=== PATIENT | male | born 1940 | race Caucasian/White ===

== ENCOUNTER → 2017-02-28 | Outpatient (CLI) | payer MEDICARE, MEDICAID ==
[~2017-02-28] MED LIST: ASPIR 8181 MG PO; ATORVASTATIN CA40 MG PO; AUGMENTIN 875-1 EACH PO; CARVEDILOL 1212.5 MG PO; CARVEDILOL6.25 M1 PO; DICLOFENAC SODI75 M4 PO; DULOXETINE30 M1 PO; DULOXETINE60 MG PO; INSULIN SYRING1 EA28 MC; JANUVIA100 MG PO; LEVEMIR FLEX100 U/ML SC; LEVEMIR100 U/ML SC; METFORMIN500 MG PO; MUPIROCIN 2% O1 INC1 TP; NEURONTIN800 MG PO; PERCOCET 325 MG1 TA4 PO; PLAVIX 75MG TAB75 MG PO; ROBAXIN500 M1 PO; ROPINIROLE HYDRO1 MG PO; TRAMADOL 50MG T1 PAK PO; TRAMADOL50 M1 PO; XARELTO10 MG PO; XARELTO20 MG PO
--- NOTE | 2017-02-28 15:57 | RADIOLOGY REPORT PS360 ---
ANKLE-LT-3 VIEWS HISTORY: Follow-up fracture LEFT ANKLE FX ORDERING PHYSICIAN: JULIO RUBIO MD PATIENT AGE: 77 years COMPARISON: 02/19/2017 FINDINGS: EXAM is obtained through a cast. The oblique fracture of the distal fibula is once again noted in the oblique fracture of the base of the medial malleolus also with again noted. These fracture lines are somewhat less distinct and may be related to early healing. No significant callus formation. There does remain in good alignment. There is minimal distraction of the distal medial malleolus fracture fragment as before] minimal lateral displacement of the distal fibular fracture fragment as before. There may be a nondisplaced fracture of the posterior distal tibia as well. IMPRESSION: Healing fractures of the distal fibula and medial malleolus as described above
== END ==
LOC: RAD 15:25
DX: M25.572 Pain in left ankle and joints of left foot (principal)

== ENCOUNTER → 2017-03-07 | Outpatient (CLI) | payer MEDICARE, MEDICAID ==
--- NOTE | 2017-03-07 14:39 | RADIOLOGY REPORT PS360 ---
ANKLE-LT-3 VIEWS HISTORY: Follow-up left ankle fracture F/U FX LT ANKLE ORDERING PHYSICIAN: JULIO RUBIO MD PATIENT AGE: 77 years COMPARISON: None FINDINGS: Study is obtained through cast. There is an oblique fracture of the distal fibula. The fracture line is less distinct. There is minimal lateral displacement of the distal fracture fragment. Healing oblique fracture is present at the base of the medial malleolus with the fracture line somewhat less distinct. There remains good alignment of the fracture fragments. IMPRESSION: Healing distal fibular and medial malleolus fractures
== END ==
LOC: RAD 13:58
DX: S82.842A Displaced bimalleolar fracture of left lower leg, initial encounter for closed fracture (principal)

== ENCOUNTER 2017-04-02 12:29 | Emergency (ER) | payer MEDICARE, MEDICAID ==
[~2017-04-02] VITALS: Ht 188 cm; Wt 90.7 kg
--- NOTE | 2017-04-02 12:46 | Emergency Room Report ---
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 N Clinical Suspician of Infection? N Mental Status: 1 - Regular (Normal Baseline) Sepsis Risk:Low Sepsis Risk Have you (or family members/close friends) recently traveled outside the [place]? N If Yes, where/when: Have you had exposure to infectious disease within the past month? N TB? Other? Specify: Patient with hx DM, hx PVD, so cast removed by orthopedic surgeon due to some "rubbing" of the epidermis from the cast. He subsequently removed the boot, and reinjured his ankle six days ago. C/O localized pain and won't wear any splint whatsoever. Already on ABX. Baseline peripheral neuropathy. Baseline unable to move toes. ALLERGIES Coded Allergies: Iodinated Contrast Media - Oral and (Iodinated Contrast Media - IV Dye) (Mild, 11/03/16) hydrocodone (11/03/16) Home Medications Active Scripts OXYCODONE HCL/ACETAMINOPHEN (Percocet 7.5-325 MG Tablet) 1-2 TAB PO Q6HP PRN MODERATE TO SEVERE PAIN #40 TAB Prov: 02/21/17 Reported Medications Rivaroxaban (Xarelto) 20 MG PO DAILY Carvedilol (Carvedilol 12.5MG) 12.5 MG PO QHS #30 TAB Carvedilol 9.375 MG PO DAILY DULOXETINE HCL (Duloxetine) 60 MG PO BID Insulin Detemir (Levemir Flextouch) 40 UNITS SC QAM Insulin Detemir (Levemir Flextouch) 35 UNITS SC QPM Diclofenac Sodium (Diclofenac Sodium Dr) 75 MG PO BID Aspirin (Aspirin EC 81MG Tab) 81 MG PO DAILY Atorvastatin Calcium 40 MG PO #30 ROPINIROLE HCL (Ropinirole 1MG) 1 MG PO QHS History Medical History General CAD? Yes Angina: No IA: No Hypertension? No Hyperlipidemia? No CHF? No DVT? Yes PE? No COPD? Yes Asthma? No Anemia? No GERD? No Gastric ulcers? No GI Bleed? No Hernia? No Thyroid Problems? No Hypothyroidism? No CVA? No Seizures? No Diabetes? Yes Insulin Dependent: No Insulin Pump: No Home FSBS? Yes Renal Insuffiency? No End Stage Renal Disease? No UTI? No Stones? No GB Disease: No Nephritic Syndrome? No Asplenia? No Hepatitis? No Sickle Cell Disease? No Arthritis? Yes Migraines? No Cataracts? Yes Glaucoma? No MRSA? No HIV? No TB? No Anxiety? No Depression? No Cancer? No More? 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 Hx DT/Tetanus Unknown Flu Refused Pneumonia Refuses Surgical Hx Previous Surgery?Y BACK SURGERY ESOPHAGUS SURGERY R LEG Family History Family Hx Diabetes No CAD No Hypertension No Hyperlipidemia Yes Cancer No TB No Social History Smoking Hx Smoker: Current Every Day Smoker Tobacco: Yes Type Cigarettes Packs/day 1 1/2 - 2 Packs Alcohol Alcohol: Yes Review of Systems All Other Systems Reviewed and Negative Musculoskeletal see HPI Skin see HPI Physical Exam Vital Signs Vital Signs Date Time Temp Pulse Resp B/P Pulse O2 O2 Flow FiO2 Ox Delivery Rate 04/02 1329 98.5 64 16 154/74 98 04/02 1232 98.5 71 16 98 General Appearance normal appearance, WD/WN, no apparent distress Eye Exam - bilateral eye normal exam, bilateral eye PERRL Neck supple, full range of motion Respiratory Status Yes: trachea midline. No: respiratory distress. Cardiovascular normal peripheral pulses Extremities Epidermal breakdown, medial malleolus on left w/o drainage or streaks, with sterile dressing placed by RN; localized point tenderness medial malleolus with pain limiting ROM to ankle, baseline peripheral neuropathy, baseline unable to move toes. Toes warm and well perfused. Neurologic alert, normal exam (peripheral neuropathy) Skin intact (see above: no streaks) Medical Decision Making LABS/Meds/Orders Pt receiving controlled substance in ED? No Results/Orders Orders Procedure Date/time Status FOOT-LT-3 VIEWS 04/02 1238 Active ANKLE-LT-3 VIEWS 04/02 1238 Active XRAY/CT/US XRAY/CT/US XR interpretation by reviewed by me Xray Results tib/fib fx noted previously with distal avulsion of tibia noted to be more prominent. Progress ED Progress Notes Date 04/02/17 Time 1355 Comment Patient agreed to wear posterior splint. Posterior splint placed by MD with n/v intact s/p placement to L tib-fib. Departure Departure Time of Disposition 1355 Disposition DC Home or Self Care(routine) Clinical Impression Primary Impression: Tibia/fibula fracture Qualifiers: Encounter type: subsequent encounter Fracture type: closed Laterality: left Fracture healing: with delayed healing Qualified Code: S82.202G - Unspecified fracture of shaft of left tibia, subsequent encounter for closed fracture with delayed healing Condition STABLE Referrals Theodore Dowd MD Patient Instructions Shinbone Fracture Additional Instructions use walker so NO weight bearing; keep splint in place; continue antibiotics; change dressing daily and watch for infection; call Dr. Dowd's office for follow up appointment in 24 hours; recommend low dose Ibuprofen or Tylenol. Discharge Counseling Counseled pt/family regarding diagnosis, test results, medications/RX, home care, follow up needs ED Critical Care Critical Care No at 1354
--- OUTSIDE RECORDS SUMMARY | 2017-04-02 12:51 | External Medical Summary Rpt ---
Author Author , Organization [employer] Address Unknown Phone Unavailable Care Team Providers Care Imagery Analyst Name Role Phone [facility], Unavailable Unavailable [facility], Unavailable Unavailable [facility] Unavailable Unavailable [facility], [facility] GABRIEL, KEKE, GABRIEL, Unavailable Unavailable KEKE ARAIZA MD, PSC, Unavailable Unavailable HIMANSHU ARAIZA MD, PSC [facility], Unavailable Unavailable [facility] EVELYN NEGRETE, ZACARIAS Austin, Unavailable Unavailable ZACARIAS RIVAS MD, Unavailable Unavailable MPushpa.P.S.CRuth, TIM PAYTON M.D.P.S.CEZIO DONAHUE, Unavailable Unavailable EZIO D[facility]ONT [facility] Unavailable Unavailable [facility] CRYSTAL ROJAS Unavailable Unavailable DEVON JOSE ROBERTO, Unavailable Unavailable DEVON JOSE ROBERTO GUPTA, GUPTA Unavailable Unavailable GUPTA ALL, GUPTA ALL Unavailable Unavailable KVNG MENDES, Unavailable Unavailable KVNG MENDES BRADLEY Unavailable Unavailable MAXIM ALDANA BRANN, Unavailable Unavailable MAXIM BRIGGS CAR, BRIGGS Unavailable Unavailable CAR BUX ANJ, BUX ANJ Unavailable Unavailable [facility] Unavailable Unavailable RE[facility]ILITATION, [facility] Unavailable Unavailable SERVICES [facility] Unavailable Unavailable SERVICES [facility] ACEVES JOHN, Unavailable Unavailable ACEVES JOHN ACEVES JOHN, Unavailable Unavailable ACEVES JOHN [facility], Unavailable Unavailable [facility]-, Unavailable Unavailable [facility] Unavailable Unavailable SPECIALIST, [facility] DIRECTOR OF MEDICAL REVIEW [facility], Unavailable Unavailable [facility] CHESTNUT, CHESTNUT Unavailable Unavailable [facility] Unavailable Unavailable [facility] Unavailable Unavailable [facility] NEEMA, [facility] KEKE MOODY CLARK, Unavailable Unavailable KEKE Ko [facility], Unavailable Unavailable [facility] Unavailable Unavailable [facility] Unavailable Unavailable AND [facility], [facility] Unavailable Unavailable CLINIC, PLL, [facility] KRISTIAN II THO, KRISTIAN II Unavailable Unavailable THO DELOMAS MAR, DELOMAS Unavailable Unavailable MAR AVENDAÑO KAYLAH, AVENDAÑO KAYLAH Unavailable Unavailable DUFF MARIZA, DUFF MARIZA Unavailable Unavailable JIMENEZ, G T, JIMENEZ, G Unavailable Unavailable T ENDEAN, ENDEAN Unavailable Unavailable ENDEAN MIRIAN, ENDEAN Unavailable Unavailable MIRIAN ROSA FOSTER Unavailable Unavailable VALENTÍN MEJIA, ROBERTO GILBERT, Unavailable Unavailable CHAY Lloyd [facility], Unavailable Unavailable [facility] SUKI JR OMEGA, SUKI Unavailable Unavailable JR OMEGA JR TAVERAS FULLER, Unavailable Unavailable JR CONCEPCION JOHN, CONCEPCION Unavailable Unavailable JOHN [facility] Unavailable Unavailable [facility], [facility] Unavailable Unavailable [facility]ICAL, [facility] DAVID, DAVID Unavailable Unavailable DAVID RHO, DAVID Unavailable Unavailable RHO HENRY TAPIA, Unavailable Unavailable HENRY TAPIA HARPER Unavailable Unavailable GRAHAM STEVEN, Unavailable Unavailable GRAHAM STEVEN [facility] Unavailable Unavailable INC, [facility] EVANGELIST WARD, Unavailable Unavailable EVANGELIST WARD JR, HAROLD R, Unavailable Unavailable MARNIE ROCHA JR [facility], Unavailable Unavailable [facility] LIANG BISHOP, Unavailable Unavailable LIANG BISHOP OMEGA, DARLIN OMEGA Unavailable Unavailable [facility], Unavailable [facility]available [facility] JOSE II PENNY, JOSE Unavailable Unavailable II PENNY KEELY, HEAVENLY, KEELY, Unavailable Unavailable HEAVENLY ELIA TAU, ELIA Unavailable Unavailable TAU ELIA, TAUFIK, Unavailable Unavailable ELIA, TAUFIK [facility] Unavailable Unavailable PHARMACY, [facility] Unavailable Unavailable PHARMACY, [facility] Unavailable Unavailable IM[facility]ING [facility], [facility] KOSTELIC CESILIA, Unavailable Unavailable [facility] BARBARA [facility], [facility] Unavailable Unavailable BARBARA, C S, BARBARA, C S Unavailable [facility]available [facility] Un[facility] Unavailable Unavailable [facility] Unavailable Unavailable HOLDINGS, [facility], Unavailable Unavailable [facility] BAIRD JAZMINE, BAIRD JAZMINE Unavailable Unavailable [facility] Un[facility] Un[facility] Unavailable Unavailable LABORATORY, [facility] ANNE MARIE SOILA, ANNE MARIE Unavailable Unavailable SOILA TANNER ARAIZA MD, TANNER Unavailable Unavailable JOSE G SANDERSON MD Unavailable Unavailable [facility], MICHI SANDERSON MD [facility] Unavailable Unavailable SERVICES, [facility] Unavailable Unavailable AMBULANCE, [facility] MARYBETH, Unavailable Unavailable ÁLVAREZ MARYBETH [facility] Unavailable Unavailable [facility], [facility], Unavailable Unavailable LLC, [facility] KWASI HA, Unavailable Unavailable KWASI HA MILLER Unavailable Unavailable KYL [facility], Unavailable Unavailable [facility] Unavailable Unavailable AMBULANCE SERVICE, [facility] DENNY, BALDWIN Unavailable Unavailable CORNELIO EDW, CORNELIO Unavailable Unavailable [facility] Unavailable Unavailable [facility], [facility] Unavailable Unavailable AMBULANCE SE, [facility] Unavailable Unavailable AMBULANCE SE, [facility] RINALDI KAYKAY, RINALDI KAYKAY Unavailable Unavailable JOSE JOSE ROBERTO, JOSE JOSE ROBERTO Unavailable Unavailable [facility], Unavailable Unavailable PLL, [facility], [facility], Unavailable Unavailable [facility]available Unavailable [facility] PICKLESIMER JR, LEATHA Unavailable Unavailable L, PICKROWENAIMER JR, LEATHA L MURRAY, LIANG A, Unavailable Unavailable MURRAY, LIANG A BRANDY, JOSPEH F, Unavailable Unavailable BRANDY, JOSPEH F [facility] Unavailable Unavailable [facility] RUBIO, RUBIO Unavailable Unavailable REKHRAJ HALINA, REKHRAJ Unavailable Unavailable HALINA PARUL, JARED, PARUL, Unavailable Unavailable JARED CARRERA, Unavailable Unavailable ALLIE PIÑA C, WANG C Unavailable Unavailable Arnold PIÑA N, WANG C Unavailable Unavailable N SHAHIDA MARTINEZ Unavailable Unavailable ANT SHAHIDA, MARIANELA G, Unavailable Unavailable MARIANELA PINEDO [facility], [facility]S Unavailable Unavailable SURGICAL [facility], ROSS Unavailable Unavailable SURGICAL [facility] Unavailable Unavailable [facility], [facility] ELI MILLY, ELI Unavailable Unavailable MILLY SCALF GUTIERREZ, SCALF GUTIERREZ Unavailable Unavailable SCHLEENBAKAPIL RAN, Unavailable Unavailable SCHLEENBAGlenn BAKER, Unavailable Unavailable Glenn GARCIA [facility] Unavailable Unavailable [facility], [facility] Unavailable Unavailable EMERGENCY SERVI, [facility], [facility]available Unavailable [facility] Unavailable Unavailable RADIOLOG, [facility]OLOG [facility] Unavailable Unavailable [facility] SIXTO COUGHLIN, Unavailable Unavailable SIXTO COUGHLIN [facility] Unavailable Unavailable SOLUTIONS IN, [facility] STILES NAN, STILES Unavailable Unavailable NAN VILLARREAL ALICIA, VILLARREAL ALICIA Unavailable Unavailable [facility], Unavailable Unavailable WORAWUTE, SUPAONGPRAPA, WORAWUTE FREDO, FREDO Unavailable Unavailable FREDO JEANNIE, FREDO JEANNIE Unavailable Unavailable MALA RAY, MALA Unavailable Unavailable RAY GUADALUPE MOL, GUADALUPE MOL Unavailable Unavailable [facility] Unavailable Unavailable HOSPIT[facility], [facility], Unavailable Unavailable [facility] Unavailable Unavailable [employer] [employer] [facility] Unavailable Unavailable [facility] [facility] JACK DAWKINS, JACK Unavailable Unavailable JR MARIZA YOUNG, SHARAD, Unavailable Unavailable SHARAD YOUNG PHILLIP L, Unavailable Unavailable LILY SMART CHARLES IV ALL, Unavailable Unavailable CHARLES IV ALL ADRIAN GRE, ADRIAN Unavailable Unavailable GRE RODNEY GIN, RONDEY Unavailable Unavailable GIN BISHOP JAZMINE, Unavailable Unavailable BISHOP JAZMINE MARSHAL JOHN, MARSHAL Unavailable Unavailable JOHN JOSE MAT, JOSE MAT Unavailable Unavailable Purpose Continuity of Care Document - 10-17-2007 through 2016 Problems Code Diagnosis DOS Provider Status E1151 TYPE 2 DM 02-28-2017 [facility] W/DIAB PHYSICIANS PERIPH GROUP ANGIOPATHY W/O GANGRENE I739 PERIPHERAL 02-28-2017 [facility] VASCULAR PHYSICIANS DISEASE GROUP UNSPECIFIED M1991 PRIMARY 02-28-2017 [facility] OSTEOARTHRI SURGICAL TIS UNSPECIFIED SITE O31369 PAIN IN 02-28-2017 [facility] LEFT ANKLE [facility] [id number] DSPL OBL FX 02-28-2017 [facility] MEDICAL FIBULA IMAGING ASS SUBSQT CLOS FX RTN [id number] DSPL FX MED 02-28-2017 [facility] MALLEOLUS MEDICAL LT TIBIA IMAGING ASS SUBS CLOS FX RTN [id number] DISPL 02-28-2017 [facility] BIMALLEOLAR PHYSICIANS FX LT LOW GROUP LEG INIT CLOSED FX Z720 TOBACCO USE 02-28-2017 [facility] PHYSICIANS GROUP M7989 OTHER 02-19-2017 [facility] SPECIFIED MEDICAL SOFT TISSUE IMAGING ASS DISORDERS [id number] DISPL 02-19-2017 ANDI BIMALLEOL MEDICAL FX LT LOW IMAGING ASS LEG SUBS CLOS RTN HEAL M17823 ENCOUNTER 02-19-2017 [facility] FOR OTHER MEDICAL PREPROCEDUR IMAGING ASS AL EXAMINATION T80335 OTHER 02-19-2017 [place] SPECIFIED MEDICAL POSTPROCEDU IMAGING ASS RAL STATES X57109 UNS 02-09-2017 [facility] [place] RESERVATION ART HOSPITALS EXTREM UNS EXTREMITY I771 STRICTURE 02-09-2017 [facility] OF ARTERY SERV FOUNDATION K229 DISEASE OF 02-09-2017 [facility] UNSPECIFIED HOSPITALS R590 LOCALIZED 02-09-2017 [facility] LYMPH NODES HOSPITALS X16024P STENOSIS 02-09-2017 [facility] DEVC IMPL HOSPITALS & GRAFT INIT ENC E1165 TYPE 2 02-05-2017 [facility] VINAY MELLITUS HOLDINGS WITH HYPERGLYCEM IA E1140 TYPE 2 DM 01-29-2017 [facility] WITH SURGICAL DIABETIC NEUROPATHY UNSPECIFIED E782 MIXED 01-24-2017 [facility] HYPERLIPIDE HEALTH SHARON SOLUTIONS IN N35664 VARICOS VNS 01-24-2017 [facility] RT LW EXT HEALTH ULCER OTH SOLUTIONS PART LE & IN INFLAM B25864 VARICOS VNS 01-24-2017 [facility] LT LW EXT HEALTH ULCER OTH SOLUTIONS PART LE & IN INFLAM C96153 VARICOSE 12-20-2016 [facility] VEINS RT SERV LOWER FOUNDATION EXTREM W/ULCER UNS SITE I96 GANGRENE 12-20-2016 [facility] NOT SERV ELSEWHERE FOUNDATION CLASSIFIED S54851 TYPE 2 11-30-2016 [facility] DIABETES SERV MELLITUS FOUNDATION WITH FOOT ULCER J92107 NON-PRSS 11-30-2016 [facility] CHRN ULCR SERV OTH PART RT FOUNDATION FT W/UNS SEVERITY K5641 FECAL 11-11-2016 [facility] IMPACTION N EMERGENCY PHYS M549 DORSALGIA 11-11-2016 [facility] UNSPECIFIED COUNTY AMBULANCE SE R1084 GENERALIZED 11-11-2016 [facility] ABDOMINAL [facility] PAIN AMBULANCE SE R109 UNSPECIFIED 11-07-2016 [facility] PAIN E119 TYPE 2 11-03-2016 [facility] DIABETES [facility] MELLITUS INC WITHOUT COMPLICATIO NS J449 CHRONIC 11-03-2016 [facility] OBSTRUCTIVE [facility] PULMONARY INC DISEASE UNS C12311 PAIN IN 11-03-2016 [place] RIGHT HIP MEDICAL IMAGING ASS M545 LOW BACK 11-03-2016 [place] PAIN MEDICAL IMAGING ASS R8299 OTHER 11-03-2016 [facility] ABNORMAL [facility]OS[facility] FINDINGS IN INC URINE X630CSP SPRAIN 11-03-2016 [facility]IANS, LUMBAR PLLC SPINE INITIAL ENCOUNTER H9875UB CONTUSION 11-03-2016 [facility] OF RIGHT PHYSICIANS, HIP INITIAL PLLC ENCOUNTER Z794 EARLY CHILDHOOD EDUCATION COORDINATOR 11-03-2016 [facility] CURRENT USE MEM HOS[facility] OF INSULIN INC J63546 CELLULITIS 08-04-2016 [place] OF RIGHT MEDICAL LOWER LIMB IMAGING ASS C12708 CELLULITIS 08-04-2016 [place] OF LEFT MEDICAL LOWER LIMB IMAGING ASS U23705 PAIN IN 08-03-2016 [place] RIGHT LOWER MEDICAL LEG IMAGING ASS K32281 PAIN IN 08-03-2016 [place] LEFT LOWER MEDICAL LEG IMAGING ASS G629 POLYNEUROPA 08-02-2016 [facility] THY PHYSICIANS, UNSPECIFIED PLLC I2510 ASHD [place] RESERVATION 08-02-2016 [facility] 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 E785 HYPERLIPIDE 06-16-2016 [facility] UNSPECIFIED KAI I10 ESSENTIAL 06-16-2016 [facility] PRIMARY MOUNT HYPERTENSIO KAI N M542 CERVICALGIA 06-16-2016 [facility] R918 OTHER 06-16-2016 [facility] [place] NONSPECIFIC RADIOLOGY ABNORMAL FINDING OF LUNG FIELD L253FSL OTHER 06-16-2016 [facility] [place] SPECIFIED RADIOLOGY INJURIES HEAD INITIAL ENCOUNTER H59667Y CONTUSION 06-16-2016 [facility] LEFT FRONT MOUNT WALL THORAX KAI INITIAL ENC H306FYQ FALL SAME 06-16-2016 [facility] LEVL SLIP N EMERGENCY TRIP W/O SERVI SUB STRIK OBJ INIT Z880 ALLERGY 06-16-2016 [facility] STATUS TO MOUNT PENICILLIN KAI Z885 ALLERGY 06-16-2016 [facility] STATUS TO MOUNT NARCOTIC KAI AGENT STATUS E1121 TYPE 2 05-23-2016 [facility] DIABETES VINAY MELLITUS HOLDINGS W/DIABETIC NEPHROPATHY M5000 CERVICAL 04-28-2016 [facility] DISC D/O N EMERGENCY W/MYELOPATH PHYS Y UNS CERV REGION K003TTJ UNSPECIFIED 04-28-2016 [facility] INJURY OF RADIOLOGY NECK INITIAL ENCOUNTER M98QRXU UNSPECIFIED 04-28-2016 [place] [place] DISCOUNT INITIAL MEDICAL ENCOUNTER L089 LOCAL INF 02-24-2016 [facility] THE SKIN & SERV SUBCUTANEOU FOUNDATION S TISSUE UNS I998 OTHER 02-23-2016 [facility] CIRCULATORY SYSTEM K56654 PAIN IN 02-23-2016 [facility] RIGHT ANKLE [facility] Z7901 EARLY CHILDHOOD EDUCATION COORDINATOR 02-23-2016 [facility] CURRENT USE [facility] NTS Z7982 SKILLED NURSING 02-23-2016 [facility] K09733 PERSONAL 02-23-2016 [facility] E[facility] W57934 ATHEROSCL 02-07-2016 [facility] VEIN [facility] BP GRAFT RT LEG ULCER ANKLE I7789 OTHER 02-07-2016 [facility] DISORDERS ARTERIES & ARTERIOLES P57967 NON-PRESSUR 02-07-2016 [facility] ULCER RT ANK W/UNS SEVERITY E03137 OTH 01-13-2016 [facility] [place] RESERVATION ART SOLUTIONS EXTREM IN BILATERAL LEGS G3184 MILD 01-05-2016 [facility] COGNITIVE SERV IMPAIRMENT FOUNDATION SO STATED B11231 NON-PRSS 01-05-2016 PATIENT CHR ULCR AIDS INC OTH PART LT LW LEG UNS SEVERTY R2681 UNSTEADINES 01-05-2016 [facility] S ON FEET SERV FOUNDATION R5381 OTHER 01-05-2016 [facility] MALAISE SERV FOUNDATION D56956 ENCOUNTER 01-05-2016 PATIENT SURG AIDS INC AFTERCARE FOLLOW SURGERY CIRC SYS E109 TYPE 1 01-04-2016 [place] [facility] MELLITUS PHARMACY WITHOUT COMPLICATIO NS R2241 LOCALIZED 12-23-2015 [facility] [place] [facility]ING RADIOLOGY MASS & LUMP RIGHT LOWER LIMB Z0289 ENCOUNTER 12-23-2015 [facility] [place] FOR OTHER RADIOLOGY ADMINISTRAT KRISTIAN EXAMINATION S B965 PSEUDOMONAS 12-22-2015 [facility]AB[facility] CLASSIFIED ION ELSEWHERE I951 ORTHOSTATIC 12-22-2015 [facility] HYPOTENSION REHABILITAT ION I617NDV INFECTION 12-22-2015 [facility] PROCEDURE REHABILITAT INITIAL ION ENCOUNTER I743 EMBOLISM & 12-16-2015 [facility] THROMBOSIS SERV ART THE FOUNDATION LOWER EXTREMITIES I348 OTHER 12-15-2015 [facility] NONRHEUMATI SERV C MITRAL FOUNDATION VALVE DISORDERS R9431 ABNORMAL 12-15-2015 [facility] ELECTROCARD SERV IOGRAM FOUNDATION S33058 ACUTE 12-13-2015 [facility] EMBOLISM & SERV THROMBOSIS FOUNDATION LEFT POPLITEAL VEIN E1142 TYPE 2 12-08-2015 [facility] MELLITUS W/DIAB POLYNEUROPA THY Z14920 UNS 12-08-2015 [facility] [place] RESERVATION ART EXTREM BILATERAL LEGS I7092 CHRONIC 12-08-2015 [facility] OCCLUSION ARTERY THE EXTREMITIES U72790 PRIMARY 12-08-2015 [facility] OSTEOARTHRI SERV TIS RIGHT FOUNDATION ANKLE AND FOOT R600 LOCALIZED 12-08-2015 [facility] EDEMA SERV FOUNDATION M150 PRIMARY 10-22-2015 [facility] GENERALIZED HEALTH SOLUTIONS OSTEOARTHRI IN TIS M5116 INTERVERTEB 08-24-2015 JANETTE TORRES MD, PSC D/O W/RADICULOP ATHY LUMB RGN M961 POSTLAMINEC 08-24-2015 JEROME TORRES MD, PSC SYNDROME NEC M5417 RADICULOPAT 07-23-2015 [facility] HOSP LUMBOSACRAL INC REGION 6826 CELLULITIS 07-09-2015 [facility] AND ABSCESS HEALTH OF LEG SOLUTIONS EXCEPT FOOT IN 7231 CERVICALGIA 06-23-2015 [facility] HEALTH SOLUTIONS IN 7218 OTHER 06-18-2015 [facility] ALLIED MOUNT DISORDERS KAI OF SPINE 7220 DISPLCMT 06-18-2015 [facility] CERV MOUNT INTERVERT KAI DISC WITHOUT MYELOPATHY 04780 OTHER&UNSPE 06-18-2015 [facility] CIFIED DISC MOUNT DISORDER KAI CERVICAL REGION 82615 DIAB W/O 06-08-2015 [facility] COMP TYPE HEALTH II/UNS NOT SOLUTIONS STATED IN UNCNTRL 7295 PAIN IN 06-08-2015 KAI SOFT [place] [address] OTHER 06-04-2015 [facility] CHRONIC MOUNT PAIN KAI 74828 SPASM OF 06-04-2015 [facility] MUSCLE MOUNT KAI V145 PERSONAL 06-04-2015 [facility] HISTORY OF MOUNT ALLERGY TO KAI NARCOTIC AGENT V5869 LONG-TERM 06-04-2015 [facility] (CURRENT) MOUNT USE OF KAI OTHER MEDICATIONS 3688 OTHER 05-21-2015 [place] SPECIFIED MEDICAL VISUAL IMAGING ASS DISTURBANCE S 7804 DIZZINESS 05-21-2015 [place] AND MEDICAL GIDDINESS IMAGING ASS 26635 MEMORY LOSS 05-21-2015 [facility] 7812 ABNORMALITY 05-21-2015 [facility] OF [facility] INC 7840 HEADACHE 05-21-2015 [facility] [place] [facility] V7283 OTHER 05-21-2015 [facility] SPECIFIED MEM HOSP PRE-OPERATI INC VE EXAMINATION 2392 NEOPLASMS 04-26-2015 [facility] UNSPEC HEALTH NATURE BONE SOLUTIONS SOFT IN TISSUE&SKIN 20329 LOSS OF 04-26-2015 [place] [address] POSTLAMINEC 04-16-2015 TANNER CANO MD SYNDROME LUMBAR REGION 7244 THORACIC/NIVIA 04-16-2015 TANNER HENDRICKS MD NEURITIS/RA DICULITIS UNSPEC 5110 PLEURISY 03-15-2015 [facility] WITHOUT MOUNT MENTION KAI EFFUS/[place] [address] OTHER 03-15-2015 [facility] DISEASES OF MOUNT LUNG NOT KAI ELSEWHERE CLASSIFIED 5533 DIAPHRAGMAT 03-15-2015 JHONNY GARY W/O MOUNT MENTION KAI OBSTRUCTION /GANGREN 46283 DIVERTICULO 03-15-2015 [facility] SIS OF MOUNT COLON KAI 5920 CALCULUS OF 03-15-2015 [facility] KIDNEY MOUNT KAI 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[facility] 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 & OTH LUTS 2722 MIXED 03-11-2015 [facility] HYPERLIPIDE HEALTH SHARON SOLUTIONS IN 4011 ESSENTIAL 03-11-2015 [facility] HYPERTENSIO HEALTH N, BENIGN SOLUTIONS IN 496 CHRONIC 03-11-2015 K[facility] [place] [address] DIAB 02-26-2015 [facility] W/NEURO HEALTH MANIFESTS SOLUTIONS TYPE II/UNS IN NOT UNCNTRL 92035 GENERALIZED 02-26-2015 [place] [address] NOCTURIA 01-19-2015 [facility] PSC 84610 ELEVATED 01-19-2015 [facility] PSC ANTIGEN 22003 OTHER 01-14-2015 [facility] SPECIFIED [place]OUNT DISORDER OF KAI THE ESOPHAGUS 7856 ENLARGEMENT 01-14-2015 ST JHONNY OF LYMPH M[place] NODES KAI 99608 SHORTNESS 01-14-2015 [facility] [place] OF BREATH RADIOLOGY 9953 ALLERGY 01-14-2015 [facility] UNSPECIFIED N EMERGENCY NOT SERVI ELSEWHERE CLASSIFIED 08588 CHEST PAIN 01-06-2015 [facility] [place] UNSPECIFIED RADIOLOGY 9221 CONTUSION 01-06-2015 [facility] OF CHEST N EMERGENCY WALL PHYS E8888 OTHER FALL 01-06-2015 [facility] N EMERGENCY PHYS 2391 NEOPLASM 12-09-2014 [facility] RESPIRATORY SYSTEM 486 PNEUMONIA, 12-09-2014 [facility] PSC 25678 SLOWING OF 12-09-2014 [facility] STREAM [facility] PSC 7245 UNSPECIFIED 11-24-2014 [facility] BACKACHE [facility] KAI 6071 BALANOPOSTH 11-19-2014 NEW ITIS [facility] PSC 85914 INCOMPLETE 11-19-2014 NEW BLADDER [place] [facility] 66752 ABDOMINAL 11-19-2014 NEW PAIN, [facility] UNSPECIFIED [facility]INIC [facility] SITE V7644 SPECIAL 11-19-2014 [facility] SCRE[facility] MALIGNANT LABORATO NEOPLASM OF PROSTATE 00675 CONDUCTIVE 10-30-2014 [facility] HEARING HEALTH LOSS, [place] [address] OTHER 10-30-2014 [facility] [place] NONSPECIFIC RADIOLOGY ABNORMAL FINDING OF LUNG FIELD 3319 UNSPECIFIED 10-05-2014 [facility] CEREBRAL [facility] DEGENERATIO KAI N 68296 URGENCY OF 10-02-2014 [place] [address] DIAB W/O 04-28-2014 [facility] MENTION [facility] COMP TYPE KAI II/UNS TYPE UNCNTRL 61655 UNSPECIFIED 02-20-2014 [facility] ARTHROPATHY SERVICES SITE INC UNSPECIFIED 57246 PAIN IN 12-03-2013 [facility] [place] JOINT, RADIOLOGY ANKLE AND FOOT 78509 UNSPECIFIED 12-03-2013 [facility] SITE OF [facility] ANKLE KAI SPRAIN AND STRAIN [id number] OVEREXERTIO 12-03-2013 [facility] SUDDEN PHYS STRENUOUS MOVEMENT 80187 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 [facility] LUMBAR/LUMB KIN [facility] INTERVERTEB RAL DISC 3000 ANXIETY 10-10-2013 [facility] [place] JOHN 3384 CHRONIC 10-10-2013 [facility] JOHN SYNDROME 14400 EFFUSION OF 04-21-2013 [facility] LOWER [facility] JOINT KAI 56723 SYNOVIAL 04-21-2013 [facility] CYST OF [facility] POPLITEAL KAI SPACE 8441 SPRAIN AND 04-21-2013 [facility] [place] STRAIN OF RADIOLOGY MCL OF KNEE 8442 SPRAIN AND 04-21-2013 [facility] STRAIN OF [facility] CRUCIATE KAI LIGAMENT OF KNEE 5990 URINARY 04-15-2013 [facility] S[facility] NOT CENTE SPECIFIED 21987 PAIN IN 03-29-2013 [facility], EMERGENCY LOWER LEG SERVICES 60928 GENERALIZED 01-30-2013 [facility] OSTEOARTHRO REHA SIS UNSPECIFIED SITE 82968 PAIN IN 10-22-2012 [facility] [place]INT, RADIOLOGY SHOULDER REGION 28460 PAIN IN 10-22-2012 [facility] [place], RADIOLOGY UPPER ARM 5119 UNSPECIFIED 10-02-2012 [facility] PLEURAL RADIOLOGY EFFUSION 7242 LUMBAGO 07-26-2012 [facility] [place] RADIOLOGY 8472 LUMBAR 07-26-2012 [facility] SPRAIN AND N EMERGENCY STRAIN PHYS 9161 HIP THIGH 07-26-2012 [facility] LEG&ANK N EMERGENCY ABRASION/FR PHYS ICTION BURN INF 25751 CONTUSION 07-26-2012 [facility] [facility] 4540 VARICOSE 04-12-[address] [facility] VEINS OF LOWER EXTREMITIES WITH ULCER 6829 CELLULITIS 04-12-[address] [facility] AND ABSCESS OF UNSPECIFIED SITE 514 PULMONARY 02-05-2012 [facility]OLOG HYPOSTASIS 4439 UNSPECIFIED 01-24-[address] [facility] PERIPHERAL VASCULAR DISEASE 4019 UNSPECIFIED 01-22-2012 [facility] ESSENTIAL [facility] HYPERTENSIO KAI N 4280 CONGESTIVE 01-22-2012 [facility] HEART [facility] FAILURE KAI UNSPECIFIED V4582 POSTSURG 01-22-2012 [facility] PERCUT [facility] TRANSLUMINA KAI L COR ANGPLSTY STS 66506 UNSPECIFIED 11-29-2011 [facility] [place] [address] ULCER OF 11-29-2011 [facility] LOWER LIMB, DIRECTOR OF MEDICAL REVIEW UNSPECIFIED 21260 ATHEROSCLER 11-01-2011 [facility] [place] RESERVATION SURGICAL MANAGER BUSINESS SYSTEMS EXTREMITIES UNSPEC 7820 DISTURBANCE 11-01-2011 [facility] OF SKIN SURGICAL SENSATION SPECIALIST 3572 POLYNEUROPA 09-17-2011 [facility] DIABETES 04596 CORONARY 09-17-2011 [facility] [place] RESERVATION CORONARY ARTERY 6961 OTHER 09-17-2011 [facility] SIMILAR DISORDERS 7048 OTHER 09-17-2011 [facility] DISEASE OF HAIR&HAIR FOLLICLES 7213 LUMBOSACRAL 08-22-2011 [facility]IS [facility] WITHOUT MYELOPATHY 3558 UNSPECIFIED 06-27-2011 [facility] S OF LOWER LIMB 16100 RESTLESS 05-03-2011 TIM LEGS [facility], SYNDROME [facility] 7202 SACROILIITI 05-03-2011 TIM S NOT FITO, ELSEWHERE [facility] CLASSIFIED 7291 UNSPECIFIED 05-03-2011 TIM MYALGIA FITO, AND [facility] MYOSITIS 42575 OTHER 05-02-2011 [facility] SPECIFIED [facility] 7862 COUGH 02-06-2011 [facility] KAI 73389 COR 01-04-2011 [facility] ATHEROSLERO SURGICAL UNSPEC TYPE VESSEL [place] RESERVATION/DM T 25143 OSTEOARTHRO 01-04-2011 [facility] SIS UNSPEC MOUNT WHETHER KAI GEN/LOC LOWER LEG 55983 OTHER 01-04-2011 [facility] ENTHESOPATH [facility] Y OF [facility] KAI 05557 OTHER 01-04-2011 [facility] MALAISE AND SURGICAL FATIGUE 9597 INJURY 01-04-2011 [facility] [place] OTHER&UNSPE RADIOLOGY CIFIED KNEE LEG ANKLE&FOOT 7931 NONSPEC 12-06-2010 [facility] FIND RAD [facility] OT EXAM KAI BODY STRUCT LUNG FIELD V1269 PERSONAL 12-06-2010 [facility] HISTORY [facility] OTHER KAI DISEASES RESPIRATORY SYS 4293 CARDIOMEGAL 10-19-2010 [facility] KAI 4149 UNSPECIFIED 07-01-2010 [facility] CHRONIC [facility] ISCHEMIC CLINIC, [facility] HEART DISEASE V0481 NEED 07-01-2010 [facility] PROPHYLACTI FAMILY C CLINIC, [facility] VACCINATION &INOCULATIO N FLU 1122 CANDIDIASIS 04-07-2010 [facility] OF OTHER H UROLOGY UROGENITAL SITES 7887 URETHRAL 03-29-2010 [facility] DISCHARGE [facility] V5874 AFTERCARE 02-15-2010 [facility] FOLLOW RADIOLOGY SURGERY [place] 49074 NAUSEA 02-04-2010 [facility] ALONE [facility] 5180 PULMONARY 11-03-2009 [facility] [place] COLLAPSE RADIOLOGY 83249 DISPLCMT 10-26-2009 [facility] [place] LUMBAR RADIOLOGY INTERVERT DISC W/O MYELOPATHY 4010 ESSENTIAL 10-04-2009 [facility] HYPERTENSIO [employer] N, MALIGNANT 62882 SEPSIS 08-31-2009 [facility] 89585 INF&INFLAM 08-31-2009 [facility] DEVICE KAI [facility]PL[facility] 59669 TB LUNG 08-09-2009 [facility] W/CAVITATIO [facility] N EX [facility] 5109 EMPYEMA 08-09-2009 [facility] WITHOUT FITZPATRICK MENTION OF MDPSC FISTULA 58528 DYSPHAGIA 08-09-2009 [facility] ORAL PHASE [facility] HOSP 7948 NONSPECIFIC 08-09-2009 [facility] ABNORMAL FITZPATRICK RESULTS [facility] LIVR FUNCTION STUDY V1581 PERS HX 08-09-2009 [facility] NONCOMPLIAN FITZPATRICK CE W/MED TX MDPSC PRS HAZARDS HLTH 5306 DIVERTICULU 08-02-2009 [facility] M OF H ESOPHAGUS, GASTROENTER ACQUIRED OLOGY [facility] 30525 DYSPHAGIA 08-02-2009 [facility] UNSPECIFIED H GASTROENTER OLOGY [facility] 5121 IATROGENIC 07-28-2009 [facility] PNEUMOTHROA RADIOLOGY X ASSOC 5183 PULMONARY 07-28-2009 [facility] EOSINOPHILI RADIOLOGY A ASSOC 87884 DIARRHEA 07-28-2009 [facility] V5882 ENCOUNTER 07-28-2009 [facility] FITTING&ADJ RADIOLOGY ASSOC NON-VASCULA R CATHETER NEC 61890 ESOPHAGEAL 07-27-2009 [facility] REFLUX RADIOLOGY ASSOC V1003 PERSONAL 07-26-2009 [facility] HISTORY [facility] MALIGNANT HOSP NEOPLASM ESOPHAGUS V1201 PERSONAL 07-26-2009 [facility] HISTORY OF CONGREGATION TUBERCULOSI HOSP S 4578 OTHER 07-20-2009 [facility] CH[facility] V7284 UNSPECIFIED 07-20-[address] [facility] 4660 ACUTE 07-19-2009 [facility] 7905 OTHER 01-08-2008 [place] MEDICAL NONSPECIFIC SERV ABNORMAL FOUND[facility] SERUM ENZYME LEVELS 61665 WHEEZING 01-07-2008 [facility] AMBULANCE SERVICE 34570 OTHER CHEST 01-07-2008 [facility] AMBULANCE SERVICE 17802 NONSPECIFIC 12-25-2007 [place] [facility] ABNORMAL SERV ELECTROCARD FOUND[facility] IOGRAM 32998 HELICOBACTE 12-24-2007 [place] MEDICAL R PYLORI SERV INFECTION [facility] 2113 BENIGN 12-24-2007 [place] [facility] NEOPLASM OF SERV COLON [facility] 40886 GASTR ULCR 12-24-2007 [place] [facility] UNS SERV ACUT/CHRN [facility] W/O HEMOR PERF/OBST 41224 OTHER SPEC 12-24-2007 [place] [facility] GASTRITIS SERV WITHOUT FOUND[facility]IO MENTION HEMORRHAGE 5781 BLOOD IN 12-24-2007 [place] [facility] STOOL SERV [facility] 4928 OTHER 12-23-2007 [place] [facility] EMPHYSEMA SERV [facility] 5789 UNSPECIFIED 12-23-2007 [place] [facility] HEMORRHAGE SERV OF FOUNDATIO GASTROINTES TINAL TRACT 4139 OTHER AND 12-19-2007 [place] [facility] UNSPECIFIED SERV ANGINA FOUNDATIO PECTORIS 30250 OCCL&STENOS 12-19-2007 RADIOLOGY MX&BILAT PHYSICIANS PRECERBRL OF ART W/O [place] INFARCT PSC 18480 SPINAL 11-21-2007 [facility] UNSPEC [facility] THAN CERVICAL 74570 DIAB 10-17-2007 [facility]ALTH W/NEURO [facility] MANIFESTS [facility] TYPE I [facility]ARE[facility] [JUV] NOT UNCNTRL S82.293V OTH FRACTURE OF LEFT LOWER LEG, INIT FOR CLOS FX Allergies, Adverse Reactions, Alerts Clinical Alert Notifications Alert Diabetes: no eye exam in the last 365 days Diabetes: no influenza vaccine in the last 365 days Immunization Name Date Route CVX Reacti Commen Provid Is Given on t er Refuse d IIV3 ELIA No VACCIN 2009 TAU E SPLIT VIRUS 0.5 ML DOSAGE IM USE Procedures Procedure DOS Code Location Performer Comment STANDARD K0001 CHEN GOEL 7 SURGICAL SURGICAL R RADEX 00212 [place] ANKLE 7 MEDICAL COMPLETE IMAGING MINIMUM 3 ASS VIEWS RADEX 09418 [place] BEINEKE ANKLE 7 MEDICAL COMPLETE IMAGING MINIMUM 3 ASS VIEWS RADIOLOGI 04447 [place] C 7 MEDICAL EXAMINATI IMAGING ON CHEST ASS SINGLE VIEW FRONTAL LOCM Q9967 [facility] 300-399 7 HEALTHCAR HEALTHCAR MG/ML E E IODINE [facility] CONCENTRA TION PER ML CREATININ 47756 [place] E BLOOD 7 [facility]ALTH[facility] E E HOSPITALS HOSPITALS CTA ABDL 45044 [facility] AORTA&BI 7 HEALTHCAR HEALTHCAR ILIOFEM E E W/CONTRAS [facility] HOSPITALS T&POSTP FEDERALLY G0467 KAI KAI 7 FONU2 SOLUTIONS HEALTH IN IN CENTER VISIT ESTAB PT LIPID 44367 [facility] LAB BABAK PANEL 7 [facility] [facility] [employer] COMPREHEN 57613 [facility] LAB BABAK SIVE 7 [place] [facility] METABOLIC HOLDINGS HOLDINGS PANEL COLLECTIO 34503 LAB B[facility] LAB BABAK N VENOUS 7 [place] BLOOD HOLDINGS HOLDINGS VENIPUNCT URE FOR DIAB A5512 CHEN WEST MX 7 SURGICAL SURGICAL DNSITY INSRT DIR FORMD PRFAB EA DIAB ONLY A5500 CHEN SIDDIQUI FIT CSTM 7 SURGICAL SURGICAL PREP&SPL SHOE MX DNSITY INSRT STANDARD K0001 CHEN SÁNCHEZI 7 SURGICAL SURGICAL R COLLECTIO 35626 KAI FREDO N 7 HEALTH CAPILLARY SOLUTIONS BLOOD IN SPECIMEN FEDERALLY G0467 KAI KAI 7 HEALTH HEALTH QUALIFIED SOLUTIONS SOLUTIONS HEALTH IN IN CENTER VISIT ESTAB PT HEMOGLOBI 38312 KAI FREDO N 7 HEALTH GLYCOSYLA SOLUTIONS CISCO A1C IN STANDARD K0001 CHEN GOEL 7 SURGICAL SURGICAL R LANCETS A4259 ALL ALL PER BOX 7 [facility] COLOM[place]AN OF 100 MEDICAL MEDICAL BLD GLU A4253 ALL ALL TEST/REAG 7 [place] COLOM[place]AN T [facility] HOME BLD GLU MON-50 FEDERALLY G0467 KAI KAI 7 HEALTH HEALTH QUALIFIED SOLUTIONS SOLUTIONS HEALTH IN IN CENTER VISIT ESTAB PT STANDARD K0001 CHEN GOEL [address] [place] [address] [facility] [place] ABDOMEN & 7 RADIOLOGY PELVIS W/O CONTRAST MATERIAL GROUND A0425 GHASSAN FERRELL MILEAGE [address] [place] [address] PER AMBULANCE AMBULANCE STATUTE SE SE MILE AMB A0427 GHASSAN FERRELL SERVICE [address] [place] [address] ALS AMBULANCE AMBULANCE EMERGENCY [place] [address] [facility] [place] DAVID ABDOMEN & 7 RADIOLOGY PELVIS W/O CONTRAST MATERIAL COMPREHEN 34697 DUSTIN CHAN SIVE 7 [facility] METABOLIC INC INC PANEL COLLECTIO 29400 DUSTIN CHAN N VENOUS 7 [facility] BLOOD INC INC VENIPUNCT URE RADEX 56002 DUSTIN CHAN SPINE 7 [facility] LUMBOSACR INC INC AL MINIMUM 4 VIEWS RADEX HIP 92395 DUSTIN CHAN 7 [facility] UNILATERA INC INC L WITH PELVIS 2-3 VIEWS URNLS DIP 43864 DUSTIN CHAN 7 [facility] STICK/TAB INC INC LET REAGENT AUTO MICROSCOP Y CULTURE 57944 DUSTIN CHAN BACTERIAL 7 [facility] BLOOD INC INC AEROBIC W/ID ISOLATES BLOOD 19390 DUSTIN CHAN COUNT 7 [facility] COMPLETE INC INC AUTO&AUTO DIFRNTL WBC AMBULANCE A0429 [facility]ASS[facility] FERRELL SERVICE [address] [place] [address] BLS AMBULANCE AMBULANCE EMERGENCY SE SE TRANSPORT GROUND A0425 GHASSAN FERRELL MILEAGE [address] [place] [address] PER AMBULANCE AMBULANCE STATUTE SE SE MILE CULTURE 19289 DUSTIN CHAN BACTERIAL 7 [facility] INC INC QUANTTATI VE COLONY COUNT URINE STANDARD K0001 CHEN GOEL 7 SURGICAL SURGICAL R STANDARD K0001 CHEN GOEL 6 SURGICAL SURGICAL R LANCETS A4259 ALL ALL PER BOX 6 [facility] OF [facility] MEDICAL MEDICAL REPL CAROLEE A4235 ALL ALL LITHIUM 6 [place] MED [facility] MEDICAL MEDICAL ANNA BG MON OWN PT EA SPRING-PO A4258 ALL ALL WERED 6 [place] COLOM[place]AN DEVICE MEDICAL MEDICAL FOR LANCET EACH BLD GLU A4253 ALL ALL TEST/REAG 6 [facility] COLOMBIAN T [facility] MED[facility] MEDICAL HOME BLD GLU MON-50 NORMAL A4256 ALL ALL LOW AND 6 COLOM[facility]AN COLOMBIAN [facility] MEDICAL CALIBRATO R SOLUTION/ CHIPS STANDARD K0001 CHEN GOEL 6 SURGICAL SURGICAL R BONE 92225 [place] ALL &/JOINT 6 MEDICAL IMAGING IMAGING LIMITED ASS AREA RADIOLOGI 82056 [place] ALL C 6 MEDICAL EXAMINATI IMAGING ON TIBIA ASS & FIBULA 2 VIEWS STANDARD K0001 CHEN GOEL 6 SURGICAL SURGICAL R STANDARD K0001 CHEN GOEL [address] [place] [address] [facility] [place] CERVICAL 6 RADIOLOGY LD IV ALL SPINE W/O CONTRAST MATERIAL COMPREHEN 98053 [facility] SIVE 6 [facility] METABOLIC KAI KAI PANEL COLLECTIO 00084 [facility] N VENOUS 6 [facility] BLOOD KAI KAI VENIPUNCT URE CT THORAX 82975 [facility] [place] W/O 6 RADIOLOG[place] [address] [facility] MAGNESIUM 6 [place] KAI KAI PROTHROMB 66747 [facility] IN TIME 6 [facility] KAI KAI THROMBOPL 11830 [facility] ASTIN 6 [facility] TIME KAI KAI PARTIAL PLASMA/[place] [address] [facility] [place] SCALF GUTIERREZ HEAD/BRAI 6 RADIOLOGY N W/O CONTRAST MATERIAL DRUG TST G0477 [facility] PRESUMP;C 6 [facility] PBL BEING KAI KAI READ DC OPT OBV ONLY DRUG TEST G0480 [facility] DEFINITV [address] [facility] [address] ID KAI KAI METH P DAY 1-7 DRUG CL BLOOD 18659 [facility] COUNT 6 [place] COMPLETE KAI KAI AUTO&AUTO DIFRNTL WBC URNLS DIP 15322 [facility] 6 [facility] MOUNT STICK/TAB KAI KAI LET REAGENT AUTO MICROSCOP Y STANDARD K0001 CHEN GOEL 6 SURGICAL SURGICAL R LIPID 08359 LAB BABAK LAB BABAK PANEL 6 [facility] HEMOGLOBI 55488 LAB BABAK LAB BABAK N 6 [place] GLYCOSYLA HOLDINGS HOLDINGS CISCO A1C ALBUMIN 95301 LAB BABAK LAB BABAK URINE 6 [facility] [facility] MICROALBU HOLDINGS HOLDINGS MIN QUANTIATI VE COMPREHEN 08167 LAB BABAK LAB BABAK SIVE 6 [facility] [facility] [employer] [employer] HOLDINGS PANEL COLLECTIO 02251 LAB BABAK LAB BABAK N VENOUS 6 [place] BLOOD HOLDINGS HOLDINGS VENIPUNCT URE FOR DIAB A5512 CHEN WEST MX 6 SURGICAL SURGICAL DNSITY INSRT DIR FORMD PRFAB EA DIAB ONLY A5500 CHEN SIDDIQUI FIT CSTM 6 SURGICAL SURGICAL PREP&SPL SHOE MX DNSITY INSRT STANDARD K0001 CHEN SÁNCHEZI 6 SURGICAL SURGICAL R CERVICAL L0174 GOULDS GOULDS COLLAR 6 DISCOUNT DISCOUNT SEMI-RIGI MEDICAL [place]ICAL [place] [address] [facility] [place] DAV[place] CERVICAL 6 RADIOLOGY RHO SPINE W/O CONTRAST MATERIAL STANDARD K0001 CHEN GOEL 6 SURGICAL SURGICAL R LANCETS A4259 ALL ALL PER BOX 6 [place] OF 100 MEDICAL MEDICAL BLD GLU A4253 ALL ALL TEST/REAG 6 [place]OM[place] T [facility] MEDICAL HOME BLD GLU MON-50 NORMAL A4256 ALL ALL LOW AND 6 COLOM[facility]AN COLOMBIAN [facility] MEDICAL CALIBRATO R SOLUTION/ CHIPS STANDARD K0001 CHEN GOEL 6 [place] [address] [place] GUADALUPE MOL SURG 6 MEDICAL PATHOLOGY SERV FOUNDATIO GROSS&JOHN N ROSCOPIC EXAM AMPUTATIO 35130 [place] ENDEAN N TOE 6 MEDICAL MIRIAN INTERPHAL SERV ANGEAL [facility]AT[facility] G0463 [facility] 6 Y Y T CLIN [facility] H[facility]PITAL VISIT ASSESS & MGMT PT ECG 12687 JOHN DARLIN OMEGA ROUTINE 6 MEDICAL ECG SERV W/LEAST FOUNDATIO 12 LDS N I&R ONLY DUP-SCAN 90834 JOHN OSORIO LXTR 6 MEDICAL JOSE ROBERTO ART/ARTL SERV BPGS FOUNDATIO UNI/LMTD N STUDY NON-INVAS 27701 [facility] 6 Y Y PHYSIOLOG [facility] IC STD EXTREMITY ART 2 LEVEL NON-INVAS 77099 JOHN DEVON KRISTIAN 6 MEDICAL JOSE ROBERTO PHYSIOLOG SERV IC STUDY FOUNDATIO EXTREMITY N 3 LEVLS FEDERALLY G0467 KAI KAI 6 [employer] HEALTH [employer] SOLUTIONS HEALTH IN IN CENTER VISIT ESTAB PT WALKER E0143 PATIENT PATIENT FOLDING 6 AIDS INC AIDS INC WHEELED ADJUSTABL E/[facility] 82528 [place] ELI DISCHARGE 6 MEDICAL MILLY DAY SERV MANAGEMEN FOUNDATIO T > 30 N MIN SBSQ 65893 [facility] 6 MEDICAL MARYBETH CARE/DAY SERV 25 FOUNDATIO MINUTES N BLD GLU A4253 [place] TEST/REAG 6 CLINIC CLINIC T [facility] PHARMACY PHARMACY HOME BLD GLU MON-50 [facility] A4259 [facility] PER BOX 6 CLINIC CLINIC OF 100 PHARMACY PHARMACY SBSQ 23326 [place] [address] MEDICAL NAN CARE/DAY SERV 25 FOUNDATIO MINUTES N SBSQ 96062 [place] [address] MEDICAL KER RAN CARE/DAY SERV 25 FOUNDATIO MINUTES N SBSQ 96320 [place] [address] MEDICAL KER RAN CARE/DAY SERV 25 FOUNDATIO MINUTES N SBSQ 92817 [place] [address] MEDICAL NAN CARE/DAY SERV 25 FOUNDATIO MINUTES N SBSQ 70637 [place] [address] MEDICAL MILLY CARE/DAY SERV 25 FOUNDATIO MINUTES N SBSQ 95994 [place] [address] MEDICAL MILLY CARE/DAY SERV 25 FOUNDATIO MINUTES N SBSQ 26111 [place] [address] MEDICAL MILLY CARE/DAY SERV 25 FOUNDATIO MINUTES N SBSQ 49475 [place] [address] MEDICAL MILLY CARE/DAY SERV 25 FOUNDATIO MINUTES N SBSQ 71156 [place] [address] MEDICAL NAN CARE/DAY SERV 25 FOUNDATIO MINUTES N SBSQ 52371 [place] [address] MEDICAL NAN CARE/DAY SERV 25 FOUNDATIO MINUTES N SBSQ 45065 [place] [address] MEDICAL MILLY CARE/DAY SERV 25 FOUNDATIO MINUTES N SBSQ 07465 [place] [address] MEDICAL MILLY CARE/DAY SERV 25 FOUNDATIO MINUTES N RADIOLOGI 13054 [facility] [place] KOSTELIC C EXAM 6 RADIOLOGY CESILIA CHEST 2 VIEWS FRONTAL&L ATERAL RADIOLOGI 90609 [facility] [place] KOSTELIC C 6 RADIOLOGY CESILIA EXAMINATI ON TIBIA & FIBULA 2 VIEWS INITIAL 19167 [place] [address] MEDICAL MILLY CARE/DAY SERV 70 FOUNDATIO MINUTES N IN-SITU 84546 [place] ENDEAN FEM-ANT 6 MEDICAL MIRIAN TIBL PST SERV TIBL/PRON FOUNDATIO EAL ART N LANCETS A4259 ALL ALL PER BOX 6 [place] OF 100 MEDICAL MEDICAL BLD GLU A4253 ALL ALL TEST/REAG 6 [place] COLOM[place] T [facility] MEDICAL MEDICAL HOME BLD GLU MON-50 NORMAL A4256 ALL ALL LOW AND 6 COLOM[place]AN COLOMBIAN HIGH MEDICAL MEDICAL CALIBRATO [place] SOL[place] [address] [place] KELLEY SURG 6 MEDICAL DEANDRE PATHOLOGY SERV FOUNDATIO GROSS&JOHN N ROSCOPIC EXAM REPL CAROLEE A4233 ALL ALL ALKALINE 6 COLOM[place]AN COL[place]AN NOT J MEDICAL MEDICAL CELL ANNA BG MON OWND PT SPRING-PO A4258 ALL ALL WERED 6 [place] DEVICE MEDICAL MEDICAL FOR LANCET EACH BP RT FEM [id number] [facility] VEIN LOW 6 Y Y VEIN [facility] AUTO VENOUS TISSUE OPEN ECG 13645 [place] CHI ROUTINE 6 MEDICAL ECG SERV W/LEAST FOUNDATIO 12 LDS N I&R ONLY ECHO 81925 [facility] R-T 6 MEDICAL 2D SERV W/WOM-MOD FOUNDATIO E COMPL N SPEC&COLR D SBSQ 08457 [place] [address] MEDICAL MIRIAN CARE/DAY SERV 15 FOUNDATIO MINUTES N SBSQ 69032 [place] [address] MEDICAL BRU CARE/DAY SERV 25 FOUNDATIO MINUTES N SBSQ 80931 [place] [address] MEDICAL BRU CARE/DAY SERV 25 FOUNDATIO MINUTES N SBSQ 80617 [place] [address] MEDICAL MIRIAN CARE/DAY SERV 15 FOUNDATIO MINUTES N SBSQ 77065 [place] [address] MEDICAL BRU CARE/DAY SERV 25 FOUNDATIO MINUTES N SBSQ 18015 [place] [address] MEDICAL MIRIAN CARE/DAY SERV 15 FOUNDATIO MINUTES N SBSQ 60239 [facility] 6 MEDICAL CARE/DAY SERV 25 FOUNDATIO MINUTES N SBSQ 56609 [place] [address] MEDICAL CARE/DAY SERV 25 FOUNDATIO MINUTES N CTA ABDL 29116 [place] AORTA&BI 6 MEDICAL JOHN ILIOFEM SERV W/CONTRAS FOUNDATIO T&POSTP N SBSQ 56088 [facility] 6 MEDICAL CARE/DAY SERV 25 FOUNDATIO MINUTES N RADEX 20086 JOHN GARCIA JOSE ROBERTO FOOT 6 MEDICAL COMPLETE SERV MINIMUM 3 FOUNDATIO VIEWS N SBSQ 58138 [facility] 6 MEDICAL CARE/DAY SERV 25 FOUNDATIO MINUTES N LIPID 77968 LAB BABAK LAB BABAK PANEL 6 [facility] [facility] [employer] [facility] COMPLETE G0306 LAB BABAK LAB BABAK CBC 6 [place] VINAY AUTOMATED HOLDINGS HOLDINGS &AUTOMATE D WBC DIFF COUNT COMPREHEN 86074 LAB BABAK LAB BABAK SIVE 6 [place] METABOLIC HOLDINGS HOLDINGS PANEL COLLECTIO 75577 LAB BABAK LAB BABAK N VENOUS 6 [place] BLOOD HOLDINGS HOLDINGS VENIPUNCT URE ALBUMIN 26188 LAB BABAK LAB BABAK URINE 6 [facility]IN[place] VINAY MICROALBU HOLDINGS HOLDINGS MIN QUANTIATI VE FEDERALLY G0467 KAI KAI 6 HEALTH HEALTH QUALIFIED SOLUTIONS SOLUTIONS HEALTH IN IN CENTER VISIT ESTAB PT FEDERALLY G0467 KAI KAI 5 HEALTH HEALTH QUALIFIED SOLUTIONS SOLUTIONS HEALTH IN IN CENTER VISIT ESTAB PT FEDERALLY G0467 KAI KAI 5 HEALTH HEALTH QUALIFIED SOLUTIONS SOLUTIONS HEALTH IN IN CENTER VISIT ESTAB PT HEMOGLOBI 07172 KAI FREDO JEANNIE N 5 HEALTH GLYCOSYLA SOLUTIONS CISCO A1C IN COLLECTIO 79519 KAI FREDO JEANNIE N 5 HEALTH CAPILLARY SOLUTIONS BLOOD IN SPECIMEN FEDERALLY G0467 KAI KAI 5 HEALTH HEALTH QUALIFIED SOLUTIONS SOLUTIONS HEALTH IN IN CENTER VISIT ESTAB PT COLLECTIO 66080 [facility] N VENOUS 5 [facility] BLOOD KAI KAI VENIPUNCT URE COMPREHEN 22966 [facility] SIVE 5 [facility] METABOLIC KAI KAI PANEL LIPID 15243 [facility] PANEL 5 [facility] KAI KAI HEMOGLOBI 50000 [facility] N 5 [facility] GLYCOSYLA [place] [address] [facility] TRIIODOTH 5 [facility] YRONINE [place] [place] [address] [facility] THYROXINE 5 [facility] TOTAL KAI KAI ALBUMIN 55605 [facility] URINE 5 [facility] MICROALBU KAI KAI MIN QUANTIATI VE LANCETS A4259 ALL ALL PER BOX 5 COLOM[place]AN COLOM[place]AN OF 100 MEDICAL MEDICAL BLD GLU A4253 ALL ALL TEST/REAG 5 [place] COLOM[place] T [facility] HOME BLD GLU MON-50 FEDERALLY G0467 KAI KAI 5 HEALTH HEALTH QUALIFIED SOLUTIONS SOLUTIONS HEALTH IN IN CENTER VISIT ESTAB PT HOSPITAL G0463 [facility] 5 Y Y T [facility] VISIT ASSESS & MGMT PT DIAB ONLY A5500 CHEN CHEUNG CSTM 5 SURGICAL SURGICAL PREP&SPL SHOE MX DNSITY INSRT FOR DIAB A5512 CHEN WEST MX 5 SURGICAL SURGICAL DNSITY INSRT DIR FORMD PRFAB EA FEDERALLY G0467 KAI KAI 5 HEALTH HEALTH QUALIFIED SOLUTIONS SOLUTIONS HEALTH IN IN CENTER VISIT ESTAB PT FEDERALLY G0467 KAI KAI 5 HEALTH HEALTH QUALIFIED SOLUTIONS SOLUTIONS HEALTH IN IN CENTER VISIT ESTAB PT FEDERALLY G0467 KAI KAI 5 HEALTH HEALTH QUALIFIED SOLUTIONS SOLUTIONS HEALTH IN IN CENTER VISIT ESTAB PT INJECTION J1030 [facility]AN 5 [facility] METHYLPRE INC INC DNISOLONE ACETATE 40 MG FEDERALLY G0467 KAI AKI 5 HEALTH HEALTH QUALIFIED SOLUTIONS SOLUTIONS [facility] VISIT ESTAB PT FEDERALLY G0467 KAI KAI 5 HEALTH HEALTH QUALIFIED SOLUTIONS SOLUTIONS [facility] VISIT ESTAB PT FEDERALLY G0467 KAI KAI 5 HEALTH HEALTH QUALIFIED SOLUTIONS SOLUTIONS [facility] VISIT ESTAB PT MRI [address]678 [facility] [place] SPINAL 5 RADIOLOGY RHO CANAL CERVICAL W/O CONTRAST MATRL HEMOGLOBI 32629 KAI FREDO JEANNIE N 5 HEALTH GLYCOSYLA SOLUTIONS CISCO A1C IN FEDERALLY G0467 KAI KAI 5 HEALTH HEALTH QUALIFIED SOLUTIONS SOLUTIONS HEALTH IN IN CENTER VISIT ESTAB PT COLLECTIO 08470 KAI FREDO JEANNIE N 5 HEALTH CAPILLARY SOLUTIONS BLOOD IN SPECIMEN DUP-SCAN 32848 [facility] [place] XTR VEINS 5 RADIOLOGY LD IV ALL UNILATERA L/LIMITED STUDY THERAPEUT 21167 [facility] IC 5 [facility] PROPHYLAC KAI KAI TIC/DX INJECTION SUBQ/IM RADEX 74070 [facility] SPINE 5 [facility] CERVICAL KAI KAI 2 OR 3 VIEWS INJECTION J1885 [address] KETOROLAC KAI KAI TROMETHAM INE PER 15 MG RADEX 01807 [facility] [place] SPINE 5 RADIOLOGY LD IV ALL CERVICAL 4 OR 5 VIEWS RADEX 64155 DUSTIN CHAN ORBITS 5 [facility] COMPLETE INC INC MINIMUM 4 VIEWS MRI BRAIN 81563 [facility]AN BRAIN 5 [facility] STEM W/O INC INC CONTRAST MATERIAL FEDERALLY G0467 [place] [address] [facility] [place] [address] TANNER ARAIZA BUX ANJ DX/THER 5 MD SBST EPIDURAL/ SUBARACH LUMBAR/SA CRAL INJECTION J1040 [facility] CHAN 5 [facility] METHYLPRE INC INC DNISOLONE ACETATE 80 MG LOCM Q9966 DUSTIN CHAN 200-299 5 [facility] MG/ML INC INC IODINE CONCENTRA TION PER ML FEDERALLY G0467 [place] [address] [facility] [place] [place] [address] [facility] [place] MAT ABDOMEN & 5 RADIOLOGY PELVIS W/O CONTRAST MATERIAL COLLECTIO 25738 [facility] N VENOUS 5 [facility] BLOOD KAI KAI VENIPUNCT URE COMPREHEN 04041 [facility] SIVE 5 [facility] METABOLIC KAI KAI PANEL LIPID 79099 [facility] PANEL 5 [facility] KAI KAI HEMOGLOBI 11888 [facility] N 5 [facility] GLYCOSYLA KAI KAI CISCO A1C COLLECTIO 27700 [facility] VENOUS 5 CLINIC CLINIC [place]LOOD [place] [address] [facility] PROSTATE 5 CLINIC CLINIC SPECIFIC LABORATO LABORATO ANTIGEN TOTAL URNLS DIP 47229 [facility] [address] [place] STICK/TAB CLINIC LET RGNT PSC AUTO W/O MICROSCOP Y LOCM Q9967 [facility] [phone] 5 [place] MG/ML KAI KAI IODINE CONCENTRA TION PER ML CT THORAX 27437 [facility] 5 [place] W/CONTRAS KAI KAI T MATERIAL RADEX 41103 [facility] [place] RIBS UNI 5 RADIOLOGY CAR W/POSTERO ANT CH MINIMUM 3 VIEWS URNLS DIP 54698 [facility] [address] [place] STICK/TAB CLINIC LET [place] [address] [facility] PROSTATE 5 [place] SPECIFIC KAI KAI ANTIGEN TOTAL COLLECTIO 40480 [facility] N VENOUS [facility] [place] [address] [facility] [place] MAT ABDOMEN & 5 RADIOLOGY PELVIS W/O CONTRAST MATERIAL DALIA 00714 [facility] POST-VOID [address] [place] ING CLINIC RESIDUAL PSC URINE&/BL ADDER CAP PROSTATE G0103 [facility] CANCER 5 CLINIC CLINIC SCREENING LABORATO LABORATO ; PSA TEST COLLECTIO 21127 [facility] N VENOUS 5 CLINIC CLINIC BLOOD LABORATO LABORATO VENIPUNCT URE RADIOLOGI 59281 [facility] [place] [facility] C EXAM 5 RADIOLOGY CHEST 2 VIEWS FRONTAL&[place] [address] [facility] [place] [facility] [facility] HEAD/BRAI 4 RADIOLOGY N W/O & W/CONTRAS T MATERIAL CREATININ 77317 [facility] E BLOOD 4 [place]AI KAI COLLECTIO 36759 [facility] N VENOUS 4 [place] BLOOD KAI KAI VENIPUNCT URE LOCM Q9967 [facility] [phone] [place] MG/ML KAI KAI IODINE CONCENTRA TION PER ML HEMOGLOBI 88972 KAI FREDO JEANNIE N 4 HEALTH GLYCOSYLA SOLUTIONS CISCO A1C IN LIPID 55063 [facility] PANEL 4 [facility] KAI KAI HEMOGLOBI 29835 [facility] N 4 [facility] GLYCOSYLA KAI KAI CISCO A1C BLOOD 54180 [facility] COUNT 4 [facility] COMPLE[facility] KAI KAI AUTO&AUTO DIFRNTL WBC ALBUMIN 55213 [facility] URINE 4 [facility] MICROALBU KAI KAI MIN QUANTIATI VE COLLECTIO 45490 [facility] N VENOUS 4 [facility] BLOOD KAI KAI VENIPUNCT URE COMPREHEN 03618 [facility] SIVE 4 [facility] [place] [address] [facility] FREE 4 [facility] [place] [address] [facility] THYROID 4 [facility] STIMULATI KAI KAI NG HORMONE TSH TENS E0720 [facility] DEVICE 4 [facility] STIMULATI ON TENS E0720 CAREFREE CAREFREE DEVICE 4 [facility] SERVICES LOCALIZED INC INC STIMULATI ON RADEX 96629 [facility] [place] ANKLE 4 RADIOLOGY COMPLETE MINIMUM 3 VIEWS COLLECTIO 77607 [facility] HALE N VENOUS 4 [facility] BLOOD MEDICAL MEDICAL VENIPUNCT CENTE CENTE URE COMPREHEN 36413 [facility] HALE SIVE 4 [facility] METABOLIC MEDICAL [place] [address] GEOFF[facility]Y GEOFFREY FREE 4 [facility] THYROXINE [place] [address] [facility] HALE THYROID 4 [facility]IONAL STIMULATI MEDICAL MEDICAL NG CENTE CENTE HORMONE TSH LIPID 43769 GEOFFREY GEOFFREY PANEL 4 [facility] MEDICAL MEDICAL CENTE CENTE HEMOGLOBI 80687 GEOFFREY GEOFFREY N 4 REGIONAL [facility]IONAL GLYCOSYLA MEDICAL MEDICAL CISCO A1C CENTE CENTE BLOOD 71525 GEOFFREY GEOFFREY COUNT 4 REGIONAL REGIONAL COMPLETE MEDICAL MEDICAL AUTO&AUTO CENTE CENTE DIFRNTL WBC NORMAL A4256 ALL ALL LOW AND 3 [facility] CALIBRATO SUPPLIE SUPPLIE R SOLUTION/ CHIPS LANCETS A4259 ALL ALL PER BOX 3 COLOMBIAN COLOMBIAN OF 100 MEDICAL MEDICAL SUPPLIE SUPPLIE BLD GLU A4253 ALL ALL TEST/REAG 3 COLOMBIAN COLOMBIAN T STRIPS MEDICAL MEDICAL HOME BLD SUPPLIE SUPPLIE GLU MON-50 COLLECTIO 09211 GEOFFREY Pinedo VENOUS 3 REGIONAL REGIONAL BLOOD MEDICAL MEDICAL VENIPUNCT NEEMA BETHEA URE COMPREHEN 72775 GEOFFREY MARTIE 3 [facility]AL [facility]IONAL METABOLIC MEDICAL MEDICAL PANEL NEEMA BETHEA HEMOGLOBI 15742 GEOFFREY Pinedo 3 REGIONAL REGIONAL GLYCOSYLA MEDICAL MEDICAL CISCO A1[place] [address] [facility] JT LOWER 3 [facility] EXTREM KAI KAI W/O CONTRAST MATRL CULTURE 26720 GEOFFREY HALE BCT 3 REGIONAL REGIONAL ISOL&PRSM MEDICAL MEDICAL PTV ID NEEMA BETHEA ISOLATE EA URINE HOME E0607 US US BLOOD 3 [facility] GLUCOSE E SUPPLY E SUPPLY MONITOR LLC LLC LANCETS A4259 US US PER BOX 3 [facility]ALTHCAR HEALTHCAR OF 100 E SUPPLY E SUPPLY LLC LLC BLD GLU A4253 US US TEST/REAG 3 [facility]ALTH[facility] HEALTHCAR T STRIPS E SUPPLY E SUPPLY HOME BLD LLC LLC GLU MON-50 RADIOLOGI 78918 [facility] [place] SCALF GUTIERREZ C 3 RADIOLOGY EXAMINATI ON KNEE 3 VIEWS ALBUMIN 97681 [facility] URINE 3 [facility] MICROALBU KAI KAI MIN QUANTIATI VE LIPID 43807 [facility] PANEL 3 [facility] KAI KAI HEMOGLOBI 28108 [facility] N 3 [facility] GLYCOSYLA KAI KAI CISCO A1C BLOOD 47379 [facility] COUNT 3 [facility] COMPLETE KAI KAI AUTO&AUTO DIFRNTL WBC COLLECTIO 44366 [facility] N VENOUS 3 [facility] BLOOD KAI KAI VENIPUNCT URE COMPREHEN 09238 [facility] SIVE 3 [facility] METABOLIC KAI KAI PANEL CREATININ 20369 [facility] E OTHER 3 [facility] LABORATOR [place]OURCE [place], [place] [address] [facility] FREE 3 [facility] [address] [facility] THYROID 3 [facility] STIMULATI KAI KAI NG HORMONE TSH PROSTATE G0103 [facility] CANCER 3 [facility] SCREENING KAI KAI ; PSA TEST BLD GLU A4253 US US TEST/REAG 3 [facility]ALTH[facility] HEALTHCAR T STRIPS E SUPPLY E SUPPLY HOME BLD LLC LLC GLU MON-50 LANCETS A4259 US US PER BOX 3 [facility] HEALTHCAR OF 100 E SUPPLY E SUPPLY LLC LLC NORMAL A4256 US US LOW AND 3 [facility] HEALTHCAR HIGH E SUPPLY E SUPPLY CALIBRATO LLC LLC R SOLUTION/ CHIPS RADEX 28703 [facility] JOHN Barrett ELBOW 3 RADIOLOGY COMPLETE MINIMUM 3 VIEWS RADEX 43787 [facility] JOHN Barrett SHOULDER 3 RADIOLOGY COMPLETE MINIMUM 2 VIEWS RADIOLOGI 99009 GEOFFREY Barrett 2 REGIONAL REGIONAL EXAMINATI MEDICAL MEDICAL ON CHEST CENTE CENTE SINGLE VIEW FRONTAL NEEDHAM HEIGHTS- A4258 US US WERED 2 [facility]ALTH[facility] HEALTHCAR DEVICE E SUPPLY E SUPPLY FOR LLC LLC LANCET EACH REPL CAROLEE A4235 US US LITHIUM 2 [facility] HEALTHCAR MED NECES E SUPPLY E SUPPLY ANNA BG LLC LLC MON OWN PT EA NORMAL A4256 US US LOW AND 2 [facility] HEALTHCAR HIGH E SUPPLY E SUPPLY CALIBRATO LLC LLC R SOLUTION/ CHIPS LANCETS A4259 US US PER BOX 2 [facility]ALTH[facility] HEALTHCAR OF 100 E SUPPLY E SUPPLY LLC LLC BLD GLU A4253 US US TEST/REAG 2 [facility]ALTH[facility] HEALTHCAR T STRIPS E SUPPLY E SUPPLY HOME [facility]LD LLC LLC GLU MON-50 LIPID 09467 [facility] PANEL 2 [facility] KAI KAI HEMOGLOBI 09836 [facility] N 2 [facility] GLYCOSYLA KAI KAI CISCO A1C BLOOD 86083 [facility] COUNT 2 [place] COMPLETE KAI KAI AUTO&AUTO DIFRNTL WBC ALBUMIN 75128 [facility] URINE 2 [facility] MICROALBU KAI KAI MIN QUANTIATI VE RADIOLOGI 09181 [facility] [place] C 2 RADIOLOGY EXAMINATI ON KNEE 3 VIEWS COLLECTIO 77065 [facility] N VENOUS 2 [facility] BLOOD KAI KAI VENIPUNCT URE COMPREHEN 36162 [facility] SIVE 2 [facility] [place] [address] [facility] THYROID 2 [facility] STIMULATI KAI KAI NG HORMONE TSH RADEX 64053 [facility] [place] C SPINE 2 RADIOLOGY LUMBOSACR AL 2/3 VIEWS BLD GLU A4253 US US TEST/REAG 2 [facility] HEALTHCAR T STRIPS E SUPPLY E SUPPLY HOME [facility]LD LLC LLC GLU MON-50 LANCETS A4259 US US PER BOX 2 [facility] HEALTHCAR OF 100 E SUPPLY E SUPPLY LLC LLC NORMAL A4256 US US LOW AND 2 [facility] HEALTHCAR HIGH E SUPPLY E SUPPLY CALIBRATO LLC LLC R SOLUTION/ CHIPS NORMAL A4256 US US LOW AND 2 [facility] HEALTHCAR HIGH E SUPPLY E SUPPLY CALIBRATO LLC LLC R SOLUTION/ CHIPS LANCETS A4259 US US PER BOX 2 [facility] HEALTHCAR OF 100 E SUPPLY E SUPPLY LLC LLC BLD GLU A4253 US US TEST/REAG 2 HEALTHCAR HEALTHCAR T STRIPS E SUPPLY E SUPPLY HOME BLD LLC LLC GLU MON-50 SPRING-PO A4258 US US WERED 2 HEALTHCAR HEALTHCAR DEVICE E SUPPLY E SUPPLY FOR LLC LLC LANCET EACH REPL CAROLEE A4235 US US LITHIUM 2 HEALTHCAR HEALTHCAR MED NECES E SUPPLY E SUPPLY ANNA BG LLC LLC MON OWN PT EA LOCM Q9967 [facility] [phone] [facility] MG/ML KAI KAI IODINE CONCENTRA TION PER ML CT THORAX 60643 [facility] 2 [facility] W/CONTRAS KAI KAI T MATERIAL COLLECTIO 43484 [facility] N VENOUS [address] VENIPUNCT URE COMPREHEN 14593 [facility] SIVE [address] PANEL LIPID [address] [facility] PANEL [address] [place] [address] YANIRA N [address] CISCO A1C RADIOLOGI 185[address] YANIRA ALAS C EXAM 2 REGIONAL JAZMINE CHEST 2 RADIOLOG VIEWS FRONTAL&L ATERAL COLLECTIO 17329 ST JHONNY JOSE N VENOUS 2 [facility] BLOOD [place] KAI VENIPUNCT URE BASIC [address] [facility] METABOLIC 2 [facility] PANEL KAI KAI CALCIUM TOTAL MRI 43392 [facility] SPINAL 2 [facility] CANAL [facility] LUMBAR W/O CONTRAST MATERIAL BLD GLU A4253 US US TEST/REAG 2 [facility]ALTH[facility] HEALTHCAR T STRIPS E SUPPLY E SUPPLY [facility] LLC GLU MON-50 LANCETS A4259 US US PER BOX 2 [facility] HEALTHCAR OF 100 E SUPPLY E SUPPLY LLC LLC NORMAL A4256 US US LOW AND 2 [facility]ALTH[facility] HEALTHCAR HIGH E SUPPLY E SUPPLY CALIBRATO LLC LLC R SOLUTION/ CHIPS NON-INVAS [address] PHYSIOL CARDIOLOG IC STD Y CLINIC EXTREMITY ART 2 LEVEL NON-INVAS 38509 [facility] JHONNY KRISTIAN 2 [facility] PHYSIOLOG [facility] IC STUDY EXTREMITY 3 [place] [address] [facility] THYROID [address] NG HORMONE TSH LIPID [address] [facility] PANEL [address] [facility] N [address] CISCO A1C BLOOD [address] [facility] COUNT [address] AUTO&AUTO DIFRNTL WBC PROSTATE G[address] [facility] CANCER [address] ; PSA TEST COMPREHEN [address] [facility] [address] [facility] SIVE [address] PANEL [facility]IGHTS-PO A4258 US US WERED 1 [facility]ALTHCAR HEALTHCAR DEVICE E SUPPLY E SUPPLY FOR LLC LLC LANCET EACH BLD GLU A4253 US US TEST/REAG 1 HEALTHCAR HEALTHCAR T STRIPS E SUPPLY E SUPPLY HOME [facility] LLC LLC GLU MON-50 LANCETS A4259 US US PER BOX 1 [facility]ALTHCAR OF 100 E SUPPLY E SUPPLY LLC LLC NORMAL A4256 US US LOW AND 1 [facility]ALTH[facility] HEALTHCAR HIGH E SUPPLY E SUPPLY CALIBRATO LLC LLC R SOLUTION/ CHIPS PROTHROMB 55618 [facility] GLUC BLD 69302 [facility] GLUC MNTR 1 Y Y DEV H[facility]PITAL HOSPITAL CLEARED FDA SPEC HOME USE BLOOD 94148 [facility] COUNT [facility]TE [facility]PITAL HOSPITAL AUTOMATED COMPREHEN 03447 [facility] PANEL COLLECTIO 63511 [facility] N VENOUS 1 Y Y BLOOD [facility] VENIPUNCT URE LANCETS A4259 CAREFREE CAREFREE PER BOX 1 [facility] BLD GLU A4253 CAREFREE CAREFREE TEST/REAG 1 [facility] T [facility]IPS SERVICES SERVICES HOME BLD INC INC GLU MON-50 DESTRUCTI 44564 [facility] ON BENIGN 1 [facility], UP TO 14 PLL BLD GLU A4253 CAREFREE CAREFREE TEST/REAG 1 [facility] T [facility] SERVICES HOME BLD INC INC GLU MON-50 LANCETS A4259 CAREFREE CAREFREE PER BOX 1 [facility] BLD GLU A4253 ARRIVA ARRIVA TEST/REAG 1 MEDICAL MEDICAL T STRIPS HOME BLD GLU MON-50 LANCETS A4259 ARRIVA ARRIVA PER BOX 1 MEDICAL MEDICAL [facility] NORMAL A4256 ARRIVA ARRIVA LOW AND 1 MEDICAL MEDICAL HIGH CALIBRATO R SOLUTION/ CHIPS RADIOLOGI 93819 [facility] C EXAM 1 [facility] CHEST 2 KAI KAI VIEWS FRONTAL&L ATERAL BLD GLU A4253 CAREFREE CAREFREE TEST/REAG 1 [facility] T [facility] SERVICES HOME [facility]LD INC INC GLU MON-50 LANCETS A4259 CAREFREE CAREFREE PER BOX 1 [facility] WALKER E0143 ROSS ROSS FOLDING 1 SURGICAL SURGICAL WHEELED ADJUSTABL E/FIXED HEIGHT SEAT E0156 CHEN SIDDIQUI ATTACHMEN 1 SURGICAL SURGICAL T WALKER RADIOLOGI 26578 [facility] [place] DAVID C 1 RADIOLOGY RHO EXAMINATI ON KNEE 3 VIEWS GLUC BLD 68253 [facility] GLUC MNTR 1 [facility] DEV [facility], CLEARED PLL FDA SPEC HOME USE RADIOLOGI 24123 [facility] C EXAM 1 [place] CHEST 2 KAI KAI VIEWS FRONTAL&L ATERAL RADIOLOGI 16751 [facility] [place] DAV[place] C EXAM 1 RADIOLOGY RHO CHEST 2 VIEWS FRONTAL&L ATERAL BLD GLU A4253 ARRIVA ARRIVA TEST/REAG 0 MEDICAL MEDICAL T STRIPS HOME BLD GLU MON-50 LANCETS A4259 ARRIVA ARRIVA PER BOX 0 MEDICAL MEDICAL OF 100 NORMAL A4256 ARRIVA ARRIVA LOW AND 0 MEDICAL MEDICAL HIGH CALIBRATO R SOLUTION/ CHIPS [facility] A4258 ARRIVA ARRIVA WERED 0 MEDICAL BPM ANALYST FOR LANCET EACH REPL CAROLEE A4233 ARRIVA ARRIVA ALKALINE 0 MEDICAL MEDICAL NOT J CELL ANNA BG MON OWND PT IIV3 11670 [facility] VACCINE 0 [facility] SPLIT CLINIC[facility] VIRUS 0.5 PLL ML DOSAGE IM USE ADMINISTR G0008 [facility] ATION OF 0 [facility] INFLUENZA CLINIC, VIRUS PLL VACCINE RADIOLOGI 80924 [facility] [place] W[place] Barrett C EXAM 0 RADIOLOGY CHEST 2 VIEWS FRONTAL&L ATERAL BLD GLU A4253 ARRIVA ARRIVA TEST/REAG 0 MEDICAL MEDICAL T STRIPS HOME BLD GLU MON-50 LANCETS A4259 ARRIVA ARRIVA PER BOX 0 MEDICAL MEDICAL OF 100 NORMAL A4256 ARRIVA ARRIVA LOW AND 0 MEDICAL MEDICAL HIGH CALIBRATO R SOLUTION/ CHIPS PHRM Q0513 [place] DISPENSIN 0 N DRUG N DRUG G FEE INHALATIO N RX; PER 30 DAYS ALBUTEROL J7613 [place] INHAL 0 N DRUG N DRUG NON-CP PROD THRU DME U DOSE 1 MG URNLS DIP 02558 [facility], 0 FAMILY [facility] STICK/TAB CLINIC, LET RGNT PLLC NON-AUTO W/O MICRSCP IADNA 18640 [facility] [place] 0 [facility] GONORRHOE AE AMPLIFIED PROBE TQ IADNA 18518 [facility] CHLAMYDIA 0 [facility] TRACHOMAT IS AMPLIFIED PROBE TQ CUL BACT 83097 [facility] XCPT 0 [facility] URINE BLOOD/STO OL AEROBIC ISOL PHRM Q0513 [place] DISPENSIN 0 N DRUG- N DRUG- G FEE INHALATIO N RX; PER 30 DAYS ALBUTEROL J7613 [place] INHAL 0 N DRUG- N DRUG- NON-CP PROD THRU DME U DOSE 1 MG NEBULIZER E0570 [place] WITH 0 N DRUG N DRUG COMPRESSO R SMR PRIM 67504 [facility] SRC 0 CONGREGATION CONGREGATION GRAM/GIEM HOSP HOSP SA STAIN BCT FUNGI/GIBRAN L THORACENT 59903 [facility] BRANN, ESIS WITH 0 RADIOLOGY MAXIM ASSOC INSERTION TUBE WATER SEAL CULTURE 82468 [facility] BACTERIAL 0 CONGREGATION CONGREGATION ANY HOSP HOSP SOURCE ANAEROBIC ISO&ID CUL BACT 48468 [facility] XCPT 0 CONGREGATION CONGREGATION URINE HOSP HOSP BLOOD/STO OL AEROBIC ISOL BLOOD 13802 [facility] COUNT 0 CONGREGATION CONG[facility] [address] [facility] BRANN, GUIDANCE 0 RADIOLOGY MAXIM NEEDLE ASSOC PLACEMENT THORACENT 98071 [facility] ESIS 0 CONGREGATION CONGREGATION PUNCTURE HOSP HOSP PLEURAL CAVITY ASPIRATIO N RADIOLOGI 80906 [facility] BRANN, C 0 RADIOLOGY AMXIM EXAMINATI ASSOC ON CHEST SINGLE VIEW FRONTAL REPL CAROLEE A4233 [facility]RIV[facility] ARRIVA ALKALINE 0 MEDICAL MEDICAL NOT J CELL ANNA BG MON OWND PT NORMAL A4256 AR[facility]IVA ARRIVA LOW AND 0 MEDICAL MEDICAL HIGH CALIBRATO R SOLUTION/ CHIPS LANCETS A4259 ARRIVA ARRIVA PER BOX 0 MEDICAL MEDICAL OF 100 BLD GLU A4253 ARRIVA ARRIVA TEST/REAG 0 MEDICAL MEDICAL T STRIPS HOME BLD GLU MON-50 ALBUTEROL J7613 [facility] INHAL 0 N DRUG- N DRUG- NON-CP PROD THRU DME U DOSE 1 MG PHRM Q0513 [facility] DISPENSIN 0 N DRUG- N DRUG- G FEE INHALATIO N RX; PER 30 DAYS NEBULIZER E0570 [facility] WITH 0 N DRUG- N DRUG- COMPRESSO R RADIOLOGI 61991 [facility] C EXAM 0 [place] CHEST 2 KAI KAI VIEWS FRONTAL&L ATERAL COLLECTIO 49625 [facility] N VENOUS 0 [facility] BLOOD VENIPUNCT URE COMPREHEN 85576 [facility] SIVE 0 [facility] METABOLIC PANEL BLOOD 61705 [facility] COUNT 0 [facility] COMPLETE AUTO&AUTO DIFRNTL WBC LIPID 23807 [facility] PANEL 0 [facility] HEMOGLOBI 56857 [facility] N 0 [facility] GLYCOSYLA CISCO A1C TRANSFERA 21090 [facility] SE 0 AMERIC AMERIC ALANINE HOLDING HOLDING AMINO ALT SGPT COMPLETE G0306 [facility] CBC 0 AMERIC AMERIC AUTOMATED HOLDING HOLDING &AUTOMATE D WBC DIFF COUNT BASIC 92826 [facility] METABOLIC 0 AMERIC AMERIC PANEL HOLDING HOLDING CALCIUM TOTAL COLLECTIO 73070 [facility] N VENOUS 0 AMERIC AMERIC BLOOD [place] [address] [facility] GLUTAMYLT 0 AMERIC AMERIC RASE HOLDING HOLDING GAMMA TRANSFERA 53504 [facility] SE 0 AMERIC AMERIC ASPARTATE [place] [address] [facility] PHOSPHATA 0 AMERIC AMERIC SE HOLDING HOLDING ALKALINE THORACENT 61876 [facility] RICE, ESIS WITH 0 RADIOLOGY JARED [place] [address] [facility] GUIDANCE 0 CONGREGATION CONGREGATION NEEDLE HOSP HOSP PLACEMENT CULTURE 81046 [facility] BACTERIAL 0 CONGREGATION CONGREGATION ANY HOSP HOSP SOURCE ANAEROBIC ISO&ID CUL BACT 79674 [facility] XCPT 0 CONGREGATION CONGREGATION URINE HOSP HOSP BLOOD/STO OL AEROBIC ISOL THROMBOPL 58570 [facility] ASTIN 0 CONGREGATION CONGREGATION TIME HOSP HOSP PARTIAL PLASMA/WH OLE BLOOD BLOOD 51985 [facility] COUNT 0 CONGREGATION CONGREGATION PLATELET HOSP HOSP AUTOMATED SMR PRIM 98377 [facility] SRC 0 CONGREGATION CONGREGATION GRAM/GIEM HOSP HOSP SA STAIN BCT FUNGI/GIBRAN L THORACENT 45667 [facility] ESIS 0 CONGREGATION CONGREGATION PUNCTURE HOSP HOSP PLEURAL CAVITY ASPIRATIO N PROTHROMB 02280 [facility] IN TIME 0 CONGREGATION CONGREGATION HOSP HOSP CREATININ 39956 [facility] BLOOD 0 [facility] [place] [address] [facility] UREA 0 [facility] N[facility]OGEN [facility] COLLECTIO 14448 [facility] VENOUS 0 [facility]LOOD [facility] RADI[facility] 74310 [facility]AM 0 [facility] CHEST 2 [facility] ATERAL CT THORAX [address] W/CONTRAS [facility] MRI 74540 [facility] Arnold MILLAN SPINAL 0 RADIOLOGY N CANAL LUMBAR W/O CONTRAST MATERIAL COMPREHEN 15983 [facility] SIVE 9 [employer] [facility] METABOLIC PANEL LIPID 22509 [facility] PANEL 9 [facility] [employer] INC BLOOD 54254 [facility] COUNT 9 [employer] [facility] COMPLETE AUTO&AUTO DIFRNTL WBC PROSTATE G0103 [facility] CANCER 9 [facility] [employer] [facility] SCREENING ; PSA TEST HEMOGLOBI 67600 [facility] N 9 [facility] [employer] [facility] GLYCOSYLA CISCO A1C COLLECTIO 02888 [facility] N VENOUS 9 [facility] BLOOD VENIPUNCT URE CREATININ 79770 [facility] E OTHER 9 [place] [facility] SOURCE ALBUMIN 09803 [facility] URINE 9 [facility] MICROALBU MIN QUANTIATI VE RADIOLOGI 22617 [facility] EXAM 9 [facility] CHEST 2 [facility] ATERAL COMPREHEN 20123 [facility] SIVE 9 [facility] METABOLIC [facility] PANEL [facility] COLLECTIO 83472 [facility] N VENOUS 9 [facility] BLOOD [facility] VENIPUNCT [facility] RADIOLOGI 67470 [facility] EXAM 9 [facility] CHEST 2 [facility] ATERAL BLOOD 66653 [facility] COUNT 9 [facility] CONGREGATION COMPLETE HOSP HOSP AUTO&AUTO DIFRNTL WBC COLLECTIO 68939 [facility] N VENOUS 9 [facility] BLOOD HOSP HOSP VENIPUNCT URE COMPREHEN 77583 [facility] SIVE 9 [facility] PANEL COLLECTIO 37033 [facility] N VENOUS 9 [facility] BLOOD VENIPUNCT URE HEPATIC 78341 [facility] FUNCTION 9 [facility] INC PANEL SBSQ [address] CARE/DAY MDPSC 25 MINUTES HOSPITAL [address]309 CARDIOVAS PINEDO, DISCHARGE 9 ULAR & MARIANELA G DAY [facility] PSC T 30 MIN/< SBSQ [address] CARE/DAY MDPSC 35 MINUTES SBSQ [address] CARE/DAY MDPSC 25 MINUTES SBSQ [address] CARE/DAY MDPSC 25 MINUTES ESOPHAGOG 36726 MARIA ELENA NIEVES 9 [facility] LIANG ENOSCOPY GASTROENT TRANSORAL EROLOGY [facility] DIAGNOSTI C RADIOLOGI 70172 [facility] GARCIA, C EXAM 9 RADIOLOGY J S CHEST 2 ASSOC VIEWS FRONTAL&L ATERAL OTHER 4513 [facility]AL ENDOSCOPY 9 [facility] INTESTINE RADIOLOGI 61757 CENTRAL RICE, C EXAM 9 RADIOLOGY JARED CHEST 2 ASSOC VIEWS FRONTAL&L ATERAL RADIOLOGI 02413 [facility] RICE, C 9 RADIOLOGY JARED EXAMINATI ASSOC ON CHEST [place] FRONTAL RADIOLOGI 83383 CENTRAL MEJIA, C 9 RADIOLOGY CHAY Lloyd EXAMINATI ASSOC ON [place]ST [place] FRONTAL SBSQ [address] CARE/DAY MDPSC 25 MINUTES RADIOLOGI 32079 CENTRAL RICE, C 9 RADIOLOGY JARED EXAMINATI ASSOC ON CHEST [place] FRONTAL SBSQ [address] CARE/DAY MDPSC [address] THORAX [address] [facility], RADIOLOGY J S W/[place] [address] [facility], ABDOMEN 9 RADIOLOGY J S W/CONTRAS ASSOC T MATERIAL SBSQ [address] CARE/DAY MDPSC [address] PELVIS [address] [place] [address] RADIOLOGY J S W/CONTRAS ASSOC T MATERIAL SBSQ [address] CARE/DAY MDPSC 25 MINUTES CYTP 27025 [facility] SLCTV 9 MELVIN & ER JR, CELL CAIT Orta ENHANCEME NT INTERPJ XCPT C/V SWALLOWIN 10384 [place] Christiano MEJIA FUNCJ 9 RADIOLOGY CHAY Lloyd W/CINERAD ASSOC IOGRAPY/[place] [address] [facility] SURG 9 MELVIN & ER JR, PATHOLOGY CAIT Orta GROSS&JOHN ROSCOPIC EXAM INSERTION 3404 CENTRAL CENTRAL OF 9 CONGREGATION [facility]REG[facility] CATHETER FOR DRAINAGE RADIOLOGI 22090 CARDIOVAS PINEDO, EXAM 9 ULAR & MARIANELA G CHEST 2 THORACIC VIEWS ASSOC PSC FRONTAL&L ATERAL INITIAL 53364 [facility] 9 ULAR & MARIANELA G CARE/DAY THORACIC 70 ASSOC PSC MINUTES INITIAL 23988 MICHI HA, INPATIENT 9 AMARI Elizabeth CONSULT MDPSC NEW/ESTAB PT 110 MIN SPMTRY 46819 PULMONARY VILLARAN, W/VC 9 SHARAD EXPIRATOR ASSOCIATE Y CONSUELO S, INC W/WO MXML VOL VNTJ FLOW 00345 JOHN NAVA, CYTOMETRY 9 MEDICAL JOSPEH F INTERPJ SERV 9-15 FOUNDATIO MARKERS SMR PRIM 90094 [facility] SRC 9 [facility] GRAM/GIEM [facility] SA STAIN [facility] FUNGI/GIBRAN L CUL BACT 40191 [facility] BRIAN 9 [facility] AEROBIC [facility] ISOL XCPT [facility] BLOOD/STO OL LACTATE 01400 [facility] DEHYDROGE 9 [facility] NASE [facility] FLOW 34038 [facility] CY[facility]OMETRY 9 Y Y CELL [facility] SURF [place] TECH[place] 1[place] [address] [facility]UIDANCE 9 [facility] NEEDLE [facility] PLACEMENT [facility] IMG S&I [facility] THORACENT 23057 [facility] ESIS 9 [facility] PUNCTURE [facility] PLEURAL [facility] CAVITY [facility] ASPIRATIO N CYTP 63794 [facility] CONCENTRA 9 JHONNY JHONNY TION [facility] SME[facility] ATION CULTURE 60268 [facility] MYCOBACTE 9 [facility] RIAL [facility] DEFINITIV [facility] ISOL CULTURE 66742 [facility] FNGI 9 [facility] MOLD/YEAS [facility] T PRSMPTV [facility] OTH [facility] BLOOD CYTP 49282 [facility] SLCTV 9 CLINIC CLINIC CELL LABORATOR LABORATOR ENHANCEME Y Y NT INTERPJ XCPT C/V CELL 58066 [facility] COUNT 9 JHONNY BARRY MISC BODY [facility] FLUIDS [facility] W/DIFFERE [facility] NTIAL COUNT CUL BACT 20478 [facility] BRIAN 9 JHONNY BARRY ANAERC [facility] ISOL XCPT [facility] BLOOD/STO OL RADIOLOGI 62160 [facility] 9 JHONNY BARRY EXAMINATI [facility] ON CHEST [facility] VIEW FRONTAL SMR PRIM 40471 [place] SR[facility] WET 9 JHONNY BARRY [facility] NFCT AGT [facility] SMR PRIM 51188 [place] SRC 9 JHONNY BARRY FLUORESCE [facility] NT&/AFS [facility] BCT [facility] PARASIT PROTEIN 18508 [place] TOTAL 9 JHONNY BARRY XCPT [facility] REFRACTOM [facility] SRC FLOW 23597 [facility] CYTOMETRY 9 Y Y CELL [facility] SURF MARKER TECHL ONLY EA PROTHROMB 97717 [place] IN TIME 9 JHONNY BARRY [facility] THROMBOPL 43924 [place] ASTIN 9 JHONNY BARRY TIME [facility] PARTIAL [facility] PLASMA/[facility] OLE BLOOD COLLECTIO 65960 [place] N VENOUS 9 JHONNY BARRY BLOOD [facility] VENIPUNCT [facility] THORACENT 68021 SUPAONGPR ESIS 9 JHONNY - APA, PUNCTURE [facility] PLE[facility] [place] [facility] PULMONARY ASPIRATIO MEDICINE N CYTP 45339 [facility] CELL LABORATOR LABORATOR ENHANCEME Y Y NT INTERPJ XCPT C/V MYOCRD 97036 MOMO LEWIS STD 8 MEDICAL HEAVENLY WALL SERV MOTION FOUNDATIO QUAL/BRIAN STD INITIAL 68177 JOHN RIVAS MD, INPATIENT 8 MEDICAL ZACARIAS CONSULT SERV W NEW/ESTAB FOUNDATIO PT 110 MIN MYOCRD 24820 MOMO LEWIS STD 8 MEDICAL HEAVENLY EJEC FXJ SERV FOUNDATIO ECG 43535 Arnold MESSINA S ROUTINE 8 MEDICAL ECG SERV W/LEAST FOUNDATIO 12 LDS I&R ONLY MYOCRD 28257 [place] KEELY, PRFUJ IMG 8 MEDICAL HEAVENLY TOMOG SERV SPECT CERTIFIED LOW VISION THERAPIST FOUNDATIO STD GROUND A0425 [facility] MILEAGE 8 Y CO Y CO PER AMBULANCE AMBULANCE STATUTE SERVICE SERVICE MILE AMB A0427 [facility] SERVICE 8 Y CO Y CO ALS AMBULANCE AMBULANCE EMERGENCY SERVICE SERVICE TRANSPORT LEVEL 1 RADIOLOGI 54756 [place] CNTRL [place] C 8 RADIOLOGY RADIOLOGY EXAMINATI ON CHEST [place] FRONTAL ECG 08041 [place] Arnold JIMENEZ S ROUTINE 8 MEDICAL ECG SERV W/LEAST FOUNDATIO 12 LDS I&R ONLY BLOOD 19153 [facility] COUNT 8 [facility] COMPLETE [facility] AUTO&AUTO [facility] [place] [address] [facility] TROPONIN 8 [facility] QUANTITAT [facility] COMPREHEN 64869 [facility] SIVE 8 [facility] METABOLIC [facility] ECG 77623 [facility] ROUTINE 8 [facility] ECG [facility] W/LEAST [address] TRCG ONLY W/O I&R PROTHROMB 21825 [facility] IN TIME 8 [facility] [place] [address] [facility] LIPASE 8 [facility] RADIOLOGI 81367 [place] C 8 MEDICAL MEDICAL EXAMINATI SERV SERV ON CHEST FOUNDATIO FOUNDATIO SINGLE [place]IEW FRONTAL ECG 35945 [place] ROUTINE 8 MEDICAL MEDICAL ECG SERV SERV W/LEAST FOUNDATIO FOUNDATIO 12 LDS I&R ONLY COLSC FLX 49968 [place] 8 MEDICAL MEDICAL W/REMOVAL SERV SERV LESION FOUNDATIO FOUNDATIO BY HOT BX FORCEPS EGD 81849 [place] TRANSORAL 8 MEDICAL MEDICAL BIOPSY SERV SERV SINGLE/MU FOUNDATIO FOUNDATIO LTIPLE SPECIAL 17729 [place] STAIN 8 MEDICAL MEDICAL GROUP 1 SERV SERV MICROORGA FOUNDATIO FOUNDATIO NISMS I&R COLSC FLX 41319 [place] W/RMVL 8 MEDICAL MEDICAL OF TUMOR SERV SERV POLYP FOUNDATIO [place] [address] [place] SURG 8 MEDICAL MEDICAL PATHOLOGY SERV SERV FOUNDATIO FOUNDATIO GROSS&[place] [address] [place] ABDOMEN 8 MEDICAL MEDICAL W/CONTRAS SERV SERV T FOUNDATIO FOUNDATIO MATERIAL CT PELVIS 71961 [place] 8 MEDICAL MEDICAL W/CONTRAS SERV SERV T FOUNDATIO FOUNDATIO MATERIAL INITIAL 54566 [place] INPATIENT 8 MEDICAL MEDICAL CONSULT SERV SERV NEW/ESTAB FOUNDATIO FOUNDATIO PT 80 [place] [address] [facility] MEADOWVIE INFUSION 8 W W HYDRATION REGIONAL REGIONAL INITIAL MEDICAL MEDICAL 31 MIN-1 CENTER CENTER HR CRITICAL 72739 [facility] 8 EMERGENCY [place]HAM M ILL/INJUR SERVICES ED ASSOC PATIENT PSC INIT 30-74 MIN GROUND A0425 [facility] MILEAGE 8 CLARIBEL CO CLARIBEL CO PER STATUTE AMBULANCE AMBULANCE MILE ECG 67577 [place] ROUTINE 8 MEDICAL MEDICAL ECG SERV SERV W/LEAST FOUNDATIO FOUNDATIO 12 LDS I&R ONLY THROMBOPL 31911 [facility] MEADOW[facility]IE ASTIN 8 W W TIME REGIONAL REGIONAL PARTIAL MEDICAL MEDICAL PLASMA/WH CENTER CENTER OLE BLOOD BLOOD 29368 [facility] TYPING 8 W W SEROLOGIC REGIONAL REGIONAL RH (D) MEDICAL [facility]ICAL CENTER CENTER CT PELVIS 83846 [facility], W/O 8 EVANGELIST S CONTRAST RADIOLOGY MATERIAL ASSOCIATE S PSC AMB A0427 [facility] SERVICE 8 CLARIBEL CO CLARIBEL CO ALS EMERGENCY AMBULANCE AMBULANCE TRANSPORT LEVEL 1 BLOOD 25605 [facility] MEADOW[facility] COUNT 8 W W COMPLETE REGIONAL REGIONAL AUTO&AUTO MEDICAL MEDICAL DIFRNTL CENTER CENTER WBC INJECTION J2550 [facility] MEADOWVIE 8 W W PROMETHAZ REGIONAL REGIONAL INE HCL MEDICAL MEDICAL UP TO [address] [place] [address] [facility] MEADOW[facility] ABDOMEN 8 W W W/O REGIONAL REGIONAL CONTRAST MEDICAL MEDICAL MATERIAL CENTER CENTER BLOOD 12965 [facility] MEADOWVIE TYPING 8 W W SEROLOGIC [facility] CENTER ANTIBODY 40449 ME[facility]IE MEADOWVIE SCREEN 8 W W RBC [facility] [place] [address] [facility]OW[facility] AMYLASE 8 W W [facility] COMPREHEN 78815 [facility] MEADOWVIE SIVE 8 W W METABOLIC [facility] CENTER COLLECTIO 88573 MEAD[facility]IE MEADOWVIE N VENOUS 8 W W BLOOD [facility] URE ADOLPHUS CENTER 3D 07135 [facility], RENDERING 8 EVANGELIST S W/JENNIFER RADIOLOGY & POSTPROCE ASSOCIATE SS S PSC SUPERVISI ON PROTHROMB 84010 MEADOWFER MEAWVIE IN TIME 8 [place] [address] MEADOW[facility]IE MEADOW[facility] LIPASE [address] [facility] [address] [place] INTERNAL DISCHARGE 8 MEDICAL MEDICINE DAY SERV MANAGEMEN FOUNDATIO T 30 MIN/< ECHO 52926 JOHN HARVEY, TRANSTHOR 8 PRIYA DAVIES AC R-T 2D SERV W/WO FOUNDATIO M-MODE REC COMP DOP 87868 JOHN HARVEY ECHOCARD 8 PRIYA DAVIES COLOR SERV [place] [address] JOHN MENDES, MINERVA&/OR 8 PRIYA Barrett PRESS SERV C/CONSUELO FOUNDATIO RSRV DALIA 1ST VSL I SI&R 22469 JOHN MENDES, F/NJX PX 8 PRIYA Barrett DURING SERV C-CATHJ FOUNDATIO VENTR&/AT R ANGRPH L HRT 68912 JOHN MENDES CATHETERI 8 PRIYA Barrett ZATION SERV RETROGRAD FOUNDATIO E BRACHIAL PERQ I SI&R 20622 JOHN MENDES, F/NJX PX 8 PRIYA Barrett DURING SERV C-CATHJ FOUNDATIO PULM&/[place] [address] JOHN MENDES C-CATHJ 8 PRIYA Barrett F/SLCTV C SERV ANGRPH FOUNDATIO SBSQ 71387 [place] [facility] 8 MEDICAL MEDICINE CARE/DAY SERV 25 FOUNDATIO MINUTES DOPPLER 50991 [place] GABRIEL, ECHOCARD 8 MEDICAL KEKE PULSE SERV WAVE FOUNDATIO W/SPECTRA L DISPLAY INITIAL 74875 [place] INPATIENT 8 MEDICAL MEDICAL CONSULT SERV SERV NEW/ESTAB FOUNDATIO FOUNDATIO PT 110 MIN INJECTION 03897 [place] MENDES, CARDIAC 8 MEDICAL KVNG C CATHJ L SERV VENTR/L FOUNDATIO ATR ANGIOGRAP H DUPLEX 01792 RADIOLOGY RADIOLOGY SCAN 8 EXTRACRAN PHYSICIAN PHYSICIAN IAL ART S OF S OF COMPL BI [facility] STUDY PSC PSC RADIOLOGI 26442 [place] C 8 MEDICAL MEDICAL EXAMINATI SERV SERV ON CHEST FOUNDATIO FOUNDATIO SINGLE [place]IEW FRONTAL ECG 90105 [place] ROUTINE 8 MEDICAL MEDICAL ECG SERV SERV W/LEAST FOUNDATIO FOUNDATIO 12 LDS I&R ONLY URNLS DIP 84386 [facility], 8 POINT [facility] E STICK/TAB FAMILY LET RGNT CARE, AUTO W/O INC. MICROSCOP Y ALBUMIN 10974 [facility], URINE 8 POINT HENRY E MICROALBU FAMILY MIN CARE, QUANTIATI INC. VE COLLECTIO 89351 [facility], N VENOUS 8 POINT HENRY E BLOOD FAMILY VENIPUNCT CARE, URE INC. Encounters Encounter Start End Date Code Location Performer Type Date HOSPITAL [facility] - 7 7 [facility] OUTPATIEN INC T OFFICE 82374 [facility] RUBIO OUTPATIEN 7 7 PHYSICIAN T VISIT S GROUP 10 MINUTES HOSPITAL [facility] - 7 7 [facility] OUTPATIEN E T HOSPITALS OFFICE 11860 [facility] OUTPATIEN 7 7 HEALTH T VISIT SOLUTIONS 15 IN MINUTES OFFICE 49571 [facility] OUTPATIEN 7 7 HEALTH T VISIT SOLUTIONS 15 IN MINUTES OFFICE 46162 [place] ENDEAN OUTPATIEN 7 7 MEDICAL T VISIT SERV 25 FOUNDATIO MINUTES N OFFICE 63769 [facility] 7 7 HEALTH T VISIT SOLUTIONS 15 IN MINUTES EMERGENCY 56330 JOHN BALDWIN 7 7 MEDICAL DEPARTMEN SERV T VISIT FOUNDATIO MODERATE N SEVERITY EMERGENCY 33852 JOHN BALDWIN 7 7 MEDICAL DEPARTMEN SERV T VISIT FOUNDATIO LOW/MODER N SEVERITY EMERGENCY 76217 [facility] JONA VISIT EMERGENCY HIGH PHYS SEVERITY& THREAT FUNCJ EMERGENCY 02737 CAROL TAVERAS, 7 7 PHYSICIAN [facility] T VISIT HIGH/URGE NT SEVERITY EMERGENCY 28691 DUSTIN 7 7 MEM HOSP DEPARTMEN INC T VISIT LOW/MODER SEVERITY HOSPITAL DUSTIN - 7 7 [facility] - 6 6 [facility]IENT [facility] EMERGENCY 81953 CAROL JAVIER 6 6 [facility] T VISIT HIGH/URGE NT SEVERITY EMERGENCY 54463 [facility] [address] [facility] KAI T VISIT HIGH/URGE NT SEVERITY EMERGENCY 88140 [facility] 6 6 JONA Y TRA VISIT EMERGENCY HIGH SERVI SEVERITY& THREAT [facility] 6 [facility] K[facility] T EMERGENCY 10530 [facility] 6 6 JONA VALENTÍN DEPARTMEN EMERGENCY T VISIT PHYS HIGH/URGE NT SEVERITY [facility]OSP[facility] UN[facility] - 6 6 [facility] T OFF[facility] 39982 [facility] 6 6 HEALTH T VISIT SOLUTIONS 15 IN MINUTES HOSPITAL CARDINAL - 6 6 [facility] UNIVERSIT - 6 6 Y INPATIENT HOSPITAL OFFICE 58415 [facility] OUTPATIEN 6 6 HEALTH T VISIT SOLUTIONS 15 IN MINUTES OFFICE 97322 [facility] OUTPATIEN 5 5 HEALTH T VISIT SOLUTIONS 15 IN MINUTES OFFICE 20160 [facility] OUTPATIEN 5 5 HEALTH T VISIT SOLUTIONS 15 IN MINUTES OFFICE 54851 [facility] OUTPATIEN 5 5 HEALTH T VISIT SOLUTIONS [address] [facility] - 5 5 [facility] KAI T OFFICE 20906 [facility] OUTPATIEN 5 5 HEALTH T VISIT SOLUTIONS 15 IN MINUTES OFFICE 65182 HIMANSHU BEAN MARIZA OUTPATIEN 5 5 MD JOSE G, T VISIT PSC 10 MINUTES HOSPITAL UNIVERSIT - 5 5 Y OUTPATIEN HOSPITAL T OFFICE 25204 [place] ADRIAN OUTPATIEN 5 5 MEDICAL GRE T NEW 30 SERV MINUTES FOUNDATIO N OFFICE 43642 [facility] OUTPATIEN 5 5 HEALTH T VISIT SOLUTIONS 15 IN MINUTES OFFICE 36128 [facility] OUTPATIEN 5 5 HEALTH T VISIT SOLUTIONS 15 IN MINUTES OFFICE 21745 [facility] OUTPATIEN 5 5 HEALTH T VISIT SOLUTIONS 15 IN MINUTES HOSPITAL DUSTIN - 5 5 [facility] OUTPATIEN INC T OFFICE 61803 [facility] OUTPATIEN 5 5 HEALTH T VISIT SOLUTIONS 15 IN MINUTES OFFICE 35662 [facility] OUTPATIEN 5 5 HEALTH T VISIT SOLUTIONS 15 IN MINUTES OFFICE 55306 [facility] OUTPATIEN 5 5 HEALTH T VISIT SOLUTIONS [address] [facility] - 5 5 [facility] OUTPATI[facility] KAI T OFFICE 75577 [facility] OUTPATIEN 5 5 HEALTH T VISIT SOLUTIONS 25 IN MINUTES EMERGENCY 57864 [facility] 5 5 JONA DEPARTMEN EMERGENCY T VISIT SERVI HIGH/URGE NT SEVERITY [facility] - 5 5 [facility] OUTPATIEN KAI T EMERGENCY 68[address] [facility] 5 5 [facility] DEPARTMEN KAI T VISIT MODERATE SEVERITY HOSPITAL DUSTIN - 5 5 [facility] OUTPATIEN INC T OFFICE 35315 [facility] OUTPATIEN 5 5 HEALTH T VISIT SOLUTIONS 25 IN MINUTES HOSPITAL DUSTIN - 5 5 [facility] OUTPATIEN INC T OFFICE 10190 [facility] OUTPATIEN 5 5 HEALTH T VISIT SOLUTIONS [address] [facility] - 5 5 [facility] OUT[facility]AI T OFFICE 52754 [facility] OUTPATIEN 5 5 HEALTH T VISIT SOLUTIONS [address] [facility] - 5 5 [facility] OUTPATI[facility] KAI T OFFICE 81503 [facility] OUTPATIEN 5 5 HEALTH T VISIT SOLUTIONS 25 IN MINUTES OFFICE 03475 TANNER ARAIZA BUX ANJ OUTPATIEN 5 5 MD T NEW 30 MINUTES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
--- OUTSIDE RECORDS SUMMARY | 2017-04-02 12:51 | External Medical Summary Rpt ---
Author Author , Organization [employer] Address Unknown Phone Unavailable Care Team Providers Care Draw Tender Name Role Phone [facility], Unavailable Unavailable [facility], Unavailable Unavailable [facility] Unavailable Unavailable SUPPLIE, [facility] GABRIEL, KEKE, GABRIEL, Unavailable Unavailable KEKE ARAIZA MD, PSC, Unavailable Unavailable HIMANSHU ARAIZA MD, PSC [facility], Unavailable Unavailable [facility] EVELYN NEGRETE, ZACARIAS Austin, Unavailable Unavailable ZACARIAS RIVAS MD, Unavailable Unavailable MPushpa.P.S.CRuth, TIM PAYTON M.D.P.S.CEZIO DONAHUE, Unavailable Unavailable EZIO DUMONT [facility] Unavailable Unavailable [facility]YSTAL ROJAS Unavailable Unavailable DEVON JOSE ROBERTO, Unavailable Unavailable DEVON JOSE ROBERTO GUPTA, GUPTA Unavailable Unavailable GUPTA ALL, GUPTA ALL Unavailable Unavailable KVNG MENDES, Unavailable Unavailable KVNG MENDES BRADLEY Unavailable Unavailable MAXIM ALDANA BRANN, Unavailable Unavailable MAXIM BRIGGS CAR, BRIGGS Unavailable Unavailable CAR BUX ANJ, BUX ANJ Unavailable Unavailable [facility] Unavailable Unavailable REHABILITATION, [facility] Unavailable Unavailable SERVICES [facility] Unavailable Unavailable SERVICES [facility] ACEVES JOHN, Unavailable Unavailable ACEVES JOHN ACEVES JOHN, Unavailable Unavailable ACEVES JOHN [facility], Unavailable Unavailable [facility]-, Unavailable Unavailable [facility] Unavailable Unavailable SPECIALIST, [facility] MA[facility] [employer] [facility], Unavailable Unavailable [facility] CHESTNUT, CHESTNUT Unavailable Unavailable [facility] Unavailable Unavailable [facility] Unavailable Unavailable MEDICAL NEEMA, [facility] KEKE MOODY CLARK, Unavailable Unavailable KEKE Ko [facility], Unavailable Unavailable [facility], Unavailable Unavailable [facility] Unavailable Unavailable AND RE[facility], [facility] Unavailable Unavailable CLINIC, PLL, [facility] KRISTIAN II THO, KRISTIAN II [...] HAROLD R, Unavailable Unavailable MARNIE ROCHA JR [facility], Unavailable Unavailable [facility] LIANG BISHOP, Unavailable Unavailable LIANG BISHOP OMEGA, DARLIN OMEGA Unavailable Unavailable [facility], Unavailable [facility]available [facility] JOSE II PENNY, JOSE Unavailable Unavailable II PENNY KEELY, HEAVENLY, KEELY, Unavailable Unavailable HEAVENLY ELIA TAU, ELIA Unavailable Unavailable TAU ELIA, TAUFIK, Unavailable Unavailable ELIA, TAUFIK [facility] Unavailable Unavailable PHARMACY, [facility] Unavailable Unavailable PHARMACY, [facility] Unavailable Unavailable IMAGING [facility], [facility] KOSTELIC CESILIA, Unavailable Unavailable [...] HOLDINGS, [facility], Unavailable Unavailable [facility] BAIRD JAZMINE, BAIRD JAZMINE Unavailable Unavailable [facility] Unavailable [facility] Unavailable Un[facility] Unavailable Unavailable LABORATORY, [facility] ANNE MARIE SOILA, ANNE MARIE Unavailable Unavailable SOILA TANNER ARAIZA MD, TANNER Unavailable Unavailable JOSE G SANDERSON MD Unavailable Unavailable [facility], MICHI SANDERSON MD [facility] Unavailable Unavailable SERVICES, [facility] HYNDMAN [facility] [place] Unavailable Unavailable AMBULANCE, [facility] MARYBETH, Unavailable Unavailable ÁLVAREZ MARYBETH [facility] Unavailable Unavailable [place], [facility], Unavailable Unavailable LLC, [employer] KWASI HA, Unavailable Unavailable KWASI HA MILLER Unavailable Unavailable KYL [facility], Unavailable Unavailable [facility] Unavailable Unavailable AMBULANCE SERVICE, [facility] DENNY, BALDWIN Unavailable Unavailable CORNELIO EDW, CORNELIO Unavailable Unavailable EDW [facility] Unavailable Unavailable [facility], [facility] Unavailable Unavailable AMBULANCE SE, [facility] Unavailable Unavailable AMBULANCE SE, [facility] SE RINALDI KAYKAY, RINALDI KAYKAY Unavailable Unavailable JOSE JOSE ROBERTO, JOSE JOSE ROBERTO Unavailable Unavailable [facility], Unavailable Unavailable PLL, [facility], [facility], Unavailable Unavailable [facility], Unavailable Unavailable [facility] PICKLESIMER JR, LEATHA Unavailable Unavailable L, PICKROWENAIMER JR, LEATHA L MURRAY, LIANG A, Unavailable Unavailable MURRAY, LIANG A BRANDY, JOSPEH F, Unavailable Unavailable BRANDY, JOSPEH F [facility] Unavailable Unavailable [facility], [facility] RUBIO, RUBIO Unavailable Unavailable REKHRAJ HALINA, REKHRAJ Unavailable Unavailable HALINA PARUL, JARED, PARUL, Unavailable Unavailable JARED CARRERA, Unavailable Unavailable ALLIE PIÑA C, WANG C Unavailable Unavailable Arnold PIÑA N, WANG C Unavailable Unavailable N SHAHIDA MARTINEZ Unavailable Unavailable ANT SHAHIDA, MARIANELA G, Unavailable Unavailable MARIANELA PINEDO [facility], [facility]S Unavailable Unavailable SURGICAL [facility], ROSS Unavailable Unavailable SURGICAL [facility] Unavailable Unavailable [facility], [facility] ELI MILLY, ELI Unavailable Unavailable MILLY SCALF GUTIERREZ, SCALF GUTIERREZ Unavailable Unavailable SCHLEENBAKAPIL RAN, Unavailable Unavailable SCHLEENBAGlenn BAKER, Unavailable Unavailable Glenn GARCIA [facility] Unavailable Unavailable EMERGENCY PHYS, [facility] Unavailable Unavailable EMERGENCY SERVI, [facility], Unavailable Unavailable [facility] Unavailable Unavailable RADIOLOG, [facility] Unavailable Unavailable [facility] SIXTO COUGHLIN, Unavailable Unavailable SIXTO COUGHLIN [facility] Unavailable Unavailable SOLUTIONS IN, [facility] SOL[facility]IONS IN STILES NAN, STILES Unavailable Unavailable NAN VILLARREAL ALICIA, VILLARREAL ALICIA Unavailable Unavailable SUPAONGPRAPA, Unavailable Unavailable WORAWUTE, SUPAONGPRAPA, WORAWUTE FREDO, FREDO Unavailable Unavailable FREDO JEANNIE, FREDO JEANNIE Unavailable Unavailable MALA RAY, MALA Unavailable Unavailable RAY GUADALUPE MOL, GUADALUPE MOL Unavailable Unavailable [facility] Unavailable Unavailable HOSPITALS, [facility], Unavailable Unavailable [facility] Unavailable Unavailable Kad[facility], [facility] Unavailable Unavailable [facility] JACK DAWKINS, JACK Unavailable Unavailable JR MARIZA YOUNG, SHARAD, Unavailable Unavailable SHARAD YOUNG PHILLIP L, Unavailable Unavailable LILY SMART CHARLES IV ALL, Unavailable Unavailable CHARLES IV ALL ADRIAN GRE, ADRIAN Unavailable Unavailable GRE RODNEY GIN, RODNEY Unavailable Unavailable GIN BISHOP JAZMINE, Unavailable Unavailable BISHOP JAZMINE MARSHAL JOHN, MARSHAL Unavailable Unavailable JOHN JOSE MAT, JOSE MAT Unavailable Unavailable Purpose Continuity of Care Document - 10-17-2007 through 2016 Problems Code Diagnosis DOS Provider Status E1151 TYPE 2 DM 02-28-2017 [facility] W/DIAB PHYSICIANS PERIPH GROUP ANGIOPATHY W/O GANGRENE I739 PERIPHERAL 02-28-2017 [facility] VASCULAR PHYSICIANS DISEASE GROUP UNSPECIFIED M1991 PRIMARY 02-28-2017 [facility] OSTEOARTHRI SURGICAL TIS UNSPECIFIED SITE V30864 PAIN IN 02-28-2017 [facility] LEFT ANKLE [facility] [id number] DSPL OBL FX 02-28-2017 [facility] SHAFT [facility] MEDICAL FIBULA IMAGING ASS SUBSQT CLOS FX RTN [id number] DSPL FX MED 02-28-2017 [facility] MALLEOLUS MEDICAL LT TIBIA IMAGING ASS SUBS CLOS FX RTN [id number] DISPL 02-28-2017 [facility] BIMALLEOLAR PHYSICIANS FX LT LOW GROUP LEG INIT CLOSED FX Z720 TOBACCO USE 02-28-2017 [facility] PHYSICIANS GROUP M7989 OTHER 02-19-2017 [facility] SPECIFIED MEDICAL SOFT TISSUE IMAGING ASS DISORDERS [id number] DISPL 02-19-2017 [facility] BIMALLEOL MEDICAL FX LT LOW IMAGING ASS LEG SUBS CLOS RTN HEAL I00055 ENCOUNTER 02-19-2017 [facility] FOR OTHER MEDICAL PREPROCEDUR IMAGING ASS AL EXAMINATION L39771 OTHER 02-19-2017 [facility] SPECIFIED MEDICAL POSTPROCEDU IMAGING ASS RAL STATES R50129 UNS 02-09-2017 [facility] [place] [facility] EXTREM UNS EXTREMITY I771 STRICTURE 02-09-2017 [facility] OF ARTERY SERV FOUNDATION K229 DISEASE OF 02-09-2017 [facility] UNSPECIFIED HOSPITALS R590 LOCALIZED 02-09-2017 [facility] LYMPH NODES HOSPITALS U33014O STENOSIS 02-09-2017 [facility] DEVC IMPL HOSPITALS & GRAFT INIT ENC E1165 TYPE 2 02-05-2017 LAB [facility] DIABETES VINAY MELLITUS HOLDINGS WITH HYPERGLYCEM IA E1140 TYPE 2 DM 01-29-2017 [facility] WITH SURGICAL DIABETIC NEUROPATHY UNSPECIFIED E782 MIXED 01-24-2017 [facility] HYPERLIPIDE HEALTH [place] SOLUTIONS IN D24614 VARICOS VNS 01-24-2017 [facility] RT LW EXT HEALTH ULCER OTH SOLUTIONS PART LE & IN INFLAM P61972 VARICOS VNS 01-24-2017 [facility] LT LW EXT HEALTH ULCER OTH SOLUTIONS PART LE & IN INFLAM C23158 VARICOSE 12-20-2016 [facility] VEINS RT SERV LOWER FOUNDATION EXTREM W/ULCER UNS SITE I96 GANGRENE 12-20-2016 [facility] NOT SERV ELSEWHERE FOUNDATION CLASSIFIED P95926 TYPE 2 11-30-2016 [facility] DIABETES SERV MELLITUS FOUNDATION WITH FOOT ULCER E53694 NON-PRSS 11-30-2016 [facility] CHRN ULCR SERV OTH PART RT FOUNDATION FT W/UNS SEVERITY K5641 FECAL 11-11-2016 [facility] IMPACTION N EMERGENCY PHYS M549 DORSALGIA 11-11-2016 [facility] UNSPECIF[facility] AMBULANCE SE R1084 GENERALIZED 11-11-2016 [facility] ABDOMINAL [facility] PAIN AMBULANCE SE R109 UNSPECIFIED 11-07-2016 [facility] ABDOM[facility] RADIOLOGY PAIN E119 TYPE 2 11-03-2016 [facility] DIABETES MEM HOS[facility] MELLITUS INC WITHOUT COMPLICATIO NS J449 CHRONIC 11-03-2016 [facility] OBSTRUCTIVE [facility] HOSP PULMONARY INC DISEASE UNS T11161 PAIN IN 11-03-2016 [facility] RIGHT HIP MEDICAL IMAGING ASS M545 LOW BACK 11-03-2016 [facility] PAIN MEDICAL IMAGING ASS R8299 OTHER 11-03-2016 [facility] ABNORMAL MEM HOSP FINDINGS IN INC URINE X617XMX SPRAIN 11-03-2016 [facility] LIGAMENTS PHYSICIANS, LUMBAR PLLC SPINE INITIAL ENCOUNTER H2238FU CONTUSION 11-03-2016 [facility] OF RIGHT PHYSICIANS, HIP INITIAL PLLC ENCOUNTER Z794 PROGRAM REVIEW DIRECTOR 11-03-2016 [facility] CURRENT USE MEM HOSP OF INSULIN INC Z24623 CELLULITIS 08-04-2016 [facility] OF RIGHT MEDICAL LOWER LIMB IMAGING ASS M33363 CELLULITIS 08-04-2016 [facility] OF LEFT MEDICAL LOWER LIMB IMAGING ASS E08108 PAIN IN 08-03-2016 [facility] RIGHT LOWER MEDICAL LEG IMAGING ASS D24131 PAIN IN 08-03-2016 [facility] LEFT LOWER MEDICAL LEG IMAGING ASS G629 POLYNEUROPA 08-02-2016 [facility] THY PHYSICIANS, UNSPECIFIED PLLC 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 [facility] 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 E785 HYPERLIPIDE 06-16-2016 [facility] MOUNT UNSPECIFIED KAI I10 ESSENTIAL 06-16-2016 [facility] PRIMARY MOUNT HYPERTENSIO KAI N M542 CERVICALGIA 06-16-2016 [facility] R918 OTHER 06-16-2016 [facility] [place] NONSPECIFIC RADIOLOGY ABNORMAL FINDING OF LUNG FIELD Q715EMS OTHER 06-16-2016 [facility] [place] SPECIFIED RADIOLOGY INJURIES HEAD INITIAL ENCOUNTER L03798H CONTUSION 06-16-2016 [facility] LEFT FRONT MOUNT WALL THORAX KAI INITIAL ENC M253EQW FALL SAME 06-16-2016 [facility] LEVL SLIP N EMERGENCY TRIP W/O SERVI SUB STRIK OBJ INIT Z880 ALLERGY 06-16-2016 [facility] STATUS TO MOUNT PENICILLIN KAI Z885 ALLERGY 06-16-2016 [facility] STATUS TO MOUNT NARCOTIC KAI AGENT STATUS E1121 TYPE 2 05-23-2016 [facility] DIABETES VINAY MELLITUS HOLDINGS W/DIABETIC NEPHROPATHY M5000 CERVICAL 04-28-2016 [facility] DISC D/O N EMERGENCY W/MYELOPATH PHYS Y UNS CERV REGION D645XTR UNSPECIFIED 04-28-2016 [facility] INJURY OF RADIOLOGY NECK INITIAL ENCOUNTER O26OSJM UNSPECIFIED 04-28-2016 [facility] [place] DISCOUNT INITIAL MEDICAL ENCOUNTER L089 LOCAL INF 02-24-2016 [facility] THE SKIN & SERV SUBCUTANEOU FOUNDATION S TISSUE UNS I998 OTHER 02-23-2016 [facility] OF HOSPITAL CIRCULATORY SYSTEM W38589 PAIN IN 02-23-2016 [facility] RIGHT ANKLE [facility] Z7901 PROGRAM REVIEW DIRECTOR 02-23-2016 [facility] CURRENT [facility] N[facility] Z7982 HALF-WAY 02-23-2016 [facility] U54001 PERSONAL 02-23-2016 [facility] VENOUS THROMBOSIS& EMBOLISM E44802 ATHEROSCL 02-07-2016 [facility] BP GRAFT RT LEG ULCER ANKLE I7789 OTHER 02-07-2016 [facility] DISORDERS ARTERIES & ARTERIOLES A13393 NON-PRESSUR 02-07-2016 [facility] ULCER RT ANK W/UNS SEVERITY R71061 OTH 01-13-2016 [facility] [place] ART SOLUTIONS EXTREM IN BILATERAL LEGS G3184 MILD 01-05-2016 [facility] COGNITIVE SERV IMPAIRMENT FOUNDATION SO STATED I81292 NON-PRSS 01-05-2016 PATIENT CHR ULCR AIDS INC OTH PART LT LW LEG UNS SEVERTY R2681 UNSTEADINES 01-05-2016 [facility] S ON FEET SERV FOUNDATION R5381 OTHER 01-05-2016 [facility] MALAISE SERV FOUNDATION Y51210 ENCOUNTER 01-05-2016 PATIENT SURG AIDS INC AFTERCARE FOLLOW SURGERY CIRC SYS E109 TYPE 1 01-04-2016 [facility] ME[facility]ITUS PHARMACY WITHOUT COMPLICATIO NS R2241 LOCALIZED 12-23-2015 [facility] SWELLING RADIOLOGY MASS & LUMP RIGHT LOWER LIMB Z0289 ENCOUNTER 12-23-2015 [facility] [place] FOR OTHER RADIOLOGY ADMINISTRAT KRISTIAN EXAMINATION S B965 PSEUDOMONAS 12-22-2015 [facility] REHABIL[facility]AT CLASSIFIED ION ELSEWHERE I951 ORTHOSTATIC 12-22-2015 [facility] HYPOTENSION REHABILITAT ION T066VHO INFECTION 12-22-2015 [facility] FO[facility] PROCEDURE REHABILITAT INITIAL ION ENCOUNTER I743 EMBOLISM & 12-16-2015 [facility] THROMBOSIS SERV ART THE FOUNDATION LOWER EXTREMITIES I348 OTHER 12-15-2015 [facility] NONRHEUMATI SERV C MITRAL FOUNDATION VALVE DISORDERS R9431 ABNORMAL 12-15-2015 [facility] ELECTROCARD SERV IOGRAM FOUNDATION S08328 ACUTE 12-13-2015 [facility] EMBOLISM & SERV THROMBOSIS FOUNDATION LEFT POPLITEAL VEIN E1142 TYPE 2 12-08-2015 [facility] MELLITUS W/DIAB POLYNEUROPA THY V17710 UNS 12-08-2015 [facility] [place] ART EXTREM BILATERAL LEGS I7092 CHRONIC 12-08-2015 [facility] OCCLUSION ARTERY THE EXTREMITIES W35391 PRIMARY 12-08-2015 [facility] OSTEOARTHRI SERV TIS RIGHT FOUNDATION ANKLE AND FOOT R600 LOCALIZED 12-08-2015 [facility] EDEMA SERV FOUNDATION M150 PRIMARY 10-22-2015 [facility] GENERALIZED HEALTH SOLUTIONS OSTEOARTHRI IN TIS M5116 INTERVERTEB 08-24-2015 JANETTE TORRES MD, PSC D/O W/RADICULOP ATHY LUMB RGN M961 POSTLAMINEC 08-24-2015 JEROME TORRES MD, PSC SYNDROME NEC M5417 RADICULOPAT 07-23-2015 [facility] HOSP LUMBOSACRAL INC REGION 6826 CELLULITIS 07-09-2015 [facility] AND ABSCESS HEALTH OF LEG SOLUTIONS EXCEPT FOOT IN 7231 CERVICALGIA 06-23-2015 [facility] HEALTH SOLUTIONS IN 7218 OTHER 06-18-2015 [facility] ALLIED MOUNT DISORDERS KAI OF SPINE 7220 DISPLCMT 06-18-2015 [facility] CERV MOUNT INTERVERT KAI DISC WITHOUT MYELOPATHY 11094 OTHER&UNSPE 06-18-2015 [facility] CIFIED DISC MOUNT DISORDER KAI CERVICAL REGION 69413 DIAB W/O 06-08-2015 [facility] COMP TYPE HEALTH II/UNS NOT SOLUTIONS STATED IN UNCNTRL 7295 PAIN IN 06-08-2015 [facility] SOFT [place] [address] OTHER 06-04-2015 [facility] CHRONIC MOUNT PAIN KAI 16835 SPASM OF 06-04-2015 [facility] MUSCLE MOUNT KAI V145 PERSONAL 06-04-2015 [facility] HISTORY OF MOUNT ALLERGY TO KAI NARCOTIC AGENT V5869 LONG-TERM 06-04-2015 [facility] (CURRENT) MOUNT USE OF KAI OTHER MEDICATIONS 3688 OTHER 05-21-2015 [facility] SPECIFIED MEDICAL VISUAL IMAGING ASS DISTURBANCE S 7804 DIZZINESS 05-21-2015 [facility] AND MEDICAL GIDDINESS IMAGING ASS 12803 MEMORY LOSS 05-21-2015 [facility] 7812 ABNORMALITY 05-21-2015 [facility] OF GAIT [facility] INC 7840 HEADACHE 05-21-2015 [facility] V7283 OTHER 05-21-2015 [facility] SPECIFIED MEM HOSP PRE-OPERATI INC VE EXAMINATION 2392 NEOPLASMS 04-26-2015 [facility] UNSPEC HEALTH NATURE BONE SOLUTIONS SOFT IN TISSUE&SKIN 92273 LOSS OF 04-26-2015 [place] [address] POSTLAMINEC 04-16-2015 TANNER CANO MD SYNDROME LUMBAR REGION 7244 THORACIC/NIVIA 04-16-2015 TANNER HENDRICKS MD NEURITIS/RA DICULITIS UNSPEC 5110 PLEURISY 03-15-2015 [facility] WITHOUT MOUNT MENTION KAI EFFUS/[place] [address] OTHER 03-15-2015 [facility] DISEASES OF MOUNT LUNG NOT KAI ELSEWHERE CLASSIFIED 5533 DIAPHRAGMAT 03-15-2015 JHONNY GARY W/O MOUNT MENTION KAI OBSTRUCTION /GANGREN 88736 DIVERTICULO 03-15-2015 [facility] SIS OF MOUNT COLON KAI 5920 CALCULUS OF 03-15-2015 [facility] KIDNEY MOUNT KAI 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 [facility] 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 & OTH LUTS 2722 MIXED 03-11-2015 [facility] HYPERLIPIDE HEALTH SHARON SOLUTIONS IN 4011 ESSENTIAL 03-11-2015 [facility] HYPERTENSIO HEALTH N, BENIGN SOLUTIONS IN 496 CHRONIC 03-11-2015 [facility] [place] [address] DIAB 02-26-2015 [facility] W/NEURO HEALTH MANIFESTS SOLUTIONS TYPE II/UNS IN NOT UNCNTRL 68648 GENERALIZED 02-26-2015 [place] [address] NOCTURIA 01-19-2015 [facility]SC 85174 ELEVATED 01-19-2015 NEW PROSTATE [place] [facility] PSC ANTIGEN 08201 OTHER 01-14-2015 [facility] SPECIFIED MOUNT DISORDER OF KAI THE ESOPHAGUS 7856 ENLARGEMENT 01-14-2015 ST JHONNY OF LYMPH MOUNT NODES KAI 16347 SHORTNESS 01-14-2015 [facility] [place] OF BREATH RADIOLOGY 9953 ALLERGY 01-14-2015 [facility] UNSPECIFIED N EMERGENCY NOT SERVI ELSEWHERE CLASSIFIED 53191 CHEST PAIN 01-06-2015 [facility] [place] UNSPECIFIED RADIOLOGY 9221 CONTUSION 01-06-2015 [facility] OF CHEST N EMERGENCY WALL PHYS E8888 OTHER FALL 01-06-2015 [facility] N EMERGENCY PHYS 2391 NEOPLASM 12-09-2014 NEW UNSPECIFIED [facility] NATURE CLINIC PSC RESPIRATORY SYSTEM 486 PNEUMONIA, 12-09-2014 NEW ORGANISM [facility] UNSPECIFIED CLINIC PSC 97020 SLOWING OF 12-09-2014 NEW URINARY [facility] STREAM CLINIC PSC 7245 UNSPECIFIED 11-24-2014 [facility] BACKACHE [facility] KAI 6071 BALANOPOSTH 11-19-2014 NEW ITIS [place] [facility] PSC 84031 INCOMPLETE 11-19-2014 NEW BLADDER [place] [facility]TY[facility] 32934 ABDOMINAL 11-19-2014 [place] UNSPECIFIED CLINIC [facility] SITE V7644 SPECIAL 11-19-2014 [facility] SCREENING CLINIC MALIGNANT LABORATO NEOPLASM OF PROSTATE 19842 CONDUCTIVE 10-30-2014 [facility] HEARING HEALTH LOSS, [place] [address] OTHER 10-30-2014 [facility] [place] NONSPECIFIC RADIOLOGY ABNORMAL FINDING OF LUNG FIELD 3319 UNSPECIFIED 10-05-2014 [facility] CEREBRAL [facility] DEGENERATIO KAI N 86547 URGENCY OF 10-02-2014 [place] [address] DIAB W/O 04-28-2014 [facility] MENTION [facility] COMP TYPE KAI II/UNS TYPE UNCNTRL 11378 UNSPECIFIED 02-20-2014 [facility] SITE INC UNSPECIFIED 96543 PAIN IN 12-03-2013 [facility] [place] JOINT, RADIOLOGY ANKLE AND FOOT 87311 UNSPECIFIED 12-03-2013 [facility] SITE OF [facility] ANKLE KAI SPRAIN AND STRAIN E9270 OVEREXERTIO 12-03-2013 [facility] FROM N EMERGENCY SUDDEN PHYS STRENUOUS MOVEMENT 26198 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 INTERVERTEB RAL DISC 3000 ANXIETY 10-10-2013 [facility] STATES JOHN 3384 CHRONIC 10-10-2013 [facility] PAIN JOHN SYNDROME 78080 EFFUSION OF 04-21-2013 [facility] LOWER LEG [facility] JOINT KAI 76102 SYNOVIAL 04-21-2013 JHONNY CYST OF [facility] POPLITEAL KAI SPACE 8441 SPRAIN AND 04-21-2013 [facility] [place] STRAIN OF RADIOLOGY MCL OF KNEE 8442 SPRAIN AND 04-21-2013 JHONNY STRAIN OF [facility] CRUCIATE KAI LIGAMENT OF KNEE 5990 URINARY 04-15-2013 GEOFFREY TRACT REGIONAL INFECTION MEDICAL SITE NOT CENTE SPECIFIED 91670 PAIN IN 03-29-2013 [facility] JOINT, EMERGENCY LOWER LEG SERVICES 59794 GENERALIZED 01-30-2013 [facility] SLEEP AND OSTEOARTHRO REHA SIS UNSPECIFIED SITE 09448 PAIN IN 10-22-2012 [facility] [place] JOINT, RADIOLOGY SHOULDER REGION 05521 PAIN IN 10-22-2012 [facility] [place] JOINT, RADIOLOGY UPPER ARM 5119 UNSPECIFIED 10-02-2012 [facility] PLEURAL RADIOLOGY EFFUSION 7242 LUMBAGO 07-26-2012 [facility] [place] RADIOLOGY 8472 LUMBAR 07-26-2012 [facility] SPRAIN AND N EMERGENCY STRAIN PHYS 9161 HIP THIGH 07-26-2012 [facility] LEG&ANK N EMERGENCY ABRASION/FR PHYS ICTION BURN INF 05585 CONTUSION 07-26-2012 [facility] OF KNEE N EMERGENCY PHYS 4540 VARICOSE 04-12-2012 [facility] VEINS OF LOWER EXTREMITIES WITH ULCER 6829 CELLULITIS 04-12-2012 [facility] AND ABSCESS OF UNSPECIFIED SITE 514 PULMONARY 02-05-2012 [facility] RADIOLOG HYPOSTASIS 4439 UNSPECIFIED 01-24-2012 [facility] PERIPHERAL VASCULAR DISEASE 4019 UNSPECIFIED 01-22-2012 [facility] ESSENTIAL [facility] HYPERTENSIO KAI N 4280 CONGESTIVE 01-22-2012 [facility] HEART [facility] FAILURE KAI UNSPECIFIED V4582 POSTSURG 01-22-2012 [facility] PERCUT [facility] TRANSLUMINA KAI L [place] ANGPLSTY STS 22879 UNSPECIFIED 11-29-2011 [facility] [place] [address] ULCER OF 11-29-2011 [facility] [place], MANAGER BUSINESS OPERATIONS UNSPECIFIED 96760 ATHEROSCLER 11-01-2011 [facility] [place] [facility] DIRECTOR EXTREMITIES UNSPEC 7820 DISTURBANCE 11-01-2011 [facility] OF SKIN SURGICAL SENSATION SPECIALIST 3572 POLYNEUROPA 09-17-2011 [facility] DIABETES 40581 CORONARY 09-17-2011 [facility] [place] CORONARY ARTERY 6961 OTHER 09-17-2011 [facility] DISORDERS 7048 OTHER 09-17-2011 [facility] DISEASE OF HAIR&HAIR FOLLICLES 7213 LUMBOSACRAL 08-22-2011 [facility] SP[facility]YLOSIS [facility] WITHOUT MYELOPATHY 3558 UNSPECIFIED 06-27-2011 [facility] S OF LOWER LIMB 21509 RESTLESS 05-03-2011 [facility], SYNDROME [facility] 7202 SACROILIITI 05-03-2011 TIM S NOT FITO, ELSEWHERE [facility] CLASSIFIED 7291 UNSPECIFIED 05-03-2011 [facility] MYALGIA [facility], AND [facility] MYOSITIS 64092 OTHER 05-02-2011 [facility] SPECIFIED [facility] [place] [facility] 7862 COUGH 02-06-2011 [facility] KAI 15920 COR 01-04-2011 [facility] ATHEROSLERO SURGICAL UNSPEC TYPE VESSEL [place]/DM T 23968 OSTEOARTHRO 01-04-2011 [facility] SIS UNSPEC MOUNT WHETHER KAI GEN/LOC LOWER LEG 96567 OTHER 01-04-2011 [facility] ENTHESOPATH [facility] Y OF KNEE KAI 27884 OTHER 01-04-2011 [facility] MALAISE AND SURGICAL FATIGUE 9597 INJURY 01-04-2011 [facility] [place] OTHER&UNSPE RADIOLOGY CIFIED KNEE LEG ANKLE&FOOT 7931 NONSPEC 12-06-2010 [facility] FIND RAD [facility] OT EXAM KAI BODY STRUCT LUNG FIELD V1269 PERSONAL 12-06-2010 [facility] HISTORY [facility] OTHER KAI DISEASES RESPIRATORY SYS 4293 CARDIOMEGAL 10-19-2010 [facility] KAI 4149 UNSPECIFIED 07-01-2010 [facility] CHRONIC [facility], [facility] HEART DISEASE V0481 NEED 07-01-2010 [facility] PROPHYLACTI [facility]ILY C CLINIC, [facility] VACCINATION &INOCULATIO N FLU 1122 CANDIDIASIS 04-07-2010 [facility] OTHER H UROLOGY UROGENITAL SITES 7887 URETHRAL 03-29-2010 [facility] DISCHARGE [facility], [facility] V5874 AFTERCARE 02-15-2010 [facility]LLOW [facility] SURGERY ASSOC RESPIRATORY SYSTEM NEC 61070 NAUSEA 02-04-2010 [facility] ALONE [facility] 5180 PULMONARY 11-03-2009 [facility] [place] COLLAPSE RADIOLOGY 17422 DISPLCMT 10-26-2009 [facility] [place] LUMBAR RADIOLOGY INTERVERT DISC W/O MYELOPATHY 4010 ESSENTIAL 10-04-2009 [facility] [employer] N, MALIGNANT 62932 SEPSIS 08-31-2009 [facility] 03697 INF&INFLAM 08-31-2009 [facility] 18110 TB LUNG 08-09-2009 [facility] W/CAVITATIO [facility] N EX [facility] 5109 EMPYEMA 08-09-2009 [facility] WITHOUT FITZPATRICK MENTION OF [facility] FISTULA 68292 DYSPHAGIA 08-09-2009 [facility] ORAL PHASE [facility] 7948 NONSPECIFIC 08-09-2009 [facility] ABNORMAL FITZPATRICK RESULTS [facility] LIVR FUNCTION STUDY V1581 PERS HX 08-09-2009 [facility] NONCOMPLIAN FITZPATRICK CE W/MED TX [facility] PRS [facility] HL[facility] 5306 DIVERTICULU 08-02-2009 [facility] M OF H ESOPHAGUS, GASTROENTER ACQUIRED OLOGY [facility] 37240 DYSPHAGIA 08-02-2009 [facility] UNSPECIFIED H GASTROENTER OLOGY [facility] 5121 IATROGENIC 07-28-2009 [facility] PNEUMOTHROA RADIOLOGY X ASSOC 5183 PULMONARY 07-28-2009 [facility] EOSINOPHILI RADIOLOGY A ASSOC 34052 DIARRHEA 07-28-2009 [facility] V5882 ENCOUNTER 07-28-2009 [facility] FITTING&ADJ RADIOLOGY ASSOC NON-VASCULA R CATHETER NEC 35981 ESOPHAGEAL 07-27-2009 [facility] REFLUX RADIOLOG[facility] ASSOC V1003 PERSONAL 07-26-2009 [facility] HISTORY [facility] MALIGNANT H[facility] NEOPLASM ESOPHAGUS V1201 PERSONAL 07-26-2009 [facility] HISTORY OF [facility] TUBERCULOSI HOSP S 4578 OTHER 07-20-2009 [facility] CHANNEL[facility] V7284 UNSPECIFIED 07-20-2009 [facility] 4660 ACUTE 07-19-2009 [facility] 7905 OTHER 01-08-2008 [place] MEDICAL NONSPECIFIC SERV ABNORMAL FOUNDATIO SERUM ENZYME LEVELS 15287 WHEEZING 01-07-2008 [facility] AMBULANCE SERVICE 49149 OTHER CHEST 01-07-2008 [facility] AMBULANCE SERVICE 75092 NONSPECIFIC 12-25-2007 [place] [facility] ABNORMAL SERV ELECTROCARD FOUNDATIO IOGRAM 88174 HELICOBACTE 12-24-2007 [place] [facility]ICAL R PYLORI SERV INFECTION [facility]AT[facility] 2113 BENIGN 12-24-2007 [place] [facility] NEOPLASM OF SERV COLON [facility] 60993 GASTR ULCR 12-24-2007 [place] [facility] UNS SERV ACUT/CHRN FOUNDAT[facility] W/O HEMOR PERF/OBST 62769 OTHER SPEC 12-24-2007 [place] [facility] GASTRITIS SERV WITHOUT FOUNDATIO MENTION HEMORRHAGE 5781 BLOOD IN 12-24-2007 [place] [facility] STOOL SERV [facility] 4928 OTHER 12-23-2007 [place] [facility] EMPHYSEMA SERV [facility] 5789 UNSPECIFIED 12-23-2007 [place] [facility] HEMORRHAGE SERV OF FOUNDATIO GASTROINTES TINAL TRACT 4139 OTHER AND 12-19-2007 [place] [facility] UNSPECIFIED SERV ANGINA FOUNDATIO PECTORIS 37392 OCCL&STENOS 12-19-2007 RADIOLOGY MX&BILAT PHYSICIANS PRECERBRL OF ART W/O [place] INFARCT PSC 15251 SPINAL 11-21-2007 [facility] STENOSIS [facility] UNSPEC [facility] THAN CERVICAL 14183 DIAB 10-17-2007 [facility]ALTH W/NEURO [facility]ILY TYPE I CARE, INC[facility] [JUV] NOT UNCNTRL S82.343O OTH FRACTURE OF LEFT LOWER LEG, INIT [...] CHEN GOEL 7 SURGICAL SURGICAL R RADEX 57920 [place] GU[facility] ANKLE 7 MEDICAL COMPLETE IMAGING MINIMUM 3 ASS VIEWS RADEX 87569 [place] BEINEKE ANKLE 7 MEDICAL COMPLETE IMAGING MINIMUM 3 ASS VIEWS RADIOLOGI 01986 [place] [facility] C 7 MEDICAL EXAMINATI IMAGING ON CHEST ASS SINGLE VIEW FRONTAL LOCM Q9967 [facility] 300-399 7 HEALTHCAR HEALTHCAR MG/ML E E IODINE HOSPITALS HOSPITALS CONCENTRA TION PER ML CREATININ 41446 [facility] E BLOOD 7 HEALTHCAR HEALTHCAR E E HOSPITALS HOSPITALS CTA ABDL 85564 [facility] AORTA&BI 7 HEALTHCAR HEALTHCAR ILIOFEM E E W/CONTRAS [facility] T&POSTP FEDERALLY G0467 KAI KAI 7 Tripnary SOLUTIONS HEALTH IN IN CENTER VISIT ESTAB PT LIPID 17305 LAB [facility] LAB BABAK PANEL 7 [facility] [employer] COMPREHEN 25011 LAB B[facility] LAB BABAK SIVE 7 [facility] METABOLIC HOLD[employer] HOLDINGS PANEL COLLECTIO 46657 LAB B[facility] LAB BABAK N VENOUS 7 [facility] BLOOD HOLDINGS HOLDINGS VENIPUNCT URE FOR DIAB A5512 CHEN WEST MX 7 SURGICAL SURGICAL DNSITY INSRT DIR FORMD PRFAB EA DIAB ONLY A5500 CHEN SIDDIQUI FIT CSTM 7 SURGICAL SURGICAL PREP&SPL SHOE MX DNSITY INSRT STANDARD K0001 CHEN SÁNCHEZI 7 SURGICAL SURGICAL R COLLECTIO 98118 KAI FREDO N 7 HEALTH CAPILLARY SOLUTIONS BLOOD IN SPECIMEN FEDERALLY G0467 KAI KAI 7 HEALTH HEALTH QUALIFIED SOLUTIONS SOLUTIONS HEALTH IN IN CENTER VISIT ESTAB PT HEMOGLOBI 61383 KAI FREDO N 7 HEALTH GLYCOSYLA SOLUTIONS CISCO A1C IN STANDARD K0001 CHEN GOEL 7 SURGICAL SURGICAL R LANCETS A4259 ALL ALL PER BOX 7 NIUEAN NIUEAN OF 100 MEDICAL MEDICAL BLD GLU A4253 ALL ALL TEST/REAG 7 NIUEAN NIUEAN T STRIPS MEDICAL MEDICAL HOME BLD GLU MON-50 FEDERALLY G0467 KAI KAI 7 HEALTH HEALTH QUALIFIED SOLUTIONS SOLUTIONS HEALTH IN IN CENTER VISIT ESTAB PT STANDARD K0001 CHEN GOEL [address] [place] [address] [facility] [place] ABDOMEN & 7 RADIOLOGY PELVIS W/O CONTRAST MATERIAL GROUND A0425 [facility] FERRELL MILEAGE [address] [place] [address] PER AMBULANCE AMBULANCE STATUTE SE SE MILE AMB A0427 GHASSAN FERRELL SERVICE [address] [place] [address] ALS AMBULANCE AMBULANCE EMERGENCY [place] [address] [facility] [place] DAVID ABDOMEN & 7 RADIOLOGY PELVIS W/O CONTRAST MATERIAL COMPREHEN 10599 UDSTIN CHAN SIVE 7 [facility] METABOLIC INC INC PANEL COLLECTIO 64972 DUSTIN CHAN N VENOUS 7 [facility] BLOOD INC INC VENIPUNCT URE RADEX 27980 DUSTIN CHAN SPINE 7 MEM HOS[facility]OS[facility] LUMBOSACR INC INC AL MINIMUM 4 VIEWS RADEX HIP 22724 DUSTIN CHAN 7 [facility]OS[facility] UNILATERA INC INC L WITH PELVIS 2-3 VIEWS URNLS DIP 97443 DUSTIN CHAN 7 [facility] STICK/TAB INC INC LET REAGENT AUTO MICROSCOP Y CULTURE 07408 DUSTIN CHAN BACTERIAL 7 MEM HOS[facility]OS[facility] BLOOD INC INC AEROBIC W/ID ISOLATES BLOOD 74959 DUSTIN CHAN COUNT 7 MEM [facility]OS[facility] COMPLETE INC INC AUTO&AUTO DIFRNTL WBC AMBULANCE A0429 [facility]ASSAN FERRELL SERVICE [address] [place] [address] BLS AMBULANCE AMBULANCE EMERGENCY SE SE TRANSPORT GROUND A0425 GHASSAN FERRELL MILEAGE [address] [place] [address] PER AMBULANCE AMBULANCE STATUTE SE SE MILE CULTURE 26416 DUSTIN CHAN BACTERIAL 7 MEM HOS[facility] INC INC QUANTTATI VE COLONY COUNT URINE STANDARD K0001 CHEN GOEL 7 SURGICAL SURGICAL R STANDARD K0001 CHEN GOEL 6 SURGICAL SURGICAL R LANCETS A4259 ALL ALL PER BOX 6 NIUEAN NIUEAN OF [facility] MEDICAL MEDICAL REPL CAROLEE A4235 ALL ALL LITHIUM 6 NIUEAN NIUEAN MED [facility] MEDICAL MEDICAL ANNA BG MON OWN PT EA SPRING-PO A4258 ALL ALL WERED 6 NIUEAN NIUEAN DEVICE MEDICAL MEDICAL FOR LANCET EACH BLD GLU A4253 ALL ALL TEST/REAG 6 NIUEAN NIUEAN T STRIPS MEDICAL MEDICAL HOME BLD GLU MON-50 NORMAL A4256 ALL ALL LOW AND 6 NIUEAN NIUEAN [facility] MEDICAL CALIBRATO R SOLUTION/ CHIPS STANDARD K0001 CHEN GOEL 6 SURGICAL SURGICAL R BONE 06449 [place] [facility] ALL &/JOINT 6 MEDICAL IMAGING IMAGING LIMITED ASS AREA RADIOLOGI 62049 [place] GU[facility] ALL C 6 MEDICAL EXAMINATI IMAGING ON TIBIA ASS & FIBULA 2 VIEWS STANDARD K0001 CHEN GOEL 6 SURGICAL SURGICAL R STANDARD K0001 CHEN GOEL [address] [place] [address] [facility] [place] CERVICAL 6 RADIOLOGY LD IV ALL SPINE W/O CONTRAST MATERIAL COMPREHEN 48898 [facility] SIVE 6 [facility] METABOLIC KAI KAI PANEL COLLECTIO 37881 [facility] N VENOUS 6 [facility] BLOOD KAI KAI VENIPUNCT URE CT THORAX 56315 [facility] [place] W/O 6 RADIOLOG[place] [address] [facility] MAGNESIUM 6 [place] KAI KAI PROTHROMB 73710 [facility] IN TIME 6 [facility] KAI KAI THROMBOPL 23486 [facility] ASTIN 6 [facility] TIME KAI KAI PARTIAL PLASMA/[place] [address] [facility] [place] SCALF GUTIERREZ HEAD/BRAI 6 RADIOLOGY N W/O CONTRAST MATERIAL DRUG TST G0477 [facility] PRESUMP;C 6 [facility] PBL BEING KAI KAI READ DC OPT OBV ONLY DRUG TEST G0480 [facility] DEFINITV 6 [facility] DR ID KAI KAI METH P DAY 1-7 DRUG CL BLOOD 17292 [facility] COUNT 6 [place] COMPLETE KAI KAI AUTO&AUTO DIFRNTL WBC URNLS DIP 05115 [facility] 6 [facility] MOUNT STICK/TAB KAI KAI LET REAGENT AUTO MICROSCOP Y STANDARD K0001 CHEN GOEL 6 SURGICAL SURGICAL R LIPID 58139 LAB [facility] LAB BABAK PANEL 6 [facility] HEMOGLOBI 57854 LAB [facility] LAB BABAK N 6 [facility] GLYCOSYLA [facility] HOLDINGS CISCO A1C ALBUMIN 33887 LAB [facility] LAB BABAK URINE 6 [facility] MICROALBU HOLDINGS HOLDINGS MIN QUANTIATI VE COMPREHEN 57358 [facility] LAB BABAK SIVE 6 [facility] [employer] [facility] PANEL COLLECTIO 04854 LAB [facility]AB[facility] LAB BABAK N VENOUS 6 [...] [place] [address] [facility] [place] CERVICAL 6 RADIOLOGY RHO SPINE W/O CONTRAST MATERIAL STANDARD K0001 CHEN GOEL 6 SURGICAL SURGICAL R LANCETS A4259 ALL ALL PER BOX 6 NIUEAN NIUEAN OF 100 MEDICAL MEDICAL BLD GLU A4253 ALL ALL TEST/REAG 6 NIUEAN NIUEAN T STRIPS MEDICAL MEDICAL HOME BLD GLU MON-50 NORMAL A4256 ALL ALL LOW AND 6 NIUEAN NIUEAN [facility] MEDICAL CALIBRATO R SOLUTION/ CHIPS STANDARD K0001 CHEN GOEL 6 [place] [address] [place] GUADALUPE MOL SURG 6 MEDICAL PATHOLOGY SERV FOUNDATIO GROSS&JOHN N ROSCOPIC EXAM AMPUTATIO 85093 [place] ENDEAN N TOE 6 MEDICAL MIRIAN INTERPHAL SERV ANGEAL [facility] G0463 [facility] 6 Y Y T CLIN [facility] VISIT ASSESS & MGMT [place] ECG 41285 JOHN DARLIN OMEGA ROUTINE 6 MEDICAL ECG SERV W/LEAST FOUNDATIO 12 LDS N I&R ONLY DUP-SCAN 81104 JOHN OSORIO LXTR 6 MEDICAL JOSE ROBERTO ART/ARTL SERV BPGS FOUNDATIO UNI/LMTD N STUDY NON-INVAS 79689 [facility] 6 Y Y PHYSIOLOG [facility] IC STD EXTREMITY ART 2 LEVEL NON-INVAS 22736 JOHN DEVON KRISTIAN 6 MEDICAL JOSE ROBERTO PHYSIOLOG SERV IC STUDY FOUNDATIO EXTREMITY N 3 LEVLS FEDERALLY G0467 KAI KAI 6 [facility] SOLUTIONS HEALTH IN IN CENTER VISIT ESTAB PT WALKER E0143 PATIENT PATIENT FOLDING 6 AIDS INC AIDS INC WHEELED ADJUSTABL E[facility] 19014 [place] ELI DISCHARGE 6 MEDICAL MILLY DAY SERV MANAGEMEN FOUNDATIO T > 30 N MIN SBSQ 13643 [facility] 6 MEDICAL MARYBETH CARE/DAY SERV 25 FOUNDATIO MINUTES N BLD GLU A4253 [place] TEST/REAG 6 CLINIC CLINIC T [facility]IPS PHARMACY PHARMACY HOME BLD GLU MON-50 [facility] A4259 [facility] PER BOX 6 CLINIC CLINIC OF 100 PHARMACY PHARMACY SBSQ 63604 [place] [address] MEDICAL NAN CARE/DAY SERV 25 FOUNDATIO MINUTES N SBSQ [address]5731 [place] [address] MEDICAL KER RAN CARE/DAY SERV 25 FOUNDATIO MINUTES N SBSQ 71765 [place] [address] MEDICAL KER RAN CARE/DAY SERV 25 FOUNDATIO MINUTES N SBSQ 08709 [place] [address] MEDICAL NAN CARE/DAY SERV 25 FOUNDATIO MINUTES N SBSQ 45680 [place] [address] MEDICAL MILLY CARE/DAY SERV 25 FOUNDATIO MINUTES N SBSQ 47991 [place] [address] MEDICAL MILLY CARE/DAY SERV 25 FOUNDATIO MINUTES N SBSQ 57281 [place] [address] MEDICAL MILLY CARE/DAY SERV 25 FOUNDATIO MINUTES N SBSQ 26034 [place] [address] MEDICAL MILLY CARE/DAY SERV 25 FOUNDATIO MINUTES N SBSQ 98137 [place] [address] MEDICAL NAN CARE/DAY SERV 25 FOUNDATIO MINUTES N SBSQ 68658 [place] [address] MEDICAL NAN CARE/DAY SERV 25 FOUNDATIO MINUTES N SBSQ 40391 [place] [address] MEDICAL MILLY CARE/DAY SERV 25 FOUNDATIO MINUTES N SBSQ 97289 [place] [address] MEDICAL MILLY CARE/DAY SERV 25 FOUNDATIO MINUTES N RADIOLOGI 97407 [facility] KOSTELIC C EXAM 6 RADIOLOGY CESILIA CHEST 2 VIEWS FRONTAL&L ATERAL RADIOLOGI 38060 [facility] KOSTELIC C 6 RADIOLOGY CESILIA EXAMINATI ON TIBIA & FIBULA 2 VIEWS INITIAL 71099 [place] [address] MEDICAL MILLY CARE/DAY SERV 70 FOUNDATIO MINUTES N IN-SITU 87769 [place] ENDEAN FEM-ANT 6 MEDICAL MIRIAN TIBL PST SERV TIBL/PRON FOUNDATIO EAL ART N LANCETS A4259 ALL ALL PER BOX 6 NIUEAN NIUEAN OF 100 MEDICAL MEDICAL BLD GLU A4253 ALL ALL TEST/REAG 6 NIUEAN NIUEAN T STRIPS MEDICAL MEDICAL HOME BLD GLU MON-50 NORMAL A4256 ALL ALL LOW AND 6 NIUEAN NIUEAN HIGH MEDICAL MEDICAL CALIBRAT[place] [address] [place] KELLEY SURG 6 MEDICAL DEANDRE PATHOLOGY SERV FOUNDATIO GROSS&JOHN N ROSCOPIC EXAM REPL CAROLEE A4233 ALL ALL ALKALINE 6 NIUEAN NIUEAN NOT J MEDICAL MEDICAL CELL ANNA BG MON OWND PT SPRING-PO A4258 ALL ALL WERED 6 NIUEAN NIUEAN DEVICE MEDICAL MEDICAL FOR LANCET EACH BP RT FEM [id number] [facility] VEIN LOW 6 Y Y VEIN [facility] AUTO VENOUS TISSUE OPEN ECG 43567 LA BARBARA CHI ROUTINE 6 MEDICAL ECG SERV W/LEAST FOUNDATIO 12 LDS N I&R ONLY ECHO 91183 [facility] JAZMINE TTHRC R-T 6 MEDICAL 2D SERV W/WOM-MOD FOUNDATIO E COMPL N SPEC&COLR D SBSQ 86109 [place] [address] MEDICAL MIRIAN CARE/DAY SERV 15 FOUNDATIO MINUTES N SBSQ 49706 [place] [address] MEDICAL BRU CARE/DAY SERV 25 FOUNDATIO MINUTES N SBSQ 47979 [place] [address] MEDICAL BRU CARE/DAY SERV 25 FOUNDATIO MINUTES N SBSQ 48321 [place] [address] MEDICAL MIRIAN CARE/DAY SERV 15 FOUNDATIO MINUTES N SBSQ 44443 [place] [address] MEDICAL BRU CARE/DAY SERV 25 FOUNDATIO MINUTES N SBSQ 38074 [place] [address] MEDICAL MIRIAN CARE/DAY SERV 15 FOUNDATIO MINUTES N SBSQ 42444 [facility] 6 MEDICAL CARE/DAY SERV 25 FOUNDATIO MINUTES N SBSQ 08751 [place] [address] MEDICAL CARE/DAY SERV 25 FOUNDATIO MINUTES N CTA ABDL 87420 [facility] AORTA&BI 6 MEDICAL JOHN ILIOFEM SERV W/CONTRAS FOUNDATIO T&POSTP N SBSQ 72798 [facility] 6 MEDICAL CARE/DAY SERV 25 FOUNDATIO MINUTES N RADEX 13214 JOHN GARCIA JOSE ROBERTO FOOT 6 MEDICAL COMPLETE SERV MINIMUM 3 FOUNDATIO VIEWS N SBSQ 27742 [facility] 6 MEDICAL CARE/DAY SERV 25 FOUNDATIO MINUTES N LIPID 99774 LAB BABAK LAB BABAK PANEL 6 [facility] COMPLETE G0306 LAB [facility] LAB BABAK CBC 6 [facility] [facility] AUTOMATED HOLDINGS HOLDINGS &AUTOMATE D WBC DIFF COUNT COMPREHEN 57458 [facility] LAB BABAK SIVE 6 [facility] METABOLIC HOLDINGS HOLDINGS PANEL COLLECTIO 28621 [facility] LAB BABAK N VENOUS 6 [facility] [facility] BLOOD HOLDINGS HOLDINGS VENIPUNCT URE ALBUMIN 85275 LAB [facility] LAB BABAK URINE 6 VINAY [...] IN IN CENTER VISIT ESTAB PT HEMOGLOBI 96184 KAI FREDO JEANNIE N 5 HEALTH GLYCOSYLA SOLUTIONS CISCO A1C IN COLLECTIO 69018 KAI FREDO JEANNIE N 5 HEALTH CAPILLARY SOLUTIONS BLOOD IN SPECIMEN FEDERALLY G0467 KAI KAI 5 HEALTH HEALTH QUALIFIED SOLUTIONS SOLUTIONS HEALTH IN IN CENTER VISIT ESTAB PT COLLECTIO 00050 [facility] N VENOUS 5 [facility] BLOOD KAI KAI VENIPUNCT URE COMPREHEN 29135 [facility] SIVE 5 [facility] METABOLIC KAI KAI PANEL LIPID 30855 [facility] PANEL 5 [facility] KAI KAI HEMOGLOBI 77714 [facility] N 5 [facility] GLYCOSYLA K[place] [address] [facility] TRIIODOTH 5 [facility] YRONINE [place] [place] [address] [facility] THYROXINE 5 [facility] TOTAL KAI KAI ALBUMIN 74928 [facility] URINE 5 [facility] MICROALBU KAI KAI MIN QUANTIATI VE LANCETS A4259 ALL ALL PER BOX 5 NIUEAN NIUEAN OF 100 MEDICAL MEDICAL BLD GLU A4253 ALL ALL TEST/REAG 5 NIUEAN NIUEAN T STRIPS MEDICAL MEDICAL HOME BLD GLU MON-50 FEDERALLY G0467 KAI KAI 5 HEALTH HEALTH QUALIFIED SOLUTIONS SOLUTIONS HEALTH IN IN CENTER VISIT ESTAB PT HOSPITAL G0463 [facility] 5 Y Y T [facility] VISIT ASSESS & MGMT PT DIAB [...] DNISOLONE ACETATE 40 MG FEDERALLY G0467 KAI KAI 5 HEALTH HEALTH QUALIFIED SOLUTIONS SOLUTIONS HEALTH IN IN CENTER VISIT ESTAB PT FEDERALLY G0467 KAI KAI 5 HEALTH HEALTH QUALIFIED SOLUTIONS SOLUTIONS HEALTH IN IN CENTER VISIT ESTAB PT FEDERALLY G0467 KAI KAI 5 HEALTH HEALTH QUALIFIED SOLUTIONS SOLUTIONS HEALTH IN [place]ENTER [place] [address] [facility] [place] SPINAL 5 RADIOLOGY RHO CANAL CERVICAL W/O CONTRAST MATRL HEMOGLOBI 83480 KAI FREDO JEANNIE N 5 HEALTH GLYCOSYLA SOLUTIONS CISCO A1C IN FEDERALLY G0467 KAI KAI 5 HEALTH HEALTH QUALIFIED SOLUTIONS SOLUTIONS HEALTH IN IN CENTER VISIT ESTAB PT COLLECTIO 72915 KAI FREDO JEANNIE N 5 HEALTH CAPILLARY SOLUTIONS BLOOD IN SPECIMEN DUP-SCAN 20366 [facility] [place] XTR VEINS 5 RADIOLOGY LD IV ALL UNILATERA L/LIMITED STUDY THERAPEUT 64592 [facility] IC 5 [facility] PROPHYLAC KAI KAI TIC/DX INJECTION SUBQ/IM RADEX 02250 [facility] SPINE 5 [facility] CERVICAL KAI KAI 2 OR 3 VIEWS INJECTION J1885 [address] KETOROLAC KAI KAI TROMETHAM INE PER 15 MG RADEX 64008 [facility] [place] SPINE 5 RADIOLOGY LD IV ALL CERVICAL 4 OR 5 VIEWS RADEX 18087 DUSTIN CHAN ORBITS 5 [facility]OS[facility] COMPLETE INC INC MINIMUM 4 VIEWS MRI BRAIN 09229 DUSTIN CHAN BRAIN 5 [facility] STEM W/O INC INC CONTRAST MATERIAL FEDERALLY G0467 [place] [address] [facility] [place] [address] TANNER ARAIZA BUX ANJ DX/THER 5 MD SBST EPIDURAL/ SUBARACH LUMBAR/SA CRAL INJECTION J1040 DUSTIN CHAN 5 [facility] METHYLPRE INC INC DNISOLONE ACETATE 80 MG LOCM Q9966 DUSTIN CHAN 200-299 5 [facility] MG/ML INC INC IODINE CONCENTRA TION PER ML FEDERALLY G0467 [place] [address] [facility] [place] [address] [facility] [place] JOSE MAT ABDOMEN & 5 RADIOLOGY PELVIS W/O CONTRAST MATERIAL COLLECTIO 89271 [facility] N VENOUS 5 [facility] BLOOD KAI KAI VENIPUNCT URE COMPREHEN 90606 [facility] SIVE 5 [facility] METABOLIC KAI KAI PANEL LIPID 47801 [facility] PANEL 5 [facility] KAI KAI HEMOGLOBI 04036 [facility] N 5 [facility] GLYCOSYLA KAI KAI CISCO A1C COLLECTIO 74862 [facility] VENOUS 5 CLINIC CLINIC BLOOD [place]ORAT[place] [address] [facility] PROSTATE 5 CLINIC CLINIC SPECIFIC LABORATO LABORATO ANTIGEN TOTAL URNLS DIP 37649 [facility] 5 [place] STICK/TAB CLINIC LET RGNT PSC AUTO W/O MICROSCOP Y LOCM Q9967 [facility] 300-399 5 [place] MG/ML KAI KAI IODINE CONCENTRA TION PER ML CT THORAX 17816 [facility] 5 [place] W/CONTRAS KAI KAI T MATERIAL RADEX 20112 [facility] [place] RIBS UNI 5 RADIOLOGY CAR W/POSTERO ANT CH MINIMUM 3 VIEWS URNLS DIP 31574 [facility] 5 [place] STICK/TAB CLINIC LET [place] [address] [facility] PROSTATE 5 [place] SPECIFIC KAI KAI ANTIGEN TOTAL COLLECTIO 76555 [facility] N VENOUS 5 [place] [address] [facility] [place] JOSE MAT ABDOMEN & 5 RADIOLOGY PELVIS W/O CONTRAST MATERIAL DALIA 88861 [facility] POST-VOID 5 [place] ING CLINIC RESIDUAL PSC URINE&/BL ADDER CAP PROSTATE [id number] [facility] CANCER 5 CLINIC CLINIC SCREENING LABORATO LABORATO ; PSA TEST COLLECTIO 23881 [facility] N VENOUS 5 CLINIC CLINIC BLOOD LABORATO LABORATO VENIPUNCT URE RADIOLOGI 34618 [facility] [place] [facility] C EXAM 5 RADIOLOGY CHEST 2 VIEWS FRONTAL&[place] [address] [facility] [place] [facility] [facility] HEAD/BRAI 4 RADIOLOGY N W/O & W/CONTRAS T MATERIAL CREATININ 56871 [facility] E BLOOD 4 [place] KAI KAI COLLECTIO 56302 [facility] N VENOUS 4 [place] BLOOD KAI KAI VENIPUNCT URE LOCM Q9967 [facility] [phone] [place] MG/ML KAI KAI IODINE CONCENTRA TION PER ML HEMOGLOBI 16846 KAI FREDO JEANNIE N 4 HEALTH GLYCOSYLA SOLUTIONS CISCO A1C IN LIPID 42639 [facility] PANEL 4 [facility] KAI KAI HEMOGLOBI 30967 [facility] N 4 [facility] GLYCOSYLA KAI KAI CISCO A1C BLOOD 02949 [facility] COUNT 4 [facility] COMPLETE KAI KAI AUTO&AUTO DIFRNTL WBC ALBUMIN 37494 [facility] URINE 4 [facility] MICROALBU KAI KAI MIN QUANTIATI VE COLLECTIO 94734 [facility] N VENOUS 4 [facility] BLOOD KAI KAI VENIPUNCT URE COMPREHEN 32181 [facility] SIVE 4 [facility] [place] [address] [facility] FREE 4 [facility] [place] [address] [facility] THYROID 4 [facility] STIMULATI KAI KAI NG HORMONE TSH TENS E0720 [facility] CAREFREE DEVICE [address] [facility] STIMULATI ON TENS E0720 CAREFREE CAREFREE DEVICE 4 [facility] INC STIMULATI ON RADEX 03063 [facility] [place] C ANKLE 4 RADIOLOGY COMPLETE MINIMUM 3 VIEWS COLLECTIO 91680 [facility] N VENOUS 4 [facility] BLOOD MEDICAL MEDICAL VENIPUNCT CENTE CENTE URE COMPREHEN 62498 [facility] SIVE 4 [facility] METABOLIC MEDICAL [place] [address] [facility] GEOFFREY FREE 4 [facility] THYROXINE [place] [address] [facility] THYROID 4 [facility]AL [facility]AL STIMULATI MEDICAL MEDICAL NG [facility] HORMONE TSH LIPID 60056 [facility] GEOFFREY PANEL 4 [facility] CENTE CENTE HEMOGLOBI 46296 [facility] GEOFFREY N 4 REGIONAL REGIONAL GLYCOSYLA MEDICAL MEDICAL CISCO A1C CENTE CENTE BLOOD 20954 [facility] GEOFFREY COUNT 4 REGIONAL REGIONAL COMPLETE MEDICAL MEDICAL AUTO&AUTO [facility]ENTE CENTE DIFRNTL WBC NORMAL A4256 ALL ALL LOW AND 3 [facility] CALIBRATO SUPPLIE SUPPLIE R SOLUTION/ CHIPS LANCETS A4259 ALL ALL PER BOX 3 NIUEAN NIUEAN OF 100 MEDICAL MEDICAL SUPPLIE SUPPLIE BLD GLU A4253 ALL ALL TEST/REAG 3 NIUE[facility] NIUEAN T STRIPS MEDICAL MEDICAL HOME BLD SUPPLIE SUPPLIE GLU MON-50 COLLECTIO 29338 [facility]OFF[facility] Pinedo VENOUS 3 REGIONAL REGIONAL BLOOD MEDICAL MEDICAL VENIPUNCT NEEMA BETHEA URE COMPREHEN 03237 [facility] MARTIE 3 REGIONAL REGIONAL METABOLIC MEDICAL MEDICAL PANEL NEEMA BETHEA HEMOGLOBI 15487 GEOFFREY Pinedo 3 [facility]AL [facility]IONAL GLYCOSYLA MEDICAL MEDICAL CISCO A1C [place]EMA BETHE[place] MRI ANY [address] [facility] JT LOWER 3 [facility] EXTREM KAI KAI W/O CONTRAST MATRL CULTURE 25661 GEOFFREY HALE BCT 3 REGIONAL REGIONAL ISOL&PRSM [...] [employer] GLU MON-50 RADIOLOGI 21385 [facility] [place] SCALF GUTIERREZ C 3 RADIOLOGY EXAMINATI ON KNEE 3 VIEWS ALBUMIN 13883 [facility] URINE 3 [facility] MICROALBU KAI KAI MIN QUANTIATI VE LIPID 84088 [facility] PANEL 3 [facility] KAI KAI HEMOGLOBI 08097 [facility] N 3 [facility] GLYCOSYLA KAI KAI CISCO A1C BLOOD 00256 [facility] COUNT 3 [facility] COMPLETE KAI KAI AUTO&AUTO DIFRNTL WBC COLLECTIO 04477 [facility] N VENOUS 3 [facility] BLOOD KAI KAI VENIPUNCT URE COMPREHEN 68862 [facility] SIVE 3 [facility] METABOLIC KAI KAI PANEL CREATININ 68261 [facility] MEDICUS E OTHER 3 MOUNT LABORATOR [place], [place] [address] [facility] FREE 3 [facility] [address] [facility] THYROID 3 [facility] STIMULATI KAI KAI NG HORMONE TSH PROSTATE G0103 [facility] CANCER 3 [facility] SCREENING KAI KAI ; PSA TEST BLD [...] [employer] LLC R SOLUTION/ CHIPS RADEX 34887 [facility] JOHN Barrett ELBOW 3 RADIOLOGY COMPLETE MINIMUM 3 VIEWS RADEX 83329 [facility] JOHN Barrett SHOULDER 3 RADIOLOGY COMPLETE MINIMUM 2 VIEWS RADIOLOGI 10027 GEOFFREY Barrett 2 REGIONAL REGIONAL EXAMINATI MEDICAL MEDICAL ON CHEST CENTE CENTE SINGLE VIEW FRONTAL SMITHFIELD- A4258 US US WERED 2 HEALTHCAR HEALTHCAR [...] [employer] GLU MON-50 LIPID 25643 [facility] PANEL 2 [facility] KAI KAI HEMOGLOBI 74434 [facility] N 2 [facility] GLYCOSYLA KAI KAI CISCO A1C BLOOD 52012 [facility] COUNT 2 [facility] COMPLETE KAI KAI AUTO&AUTO DIFRNTL WBC ALBUMIN 12652 [facility] URINE 2 [facility] MICROALBU KAI KAI MIN QUANTIATI VE RADIOLOGI 43036 [facility] [place] WANG C C 2 RADIOLOGY EXAMINATI ON KNEE 3 VIEWS COLLECTIO 63979 [facility] N VENOUS 2 [facility] BLOOD KAI KAI VENIPUNCT URE COMPREHEN 45356 [facility] SIVE 2 [facility] [place] [address] [facility] THYROID 2 [facility] STIMULATI KAI KAI NG HORMONE TSH RADEX 58310 [facility] [place] WANG C SPINE 2 RADIOLOGY [...] LLC MON OWN PT EA LOCM Q9967 [facility] [phone] [facility] MG/ML KAI KAI IODINE CONCENTRA TION PER ML CT THORAX 14539 [facility] 2 [facility] W/CONTRAS KAI KAI T MATERIAL COLLECTIO 86194 [facility] N VENOUS [address] VENIPUNCT URE COMPREHEN 95284 [facility] SIVE [address] PANEL LIPID [address] [facility] ST YANIRA PANEL [address] YANIRA N [address] CISCO A1C RADIOLOGI [address]14 [address] YANIRA ALAS C EXAM 2 REGIONAL JAZMINE CHEST 2 RADIOLOG VIEWS FRONTAL&L ATERAL COLLECTIO 97025 ST JHONNY JOSE N VENOUS 2 [facility] BLOOD [place] KAI VENIPUNCT URE BASIC [address] [facility] [address] BARRY METABOLIC 2 [facility] PANEL KAI KAI CALCIUM TOTAL MRI 89948 [facility] SPINAL 2 [facility] CANAL [facility] LUMBAR W/O CONTRAST MATERIAL BLD GLU A4253 US US TEST/REAG 2 HEALTHCAR HEALTHCAR T STRIPS E SUPPLY E SUPPLY [employer] GLU MON-50 LANCETS A4259 US US PER BOX 2 HEALTHCAR HEALTHCAR OF 100 E SUPPLY E SUPPLY LLC LLC NORMAL A4256 US US LOW AND 2 HEALTHCAR HEALTHCAR HIGH E SUPPLY E SUPPLY [facility] LLC R SOLUTION/ CHIPS NON-INVAS [address] PHYSIOL CARDIOLOG IC STD Y CLINIC EXTREMITY ART 2 LEVEL NON-INVAS 85292 [facility] JHONNY KRISTIAN 2 [facility] PHYSIOLOG [facility] IC STUDY EXTREMITY 3 [place] [address] YANIR[facility] THYROID [address] NG HORMONE TSH LIPID [address] YANIRA PANEL [address] YANIRA N [address] CISCO A1C BLOOD [address] YANIR[facility] COUNT [address] AUTO&AUTO DIFRNTL WBC PROSTATE G0103 [facility] CANCER [address] ; PSA TEST COMPREHEN [address] YANIRA SIVE [address] PANEL SMITHFIELD-PO A4258 US US WERED 1 HEALTHCAR HEALTHCAR [...] [employer] R SOLUTION/ CHIPS PROTHROMB 34101 [facility] GLUC BLD 57570 [facility] Y [facility] DEV [facility] HOSPITAL CLEARED FDA SPEC HOME USE BLOOD 92959 [facility] COUNT 1 Y Y COMPLETE HOSPITAL HOSPITAL AUTOMATED COMPREHEN 81156 [facility] SIVE 1 [facility]IC [facility]PITAL HOSPITAL PANEL COLLECTIO 01855 [facility] N VENOUS 1 Y Y BLOOD [facility] VENIPUNCT URE LANCETS A4259 CAREFREE CAREFREE PER BOX 1 [facility] [employer] INC BLD GLU A4253 CAREFREE CAREFREE TEST/REAG 1 [facility]fe T [facility] [employer] INC GLU MON-50 DESTRUCTI 62858 [facility] ON BENIGN 1 FAMILY TAU LESIONS CLINIC, UP TO 14 PLL BLD GLU A4253 CAREFREE CAREFREE TEST/REAG 1 [employer] INC GLU MON-50 LANCETS A4259 CAREFREE CAREFREE PER BOX 1 [facility] [employer] BLD GLU A4253 ARRIVA ARRIVA TEST/REAG 1 MEDICAL MEDICAL T STRIPS HOME BLD GLU MON-50 LANCETS A4259 ARRIVA ARRIVA PER BOX 1 MEDICAL MEDICAL [facility] NORMAL A4256 ARRIVA ARRIVA LOW AND 1 MEDICAL MEDICAL HIGH CALIBRATO R SOLUTION/ CHIPS RADIOLOGI 24946 [facility] C EXAM 1 [facility] CHEST 2 KAI KAI VIEWS FRONTAL&L ATERAL BLD GLU A4253 CAREFREE CAREFREE TEST/REAG 1 Adlyfe [employer] INC GLU MON-50 LANCETS A4259 CAREFREE CAREFREE PER BOX 1 [facility] [employer] WALKER E0143 ROSS ROSS FOLDING 1 SURGICAL SURGICAL WHEELED ADJUSTABL E/FIXED HEIGHT SEAT E0156 CHEN SIDDIQUI ATTACHMEN 1 SURGICAL SURGICAL T WALKER RADIOLOGI 94315 [facility] [place] DAVID C 1 RADIOLOGY RHO EXAMINATI ON KNEE 3 VIEWS GLUC BLD 31222 [facility]TR 1 [facility] DEV CLIN[facility], CLEARED PLL FDA SPEC HOME USE RADIOLOGI 76115 [facility] C EXAM 1 [facility] CHEST 2 KAI KAI VIEWS FRONTAL&L ATERAL RADIOLOGI 36450 [facility] [place] DAVID C EXAM 1 RADIOLOGY RHO CHEST 2 VIEWS FRONTAL&L ATERAL BLD GLU A4253 ARRIVA ARRIVA TEST/REAG 0 MEDICAL MEDICAL T STRIPS HOME BLD GLU MON-50 LANCETS A4259 ARRIVA ARRIVA PER BOX 0 MEDICAL MEDICAL OF 100 NORMAL A4256 ARRIVA ARRIVA LOW AND 0 MEDICAL MEDICAL HIGH CALIBRATO R SOLUTION/ CHIPS [facility] A4258 ARRIVA ARRIVA WERED 0 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 CAROLEE A4233 ARRIVA ARRIVA ALKALINE 0 MEDICAL MEDICAL NOT J CELL ANNA BG MON OWND PT IIV3 27131 [facility] VACCINE 0 [facility] SPLIT CLINIC, VIRUS 0.5 PLL ML DOSAGE IM USE ADMINISTR G0008 [facility] ATION OF 0 [facility] INFLUENZA CLINIC, VIRUS PLL VACCINE RADIOLOGI 93469 [place] [place] WANG Barrett C EXAM 0 [...] DME U DOSE 1 MG URNLS DIP 73538 [facility] ELIA, 0 FAMILY TAUFIK STICK/TAB CLINIC, LET RGNT PLLC NON-AUTO W/O MICRSCP IADNA 65129 [facility] NEISSERIA 0 [facility] GONORRHOE AE AMPLIFIED PROBE TQ IADNA 79832 [facility] CHLAMYDIA 0 [facility] TRACHOMAT IS AMPLIFIED PROBE TQ CUL BACT 30457 [facility] XCPT 0 [facility] URINE BLOOD/STO OL AEROBIC ISOL PHRM Q0513 [facility] DISPENSIN 0 N DRUG- N DRUG- G FEE INHALATIO N RX; PER 30 DAYS ALBUTEROL J7613 [place] INHAL 0 N DRUG- N DRUG- NON-CP PROD THRU DME U DOSE 1 MG NEBULIZER E0570 [facility] [place] WITH 0 N DRUG N DRUG COMPRESSO R SMR PRIM 40319 [facility] SRC 0 [facility] PRES[facility] GRAM/GIEM HOSP HOSP SA STAIN BCT FUNGI/GIBRAN L THORACENT 89704 [facility] BRANN, ESIS WITH 0 RADIOLOGY MAXIM ASSOC INSERTION TUBE WATER SEAL CULTURE 53709 [facility] BACTERIAL 0 [facility] ANY HOSP HOSP SOURCE ANAEROBIC ISO&ID CUL BACT 76165 [facility] XCPT 0 [facility] PRES[facility] URINE HOSP HOSP BLOOD/STO OL AEROBIC ISOL BLOOD 22762 [facility] COUNT 0 [facility] [place] [address] [facility] BRANN, GUIDANCE 0 RADIOLOGY MAXIM NEEDLE ASSOC PLACEMENT THORACENT 26990 [facility] ESIS 0 [facility] PRES[facility] PUNCTURE HOSP HOSP PLEURAL CAVITY ASPIRATIO N RADIOLOGI 92979 [facility]AL BRANN, C 0 RADIOLOGY MAXIM EXAMINATI ASSOC ON CHEST SINGLE VIEW FRONTAL [...] N DRUG- N DRUG- COMPRESSO R RADIOLOGI 43005 [facility] C EXAM 0 [place] CHEST 2 KAI KAI VIEWS FRONTAL&L ATERAL COLLECTIO 84620 [facility] N VENOUS 0 [facility] BLOOD VENIPUNCT URE COMPREHEN 63297 [facility] SIVE 0 [facility] METABOLIC PANEL BLOOD 61676 [facility] COUNT 0 [facility] COMPLETE AUTO&AUTO DIFRNTL WBC LIPID 70321 [facility] PANEL 0 [facility] HEMOGLOBI 71940 [facility] N 0 [facility] GLYCOSYLA CISCO A1C TRANSFERA 06338 [facility] SE 0 AMERIC AMERIC ALANINE HOLDING HOLDING AMINO ALT SGPT COMPLETE G0306 [facility] CBC 0 AMERIC AMERIC AUTOMATED HOLDING HOLDING &AUTOMATE D WBC DIFF COUNT BASIC 38067 [facility] METABOLIC 0 AMERIC AMERIC PANEL HOLDING HOLDING CALCIUM TOTAL COLLECTIO 96904 [facility] N VENOUS 0 AMERIC AMERIC BLOOD [place] [address] [facility] B[facility] GLUTAMYLT 0 AMERIC AMERIC RASE HOLDING HOLDING GAMMA TRANSFERA 87643 [facility] SE 0 AMERIC AMERIC ASPARTATE [place] [address] [facility] PHOSPHATA 0 AMERIC AMERIC SE HOLDING HOLDING ALKALINE THORACENT 69767 [facility] RICE, ESIS WITH 0 RADIOLOGY JARED [place] [address] [facility] GUIDANCE 0 [facility]IAN PRES[facility] NEEDLE HOSP HOSP PLACEMENT CULTURE 20242 [facility]AL BACTERIAL 0 [facility]ETERIAN PRESYBETERIAN ANY HOSP HOSP SOURCE ANAEROBIC ISO&ID CUL BACT 40791 [facility] XCPT 0 PRESYBETERIAN PRESYBETERIAN URINE HOSP HOSP BLOOD/STO OL AEROBIC ISOL THROMBOPL 74531 [facility] ASTIN 0 [facility]ETERIAN PRESYBET[facility]IAN TIME HOSP HOSP PARTIAL PLASMA/WH OLE BLOOD BLOOD 10477 [facility] COUNT 0 [facility] PLATELET [facility]OSP HOSP AUTOMATED SMR PRIM 14144 [facility]AL SRC 0 PRESY[facility]ETERIAN PRESYBETERIAN GRAM/GIEM HOSP HOSP SA STAIN BCT FUNGI/IGBRAN L THORACENT 84850 [facility] ESIS 0 [facility] PRES[facility] PUNCTURE HOSP HOSP PLEURAL CAVITY ASPIRATIO N PROTHROMB 58082 CEN[facility]AL C[facility]TR[facility] IN TIME 0 [facility] PRESYBETERIAN HOSP HOSP CREATININ 96820 [facility] BLOOD [facility] [place] [address] [facility] UREA 0 [facility] NITROGEN [facility] COLLECT[facility] 89690 [facility] VENOUS 0 [facility] BLOOD [facility] RAD[facility] 89280 [facility]AM 0 [facility] CHEST [address] [facility] ATERAL CT THORAX [address] W/CONTRAS [facility] MRI 91568 CN[facility] Arnold MILLAN SPINAL 0 RADIOLOGY N CANAL LUMBAR W/O CONTRAST MATERIAL COMPREHEN 56555 [facility] SIVE 9 [employer] [facility] METABOLIC PANEL LIPID 75847 [facility] PANEL 9 [facility] [employer] INC BLOOD 16374 [facility] COUNT 9 [employer] [facility] COMPLETE AUTO&AUTO DIFRNTL WBC PROSTATE G0103 [facility] CANCER 9 [facility] [employer] [facility] SCREENING ; PSA TEST HEMOGLOBI 74775 [facility] N 9 [facility] [employer] [facility] GLYCOSYLA CISCO A1C COLLECTIO 77938 [facility] N VENOUS 9 [facility] BLOOD VENIPUNCT URE CREATININ 58696 [facility] E OTHER 9 [place] [facility] SOURCE ALBUMIN 07106 [facility] URINE 9 [facility] INC MICROALBU MIN QUANTIATI VE RADIOLOGI 29792 [facility] EXAM 9 [facility] CHEST [address] [facility] ATERAL COMPREHEN 52743 [facility] SIVE 9 [facility] METABOLIC [facility] PANEL [facility] COLLECTIO 76334 [facility] N VENOUS 9 [facility] BLOOD [facility] VENIPUNCT [facility] RADIOLOGI 16647 [facility] EXAM 9 [facility] CHEST [address] [facility] ATERAL BLOOD 40514 CEN[facility]AL CENTRAL COUNT 9 [facility] COM[facility]TE [facility]P HOSP AUTO&AUTO DIFRNTL WBC COLLECTIO 37472 [facility] N VENOUS 9 [facility] VENIPUNCT URE COMPREHEN 17186 [facility] SIVE 9 [facility] PANEL COLLECTIO 44349 [facility] N VENOUS 9 [facility] BLOOD VENIPUNCT URE HEPATIC 66030 [facility] FUNCTION 9 [facility] INC PANEL SBSQ [address] CARE/DAY MDPSC 25 MINUTES HOSPITAL 31722 CARDIOVAS PINEDO, DISCHARGE 9 ULAR & MARIANELA G DAY THORACIC MANAGEMEN ASSOC PSC T 30 MIN/< SBSQ [address] CARE/DAY MDPSC 35 MINUTES SBSQ [address] CARE/DAY MDPSC 25 MINUTES SBSQ [address] CARE/DAY MDPSC 25 MINUTES ESOPHAGOG 62836 MARIA ELENA NIEVES 9 [facility] LIANG ENOSCOPY GASTROENT TRANSORAL EROLOGY [facility] RADIOLOGI 57614 CENTRAL GARCIA, C EXAM 9 RADIOLOGY J S CHEST 2 ASSOC VIEWS FRONTAL&L ATERAL OTHER 4513 CENTRAL CENTRAL ENDOSCOPY 9 [facility] HOSP INTESTINE RADIOLOGI 62615 CENTRAL RICE, C EXAM 9 RADIOLOGY JARED CHEST 2 ASSOC VIEWS FRONTAL&L ATERAL RADIOLOGI 70054 [facility] RICE, C 9 RADIOLOGY JARED EXAMINATI ASSOC ON CHEST SINGLE VIEW FRONTAL RADIOLOGI 44841 CENTRAL MEJIA, C 9 RADIOLOGY CHAY Lloyd EXAMINATI ASSOC ON CHEST SINGLE VIEW FRONTAL SBSQ [address] CARE/DAY MDPSC 25 MINUTES RADIOLOGI 54362 [facility] RICE, C 9 RADIOLOGY JARED EXAMINATI ASSOC ON CHEST SINGLE VIEW FRONTAL SBSQ [address] CARE/DAY MDPSC [address] THORAX 84574 [facility], RADIOLOGY J S W/[place] [address] [facility], ABDOMEN 9 RADIOLOGY J S W/CONTRAS ASSOC T MATERIAL SBSQ [address] CARE/DAY MDPSC [address] PELVIS [address] [place] [address] RADIOLOGY J S W/CONTRAS ASSOC T MATERIAL SBSQ [address] CARE/DAY MDPSC 25 MINUTES CYTP 38181 CHIPPS PICKLESIM SLCTV 9 MELVIN & ER JR, CELL CAIT Orta ENHANCEME NT INTERPJ XCPT C/V SWALLOWIN 19477 [place] Christiano MEJIA FUNCJ 9 RADIOLOGY CHAY Lloyd W/CINERAD ASSOC IOGRAPY/[place] [address] CHIPPS PICKLESIM SURG 9 MELVIN & ER JR, PATHOLOGY CAIT Orta GROSS&JOHN ROSCOPIC EXAM INSERTION 3404 CENTRAL CENTRAL OF 9 [facility] HOSP AL CATHETER FOR DRAINAGE RADIOLOGI 85981 CARDIOVAS PINEDO, EXAM 9 ULAR & MARIANELA G CHEST 2 THORACIC VIEWS ASSOC PSC FRONTAL&L ATERAL INITIAL 56376 [facility] 9 ULAR & MARIANELA G CARE/DAY THORACIC 70 ASSOC PSC MINUTES INITIAL 50703 MICHI HA, INPATIENT 9 AMARI Elizabeth CONSULT MDPSC NEW/ESTAB PT 110 MIN SPMTRY 28036 PULMONARY VILLARAN, W/VC 9 SHARAD EXPIRATOR ASSOCIATE Y CONSUELO S, INC W/WO MXML VOL VNTJ FLOW 49909 JOHN NAVA, CYTOMETRY 9 MEDICAL JOSPEH F INTERPJ SERV 9-15 FOUNDATIO MARKERS SMR PRIM 42931 [facility] SRC 9 [facility] GRAM/GIEM [facility] SA STAIN [facility] FUNGI/GIBRAN L CUL BACT 98078 [facility] BRIAN 9 [facility] AEROBIC [facility] ISOL XCPT [facility] BLOOD/STO OL LACTATE 60909 [facility] DEHYDROGE 9 [facility] NASE LDH [facility] FLOW 15490 [facility] CYTOMETRY 9 Y Y CELL [facility] SURF MARKER TECH[place] ONLY 1[place] [address] [facility] GUIDANCE 9 [facility] NEEDLE [facility] PLACEMENT [facility] IMG S&I [facility] THORACENT 28143 [facility] ESIS 9 [facility] PUNCTURE [facility] PLEURAL [facility] CAVITY [facility] ASPIRATIO N CYTP 42381 [facility] CONCENTRA 9 HJONNY JHONNY TION [facility] SMEARS & [facility] ATION CULTURE 02134 [facility] MYCOBACTE 9 [facility] RIAL [facility] DEFINITIV [facility] ISOL CULTURE 42610 [facility] FNGI 9 [facility] MOLD/YEAS [facility] T PRSMPTV [facility] OTH [facility] BLOOD CYTP 46894 [facility] SLCTV 9 CLINIC CLINIC CELL LABORATOR LABORATOR ENHANCEME Y Y NT INTERPJ XCPT C/V CELL 67955 [facility] COUNT 9 JHONNY BARRY MISC BODY [facility] FLUIDS [facility] W/DIFFERE [facility] NTIAL COUNT CUL BACT 27615 [facility] BRIAN 9 JHONNY BARRY ANAERC [facility] ISOL XCPT [facility] BLOOD/STO OL RADIOLOGI 42428 [facility] C 9 JHONNY BARRY EXAMINATI [facility] ON CHEST [facility] VIEW FRONTAL SMR PRIM 27410 [facility] SRC WET 9 JHONNY BARRY [facility] NFCT AGT [facility] SMR PRIM 53541 [facility] SRC 9 JHONNY BARRY FLUORESCE [facility] NT&/AFS [facility] BCT [facility] PARASIT PROTEIN 74566 [facility] TOTAL 9 JHONNY BARRY XCPT [facility] REFRACTOM [facility] SRC FLOW 07241 [facility] CYTOMETRY 9 Y Y CELL [facility] SURF MARKER TECHL ONLY EA PROTHROMB 91953 [facility] IN TIME 9 JHONNY BARRY [facility] THROMBOPL 13614 [facility] ASTIN 9 JHONNY BARRY TIME [facility] PARTIAL [facility] PLASMA/GOOD [facility] OLE BLOOD COLLECTIO 51911 [place] N VENOUS 9 JHONNY BARRY BLOOD [facility] VENIPUNCT [facility] THORACENT 77253 SU[facility]ONGPR ESIS 9 JHONNY - APA, PUNCTURE [facility] PLEURAL [place] [facility] PULMONARY ASPIRATIO MEDICINE N CYTP 37370 [facility] CELL LABORATOR LABORATOR ENHANCEME Y Y NT INTERPJ XCPT C/V MYOCRD 68623 MOMO LEWIS STD 8 MEDICAL HEAVENLY WALL SERV MOTION FOUNDATIO QUAL/BRIAN STD INITIAL 14888 JOHN RIVAS MD, INPATIENT 8 MEDICAL ZACARIAS CONSULT SERV W NEW/ESTAB FOUNDATIO PT 110 MIN MYOCRD 03451 MOMO LEWIS STD 8 MEDICAL HEAVENLY EJEC FXJ SERV FOUNDATIO ECG 05781 Arnold MESSINA S ROUTINE 8 MEDICAL ECG SERV W/LEAST FOUNDATIO 12 LDS I&R ONLY MYOCRD 76989 [place] KEELY, PRFUJ IMG 8 MEDICAL HEAVENLY TOMOG SERV 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 FOUNDATIO STD GROUND A0425 [facility] MILEAGE 8 Y CO Y CO PER AMBULANCE AMBULANCE STATUTE SERVICE SERVICE MILE AMB A0427 [facility] SERVICE 8 Y CO Y CO ALS AMBULANCE AMBULANCE EMERGENCY SERVICE SERVICE TRANSPORT LEVEL 1 RADIOLOGI 46719 [facility] C 8 RADIOLOGY RADIOLOGY EXAMINATI ON CHEST [place] FRONTAL ECG 85828 [place] Arnold JIMENEZ S ROUTINE 8 MEDICAL ECG SERV W/LEAST FOUNDATIO 12 LDS I&R ONLY BLOOD 84603 [facility] COUNT 8 [facility] COMPLETE [facility] AUTO&AUTO [facility] [place] [address] [facility] TROPONIN 8 [facility] QUANTITAT [facility] COMPREHEN 48725 [facility] SIVE 8 [facility]AB[facility] ECG 82631 [facility] ROUTINE 8 [facility] ECG [facility] W/LEAST [address] TRCG ONLY W/O I&R PROTHROMB 40345 [facility] IN TIME 8 [facility] [place] [address] [facility] LIPASE 8 [facility] RADIOLOGI [address]245 [place] C 8 MEDICAL MEDICAL EXAMINATI SERV SERV ON CHEST FOUNDATIO FOUNDATIO [place] FRONTAL ECG [address]81 [place] ROUTINE 8 MEDICAL MEDICAL ECG SERV SERV W/LEAST FOUNDATIO FOUNDATIO 12 LDS I&R ONLY COLSC FLX 35964 [place] 8 MEDICAL MEDICAL W/REMOVAL SERV SERV LESION FOUNDATIO FOUNDATIO BY HOT BX FORCEPS EGD 13480 [place] TRANSORAL 8 MEDICAL MEDICAL BIOPSY SERV SERV SINGLE/MU FOUNDATIO FOUNDATIO LTIPLE SPECIAL 30580 [place] STAIN 8 MEDICAL MEDICAL GROUP 1 SERV SERV MICROORGA FOUNDATIO FOUNDATIO NISMS I&R COLSC FLX 52238 [place] W/RMVL 8 MEDICAL MEDICAL OF TUMOR SERV SERV POLYP FOUNDATIO [place] [address] [place] SURG 8 MEDICAL MEDICAL PATHOLOGY SERV SERV FOUNDATIO FOUNDATIO GROSS&[place] [address] [place] ABDOMEN 8 MEDICAL MEDICAL W/CONTRAS SERV SERV T FOUNDATIO FOUNDATIO MATERIAL CT PELVIS 51115 [place] 8 MEDICAL MEDICAL W/CONTRAS SERV SERV T FOUNDATIO FOUNDATIO MATERIAL INITIAL 96272 [place] INPATIENT 8 MEDICAL MEDICAL CONSULT SERV SERV NEW/ESTAB FOUNDATIO FOUNDATIO PT 80 [place] [address] MEADOW[facility]IE MEADOWVIE INFUSION 8 W W HYDRATION REGIONAL REGIONAL INITIAL MEDICAL MEDICAL 31 MIN-1 CENTER CENTER HR CRITICAL 57285 [facility] EMERGENCY [place] M ILL/INJUR SERVICES ED ASSOC PATIENT PSC INIT 30-74 MIN GROUND A0425 [facility] MILEAGE 8 [place] CO CLAR[place] CO PER STATUTE AMBULANCE AMBULANCE MILE ECG 49692 [place] ROUTINE 8 MEDICAL MEDICAL ECG SERV SERV W/LEAST FOUNDATIO FOUNDATIO 12 LDS I&R ONLY THROMBOPL 73080 MEADOWVIE MEADOWVIE ASTIN 8 W W TIME REGIONAL REGIONAL PARTIAL MEDICAL MEDICAL PLASMA/WH CENTER CENTER OLE BLOOD BLOOD 03556 MEADOWVIE MEADOWVIE TYPING 8 W W SEROLOGIC REGIONAL REGIONAL RH (D) [facility] CENTER CENTER CT PELVIS 23575 [facility], W/O 8 EVANGELIST S CONTRAST RADIOLOGY MATERIAL ASSOCIATE S PSC AMB [id number] [facility] SERVICE 8 CLARIBEL CO CLARIBEL CO ALS EMERGENCY AMBULANCE AMBULANCE TRANSPORT LEVEL 1 BLOOD 08654 MEADOWVIE MEADOWVIE COUNT 8 W W COMPLETE REGIONAL REGIONAL AUTO&AUTO MEDICAL MEDICAL DIFRNTL CENTER CENTER WBC INJECTION [id number] MEADOWVIE MEADOWVIE 8 W W PROMETHAZ REGIONAL REGIONAL INE HCL MEDICAL MEDICAL [place] [address] [place] [address] MEADOWVIE MEADOWVIE ABDOMEN 8 W W W/O REGIONAL REGIONAL CONTRAST MEDICAL MEDICAL MATERIAL CENTER CENTER BLOOD 42463 MEADOWVIE MEADOWVIE TYPING 8 W W SEROLOGIC [facility] CENTER ANTIBODY 53480 MEADOWVIE MEADOWVIE SCREEN 8 W W RBC [facility] SERUM [facility] [place] [address] MEADOWVIE MEADOWVIE AMYLASE 8 W W [facility] COMPREHEN 60246 MEADOWVIE MEADOWVIE SIVE 8 W W METABOLIC [facility] CENTER COLLECTIO 57865 MEADOWVIE MEADOWVIE N VENOUS 8 W W BLOOD [facility] [place] [facility] 3D 09563 [facility], RENDERING 8 EVANGELIST S W/JENNIFER RADIOLOGY & POSTPROCE ASSOCIATE SS S PSC SUPERVISI ON PROTHROMB 65748 MEADOWFER MEAWVIE IN TIME 8 W W [facility] [place] [address] MEADOWVIE MEADOWVIE LIPASE 8 W W [facility] [address] [place] INTERNAL DISCHARGE 8 MEDICAL MEDICINE DAY SERV MANAGEMEN FOUNDATIO T 30 MIN/< ECHO 00251 JOHN HARVEY, TRANSTHOR 8 PRIYA DAVIES AC R-T 2D SERV W/WO FOUNDATIO M-MODE REC COMP DOP 88178 JOHN HARVEY ECHOCARD 8 PRIYA DAVIES COLOR SERV [place] [address]331 JOHN MENDES, MINERVA&/OR 8 PRIYA Barrett PRESS SERV C/CONSUELO FOUNDATIO RSRV DALIA 1ST VSL I SI&R 26459 JOHN MENDES, F/NJX PX 8 PRIYA Barrett DURING SERV C-CATHJ FOUNDATIO VENTR&/AT R ANGRPH L HRT 16208 JOHN MENDES CATHETERI 8 PRIYA Barrett ZATION SERV RETROGRAD FOUNDATIO E BRACHIAL PERQ I SI&R 61821 JOHN MENDES, F/NJX PX 8 PRIYA Barrett DURING SERV C-CATHJ FOUNDATIO PULM&/[place] [address] JOHN MENDES C-CATHJ 8 PRIYA Barrett F/SLCTV C SERV ANGRPH FOUNDATIO SBSQ 66934 [place] [facility] 8 MEDICAL MEDICINE CARE/DAY SERV 25 FOUNDATIO MINUTES DOPPLER 50225 [place] GABRIEL, ECHOCARD 8 MEDICAL KEKE PULSE SERV WAVE FOUNDATIO W/SPECTRA L DISPLAY INITIAL 97529 [place] INPATIENT 8 MEDICAL MEDICAL CONSULT SERV SERV NEW/ESTAB FOUNDATIO FOUNDATIO PT 110 MIN INJECTION 53580 [place] MENDES, CARDIAC 8 MEDICAL KVNG C CATHJ L SERV VENTR/L FOUNDATIO ATR ANGIOGRAP H DUPLEX 63431 RADIOLOGY RADIOLOGY SCAN 8 EXTRACRAN PHYSICIAN PHYSICIAN IAL ART S OF S OF COMPL BI [facility] STUDY PSC PSC RADIOLOGI 84572 [place] C 8 MEDICAL MEDICAL EXAMINATI SERV SERV ON CHEST FOUNDATIO FOUNDATIO [place] FRONTAL ECG 01428 [place] ROUTINE 8 MEDICAL MEDICAL ECG SERV SERV W/LEAST FOUNDATIO FOUNDATIO 12 LDS I&R ONLY URNLS DIP 94118 [facility], 8 POINT [facility]ENRY E STICK/TAB FAMILY LET RGNT CARE, AUTO W/O INC. MICROSCOP Y ALBUMIN 11736 [facility], URINE 8 POINT HENRY E MICROALBU FAMILY MIN CARE, QUANTIATI INC. VE COLLECTIO 19767 [facility], N VENOUS 8 POINT HENRY E BLOOD FAMILY VENIPUNCT CARE, URE INC. Encounters Encounter Start End Date Code Location Performer Type Date HOSPITAL [facility] - 7 7 [facility] T OFFICE 17228 [facility] RUBIO OUTPATIEN 7 7 PHYSICIAN T VISIT S GROUP 10 MINUTES [facility]OSP[facility] - 7 7 [facility] OUTPATIEN E T HOSPITALS OFFICE 33832 [facility] OUTPATIEN 7 7 HEALTH T VISIT SOLUTIONS 15 IN MINUTES OFFICE 73666 [facility] OUTPATIEN 7 7 HEALTH T VISIT SOLUTIONS 15 IN MINUTES OFFICE 90971 [place] OUTPATIEN 7 7 MEDICAL T VISIT SERV 25 FOUNDATIO MINUTES N OFFICE 16645 [facility] 7 7 HEALTH T VISIT SOLUTIONS 15 IN MINUTES EMERGENCY 35909 JOHN BALDWIN 7 7 MEDICAL DEPARTMEN SERV T VISIT FOUNDATIO MODERATE N SEVERITY EMERGENCY 99956 JOHN BALDWIN 7 7 MEDICAL DEPARTMEN SERV T VISIT FOUNDATIO LOW/MODER N SEVERITY [facility]ERGENCY 47568 [facility] 7 JONA VISIT EMERGENCY HIGH PHYS SEVERITY& THREAT [facility] EMERGENCY 09354 CAROL TAVERAS, [address] [facility] T VISIT HIGH/URGE NT SEVERITY EMERGENCY 23681 [facility] 7 7 MEM [facility] DEPARTMEN INC T VISIT LOW/MODER SEVERITY [facility]OSP[facility] - 7 7 [facility] - 6 6 [facility] INPATIENT [facility] EMERGENCY 21821 CAROL JAVIER [address] [facility] T VISIT HIGH/URGE NT SEVERITY EMERGENCY 28641 [facility] 6 6 [facility] KAI T VISIT HIGH/URGE NT SEVERITY EMERGENCY 79316 [facility] JONA Y TRA VISIT EMERGENCY HIGH SERVI SEVERITY& THREAT [facility]PITAL [facility] - 6 6 [facility] KAI T EMERGENCY [address] [facility] 6 6 JONA VALENTÍN DEPARTMEN EMERGENCY T VISIT PHYS HIGH/URGE NT SEVERITY [facility] 6 [facility] - [facility] 63358 [facility] 6 6 HEALTH T VISIT SOLUTIONS 15 IN MINUTES HOSPITAL [facility] - 6 6 [place] [facility] UN[facility] - 6 6 Y INPATIENT HOSPITAL OFFICE 10005 [facility] OUTPATIEN 6 6 HEALTH T VISIT SOLUTIONS 15 IN MINUTES OFFICE 73025 [facility] OUTPATIEN 5 5 HEALTH T VISIT SOLUTIONS 15 IN MINUTES OFFICE 03813 [facility] OUTPATIEN 5 5 HEALTH T VISIT SOLUTIONS 15 IN MINUTES OFFICE 93936 [facility] OUTPATIEN 5 5 HEALTH T VISIT SOLUTIONS [address] [facility] - 5 5 [facility] KAI T OFFICE 19221 [facility] OUTPATIEN 5 5 HEALTH T VISIT SOLUTIONS 15 IN MINUTES OFFICE 63519 HIMANSHU BEAN MARIZA OUTPATIEN 5 5 MD JOSE G, T VISIT PSC 10 MINUTES HOSPITAL UNIVERSIT - 5 5 Y OUTPATIEN HOSPITAL T OFFICE 27027 [place] ADRIAN OUTPATIEN 5 5 MEDICAL GRE T NEW 30 SERV MINUTES FOUNDATIO N OFFICE 77834 [facility] OUTPATIEN 5 5 HEALTH T VISIT SOLUTIONS 15 IN MINUTES OFFICE 98704 [facility] OUTPATIEN 5 5 HEALTH T VISIT SOLUTIONS 15 IN MINUTES OFFICE 75080 [facility] OUTPATIEN 5 5 HEALTH T VISIT SOLUTIONS 15 IN MINUTES HOSPITAL D[facility] - 5 5 [facility] OUTPATIEN INC T OFFICE 73946 [facility] OUTPATIEN 5 5 HEALTH T VISIT SOLUTIONS 15 IN MINUTES OFFICE 52298 [facility] OUTPATIEN 5 5 HEALTH T VISIT SOLUTIONS 15 IN MINUTES OFFICE 80942 [facility] OUTPATIEN 5 5 HEALTH T VISIT SOLUTIONS [address] [facility] - 5 5 [place] OUTPATIEN KAI T OFFICE 28507 [facility] OUTPATIEN 5 5 HEALTH T VISIT SOLUTIONS 25 IN MINUTES EMERGENCY 57834 [facility] 5 5 JONA DEPARTMEN EMERGENCY T VISIT SERVI HIGH/URGE NT SEVERITY [facility] - 5 5 [facility] OUTPATIEN KAI T EMERGENCY [facility] [facility] 5 5 [facility] DEPARTMEN KAI T VISIT MODERATE SEVERITY [facility]OSPITAL [facility] - 5 5 [facility] OUTPATIEN INC T OFFICE 98101 [facility] OUTPATIEN 5 5 HEALTH T VISIT SOLUTIONS 25 IN MINUTES HOSPITAL [facility] - 5 5 [facility] OUTPATIEN INC T OFFICE 08078 [facility] OUTPATIEN 5 5 HEALTH T VISIT SOLUTIONS [address] [facility] - 5 5 [facility] OUTPATIEN KAI T OFFICE 70597 [facility] OUTPATIEN 5 5 HEALTH T VISIT SOLUTIONS [address] [facility] - 5 5 [facility] OUTPATIEN KAI T OFFICE 46110 [facility] OUTPATIEN 5 5 HEALTH T VISIT SOLUTIONS 25 IN MINUTES OFFICE 76295 TANNER ARAIZA BUX ANJ OUTPATIEN 5 5 MD T NEW 30 MINUTES OFFICE 15035 [place] [facility] OUTPATIEN 5 5 [place] [facility] [address] [facility] - 5 5 [facility] OUTPATIEN KAI T EMERGENCY 74465 [facility] SUKI JR 5 5 JONA OMEGA DEPARTMEN EMERGENCY T VISIT SERVI MODERATE SEVERITY EMERGENCY 20954 [facility] R[facility] 5 5 JONA GIN DEPARTMEN EMERGENCY T VISIT PHYS HIGH/URGE NT SEVERITY OFFICE 54366 [facility] OUTPATIEN 5 5 [place] [facility] [address] [facility] - 5 5 [place] OUTPATIEN KAI T OFFICE 96344 [facility] OUTPATIEN 5 5 [place] [facility] 25 PSC MINUTES OFFICE 08536 [facility] OUTPATIEN 5 5 HEALTH T VISIT SOLUTIONS [address] [facility] - 5 5 [place] OUTPATIEN KAI T OFFICE 29262 [facility] OUTPATIEN 5 5 [place] [facility] NEW 45 CLINIC MINUTES PSC OFFICE 04609 [facility] OUTPATIEN 5 5 HEALTH T VISIT SOLUTIONS [address] [facility] - 4 4 [place] OUTPATIEN KAI T OFFICE 01130 [facility] OUTPATIEN 4 4 HEALTH T VISIT SOLUTIONS 25 IN MINUTES OFFICE 18616 [facility] OUTPATIEN 4 4 HEALTH T NEW 20 SOLUTIONS MIN[address] IN [facility] - 4 4 [facility] KAI T [facility] - 4 4 [facility] KAI T EMERGENCY 33473 [facility] 4 4 [facility] T VISIT HIGH/URGE NT SEVERITY EMERGENCY 05517 [facility] 4 4 [facility] EMERGENCY T VISIT PHYS MODERATE SEVERITY [facility]OSPITAL [facility] YANG 4 4 [facility] OFFICE 92264 MICHI A DELOMAS OUTPATIEN 4 4 [place] MAR T NEW 30 [facility] MINUTES OFFICE 71216 ACEVES ACEVES OUTPATIEN 3 3 JOHN JOHN T VISIT 25 MINUTES OFFICE 06402 COMMONWEA JOSE II OUTPATIEN 3 3 [facility] SLEEP PENNY T VISIT AND REHA 15 MINUTES HOSPITAL [facility] - 3 3 [facility] 3 3 [facility] 3 3 [facility] MEDICAL [facility] EMERGENCY 08195 EDU KRISTIAN II 3 3 EMERGENCY O DEPARTPATIENT'S CHOICE [facility] T VISIT MODERATE SEVERITY [facility] - OTHER 3 3 [place] OFFICE 91121 RIKI GARCIA II OUTPATIEN 3 3 LTH SLEEP PENNY T VISIT AND REHA 15 MINUTES HOSPITAL GE[facility] - 2 2 REGIONAL OUTPATIEN MEDICAL T CENTE OFFICE 94757 RIKI GARCIA II OUTPATIEN 2 2 LT SLEEP PENNY T VISIT AND REHA 15 MINUTES HOSPITAL [facility] - OTHER 2 2 [place] EMERGENCY 95096 [facility]- 2 2 JONA CHWENK DEPARTMEN EMERGENCY REG T VISIT PHYS HIGH/URGE NT SEVERITY OFFICE 32409 EARNESTINELYRICMaikel GARCIA II OUTPATIEN 2 2 LTH SLEEP PENNY T VISIT AND REHA 15 MINUTES OFFICE 28888 COMMONOTILIA GARCIA II OUTPATIEN 2 2 LT SLEEP PENNY T NEW 30 AND REHA MINUTES OFFICE 48194 [facility] OUTPATIEN 2 2 [facility] T VISIT 15 MINUTES CLINIC[facility] [place] 2 2 [facility] EMERGENC[facility] 94865 [facility] 2 2 JONA EDW DEPARTMEN EMERGENCY T VISIT PHYS MODERATE SEVERITY CLINIC, [place] 2 2 [facility] OFFICE 26684 [facility] OUTPATIEN 2 2 [facility] T VISIT [address] [facility] - 2 2 [facility] OUTPATI KAI T OFFICE 97147 [facility] OUTPATIEN 2 2 COUNTY T VISIT [address] YANIRA - [address] T CLINIC, [place] 2 2 [facility] OFFICE 03984 [facility] OUTPATIEN 2 2 COUNTY T VISIT [address] [facility] - 2 2 [facility] 67433 [facility] 2 2 [facility] EMER[facility]ENC[facility] T VISIT SERVI MODERATE SEVERITY [facility] - 2 2 [facility] 46680 [facility] OUTPATIEN 2 2 COUNTY T VISIT 15 MINUTES CLINIC, [place] 2 2 [facility] [place] [facility] 2 2 [facility] OFFICE 36370 [facility] OUTPATIEN 2 2 COUNTY T VISIT 25 MINUTES OFFICE 62634 MINNIE SANTIAGO JR [facility] 2 2 SURGICAL MARIZA T VISIT SPECIALIS 15 T MINUTES HOSPITAL [facility] - [address] [facility] T OFFICE 92473 MINNIE SANTIAGO JR OUTPATIEN 2 2 SURGICAL MARIZA T NEW 45 SPECIALIS MINUTES T OFFICE 01661 [facility] OUTPATIEN 2 2 COUNTY T VISIT [address] [facility] - 2 2 MEDICAL OUTPATIEN [place] T [facility]PITAL [facility] 46686 UNIVERSIT [address] [facility] T VISIT MODERATE SEVERITY EMERGENCY 66295 JOHN AVENDAÑO [facility] 1 1 [facility] SERV T VISIT FOUNDATIO HIGH/URGE NT SEVERITY OFFICE 86051 TIM STUART OUTPATIEN 1 1 Sharmin PAYTON VISIT [facility] 15 . MINUTES OFFICE 33055 TIM STUART OUTPATIEN 1 1 Sharmin PAYTON VISIT [facility] 15 . MINUTES OFFICE 13655 TIM STUART OUTPATIEN 1 1 Sharmin PAYTON VISIT [facility] 15 . MINUTES OFFICE 36106 [facility] OUTPATIEN 1 1 FAMILY TAU T VISIT CLINIC, 15 PLL MINUTES [facility] [place] [address] 1 [facility] OUTPATI KAI T OFFICE 35241 [facility] OUTPATIEN 1 1 FAMILY TAU T VISIT CLINIC, 25 PLL MINUTES OFFICE 55707 TIM GEOFFREY COELLOU OUTPATIEN 1 1 Sharmin PAYTON VISIT M[facility]D.P.S.[facility] 15 . MINUTES [facility] [place] [address] 1 [facility] KAI T OFFICE 29423 [facility] ELIA OUTPATIEN 1 1 FAMILY TAU T VISIT CLINIC, 25 PLL MINUTES OFFICE 51626 CARDIOVAS PINEDO OUTPATIEN 1 1 ULAR & ANT T VISIT THORACIC 15 ASS MINUTES [facility] [place] [address] 1 [facility] [place] [address] 1 [facility] OFF[facility] 30546 TIM GEOFFREY SADE OUTPATIEN 0 0 Sharmin PAYTON VISIT M.D.P.S.C 15 . MINUTES OFFICE 27986 [facility] ELIA OUTPATIEN 0 0 FAMILY TAU T VISIT CLINIC, 25 PLL MINUTES OFFICE 32982 CARDIOVAS PINEDO OUTPATIEN 0 0 ULAR & ANT T VISIT THORACIC 15 ASS MINUTES [facility]OSP[facility] - 0 0 [facility] KAI T OFFICE 88327 DUMONTZINA STUART OUTPATIEN 0 0 Sharmin PAYTON VISIT M.D.P.S.C 15 . MINUTES OFFICE 14449 COMMONWEA HESCOCK OUTPATIEN 0 0 [facility] JR T 30 UROLOGY MARNIE R MINUTES OFFICE 22378 [facility] ELIA, OUTPATIEN 0 0 FAMILY TAUFIK T VISIT CLINIC, 15 PLLC MINUTES OFFICE 84585 [facility] ELIA, OUTPATIEN 0 0 FAMILY TAUFIK T VISIT CLINIC, 15 PLLC MINUTES OFFICE 28373 KANCHAN RIVAS 0 0 KEKE PAYTON VISIT M.D.P.S.C 15 . [facility] - 0 0 [facility] T OFFICE 45284 KANCHAN RIVAS 0 0 KEKE PAYTON VISIT [facility]C 15 . [facility] - 0 0 [facility] OFFICE 34757 [facility] ELIA, OUTPATIEN 0 0 FAMILY TAUFIK T VISIT CLINIC, 15 PLLC MINUTES OFFICE 63985 KANCHAN ROCHA 0 0 EZIO PAYTON VISIT M.D.P.S.C E 15 . MINUTES OFFICE 40875 [facility] ELIA, OUTPATIEN 0 0 FAMILY TAUFIK T VISIT CLINIC, 15 PLLC [facility] - 0 0 [facility] T OFFICE 37598 CARDIOVAS PINEDO, OUTPATIEN 0 0 WILLIAN Alvarado T VISIT THORACIC 15 ASSOC [facility] - 0 0 [facility] OFFICE 41212 KANCHAN RIVAS 0 0 KEKE PAYTON NEW 45 M.D[facility] - OTHER 0 0 [facility] [place] [address] 9 [facility] 9 9 [facility] [place] [address] 9 [facility] OFFICE 22397 MICHI MIEDLER, OUTPATIEN 9 9 AMARI Elizabeth T VISIT MDPND 25 MINUTES [facility]OS[facility] - 9 9 [facility] OFFICE 54009 MICHI GAO [facility] 9 9 AMARI TAVERA T VISIT MDPND A 25 MINUTES HOSPITAL [facility] - 9 9 [facility] INPATIENT [facility] UNIVERS - OTHER [address] [facility] 9 9 [facility] EMERGENCY 79664 ELBA SMART DEPT 9 9 JONA Orta VISIT EMERGENCY HIGH PHYS INC SEVERITY& THREAT [facility] OFFICE 63307 CARDIOVAS SHAHIDA, CONSULTAT 9 9 ULAR & MARIANELA Alvarado ION THORACIC NEW/ESTAB ASSOC PSC PATIENT 40 MIN OFFICE 97395 [facility] 9 9 [facility] Yur[facility] VISIT MTRuth MORRIS 15 [facility] PULMONARY MEDICINE EMERGENCY 13117 ELBA COUGHLIN DEPT 8 8 JONA Elizabeth VISIT EMERGENCY HIGH PHYS INC SEVERITY& THREAT [facility] [place] [address] 8 [facility] EMERGENCY 66833 [facility] 8 8 [facility] VISIT [facility] NT SEVERITY EMERGENCY 50018 CRISTIAN DEPT 8 8 W VISIT [facility] MEDICAL SEVERITY& CENTER THREAT [facility] CRISTIAN - 8 8 W [facility] OFFICE 21102 [facility] 8 8 POINT HENRY E T VISIT FAMILY 25 CARE, MINUTES INC. OFFICE 33897 [facility], OUTPATIEN 8 8 POINT HENRY E T VISIT FAMILY 25 CARE, MINUTES INC.
--- OUTSIDE RECORDS SUMMARY | 2017-04-02 13:02 | External Medical Summary Rpt ---
Author Author , Organization [employer] Address Unknown Phone Unavailable Care Team Providers Care Offset Press Operator Name Role Phone [facility], Unavailable Unavailable [facility], Unavailable Unavailable [facility] Unavailable Unavailable [facility], [facility] KEKE GABRIEL ANAYA, Unavailable Unavailable KEKE ARAIZA MD, PSC, Unavailable Unavailable HIMANSHU ARAIZA MD, PSC [facility], Unavailable Unavailable [facility] EVELYN NEGRETE, ZACARIAS Austin, Unavailable Unavailable ZACARIAS RIVAS MD, Unavailable Unavailable MNadiaP.S.CRuth, TIM PAYTON M.D.P.S.CEZIO DONAHUE, Unavailable Unavailable EZIO [facility] Unavailable Unavailable [facility] CRYSTAL ROJAS Unavailable Unavailable DEVON JOSE ROBERTO, Unavailable Unavailable DEVON JOSE ROBERTO GUPTA, GUPTA Unavailable Unavailable GUPTA ALL, GUPTA ALL Unavailable Unavailable KVNG MENDES, Unavailable Unavailable KVNG MENDES BRADLEY Unavailable Unavailable MAXIM ALDANA BRANN, Unavailable Unavailable MAXIM BRIGGS CAR, BRIGGS Unavailable Unavailable CAR BUX ANJ, BUX ANJ Unavailable Unavailable [facility] Unavailable Unavailable REHABILITATION, [facility]ILITATION [facility] Unavailable [facility]available SERVICES [facility] Unavailable Unavailable SERVICES [facility] ACEVES JOHN, Unavailable Unavailable ACEVES JOHN ACEVES JOHN, Unavailable Unavailable ACEVES JOHN [facility], Unavailable Unavailable [facility]-, Unavailable Unavailable [facility] Unavailable Unavailable SPECIALIST, [facility] MARINE CARGO INSPECTOR [facility], Unavailable Unavailable [facility] CHESTNUT, CHESTNUT Unavailable Unavailable [facility] Unavailable Unavailable [facility] Unavailable Unavailable [facility] KEKE MOODY CLARK, Unavailable Unavailable KEKE Ko [facility], Unavailable Unavailable [facility] Unavailable Unavailable AND REHA, [facility] AND REHA [facility] Unavailable Unavailable CLINIC, PLL, [facility] PALAK REMBERTO, Unavailable Unavailable [facility] REM[facility] KRISTIAN II THO, KRISTIAN II Unavailable Unavailable THO DELOMAS MAR, DELOMAS Unavailable Unavailable MAR AVENDAÑO KAYLAH, AVENDAÑO KAYLAH Unavailable Unavailable DUFF MARIZA, DUFF MARIZA Unavailable Unavailable JIMENEZ, G T, JIMENEZ, G Unavailable Unavailable T ENDEAN, ENDEAN Unavailable Unavailable ENDEAN MIRIAN, ENDEAN Unavailable Unavailable MIRIAN ROSA LAURA, ROSA Unavailable Unavailable VALENTÍN MEJIA, ROBERTO GILBERT, Unavailable [...] RHO HENRY TAPIA, Unavailable Unavailable HENRY TAPIA E MAINOR HAYWARD Unavailable Unavailable GRAHAM STEVEN, Unavailable Unavailable GRAHAM STEVEN [facility] Unavailable Unavailable INC, [facility] EVANGELIST WARD, Unavailable Unavailable EVANGELIST WARD JR, HAROLD R, Unavailable Unavailable MARNIE ROCHA JR [facility], Unavailable Unavailable [facility] LIANG BISHOP, Unavailable Unavailable LIANG BISHOPO, DARLIN OMEGA Unavailable Unavailable [facility], Unavailable [facility]available [facility] JOSE II PENNY, JOSE Unavailable Unavailable II PENNY KEELY, KEELY BURDICK, Unavailable Unavailable HEAVENLY ELIA TAU, ELIA Unavailable Unavailable TAU ELIA, TAUFIK, Unavailable Unavailable ELIA, TAUFIK BROOKS III ANUPAM, Unavailable Unavailable BROOKS III ANUPAM [facility] Unavailable Unavailable PHARMACY, [facility] Unavailable Unavailable PHARMACY, [facility] Unavailable Unavailable [facility] KOSTELIC CESILIA, Unavailable Unavailable KOSTELIC CESILIA BARBARA CHI, BARBARA [facility] Unavailable Unavailable BARBARA, C S, BARBARA, C S Unavailable Unavailable [facility] Unavailable [facility], [facility] Unavailable Unavailable HOLDING, [facility] Unavailable Unavailable [facility]INGS[facility] Unavailable Unavailable HOLDINGS, [facility], Unavailable Unavailable [facility] BAIRD JAZMINE, BAIRD JAZMINE Unavailable Unavailable [facility] Unavailable [facility] Un[facility] Unavailable Unavailable LABORATORY, [facility] ANNE MARIE SOILA, ANNE MARIE Unavailable Unavailable SOILA TANNER ARAIZA MD, TANNER Unavailable Unavailable JOSE G SANDERSON MD Unavailable Unavailable [facility], MICHI SANDERSON MD [facility] Unavailable Unavailable SERVICES, [facility] [employer] [facility] Unavailable Unavailable AMBULANCE, [facility] MARYBETH, Unavailable Unavailable ÁLVAREZ MARYBETH [facility] Unavailable Unavailable [facility], [facility], Unavailable Unavailable LLC, [facility] KWASI HA, Unavailable Unavailable KWASI HA, AKIN Unavailable Unavailable [facility], Unavailable Unavailable [facility] Unavailable Unavailable AMBULANCE SERVICE, [facility] BALDWIN, BALDWIN Unavailable Unavailable CORNELIO EDW, CORNELIO Unavailable Unavailable [facility] Unavailable Unavailable [facility], [facility] Unavailable Unavailable AMBULANCE SE, [facility] Unavailable Unavailable AMBULANCE SE, [facility] SE RINALDI KAYKAY, RINALDI KAYKAY Unavailable Unavailable JOSE JOSE ROBERTO, JOSE JOSE ROBERTO Unavailable Unavailable [facility], Unavailable Unavailable PLL, [facility], [facility], Unavailable Unavailable [facility], [facility]available Unavailable [facility] PICKLESIMER JR, LEATHA Unavailable Unavailable L, PICKROWENAIMER JR, LEATHA L MURRAY, LIANG A, Unavailable Unavailable MURRAY, LIANG A BRANDY, JOSPEH F, Unavailable Unavailable BRANDY, JOSPEH F [facility] Unavailable Unavailable OF [facility], [facility] RUBIO, RUBIO Unavailable Unavailable REKHRAJ HALINA, REKHRAJ Unavailable Unavailable HALINA PARUL, JARED, RICE, Unavailable Unavailable JARED CARRERA, Unavailable Unavailable ALLIE PIÑA C, WANG C Unavailable Unavailable WANG CHR, WANG CHR Unavailable Unavailable Arnold PIÑA, WANG, C Unavailable Unavailable N PINEDO ANT, PINEDO Unavailable Unavailable ANT SHAHIDA, MARIANELA G, Unavailable Unavailable MARIANELA PINEDO [facility], ROSS Unavailable Unavailable SURGICAL [facility], ROSS Unavailable Unavailable SURGICAL [facility] Unavailable Unavailable [facility], [facility] ELI MILLY, ELI Unavailable Unavailable MILLY SCALF GUTIERREZ, SCALF GUTIERREZ Unavailable Unavailable SCALAminah, EVANGELIST E, Unavailable Unavailable KAYE, EVANGELIST E AISHWARYA CLIFTON, Unavailable Unavailable MARTI TAFOYA, Unavailable Unavailable MARTI TORRES J S, Unavailable Unavailable Glenn GARCIA [facility] Unavailable Unavailable EMERGENCY PH[facility], [facility] Unavailable Unavailable EMERGENCY SERVI, [facility], Unavailable Unavailable [facility] Unavailable Unavailable RADIOLOG, [facility] Unavailable Unavailable [facility] SIXTO COUGHLIN, Unavailable Unavailable SIXTO COUGHLIN [facility] Unavailable Unavailable [facility]UTIONS [facility], [facility] STILES NAN, STILES Unavailable Unavailable NAN VILLARREAL ALICIA, VILLARREAL ALICIA Unavailable Unavailable HAUSER ELIANA, Unavailable Unavailable HAUSER ELIANA SUPAONGPRAPA, Unavailable Unavailable WORAWUTE, SUPAONGPRAPA, WORAWUTE FREDO, FREDO Unavailable Unavailable FREDO JEANNIE, FREDO JEANNIE Unavailable Unavailable MALA RAY, MALA Unavailable Unavailable RAY GUADALUPE MOL, GUADALUPE MOL Unavailable Unavailable HEALTHCARE Unavailable Unavailable HOSPITALS, [facility], Unavailable Unavailable [facility] SUPPLY Unavailable Unavailable [facility], [facility] HEALTHCARE SUPPLY [facility] SUPPLY Unavailable Unavailable [facility], HEALTHCARE SUPPLY [facility] JACK DAWKINS, JACK Unavailable Unavailable SHARAD EGAN, Unavailable Unavailable SHARAD YOUNG PHILLIP L, Unavailable Unavailable LILY SMART CHARLES IV ALL, Unavailable Unavailable CHARLES IV ALL ADRIAN GRE, ADRIAN Unavailable Unavailable GRE RODNEY GIN, RODNEY Unavailable Unavailable GIN BISHOP JAZMINE, Unavailable Unavailable BISHOP JAZMINE MARSHAL, MARSHAL Unavailable Unavailable MARSHAL JOHN, MARSHAL Unavailable Unavailable JOHN JOSE MAT, JOSE MAT Unavailable Unavailable SONG GARCIA, Unavailable Unavailable SONG GARCIA Purpose Continuity of Care Document - 10-17-2007 through 2016 Problems Code Diagnosis DOS Provider Status E1151 TYPE 2 DM 02-28-2017 [facility] W/DIAB PHYSICIANS PERIPH GROUP ANGIOPATHY W/O GANGRENE I739 PERIPHERAL 02-28-2017 [facility] VASCULAR PHYSICIANS DISEASE GROUP UNSPECIFIED M1991 PRIMARY 02-28-2017 [facility] OSTEOARTHRI SURGICAL TIS UNSPECIFIED SITE M23650 PAIN IN 02-28-[address] [facility] D60600G DSPL OBL FX 02-28-2017 [place] SHAFT LT MEDICAL FIBULA IMAGING ASS SUBSQT CLOS FX RTN M5902QW DSPL FX MED 02-28-2017 [place] MALLEOLUS MEDICAL LT TIBIA IMAGING ASS SUBS CLOS FX RTN [id number] DISPL 02-28-2017 [facility] BIMALLEOLAR PHYSICIANS FX LT LOW GROUP LEG INIT CLOSED FX Z720 TOBACCO USE 02-28-2017 [facility] PHYSICIANS GROUP M7989 OTHER 02-19-2017 [place] SPECIFIED MEDICAL SOFT TISSUE IMAGING ASS DISORDERS [id number] DISPL 02-19-2017 [place] BIMALLEOL MEDICAL FX LT LOW IMAGING ASS LEG SUBS CLOS RTN HEAL R49286 ENCOUNTER 02-19-2017 [place] FOR OTHER MEDICAL PREPROCEDUR IMAGING ASS AL EXAMINATION O05678 OTHER 02-19-2017 [place] SPECIFIED MEDICAL POSTPROCEDU IMAGING ASS RAL STATES B23134 UNS 02-09-2017 [facility]ARE [place] ART HOSPITALS EXTREM UNS EXTREMITY I771 STRICTURE 02-09-2017 [facility] OF ARTERY SERV [facility] K229 DISEASE OF 02-09-2017 [facility] UNSPECIFIED HOSPITALS R590 LOCALIZED 02-09-2017 [facility] HE[facility]CARE LYMPH NODES HOSPITALS Z86114S STENOSIS 02-09-2017 [facility] DEVC IMPL HOSPITALS & GRAFT INIT ENC E1165 TYPE 2 02-05-2017 [facility] V[facility]AY MELLITUS HOLDINGS WITH HYPERGLYCEM IA E1140 TYPE 2 DM 01-29-2017 [facility] WITH SURGICAL DIABETIC NEUROPATHY UNSPECIFIED E782 MIXED 01-24-2017 [facility] HYPERLIPIDE HEALTH SHARON SOLUTIONS IN C14779 VARICOS VNS 01-24-2017 [facility] RT LW EXT HEALTH ULCER OTH SOLUTIONS PART LE & IN INFLAM Y83159 VARICOS VNS 01-24-2017 [facility] LT LW EXT HEALTH ULCER OTH SOLUTIONS PART LE & IN INFLAM F04875 VARICOSE 12-20-2016 [facility] VEINS RT SERV LOWER FOUNDATION EXTREM W/ULCER UNS SITE I96 GANGRENE 12-20-2016 [facility] NOT SERV ELSEWHERE FOUNDATION CLASSIFIED J40144 TYPE 2 11-30-2016 [facility] DIABETES SERV MELLITUS FOUNDATION WITH FOOT ULCER M24441 NON-PRSS 11-30-2016 [facility] CHRN ULCR SERV OTH PART RT FOUNDATION FT W/UNS SEVERITY K5641 FECAL 11-11-2016 [facility] IMPACTION N EMERGENCY PHYS M549 DORSALGIA 11-11-2016 [facility] UNSPECIFIED COUNTY AMBULANCE SE R1084 GENERALIZED 11-11-2016 [facility] ABDOMINAL [facility] PAIN AMBULANCE SE R109 UNSPECIFIED 11-07-2016 [facility] [place] ABDOM[facility] RADIOLOGY PAIN E119 TYPE 2 11-03-2016 [facility] DIABETES [facility] MELLITUS INC WITHOUT COMPLICATIO NS J449 CHRONIC 11-03-2016 [facility] OBSTRUCTIVE [facility] PULMONARY INC DISEASE UNS K30641 PAIN IN 11-03-2016 [place] RIGHT HIP MEDICAL IMAGING ASS M545 LOW BACK 11-03-2016 [place] PAIN MEDICAL IMAGING ASS R8299 OTHER 11-03-2016 [facility] ABNORMAL [facility] FINDINGS IN INC URINE B850SGJ SPRAIN 11-03-2016 [facility]AM[facility]YSICIANS, LUMBAR PLLC SPINE INITIAL ENCOUNTER [id number] CONTUSION 11-03-2016 [facility] OF RIGHT PHYSICIANS, HIP INITIAL PLLC ENCOUNTER 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 [facility] 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 USE MEM HOS[facility] OF INSULIN INC L68322 CELLULITIS 08-04-2016 [place] OF RIGHT MEDICAL LOWER LIMB IMAGING ASS E60456 CELLULITIS 08-04-2016 [place] OF LEFT MEDICAL LOWER LIMB IMAGING ASS V94028 PAIN IN 08-03-2016 [place] RIGHT LOWER MEDICAL LEG IMAGING ASS I76478 PAIN IN 08-03-2016 [place] LEFT LOWER MEDICAL LEG IMAGING ASS G629 POLYNEUROPA 08-02-2016 [facility] THY PHYSICIANS, UNSPECIFIED PLLC 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 [facility] 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 E785 HYPERLIPIDE 06-16-2016 [facility] MOUNT UNSPECIFIED KAI I10 ESSENTIAL 06-16-2016 [facility] PRIMARY [facility] HYPERTENSIO KAI N M542 CERVICALGIA 06-16-2016 [facility] R918 OTHER 06-16-2016 [facility] [place] NONSPECIFIC RADIOLOGY ABNORMAL FINDING OF LUNG FIELD V262HVM OTHER 06-16-2016 [facility] [place] SPECIFIED RADIOLOGY INJURIES HEAD INITIAL ENCOUNTER F37529U CONTUSION 06-16-2016 [facility] LEFT FRONT MOUNT WALL THORAX KAI INITIAL ENC H230PZG FALL SAME 06-16-2016 [facility] LEVL SLIP N EMERGENCY TRIP W/O SERVI SUB STRIK OBJ INIT Z880 ALLERGY 06-16-2016 [facility] STATUS TO MOUNT PENICILLIN KAI Z885 ALLERGY 06-16-2016 [facility] STATUS TO MOUNT NARCOTIC KAI AGENT STATUS E1121 TYPE 2 05-23-2016 [facility] DIABETES VINAY MELLITUS HOLDINGS W/DIABETIC NEPHROPATHY M5000 CERVICAL 04-28-2016 [facility] DISC D/O N EMERGENCY W/MYELOPATH PHYS Y UNS CERV REGION C307DWV UNSPECIFIED 04-28-2016 [facility] [place] INJURY OF RADIOLOGY NECK INITIAL ENCOUNTER N58FMRY UNSPECIFIED 04-28-2016 [place] [place] DISCOUNT INITIAL MEDICAL ENCOUNTER L089 LOCAL INF 02-24-2016 [facility] THE SKIN & SERV SUBCUTANEOU FOUNDATION S TISSUE UNS I998 OTHER 02-23-2016 [facility] CIRCUL[facility] SYSTEM N81644 PAIN IN 02-23-2016 [facility] Z7901 NURSING HOME 02-23-2016 [facility] Z7982 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 VEIN [facility]OS[facility] BP GRAFT RT LEG ULCER ANKLE I7789 OTHER 02-07-2016 [facility]OSPITAL DISORDERS ARTERIES & ARTERIOLES U33641 NON-PRESSUR 02-07-2016 [facility] ULCER RT ANK W/UNS SEVERITY Q09410 OTH 01-13-2016 [facility] [place] ART SOLUTIONS EXTREM IN BILATERAL LEGS G3184 MILD 01-05-2016 [facility] COGNITIVE SERV IMPAIRMENT FOUNDATION SO STATED P91568 NON-PRSS 01-05-2016 PATIENT CHR ULCR AIDS INC OTH PART LT LW LEG UNS SEVERTY R2681 UNSTEADINES 01-05-2016 [place] [facility] S ON FEET SERV FOUNDATION R5381 OTHER 01-05-2016 [facility] MALAISE SERV FOUNDATION Z32911 ENCOUNTER 01-05-2016 PATIENT SURG AIDS INC AFTERCARE FOLLOW SURGERY CIRC SYS E109 TYPE 1 01-04-2016 [place] DIABETES [facility] MELLITUS PHARMACY WITHOUT COMPLICATIO NS R2241 LOCALIZED 12-23-2015 [facility] [place] SWELLING RADIOLOGY MASS & LUMP RIGHT LOWER LIMB Z0289 ENCOUNTER 12-23-2015 [facility] [place] FOR OTHER RADIOLOGY ADMINISTRAT KRISTIAN EXAMINATION S B965 PSEUDOMONAS 12-22-2015 [facility]AB[facility] CLASSIFIED ION ELSEWHERE I951 ORTHOSTATIC 12-22-2015 [facility] HYPOTENSION REHABILITAT ION P841FII INFECTION 12-22-2015 [facility] PROCEDURE REHABILITAT INITIAL ION ENCOUNTER I743 EMBOLISM & 12-16-2015 [facility] THROMBOSIS SERV ART THE FOUNDATION LOWER EXTREMITIES I348 OTHER 12-15-2015 [facility] NONRHEUMATI SERV C MITRAL FOUNDATION VALVE DISORDERS R9431 ABNORMAL 12-15-2015 [facility] ELECTROCARD SERV IOGRAM FOUNDATION D96833 ACUTE 12-13-2015 [facility] EMBOLISM & SERV THROMBOSIS FOUNDATION LEFT POPLITEAL VEIN E1142 TYPE 2 12-08-2015 [facility] MELL[facility]US W/DIAB POLYNEUROPA THY S74175 UNS 12-08-2015 [facility] [place] ART EXTREM BILATERAL LEGS I7092 CHRONIC 12-08-2015 [facility] OCCLUSION ARTERY THE EXTREMITIES T86529 PRIMARY 12-08-2015 [facility] OSTEOARTHRI SERV TIS RIGHT FOUNDATION ANKLE AND FOOT R600 LOCALIZED 12-08-2015 [facility] EDEMA SERV FOUNDATION M150 PRIMARY 10-22-2015 [facility] GENERALIZED HEALTH SOLUTIONS OSTEOARTHRI IN TIS M5116 INTERVERTEB 08-24-2015 JANETTE TORRES MD, PSC D/O W/RADICULOP ATHY LUMB RGN M961 POSTLAMINEC 08-24-2015 JEROME TORRES MD, PSC SYNDROME NEC M5417 RADICULOPAT 07-23-2015 [facility] LUMBOSACRAL INC REGION 6826 CELLULITIS 07-09-2015 [facility] AND ABSCESS HEALTH OF LEG SOLUTIONS EXCEPT FOOT IN 7231 CERVICALGIA 06-23-2015 [facility] HEALTH SOLUTIONS IN 7218 OTHER 06-18-2015 [facility] ALLIED MOUNT DISORDERS KAI OF SPINE 7220 DISPLCMT 06-18-2015 [facility] CERV [facility] INTERVERT KAI DISC WITHOUT MYELOPATHY 58879 OTHER&UNSPE 06-18-2015 [facility] CIFIED DISC MOUNT DISORDER KAI CERVICAL REGION 26936 DIAB W/O 06-08-2015 [facility] COMP TYPE HEALTH II/UNS NOT SOLUTIONS STATED IN UNCNTRL 7295 PAIN IN 06-08-2015 [facility] SOFT [place] [address] OTHER 06-04-2015 [facility] CHRONIC [place]OUNT PAIN KAI 37815 SPASM OF 06-04-2015 [facility] MUSCLE MOUNT KAI V145 PERSONAL 06-04-2015 [facility] HISTORY OF MOUNT ALLERGY TO KAI NARCOTIC AGENT V5869 LONG-TERM 06-04-2015 [facility] (CURRENT) [facility] USE OF KAI OTHER MEDICATIONS 3688 OTHER 05-21-2015 [place] SPECIFIED MEDICAL VISUAL IMAGING ASS DISTURBANCE S 7804 DIZZINESS 05-21-2015 [place] AND MEDICAL GIDDINESS IMAGING ASS 19377 MEMORY LOSS 05-21-2015 [place] [facility] 7812 ABNORMALITY 05-21-2015 [facility] OF [facility] INC 7840 HEADACHE 05-21-2015 [place] [facility] ASS V7283 OTHER 05-21-2015 [facility] SPECIFIED MEM HOS[facility] PRE-OPERATI INC VE EXAMINATION 2392 NEOPLASMS 04-26-2015 [facility] UNSPEC HEALTH NATURE BONE SOLUTIONS SOFT IN TISSUE&SKIN 15338 LOSS OF 04-26-2015 [place] [address] POSTLAMINEC 04-16-2015 TANNER CANO MD SYNDROME LUMBAR REGION 7244 THORACIC/NIVIA 04-16-2015 TANNER HENDRICKS MD NEURITIS/RA DICULITIS UNSPEC 5110 PLEURISY 03-15-2015 [facility] WITHOUT MOUNT MENTION KAI EFFUS/[place] [address] OTHER 03-15-2015 [facility] DISEASES OF [facility] LUNG NOT KAI ELSEWHERE CLASSIFIED 5533 DIAPHRAGMAT 03-15-2015 [facility] GARY W/O MOUNT MENTION KAI OBSTRUCTION /GANGREN 10889 DIVERTICULO 03-15-2015 [facility] SIS OF [facility] COLON KAI 5920 CALCULUS OF 03-15-2015 [facility] KIDNEY MOUNT KAI 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[facility] PROSTATE [facility] W/O UR OBST KAI & OTH LUTS 2722 MIXED 03-11-2015 [facility] HYPERLIPIDE HEALTH SHARON SOLUTIONS IN 4011 ESSENTIAL 03-11-2015 [facility] HYPERTENSIO HEALTH N, BENIGN SOLUTIONS IN 496 CHRONIC 03-11-2015 [facility] [place] [address] DIAB 02-26-2015 [facility] W/NEURO HEALTH MANIFESTS SOLUTIONS TYPE II/UNS IN NOT UNCNTRL 26152 GENERALIZED 02-26-2015 [place] [address] NOCTURIA 01-19-2015 [facility] PSC 34141 ELEVATED 01-19-2015 [facility] PSC ANTIGEN 83204 OTHER 01-14-2015 [facility] SPECIFIED [place] DISORDER OF KAI THE ESOPHAGUS 7856 ENLARGEMENT 01-14-2015 [facility] OF LYMPH MOUNT NODES KAI 21498 SHORTNESS 01-14-2015 [facility] [place] OF BREATH RADIOLOGY 9953 ALLERGY 01-14-2015 [facility] UNSPECIFIED N EMERGENCY NOT SERVI ELSEWHERE CLASSIFIED 44783 CHEST PAIN 01-06-2015 [facility] [place] UNSPECIFIED RADIOLOGY 9221 CONTUSION 01-06-2015 [facility] OF CHEST N EMERGENCY WALL PHYS E8888 OTHER FALL 01-06-2015 [facility] N EMERGENCY PHYS 2391 NEOPLASM 12-09-2014 NEW UNSPECIFIED [place] [facility] RESPIRATORY SYSTEM 486 PNEUMONIA, 12-09-2014 NEW ORGANISM [place] UNSPECIFIED CLINIC [facility] 14936 SLOWING OF 12-09-2014 [facility] 7245 UNSPECIFIED 11-24-2014 [facility] BACKACHE [facility] KAI 6071 BALANOPOSTH 11-19-2014 NEW ITIS [place] [facility] PSC 24195 INCOMPLETE 11-19-2014 NEW BLADDER [place] EMPTYING CLINIC [facility] 75715 ABDOMINAL 11-19-2014 NEW PAIN, [place] UNSPECIFIED CLINIC [facility] SITE V7644 SPECIAL 11-19-2014 [place] S[facility]ENING [facility] NEOPLASM OF PROSTATE 61749 CONDUCTIVE 10-30-2014 [facility] HEARING HEALTH LOSS, [place] [address] OTHER 10-30-2014 [facility] [place] NONSPECIFIC RADIOLOGY ABNORMAL FINDING OF LUNG FIELD 3319 UNSPECIFIED 10-05-2014 [facility] CEREBRAL [facility] DEGENERATIO KAI N 96747 URGENCY OF 10-02-2014 [place] [address] DIAB W/O 04-28-2014 [facility] MENTION [facility] COMP TYPE KAI II/UNS TYPE UNCNTRL 15821 UNSPECIFIED 02-20-2014 [facility] ARTHROPATHY SERVICES SITE INC UNSPECIFIED 05395 PAIN IN 12-03-2013 [facility] [place] JOINT, RADIOLOGY ANKLE AND FOOT 14953 UNSPECIFIED 12-03-2013 [facility] SITE OF [facility] ANKLE KAI SPRAIN AND STRAIN E9270 OVEREXERTIO 12-03-2013 [facility] N FROM N EMERGENCY SUDDEN PHYS STRENUOUS MOVEMENT 63955 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 MICHI Ko LUMBAR/LUMB KIN NEGRETE OSACRAL [facility] INTERVERTEB RAL DISC 3000 ANXIETY 10-10-2013 [facility] STATES JOHN 3384 CHRONIC 10-10-2013 [facility] PAIN JOHN SYNDROME 02498 EFFUSION OF 04-21-2013 [facility] LOWER LEG [facility] JOINT KAI 27376 SYNOVIAL 04-21-2013 [facility] CYST OF [facility] POPLITEAL KAI SPACE 8441 SPRAIN AND 04-21-2013 [facility] [place] STRAIN OF RADIOLOGY MCL OF KNEE 8442 SPRAIN AND 04-21-2013 [facility] STRAIN OF [facility] CRUCIATE KAI LIGAMENT OF KNEE 5990 URINARY 04-15-2013 [facility]ICAL SITE NOT CENTE SPECIFIED 66528 PAIN IN 03-29-2013 [facility] JOINT, EMERGENCY LOWER LEG SERVICES 87253 GENERALIZED 01-30-2013 [facility] SLEEP AND OSTEOARTHRO REHA SIS UNSPECIFIED SITE 90596 PAIN IN 10-22-2012 [facility] [place], RADIOLOGY SHOULDER REGION 16524 PAIN IN 10-22-2012 [facility] [place], RADIOLOGY UPPER ARM 5119 UNSPECIFIED 10-02-2012 [facility] [place] PLEURAL RADIOLOGY EFFUSION 7242 LUMBAGO 07-26-2012 [facility] [place] [facility] 8472 LUMBAR 07-26-2012 [facility] SPRAIN AND N EMERGENCY STRAIN PHYS 9161 HIP THIGH 07-26-2012 [facility] LEG&ANK N EMERGENCY ABRASION/FR PHYS ICTION BURN INF 90691 CONTUSION 07-26-2012 [facility] OF KNEE N EMERGENCY PHYS 4540 VARICOSE 04-12-2012 [facility] VEINS OF LOWER EXTREMITIES WITH ULCER 6829 CELLULITIS 04-12-2012 [facility] AND ABSCESS OF UNSPECIFIED SITE 514 PULMONARY 02-05-2012 [facility] CONGESTION REGIONAL AND RADIOLOG HYPOSTASIS 4439 UNSPECIFIED 01-24-2012 [facility] PERIPHERAL VASCULAR DISEASE 4019 UNSPECIFIED 01-22-2012 [facility] ESSENTIAL [facility] HYPERTENSIO KAI N 4280 CONGESTIVE 01-22-2012 [facility] HEART [facility] FAILURE KAI UNSPECIFIED V4582 POSTSURG 01-22-2012 [facility] PERCUT [facility] TRANSLUMINA KAI L COR ANGPLSTY STS 48291 UNSPECIFIED 11-29-2011 [place] [place] [address] ULCER OF 11-29-2011 [place] LOWER LIMB, MARINE CARGO INSPECTOR UNSPECIFIED 54259 ATHEROSCLER 11-01-2011 [facility] [place] SURGICAL KEEPER HELPER EXTREMITIES UNSPEC 7820 DISTURBANCE 11-01-2011 [facility] OF SKIN SURGICAL SENSATION SPECIALIST 3572 POLYNEUROPA 09-17-2011 [facility] DIABETES 77620 CORONARY 09-17-2011 [facility] OSIS [place] CORONARY ARTERY 6961 OTHER 09-17-2011 [facility] AND SIMILAR DISORDERS 7048 OTHER 09-17-2011 [facility] DISEASE OF HAIR&HAIR FOLLICLES 7213 LUMBOSACRAL 08-22-2011 [facility]OSIS [facility] WITHOUT MYELOPATHY 3558 UNSPECIFIED 06-27-2011 [facility] MONONEURITI [facility] S OF LOWER LIMB 05725 RESTLESS 05-03-2011 TIM LEGS FITO, SYNDROME [facility] 7202 SACROILIITI 05-03-2011 TIM Abdul NOT FITO, ELSEWHERE [facility] CLASSIFIED 7291 UNSPECIFIED 05-03-2011 TIM MYALGIA FITO AND [facility] MYOSITIS 93518 OTHER 05-02-2011 [facility] SPECIFIED [facility], [facility] 7862 COUGH 02-06-2011 [facility] KAI 94992 COR 01-04-2011 [facility] ATHEROSLERO SURGICAL UNSPEC TYPE VESSEL SEMINOLE/DM T 46102 OSTEOARTHRO 01-04-2011 [facility] SIS UNSPEC MOUNT WHETHER KAI GEN/LOC LOWER LEG 00809 OTHER 01-04-2011 [facility] ENTHESOPATH [facility] Y OF KNEE KAI 74334 OTHER 01-04-2011 [facility] MALAISE AND SURGICAL FATIGUE 9597 INJURY 01-04-2011 [facility] [place] OTHER&UNSPE RADIOLOGY CIFIED KNEE LEG ANKLE&FOOT 7931 NONSPEC 12-06-2010 [facility] FIND RAD [facility] OT EXAM KAI BODY STRUCT LUNG FIELD V1269 PERSONAL 12-06-2010 [facility] HISTORY MOUNT OTHER KAI DISEASES RESPIRATORY SYS 4293 CARDIOMEGAL 10-19-2010 [facility] KAI 4149 UNSPECIFIED 07-01-2010 [facility] CHRONIC [facility] ISCHEMIC [facility], [facility] HEART DISEASE V0481 NEED 07-01-2010 [facility] PROPHYLACTI [facility]ILY C CLINIC, [facility] VACCINATION &INOCULATIO N FLU 1122 CANDIDIASIS 04-07-2010 [facility] OF OTHER H UROLOGY UROGENITAL SITES 7887 URETHRAL 03-29-2010 [facility] DISCHARGE [facility] V5874 AFTERCARE 02-15-2010 [facility] FOLLOW RADIOLOGY SURGERY ASSOC RESPIRATORY SYSTEM NEC 33021 NAUSEA 02-04-2010 [facility] ALONE [facility] 5180 PULMONARY 11-03-2009 [facility] [place] COLLAPSE RADIOLOGY 80643 DISPLCMT 10-26-2009 [facility] [place] LUMBAR RADIOLOGY INTERVERT DISC W/O MYELOPATHY 4010 ESSENTIAL 10-04-2009 [facility] [place] [facility] N, MALIGNANT 43929 SEPSIS 08-31-2009 [facility] 15110 INF&INFLAM 08-31-2009 [facility] 37888 TB LUNG 08-09-2009 [facility] W/CAVITATIO [facility]IST N EX [facility] 5109 EMPYEMA 08-09-2009 [facility] WITHOUT FITZPATRICK MENTION OF MDPSC FISTULA 26110 DYSPHAGIA 08-09-2009 [facility] ORAL PHASE [facility] 7948 NONSPECIFIC 08-09-2009 [facility] ABNORMAL FITZPATRICK RESULTS [facility] LIVR FUNCTION STUDY V1581 PERS HX 08-09-2009 [facility] NONCOMPLIAN FITZPATRICK CE W/MED TX [facility] PRS HAZARDS HLTH 5306 DIVERTICULU 08-02-2009 [facility] M OF H ESOPHAGUS, GASTROENTER ACQUIRED OLOGY PLLC 16811 DYSPHAGIA 08-02-2009 [facility] UNSPECIFIED H GASTROENTER OLOGY PLLC 5121 IATROGENIC 07-28-2009 [facility] PNEUMOTHROA RADIOLOGY X ASSOC 5183 PULMONARY 07-28-2009 [facility] EOSINOPHILI RADIOLOGY A ASSOC 94109 DIARRHEA 07-28-2009 [facility] V5882 ENCOUNTER 07-28-2009 [facility] FITTING&ADJ RADIOLOGY ASSOC NON-VASCULA R CATHETER NEC 99123 ESOPHAGEAL 07-27-2009 [facility] REFLUX RADIOLOGY ASSOC V1003 PERSONAL 07-26-2009 [facility] HISTORY [facility]IST MALIGNANT HOSP NEOPLASM ESOPHAGUS V1201 PERSONAL 07-26-2009 [facility] HISTORY OF SABIANIST TUBERCULOSI HOSP S 4578 OTHER 07-20-2009 [facility] NONINFECTIO [facility] CHANNELS V7284 UNSPECIFIED 07-20-2009 [facility]ATI [facility] 4660 ACUTE 07-19-2009 [facility] 7905 OTHER 01-08-2008 [place] [facility] NONSPECIFIC SERV ABNORMAL FOUNDATIO SERUM ENZYME LEVELS 11837 WHEEZING 01-07-2008 [facility] AMBULANCE SERVICE 24763 OTHER CHEST 01-07-2008 [facility] AMBULANCE SERVICE 97517 NONSPECIFIC 12-25-2007 [place] [facility] ABNORMAL SERV ELECTROCARD FOUNDATIO IOGRAM 33922 HELICOBACTE 12-24-2007 [place] [facility]ICAL R PYLORI SERV INFECTION FOUNDATIO 2113 BENIGN 12-24-2007 [place] [facility] NEOPLASM OF SERV COLON FOUNDAT[facility] 98351 GASTR ULCR 12-24-2007 [place] [facility] UNS SERV ACUT/CHRN FOUNDATIO W/O HEMOR PERF/OBST 17016 OTHER SPEC 12-24-2007 [place] [facility] GASTRITIS SERV WITHOUT FOUNDATIO MENTION HEMORRHAGE 5781 BLOOD IN 12-24-2007 [place] [facility] STOOL SERV [facility] 4928 OTHER 12-23-2007 [place] [facility] EMPHYSEMA SERV F[facility] 5789 UNSPECIFIED 12-23-2007 [place] [facility] HEMORRHAGE SERV OF FOUNDATIO GASTROINTES TINAL TRACT 4139 OTHER AND 12-19-2007 [place] [facility] UNSPECIFIED SERV ANGINA FOUNDATIO PECTORIS 65472 OCCL&STENOS 12-19-2007 RADIOLOGY MX&BILAT PHYSICIANS PRECERBRL OF ART W/O [place] INFARCT PSC 11409 SPINAL 11-21-2007 [facility] UNSPEC [facility] THAN CERVICAL 66954 DIAB 10-17-2007 [facility]ALTH W/NEURO [facility]INT MANIFESTS [facility] TYPE I CARE, INC[facility] [JUV] NOT UNCN[facility]L Immunization Name Date Route CVX Reacti Commen Provid Is Given on t er Refuse d IIV3 ELIA No VACCIN 2009 TAU E SPLIT VIRUS 0.5 ML DOSAGE IM USE Procedures Procedure DOS Code Location Performer Comment STANDARD K0001 CHEN SIDDIQUI MANASA 7 SURGICAL SURGICAL R RADEX 80011 [place] GUPT[place] ANKLE 7 MEDICAL COMPLETE IMAGING MINIMUM 3 ASS VIEWS RADEX 07175 [place] ENRIQUEINEKE ANKLE 7 MEDICAL COMPLETE IMAGING MINIMUM 3 ASS VIEWS RADIOLOGI 49698 [place] GUPT[place] C 7 MEDICAL EXAMINATI IMAGING ON CHEST ASS SINGLE VIEW FRONTAL CREATININ 45416 [place] [facility] E BLOOD 7 [facility] E E [facility]ALS HOSPITALS CTA ABDL 50518 [place] MARSHAL AORTA&BI 7 MEDICAL ILIOFEM SERV W/CONTRAS FOUNDATIO T&POSTP N LOCM Q9967 [facility] [phone] [facility]ALTH[facility] MG/ML E E IODINE [facility] H[facility]PITALS CONCENTRA TION PER ML FEDERALLY G0467 KAI KAI 7 ABT Molecular Imaging HEALTH IN IN CENTER VISIT ESTAB PT LIPID 90604 LAB [facility] LAB BABAK PANEL 7 [facility] COMPREHEN 45466 LAB [facility] LAB BABAK SIVE 7 [facility] [facility] METABOLIC [facility] HOLDINGS PANEL COLLECTIO 71562 LAB BABAK LAB BABAK N VENOUS 7 [facility] BLOOD HOLDINGS HOLDINGS VENIPUNCT URE DIAB ONLY A5500 CHEN CHEUNG CSTM 7 SURGICAL SURGICAL PREP&SPL SHOE MX DNSITY INSRT FOR DIAB A5512 CHEN WEST MX 7 SURGICAL SURGICAL DNSITY INSRT DIR FORMD PRFAB EA STANDARD K0001 CHEN GOEL 7 SURGICAL SURGICAL R COLLECTIO 83122 KAI FREDO N 7 HEALTH CAPILLARY SOLUTIONS BLOOD IN SPECIMEN FEDERALLY G0467 KAI KAI 7 HEALTH HEALTH QUALIFIED SOLUTIONS SOLUTIONS HEALTH IN IN CENTER VISIT ESTAB PT HEMOGLOBI 67539 KAI FREDO N 7 HEALTH GLYCOSYLA SOLUTIONS CISCO A1C IN STANDARD K0001 CHEN GOEL 7 SURGICAL SURGICAL R LANCETS A4259 ALL ALL PER BOX 7 [facility] OF 100 MEDICAL MEDICAL BLD GLU A4253 ALL ALL TEST/REAG 7 [facility]ISH T STRIPS MEDICAL MEDICAL HOME BLD GLU MON-50 FEDERALLY G0467 KAI KAI 7 HEALTH HEALTH QUALIFIED SOLUTIONS SOLUTIONS HEALTH IN IN CENTER VISIT ESTAB PT STANDARD K0001 CHEN GOEL 7 SURGICAL SURGICAL R AMB A0427 [facility] SERVICE [address] [place] [address] ALS AMBULANCE AMBULANCE [place]ENC[place] [address] [facility] [place] ABDOMEN & 7 RADIOLOGY PELVIS W/O CONTRAST MATERIAL GROUND A0425 [facility]ASSAN [address]AN [address] PER [place] [address] [facility] [place] DAV[place] ABDOMEN & 7 RADIOLOGY PELVIS W/O CONTRAST MATERIAL CULTURE 28635 DUSTIN CHAN BACTERIAL 7 [facility] INC INC QUANTTATI VE COLONY COUNT URINE COMPREHEN 49475 DUSTIN CHAN SIVE 7 [facility] METABOLIC INC INC PANEL COLLECTIO 45466 DUSTIN CHAN N VENOUS 7 [facility] BLOOD INC INC VENIPUNCT URE RADEX 12993 DUSTIN CHAN SPINE 7 [facility]OS[facility] LUMBOSACR INC INC AL MINIMUM 4 VIEWS RADEX HIP 88452 DUSTIN CHAN 7 [facility] UNILATERA INC INC L WITH PELVIS 2-3 VIEWS URNLS DIP 80230 DUSTIN CHAN 7 [facility] STICK/TAB INC INC LET REAGENT AUTO MICROSCOP Y CULTURE 87376 DUSTIN CHAN BACTERIAL 7 [facility] BLOOD INC INC AEROBIC W/ID ISOLATES BLOOD 75010 DUSTIN CHAN COUNT 7 [facility] COMPLETE INC INC AUTO&AUTO DIFRNTL WBC AMBULANCE A0429 [facility] FERRELL SERVICE 7 [facility] BLS AMBULANCE AMBULANCE EMERGENCY SE SE TRANSPORT GROUND A0425 [facility] FERRELL MILEAGE [address] [place] [address] PER AMBULANCE AMBULANCE STATUTE SE SE MILE STANDARD K0001 CHEN GOEL 7 SURGICAL SURGICAL R STANDARD K0001 CHEN GOEL 6 SURGICAL SURGICAL R NORMAL A4256 ALL ALL LOW AND 6 [facility]ISH [facility] MEDICAL CALIBRATO R SOLUTION/ CHIPS REPL CAROLEE A4235 ALL ALL LITHIUM 6 [facility] MED [facility] MEDICAL MEDICAL ANNA BG MON OWN PT EA SPRING-PO A4258 ALL ALL WERED 6 [facility] DEVICE [facility] FOR LANCET EACH LANCETS A4259 ALL ALL PER BOX [address] [facility] MEDICAL MEDICAL BLD GLU A4253 ALL ALL TEST/REAG 6 [facility]ISH BRITISH T STRIPS MEDICAL MEDICAL HOME BLD GLU MON-50 STANDARD K0001 CHEN GOEL 6 SURGICAL SURGICAL R BONE 81447 [place] GUPT[place] ALL &/JOINT 6 MEDICAL IMAGING IMAGING LIMITED ASS AREA RADIOLOGI 36984 [place] GUPT[place] ALL C 6 MEDICAL EXAMINATI IMAGING ON TIBIA ASS & FIBULA 2 VIEWS STANDARD K0001 CHEN GOEL 6 SURGICAL SURGICAL R STANDARD K0001 CHEN GOEL 6 SURGICAL SURGICAL R DRUG TST G0477 [facility] PRESUMP;C 6 [facility] PBL BEING KAI QUINN READ DC OPT OBV ONLY DRUG TEST G0480 [facility] DEFINITV [address] [facility] [address] HENNA KAI KAI METH P DAY 1-7 [place] [address] [facility] MAGNESIUM 6 [facility] KAI KAI PROTHROMB 99971 [facility] IN TIME 6 [facility] KAI KAI THROMBOPL 13225 [facility] ASTIN 6 [facility] TIME KAI KAI PARTIAL PLASMA/[place] [address] [facility] [place] SCALF GUTIERREZ HEAD/BRAI 6 RADIOLOGY N W/O CONTRAST MATERIAL BLOOD 84910 [facility] COUNT 6 [facility] COMPLETE KAI KAI AUTO&AUTO DIFRNTL WBC URNLS DIP [address] STICK/TAB KAI KAI LET REAGENT AUTO MICROSCOP Y CT THORAX 32251 [facility] [place] WESTERFIE W/O 6 RADIOLOGY LD IV ALL CONTRAST MATERIAL COLLECTIO 62786 [facility] N VENOUS 6 [facility] BLOOD KAI KAI VENIPUNCT URE COMPREHEN 44524 [facility] SIVE 6 [facility] [place] [address] [facility] [place] CERVICAL 6 RADIOLOGY LD IV ALL SPINE W/O CONTRAST MATERIAL STANDARD K0001 CHEN SIDDIQUI FABYSHALA 6 SURGICAL SURGICAL R COMPREHEN 20437 LAB BABAK LAB BABAK SIVE 6 [facility] METABOLIC HOLDINGS HOLDINGS PANEL COLLECTIO 28092 LAB BABAK LAB BABAK N VENOUS 6 [facility] BLOOD [facility]INGS HOLDINGS VENIPUNCT URE ALBUMIN 52764 LAB [facility]AK LAB BABAK URINE 6 [facility] [facility] MICROALBU HOLDINGS HOLDINGS MIN QUANTIATI VE LIPID 96125 LAB [facility]AK LAB BABAK PANEL 6 [facility] HEMOGLOBI 90759 LAB BABAK LAB BABAK N 6 [place] GLYCOSYLA HOLDINGS HOLDINGS CISCO A1C FOR DIAB A5512 CHEN WEST MX 6 SURGICAL SURGICAL DNSITY INSRT DIR FORMD PRFAB EA DIAB ONLY A5500 CHEN CHEUNG CSTM 6 SURGICAL SURGICAL PREP&SPL SHOE MX DNSITY INSRT STANDARD K0001 CHEN GOEL [address] [place] [address] [facility] [place] DAVID CERVICAL 6 RADIOLOGY RHO SPINE W/O CONTRAST MATERIAL CERVICAL L0174 GOULDS GOULDS COLLAR 6 DISCOUNT DISCOUNT SEMI-RIGI MEDICAL MEDICAL D FOAM THOR EXT PREFAB STANDARD K0001 CHEN GOEL 6 SURGICAL SURGICAL R LANCETS A4259 ALL ALL PER BOX 6 [facility] OF 100 MEDICAL MEDICAL BLD GLU A4253 ALL ALL TEST/REAG 6 [facility] T STRIPS MEDICAL MEDICAL HOME BLD GLU MON-50 NORMAL A4256 ALL ALL LOW AND 6 [facility] HIGH MEDICAL MEDICAL CALIBRATO R SOLUTION/ CHIPS STANDARD K0001 CHEN GOEL 6 SURGICAL SURGICAL R AMPUTATIO 89083 [place] ENDEAN N TOE 6 MEDICAL MIRIAN INTERPHAL SERV [place] [address] [place] GUADALUPE MOL SURG 6 MEDICAL PATHOLOGY SERV FOUNDATIO GROSS&JOHN N ROSCOPIC EXAM ECG 27506 JOHN DARLIN OMEGA ROUTINE 6 MEDICAL ECG SERV W/LEAST FOUNDATIO 12 LDS N I&R ONLY HOSPITAL G0463 [facility] 6 Y Y T [facility] HOSPITAL VISIT ASSESS & MGMT PT NON-INVAS 93279 JOHN GONGLLA KRISTIAN 6 MEDICAL JOSE ROBERTO PHYSIOLOG SERV IC STUDY FOUNDATIO EXTREMITY N 3 LEVLS DUP-SCAN 97898 JOHN GONGLLA LXTR 6 MEDICAL JOSE ROBERTO ART/ARTL SERV BPGS FOUNDATIO UNI/LMTD N STUDY NON-INVAS 74957 [facility] 6 Y Y [facility] IC STD EXTREMITY ART 2 LEVEL FEDERALLY G0467 KAI KAI 6 Clikthrough SOLUTIONS HEALTH IN IN CENTER VISIT ESTAB PT HOSPITAL 99137 [place] ELI DISCHARGE 6 MEDICAL MILLY DAY SERV MANAGEMEN FOUNDATIO T > 30 N MIN WALKER E0143 PATIENT PATIENT FOLDING 6 AIDS INC AIDS INC WHEELED ADJUSTABL E/FIXED HEIGHT SBSQ 89479 [facility] 6 MEDICAL MARYBETH CARE/DAY SERV 25 FOUNDATIO MINUTES N BLD GLU A4253 [facility] TEST/REAG 6 CLINIC CLINIC T STRIPS PHARMACY PHARMACY HOME BLD GLU MON-50 LANCETS A4259 [facility] PER BOX 6 CLINIC CLINIC OF 100 PHARMACY PHARMACY SBSQ 43712 [place] [address] MEDICAL NAN CARE/DAY SERV 25 FOUNDATIO MINUTES N SBSQ 87538 [place] [address] MEDICAL KER RAN CARE/DAY SERV 25 FOUNDATIO MINUTES N SBSQ 29944 [place] [address] MEDICAL KER RAN CARE/DAY SERV 25 FOUNDATIO MINUTES N SBSQ 64470 [place] [address] MEDICAL NAN CARE/DAY SERV 25 FOUNDATIO MINUTES N SBSQ 19535 [place] [address] MEDICAL MILLY CARE/DAY SERV 25 FOUNDATIO MINUTES N SBSQ 68733 [place] [address] MEDICAL MILLY CARE/DAY SERV 25 FOUNDATIO MINUTES N SBSQ 55498 [place] [address] MEDICAL MILLY CARE/DAY SERV 25 FOUNDATIO MINUTES N SBSQ 87439 [place] [address] MEDICAL MILLY CARE/DAY SERV 25 FOUNDATIO MINUTES N SBSQ 27057 [place] [address] MEDICAL NAN CARE/DAY SERV 25 FOUNDATIO MINUTES N SBSQ 10409 [place] [address] MEDICAL NAN CARE/DAY SERV 25 FOUNDATIO MINUTES N SBSQ 30008 [place] [address] MEDICAL MILLY CARE/DAY SERV 25 FOUNDATIO MINUTES N SBSQ 29480 [place] [address] MEDICAL MILLY CARE/DAY SERV 25 FOUNDATIO MINUTES N RADIOLOGI 49837 [facility] KOSTELIC C EXAM 6 RADIOLOGY CESILIA CHEST 2 VIEWS FRONTAL&L ATERAL RADIOLOGI 48816 [facility] KOSTELIC C 6 RADIOLOGY CESILIA EXAMINATI ON TIBIA & FIBULA 2 VIEWS INITIAL [address]409 [place] [address] MEDICAL MILLY CARE/DAY SERV 70 FOUNDATIO MINUTES N BP RT FEM [id number] [facility] VEIN LOW 6 Y Y [facility] AUTO VENOUS TISSUE OPEN IN-SITU 24201 [facility] FEM-ANT 6 MEDICAL MIRIAN TIBL PST SERV TIBL/PRON FOUNDATIO EAL ART N REPL CAROLEE A4233 ALL ALL ALKALINE 6 [facility] NOT J MEDICAL MEDICAL [place] [address] [place] KELLEY SURG 6 MEDICAL DEANDRE PATHOLOGY SERV FOUNDATIO GROSS&JOHN N ROSCOPIC EXAM LANCETS A4259 ALL ALL PER BOX 6 [facility]ISH OF 100 MEDICAL MEDICAL BLD GLU A4253 ALL ALL TEST/REAG 6 [facility]ISH BRITISH T STRIPS MEDICAL MEDICAL HOME BLD GLU MON-50 NORMAL A4256 ALL ALL LOW AND 6 [facility] HIGH MEDICAL MEDICAL CALIBRATO R SOLUTION/ CHIPS SPRING-PO A4258 ALL ALL WERED 6 [facility] DEVICE MEDICAL MEDICAL FOR LANCET EACH ECHO 42780 [place] BAIRD JAZMINE TTHRC R-T 6 MEDICAL 2D SERV W/WOM-MOD FOUNDATIO E COMPL N SPEC&COLR D ECG 87777 NM BARBARA CHI ROUTINE 6 MEDICAL ECG SERV W/LEAST FOUNDATIO 12 LDS N I&R ONLY SBSQ 64051 [place] [address] MEDICAL BRU CARE/DAY SERV 25 FOUNDATIO MINUTES N SBSQ 53338 [place] [address] MEDICAL MIRIAN CARE/DAY SERV 15 FOUNDATIO MINUTES N SBSQ 44220 [place] [address] MEDICAL MIRIAN CARE/DAY SERV 15 FOUNDATIO MINUTES N SBSQ 22733 [place] [address] MEDICAL BRU CARE/DAY SERV 25 FOUNDATIO MINUTES N SBSQ 95464 [place] [address] MEDICAL BRU CARE/DAY SERV 25 FOUNDATIO MINUTES N SBSQ 80706 [place] [address] MEDICAL MIRIAN CARE/DAY SERV 15 FOUNDATIO MINUTES N SBSQ 22863 [place] [address] MEDICAL BRU CARE/DAY SERV 25 FOUNDATIO MINUTES N SBSQ 71507 [place] [address] MEDICAL BRU CARE/DAY SERV 25 FOUNDATIO MINUTES N SBSQ 96633 [facility] 6 MEDICAL BRU CARE/DAY SERV 25 FOUNDATIO MINUTES N CTA ABDL 67722 JOHN GAUTAMMARSHAL AORTA&BI 6 MEDICAL JOHN ILIOFEM SERV W/CONTRAS FOUNDATIO T&POSTP N SBSQ 38473 [facility] 6 MEDICAL CARE/DAY SERV 25 FOUNDATIO MINUTES N RADEX 85889 JOHN JSOE JOSE ROBERTO FOOT 6 MEDICAL COMPLETE SERV MINIMUM 3 FOUNDATIO VIEWS N COMPLETE G0306 LAB BABAK LAB BABAK CBC 6 [facility] AUTOMATED HOLDINGS HOLDINGS &AUTOMATE D WBC DIFF COUNT COMPREHEN 59373 LAB BABAK LAB BABAK SIVE 6 [facility] [facility] METABOLIC [facility] HOLDINGS PANEL COLLECTIO 85557 LAB BABAK LAB BABAK N VENOUS 6 [facility] [facility] BLOOD HOLDINGS HOLDINGS VENIPUNCT URE ALBUMIN 14732 LAB BABAK LAB BABAK URINE 6 [facility] [facility] MICROALBU HOLDINGS HOLDINGS MIN QUANTIATI VE LIPID 44929 LAB BABAK LAB BABAK PANEL 6 [facility] HOLDINGS FEDERALLY G0467 KAI KAI 6 HEALTH HEALTH QUALIFIED SOLUTIONS SOLUTIONS HEALTH IN IN CENTER VISIT ESTAB PT FEDERALLY G0467 KAI KAI 5 HEALTH HEALTH QUALIFIED SOLUTIONS SOLUTIONS HEALTH IN IN CENTER VISIT ESTAB PT FEDERALLY G0467 KAI KAI 5 HEALTH HEALTH QUALIFIED SOLUTIONS SOLUTIONS HEALTH IN IN CENTER VISIT ESTAB PT HEMOGLOBI 39271 KAI FREDO JEANNIE N 5 HEALTH GLYCOSYLA SOLUTIONS CISCO A1C IN FEDERALLY G0467 KAI KAI 5 HEALTH HEALTH QUALIFIED SOLUTIONS SOLUTIONS HEALTH IN IN CENTER VISIT ESTAB PT COLLECTIO 68377 KAI FREDO JEANNIE N 5 HEALTH CAPILLARY SOLUTIONS BLOOD IN SPECIMEN COLLECTIO 35610 [facility] N VENOUS 5 [place] BLOOD KAI KAI VENIPUNCT URE COMPREHEN 67090 [facility] SIVE 5 [place] [address] [facility] THYROXINE 5 [place] TOTAL KAI KAI ALBUMIN 64476 [facility] URINE 5 [facility] MICROALBU KAI KAI MIN QUANTIATI VE LIPID 53361 [facility] PANEL 5 [place] KAI KAI HEMOGLOBI 79018 [facility] N 5 [facility] GLYCOSYLA [place] [address] [facility] TRIIODOTH 5 [facility] YRONINE KAI KAI T3 FREE LANCETS A4259 ALL ALL PER BOX 5 [facility] OF 100 MEDICAL MEDICAL BLD GLU A4253 ALL ALL TEST/REAG 5 [facility]ISH BRITISH T STRIPS MEDICAL MEDICAL HOME BLD GLU MON-50 FEDERALLY G0467 KAI KAI 5 HEALTH HEALTH QUALIFIED SOLUTIONS SOLUTIONS HEALTH IN IN CENTER VISIT ESTAB PT HOSPITAL G0463 [facility] 5 Y Y T [facility] HOSPITAL VISIT ASSESS & MGMT PT DIAB ONLY A5500 CHEN SIDDIQUI FIT CSTM 5 SURGICAL SURGICAL PREP&SPL SHOE MX [...] [place] [address] [facility] [place] [facility] SPINAL 5 RADIOLOGY RHO CANAL CERVICAL W/O CONTRAST MATRL FEDERALLY G0467 KAI KAI 5 HEALTH HEALTH QUALIFIED SOLUTIONS SOLUTIONS HEALTH IN IN CENTER VISIT ESTAB PT HEMOGLOBI 66843 KAI FREDO JEANNIE N 5 HEALTH GLYCOSYLA SOLUTIONS CISCO A1C IN DUP-SCAN 62250 [facility] [place] XTR VEINS 5 RADIOLOGY LD IV ALL UNILATERA L/LIMITED STUDY COLLECTIO 64191 KAI FREDO JEANNIE N 5 HEALTH CAPILLARY SOLUTIONS BLOOD IN SPECIMEN THERAPEUT 29838 [facility] IC 5 [facility] PROPHYLAC KAI KAI TIC/DX INJECTION SUBQ/IM RADEX 34825 [facility] SPINE 5 [place] CERVICAL KAI KAI 2 OR 3 VIEWS INJECTION J1885 [facility] 5 [facility] KETOROLAC KAI KAI TROMETHAM INE PER 15 MG RADEX 05353 [facility] [place] SPINE 5 RADIOLOGY LD IV ALL CERVICAL 4 OR 5 VIEWS MRI BRAIN 69327 [place] PAL[place] BRAIN 5 MEDICAL REMBERTO STEM W/O IMAGING CONTRAST ASS MATERIAL RADEX 60246 DUSTIN CHAN ORBITS 5 [facility] COMPLETE INC INC MINIMUM 4 VIEWS FEDERALLY G0467 KAI KAI 5 [facility] [employer] SOLUTIONS HEALTH IN [place] [address] TANNER LEEX BUX ANJ DX/THER 5 SBST EPIDURAL/ SUBARACH LUMBAR/SA CRAL INJECTION J1040 DUSTIN CHAN 5 [facility] METHYLPRE INC INC DNISOLONE ACETATE 80 MG LOCM Q9966 DUSTIN CHAN 200-299 5 [facility] MG/ML INC INC IODINE CONCENTRA TION PER ML FEDERALLY G0467 KAI KAI [address] [place] [address] [employer] SOLUTIONS [place] [address] [facility] [place] JOSE MAT ABDOMEN & 5 RADIOLOGY PELVIS W/O CONTRAST MATERIAL LIPID 70763 [facility] PANEL 5 [facility] KAI KAI HEMOGLOBI 99406 [facility] N 5 [facility] GLYCOSYLA [facility]AI KAI CISCO A1C COLLECTIO 49258 [facility] N VENOUS 5 [facility] BLOOD KAI KAI VENIPUNCT URE COMPREHEN 62336 [facility] SIVE 5 [facility] METABOLIC KAI KAI PANEL COLLECTIO 47850 [facility] N VENOUS 5 [facility]IN[facility] BLOOD LABORATO LABORATO VENIPUNCT URE URNLS DIP 41612 [facility] [address] STICK/TAB CLINIC LET RGNT PSC AUTO W/[place] [address] [facility] PROSTATE 5 [facility]INIC CLINIC SPECIFIC LABORATO LABORATO ANTIGEN TOTAL CT THORAX 06205 [facility] [place] CHR 5 RADIOLOGY W/CONTRAS T MATERIAL LOCM Q9967 [facility] [phone] [place] MG/ML KAI KAI IODINE CONCENTRA TION PER ML RADEX 70559 [facility] [place] BRIGGS RIBS UNI 5 RADIOLOGY CAR W/POSTERO ANT CH MINIMUM 3 VIEWS URNLS DIP 17308 [facility] [address] [place] STICK/TAB CLINIC LET [place] [address] [facility] PROSTATE 5 [place] SPECIFIC KAI KAI ANTIGEN TOTAL COLLECTIO 29025 [facility] N VENOUS 5 [place] [address] [facility] [place] ABDOMEN & 5 RADIOLOGY PELVIS W/O CONTRAST MATERIAL DALIA 97375 [facility] POST-VOID [address] [place] ING CLINIC RESIDUAL PSC URINE&/BL ADDER CAP COLLECTIO 03497 [facility] N VENOUS 5 [facility]IN[facility] BLOOD LABORATO LABORATO VENIPUNCT URE PROSTATE [id number] [facility] CANCER 5 CLIN[facility] SCREENING LABORATO LABORATO ; PSA TEST RADIOLOGI 41065 [facility] [place] [facility] C EXAM 5 RADIOLOGY CHEST 2 VIEWS FRONTAL&[place] [address] [facility] [place] [facility] MAT HEAD/BRAI 4 RADIOLOGY N W/O & W/CONTRAS T MATERIAL COLLECTIO 37883 [facility] N VENOUS 4 [place] BLOOD KAI KAI VENIPUNCT URE LOCM Q9967 [facility] [phone] [place] MG/ML KAI KAI IODINE CONCENTRA TION PER ML CREATININ 18784 [facility] E BLOOD 4 [place] KAI KAI HEMOGLOBI 97808 KAI FREDO JEANNIE N 4 [facility]ALTH [facility] SOLUTIONS CISCO A1C IN LIPID 23870 [facility] PANEL 4 [facility] KAI KAI HEMOGLOBI 84938 [facility] N 4 [facility] GLYCOSYLA KAI KAI CISCO A1C BLOOD 17586 [facility] COUNT 4 [facility] COMPLETE KAI KAI AUTO&AUTO DIFRNTL WBC COLLECTIO 11731 [facility] N VENOUS 4 [facility] BLOOD KAI KAI VENIPUNCT URE COMPREHEN 12681 [facility] SIVE 4 [facility] [place] [address] [facility] FREE 4 [facility] THYROXINE KAI KAI ALBUMIN 49859 [facility] URINE 4 [facility] MICROALBU [place] [address] [facility] THYROID 4 [facility] STIMULATI KAI KAI NG HORMONE TSH TENS E0720 [facility] DEVICE 4 [facility] LOCALIZED INC INC STIMULATI ON TENS E0720 [facility] DEVICE 4 [facility] LOCALIZED INC INC STIMULATI ON RADEX 04587 [facility] [place] ANKLE 4 RADIOLOGY COMPLETE MINIMUM 3 VIEWS COLLECTIO 98565 [facility] N VENOUS 4 [facility] MEDICAL VENIPUNCT CENTE CENTE URE COMPREHEN 22094 [facility] H[facility] SIVE 4 [facility] [facility] [place] [address] GEOFFREY GEOFFREY FREE 4 [facility]AL [facility]AL THYROX[place] [address] GEOFFREY HALE THYROID 4 REGIONAL REGIONAL STIMULATI MEDICAL MEDICAL NG CENTE CENTE HORMONE TSH LIPID 28116 GEOFFREY GEOFFREY PANEL 4 REGIONAL REGIONAL MEDICAL MEDICAL CENTE CENTE HEMOGLOBI 84087 GEOFFREY HALE N 4 REGIONAL REGIONAL GLYCOSYLA MEDICAL MEDICAL CISCO A1C CENTE CENTE BLOOD 78249 GEOFFREY GEOFFREY COUNT 4 REGIONAL REGIONAL COMPLETE MEDICAL MEDICAL AUTO&AUTO CENTE CENTE DIFRNTL WBC NORMAL A4256 ALL ALL LOW AND 3 BRITISH BRITISH HIGH MEDICAL MEDICAL CALIBRATO SUPPLIE SUPPLIE R SOLUTION/ CHIPS LANCETS A4259 ALL ALL PER BOX 3 BRITISH BRITISH OF 100 MEDICAL MEDICAL SUPPLIE SUPPLIE BLD GLU A4253 ALL ALL TEST/REAG 3 BRITISH BRITISH T STRIPS MEDICAL MEDICAL HOME BLD SUPPLIE SUPPLIE GLU MON-50 HEMOGLOBI 28530 GEOFFREY Pinedo 3 REGIONAL REGIONAL GLYCOSYLA MEDICAL MEDICAL CISCO A1C CENTDanielle CENTDanielle COLLECTIO 07472 GEOFFREY HALE N VENOUS 3 REGIONAL REGIONAL BLOOD MEDICAL MEDICAL VENIPUNCT NEEMA BETHEA URE COMPREHEN 90839 GEOFFREY HALE SIVE 3 REGIONAL REGIONAL METABOLIC MEDICAL MEDICAL PAN[place] [address] [facility] JOHN HAUSER JT LOWER 3 RADIOLOGY [place] EXTREM W/O CONTRAST MATRL CULTURE 84595 GEOFFREY HALE BCT 3 REGIONAL REGIONAL ISOL&PRSM [...] [employer] LLC GLU MON-50 RADIOLOGI 55687 [facility] [place] SCALF GUTIERREZ C 3 RADIOLOGY EXAMINATI ON KNEE 3 VIEWS PROSTATE G0103 [facility] CANCER 3 [facility] SCREENING KAI KAI ; PSA TEST LIPID 98742 [facility] PANEL 3 [place] KAI KAI HEMOGLOBI 51368 [facility] N 3 [place] GLYCOSYLA KAI KAI CISCO A1C BLOOD 97264 [facility] COUNT 3 [place] COMPLETE KAI KAI AUTO&AUTO DIFRNTL WBC ALBUMIN 95327 [facility] URINE 3 [facility] MICROALBU KAI KAI MIN QUANTIATI VE COLLECTIO 23130 [facility] N VENOUS 3 [place] BLOOD KAI KAI VENIPUNCT URE COMPREHEN 09744 [facility] SIVE 3 [place] METABOLIC KAI KAI PANEL CREATININ 27771 [facility] MEDICUS E OTHER 3 [facility] LABORATOR [place] [place] [address] [facility] FREE 3 [facility] [address] [facility] THYROID 3 [facility] STIMULATI KAI KAI NG HORMONE TSH BLD GLU A4253 US US TEST/REAG 3 [facility]ALTH[facility] HEALTHCAR T STRIPS E SUPPLY E SUPPLY [employer] LLC GLU MON-50 LANCETS A4259 US US PER BOX 3 [facility]ALTH[facility] HEALTHCAR OF 100 E SUPPLY E SUPPLY LLC LLC NORMAL A4256 US US LOW AND 3 [facility]ALTH[facility] HEALTHCAR HIGH E SUPPLY E SUPPLY CALIBRATO LLC LLC R SOLUTION/ CHIPS RADEX 02855 [facility] JOHN PIÑA C SHOULDER 3 RADIOLOGY COMPLETE MINIMUM 2 VIEWS RADEX 39352 [facility] JOHN PIÑA C ELBOW 3 RADIOLOGY COMPLETE MINIMUM 3 VIEWS RADIOLOGI 62227 [facility] [place] BROOKS C 2 RADIOLOGY III ANUPAM EXAMINATI ON CHEST SINGLE VIEW FRONTAL [place]- A4258 US US WERED 2 HEALTHCAR HEALTHCAR [...] [employer] GLU MON-50 LIPID 71076 [facility] PANEL 2 [facility] KAI KAI HEMOGLOBI 51123 [facility] N 2 [facility] GLYCOSYLA KAI KAI CISCO A1C BLOOD 41360 [facility] COUNT 2 [facility] COMPLETE KAI KAI AUTO&AUTO DIFRNTL WBC ALBUMIN 09405 [facility] URINE 2 [facility] MICROALBU [place] [address] [facility] THYROID 2 [facility] STIMULATI KAI KAI NG HORMONE TSH RADEX 06081 CN[facility] JOHN Barrett SPINE 2 RADIOLOGY LUMBOSACR AL 2/3 VIEWS COLLECTIO 93700 [facility] N VENOUS 2 [facility] BLOOD KAI KAI VENIPUNCT URE COMPREHEN 49928 [facility] SIVE 2 [facility] METABOLIC KAI KAI PANEL RADIOLOGI 40446 [facility] JOHN Barrett C 2 RADIOLOGY EXAMINATI ON KNEE 3 VIEWS BLD GLU A4253 US US TEST/REAG [...] LLC MON OWN PT EA LOCM Q9967 [facility] [phone] [facility] MG/ML KAI KAI IODINE CONCENTRA TION PER ML CT THORAX 83168 [facility] JOHN DAVID 2 RADIOLOGY RHO W/CONTRAS T MATERIAL COLLECTIO 80911 [facility] N VENOUS [address] VENIPUNCT URE COMPREHEN 93111 [facility] SIVE [address] PANEL LIPID [address] Y[facility]IR[facility] PANEL [address]EM[address]GLO[address] YANIR[facility] N [address] CISCO A1C RADIOLOGI [facility]09 ST YANIRA BISHOP C EXAM 2 REGIONAL JAZMINE CHEST 2 RADIOLOG VIEWS FRONTAL&L ATERAL COLLECTIO [address] [facility] N VENOUS 2 [facility] BLOOD [facility] VENIPUNCT URE BASIC 30714 [facility] METABOLIC 2 [facility] PANEL [facility] CALCIUM TOTAL MRI 98404 [facility] [place] WANG C SPINAL 2 RADIOLOGY CANAL LUMBAR W/O CONTRAST MATERIAL BLD GLU A4253 US US TEST/REAG 2 HEALTHCAR HEALTHCAR T STRIPS E SUPPLY E SUPPLY [employer] LLC GLU MON-50 LANCETS A4259 US US PER BOX 2 [facility]ALTHCAR HEALTHCAR OF 100 E SUPPLY E SUPPLY LLC LLC NORMAL A4256 US US LOW AND 2 HEALTHCAR HEALTHCAR HIGH E SUPPLY E SUPPLY CALIBRATO LLC LLC R SOLUTION/ CHIPS NON-INVAS [address] PHYSIOL CARDIOLOG IC STD Y CLINIC EXTREMITY ART 2 LEVEL NON-INVAS 10012 [facility] KRISTIAN 2 [facility] STUDY EXTREMITY [address] YANIR[facility] CANCER [address] ; PSA TEST LIPID [address] YANIRA PANEL [address]EM[address]O[address] YANIRA N [address] CISCO A1C BLOOD [address] YANIRA COUNT [address] AUTO&AUTO DIFRNTL WBC COMPREHEN [address] YANIRA SIVE [address] [place] [address] Y[facility]IR[facility] THYROID [address] NG HORMONE TSH SPRING- A4258 US US WERED 1 HEALTHCAR HEALTHCAR DEVICE E SUPPLY E SUPPLY FOR LLC LLC LANCET EACH NORMAL A4256 US US LOW AND 1 HEALTHCAR HEALTHCAR HIGH E SUPPLY E SUPPLY CALIBRATO LLC LLC R SOLUTION/ CHIPS LANCETS A4259 US US PER BOX 1 [facility] HEALTHCAR OF 100 E SUPPLY E SUPPLY LLC LLC BLD GLU A4253 US US TEST/REAG 1 [facility]ALTHCAR HEALTHCAR T STRIPS E SUPPLY E SUPPLY [facility] [employer] LLC GLU MON-50 COLLECTIO 60195 [facility] N VENOUS 1 Y Y BLOOD [facility] VENIPUNCT URE COMPREHEN 93670 [facility] SIVE 1 Y Y METABOLIC [facility] PANEL PROTHROMB 06357 [facility] IN TIME 1 Y Y HOSPITAL HOSPITAL BLOOD 86459 [facility] COUNT 1 Y Y COMPLETE [facility] AUTOMATED GLUC BLD 34237 [facility] GLUC MNTR 1 Y Y DEV [facility] CLEARED FDA SPEC HOME USE BLD GLU A4253 CAREFREE CAREFREE TEST/REAG 1 [employer] SERVICES HOME [employer]LD INC INC GLU LANCETS A4259 CAREFREE CAREFREE PER BOX 1 [employer] INC DESTRUCTI 40144 [facility]ITY [place] ON BENIGN 1 FAMILY TAU LESIONS CLINIC, UP TO 14 PLL LANCETS A4259 CAREFREE CAREFREE PER BOX 1 [employer] INC BLD GLU A4253 CAREFREE CAREFREE TEST/REAG 1 [employer] SERVICES HOME [employer]LD [employer] INC GLU MON-50 NORMAL A4256 ARRIVA ARRIVA LOW AND 1 MEDICAL MEDICAL HIGH CALIBRATO R SOLUTION/ CHIPS LANCETS A4259 ARRIVA ARRIVA PER BOX 1 MEDICAL MEDICAL OF 100 BLD GLU A4253 ARRIVA ARRIVA TEST/REAG 1 MEDICAL MEDICAL T STRIPS HOME BLD GLU SUN-50 RADIOLOGI 33711 [facility] [place] DAVID C EXAM 1 RADIOLOGY RHO CHEST 2 VIEWS FRONTAL&L ATERAL LANCETS A4259 CAREFREE CAREFREE PER BOX 1 [employer] INC BLD GLU A4253 CAREFREE CAREFREE TEST/REAG 1 [employer] INC GLU WALKER E0143 CHEN SIDDIQUI FOLDING 1 SURGICAL SURGICAL WHEELED ADJUSTABL E/FIXED HEIGHT SEAT E0156 CHEN SIDDIQUI ATTACHMEN 1 SURGICAL SURGICAL T WALKER RADIOLOGI 16505 [facility] C 1 [place] EXAMINATI KAI KAI ON KNEE 3 VIEWS GLUC BLD 42992 [facility] GLUC MNTR 1 [facility] DEV CLINIC, CLEARED PLL FDA SPEC HOME USE RADIOLOGI 03243 [facility] [place] DAVID C EXAM 1 RADIOLOGY RHO CHEST 2 VIEWS FRONTAL&L ATERAL RADIOLOGI 22817 [facility] C EXAM 1 [place] CHEST 2 KAI KAI VIEWS FRONTAL&L ATERAL NORMAL A4256 ARRIVA ARRIVA LOW AND 0 MEDICAL MEDICAL HIGH CALIBRATO R SOLUTION/ CHIPS LANCETS A4259 ARRIVA ARRIVA PER BOX 0 MEDICAL MEDICAL OF 100 BLD GLU A4253 ARRIVA ARRIVA TEST/REAG 0 MEDICAL MEDICAL T STRIPS HOME BLD GLU [facility] A4258 ARRIVA ARRIVA WERED 0 MEDICAL ORDER SELECTOR FOR LANCET EACH REPL CAROLEE A4233 ARRIVA ARRIVA ALKALINE 0 MEDICAL MEDICAL NOT J CELL ANNA BG MON OWND PT ADMINISTR G0008 [facility] ATION OF 0 [facility] INFLUENZA CLINIC, VIRUS PLL VACCINE IIV3 61291 [facility] VACCINE 0 [facility] SPLIT CLINIC, VIRUS 0.5 PLL ML DOSAGE IM USE RADIOLOGI 79823 [facility] [place] WANG C C EXAM 0 RADIOLOGY CHEST 2 VIEWS FRONTAL&L ATERAL NORMAL A4256 ARRIVA ARRIVA LOW AND 0 MEDICAL MEDICAL HIGH CALIBRATO R SOLUTION/ CHIPS LANCETS A4259 ARRIVA ARRIVA PER BOX 0 MEDICAL MEDICAL OF 100 BLD GLU A4253 ARRIVA ARRIVA TEST/REAG 0 MEDICAL MEDICAL T STRIPS HOME BLD GLU 50 PHRM Q0513 [place] DISPENSIN 0 N DRUG N DRUG G FEE INHALATIO N RX; PER 30 DAYS ALBUTEROL J7613 [place] INHAL 0 N DRUG N DRUG NON-CP PROD THRU DME U DOSE 1 MG IADNA 59663 [facility] CHLAMYDIA 0 [facility] INC TRACHOMAT IS AMPLIFIED PROBE TQ CUL BACT 20957 [facility] XCPT 0 [facility] URINE BLOOD/STO OL AEROBIC ISOL IADNA 84150 [facility] NEISSERIA 0 [facility] GONORRHOE AE AMPLIFIED PROBE TQ URNLS DIP 17219 COMMUNITY [place], 0 FAMILY [place] STICK/TAB CLINIC, LET RGNT PLLC NON-AUTO W/O MICRSCP ALBUTEROL J7613 [place] INHAL 0 N DRUG- N DRUG- NON-CP PROD THRU DME U DOSE 1 MG PHRM Q0513 [place] DISPENSIN 0 N DRUG- N DRUG- G FEE INHALATIO N RX; PER 30 DAYS NEBULIZER E0570 [place] WITH 0 N DRUG N DRUG COMPRESSO R THORACENT 78865 [facility] ESIS 0 [facility]P PLEURAL CAVITY ASPIRATIO N SMR PRIM 74306 [facility] SRC 0 [facility] GRAM/GIEM HOSP HOSP SA STAIN BCT FUNGI/GIBRAN L BLOOD 78575 [facility] COUNT 0 [facility] PL[facility]LET [facility] HOSP AUTOMATED CUL BACT 03958 [facility] XCPT 0 [facility] URINE HOSP HOSP BLOOD/STO OL AEROBIC ISOL CULTURE 20117 [facility] BACTERIAL 0 [facility] ANY [facility]OSP HOSP SOURCE ANAEROBIC ISO&ID RADIOLOGI 18635 [facility] C 0 [facility] EXAMINATI HOSP [place] [address] [facility] GUIDANCE 0 [facility] NEEDLE [facility] HOSP PLACEMENT THORACENT 90558 [facility] BRANN, ESIS WITH 0 RADIOLOGY MAXIM ASSOC INSERTION TUBE WATER SEAL REPL CAROLEE A4233 ARRIVA ARRIVA ALKALINE 0 MEDICAL MEDICAL NOT J CELL ANNA BG MON OWND PT LANCETS A4259 ARRIVA ARRIVA PER BOX 0 MEDICAL MEDICAL OF 100 BLD GLU A4253 ARRIVA ARRIVA TEST/REAG 0 MEDICAL MEDICAL T STRIPS HOME BLD GLU MON-50 NORMAL A4256 ARRIVA ARRIVA LOW AND 0 MEDICAL MEDICAL HIGH CALIBRATO R SOLUTION/ CHIPS PHRM Q0513 [facility] DISPENSIN 0 N DRUG- N DRUG- G FEE INHALATIO N RX; PER 30 DAYS NEBULIZER E0570 [facility] WITH 0 N DRUG- N DRUG- COMPRESSO R ALBUTEROL J7613 [facility] INHAL 0 N DRUG- N DRUG- NON-CP PROD THRU DME U DOSE 1 MG RADIOLOGI 95218 [facility] Arnold ESCALANTE EXAM 0 RADIOLOGY SONG Cruz CHEST 2 VIEWS FRONTAL&L ATERAL HEMOGLOBI 47573 [facility] N 0 [facility] GLYCOSYLA CISCO A1C LIPID 26724 [facility] PANEL 0 [facility] BLOOD 57347 [facility] COUNT 0 [facility] COMPLETE AUTO&AUTO DIFRNTL WBC COMPREHEN 02844 [facility] SIVE 0 [facility] METABOLIC PANEL COLLECTIO 23638 [facility] N VENOUS 0 [facility] BLOOD VENIPUNCT URE COMPLETE G0306 [facility] CBC 0 AMERIC AMERIC AUTOMATED HOLDING HOLDING &AUTOMATE D WBC DIFF COUNT TRANSFERA 42099 [facility] SE 0 AMERIC AMERIC ASPARTATE [place] [address] [facility] B[facility] GLUTAMYLT 0 AMERIC AMERIC RASE HOLDING HOLDING GAMMA COLLECTIO 17439 [facility] N VENOUS 0 AMERIC AMERIC BLOOD HOLDING HOLDING VENIPUNCT URE TRANSFERA 05019 [facility] SE 0 AMERIC AMERIC ALANINE HOLDING HOLDING AMINO ALT SGPT BASIC 63669 [facility] METABOLIC 0 AMERIC AMERIC PANEL [place] [address] [facility] PHOSPHATA 0 AMERIC AMERIC SE HOLDING HOLDING ALKALINE PROTHROMB 68604 C[facility] IN TIME 0 [facility] HOSP HOSP THORACENT 03769 CEN[facility] ESIS 0 [facility] PUNCTURE HOSP HOSP PLEURAL CAVITY ASPIRATIO N SMR PRIM 31035 [facility] SRC 0 SABIANIST SABIANIST GRAM/GIEM HOSP HOSP SA STAIN BCT FUNGI/[place] [address] [facility] RICE, GUIDANCE 0 [facility]LE ASSOC PLACEMENT THORACENT 33338 [facility] RICE, ESIS WITH 0 JD [facility] ASSOC INSERTION TUBE WATER SEAL BLOOD 56640 [facility] COUNT 0 [facility] PL[facility] HOSP AUTOMATED THROMBOPL 22240 [facility] ASTIN 0 [facility] TIME [facility]OSP HOSP PARTIAL PLASMA/WH OLE BLOOD CUL BACT 04849 [facility] XCPT 0 [facility] URINE HOSP HOSP BLOOD/STO OL AEROBIC ISOL CULTURE 60660 [facility] BACTERIAL 0 [facility] ANY HOSP HOSP SOURCE ANAEROBIC ISO&ID CT THORAX 92845 [facility] Christiano CARTER 0 RADIOLOGY T W/CONTRAS T MATERIAL COLLECTIO 27108 [facility] N VENOUS 0 [facility] BLOOD [facility] VENIPBAYNE J[place] [address] [facility] UREA 0 [facility] NITROGEN [facility] RADIOLOGI 36038 CNTR[facility] Christiano CARTER EXAM 0 RADIOLOGY T CHEST 2 VIEWS FRONTAL&L ATERAL CREATININ 00376 [facility] E BLOOD 0 [facility] MRI 94224 CN[facility] Arnold MILLAN SPINAL 0 RADIOLOGY N CANAL LUMBAR W/O CONTRAST MATERIAL LIPID 59549 [facility] PANEL 9 [employer] ALBUMIN 35823 [facility] URINE 9 [employer] MICROALBU MIN QUANTIATI VE HEMOGLOBI 80817 [facility] N 9 [employer] GLYCOSYLA CISCO A1C PROSTATE G0103 [facility] CANCER 9 [employer] SCREENING ; PSA TEST BLOOD 90948 [facility] COUNT 9 [facility] INC COMPLETE AUTO&AUTO DIFRNTL WBC CREATININ 18231 [facility] E OTHER 9 [facility] INC SOURCE COLLECTIO 25364 [facility] N VENOUS 9 [facility] BLOOD VENIPUNCT URE COMPREHEN 78652 [facility] SIVE 9 [facility] METABOLIC PANEL RADIOLOGI 35035 [facility] C EXAM 9 [facility] CHEST 2 [facility] FRONT[facility]&L [facility] ATERAL COLLECTIO 79890 [facility] N VENOUS 9 [facility] BLOOD [facility] VENIPUNCT [facility]OSP[facility] COMPREHEN 16878 [facility] SIVE 9 [facility] METABOLIC [facility] PANEL [facility] RADIOLOGI 20516 [facility] [place] SCALF, C EXAM 9 RADIOLOGY EVANGELIST E CHEST 2 VIEWS FRONTAL&L ATERAL COMPREHEN 82798 [facility] SIVE 9 [facility] METABOLIC HOSP HOSP PANEL COLLECTIO 85780 [facility] N VENOUS 9 [facility] BLOOD HOSP HOSP VENIPUNCT URE BLOOD 44846 [facility] COUNT 9 [facility] COMPLETE HOSP HOSP AUTO&AUTO DIFRNTL WBC HEPATIC 81821 [facility] FUNCTION 9 [facility] INC PANEL COLLECTIO 28105 [facility] N VENOUS 9 [facility] BLOOD VENIPUNCT URE SBSQ [address] CARE/DAY MDPSC 25 MINUTES HOSPITAL [address] CARDIOVAS PINEDO, DISCHARGE 9 MARIA R & MARIANELA Alvarado DAY THORACIC MANAGEMEN ASSOC PSC T 30 MIN/< SBSQ [address] CARE/DAY MDPSC 35 MINUTES SBSQ [address] CARE/DAY MDPSC 25 MINUTES SBSQ [address] CARE/DAY MDPSC 25 MINUTES RADIOLOGI 64822 C[facility]AL GARCIA, C EXAM 9 RADIOLOGY J S CHEST 2 ASSOC VIEWS FRONTAL&L ATERAL ESOPHAGOG 16010 TANYA NIEVESAnthony 9 [facility] ENOSCOPY GASTROENT TRANSORAL EROLOGY PLL DIAGNOSTI C OTHER 4513 [facility] ENDOSCOPY 9 [facility] HOSP INTESTINE RADIOLOGI 06913 [facility] PARUL, C EXAM 9 RADIOLOGY JARED CHEST 2 ASSOC VIEWS FRONTAL&L ATERAL RADIOLOGI 29205 [facility], C 9 RADIOLOGY JARED EXAMINATI ASSOC ON CHEST [place]ING[place] FRONTAL RADIOLOGI 58227 [facility] MEJIA, 9 RADIOLOGY CHAY Lloyd EXAMINATI ASSOC ON CHEST [place]ING[place] FRONTAL SBSQ [address] CARE/DAY MDPSC 25 MINUTES SBSQ 48117 [facility] 9 [facility] CARE/DAY MDPSC 25 MINUTES RADIOLOGI 49464 [facility] 9 RADIOLOGY JARED EXAMINATI ASSOC ON CHEST [place]ING[place]IEW FRONTAL SBSQ 00883 [facility] 9 [facility] CARE/DAY MDPSC [address] PELVIS [address] [facility], RADIOLOGY J S W/CONTRAS ASSOC T MATERIAL CT THORAX 89842 [place] [address] RADIOLOGY J S W/[place] [address] [facility], ABDOMEN 9 RADIOLOGY J S W/CONTRAS ASSOC T MATERIAL SBSQ 44398 CARDIOVAS [facility] 9 MARIA R & MARIANELA G CARE/DAY THORACIC 25 ASSOC PSC MINUTES SWALLOWIN 20908 [facility] [place] MEJIA, G FUNCJ 9 RADIOLOGY CHAY R W/CINERAD ASSOC IOGRAPY/V IDRADIOG CYTP 55136 [facility] PICKLES[facility] SLCTV 9 MELVIN & MAGNO WILDER, CELL CAIT Orta ENHANCEME NT INTERP[place] XCP[place] C/[place] [address] [facility]PS PICKLESIM SURG 9 MELVIN & MAGNO WILDER, PATHOLOGY CAIT Orta GROSS&JOHN ROSCOPIC EXAM INSERTION 3404 [facility] CENTRAL OF 9 [facility]IST SAB[facility]IST INTERCOST HOSP HOSP AL CATHETER FOR DRAINAGE RADIOLOGI 28689 [facility] MEJIA, C EXAM 9 RADIOLOGY CHAY R CHEST 2 ASSOC VIEWS FRONTAL&L ATERAL INITIAL 37919 MICHI HA, INPATIENT 9 AMARI Elizabeth CONSULT MDPSC NEW/ESTAB PT 110 MIN INITIAL 79740 [facility] 9 ULAR & TOPEKA G CARE/DAY THORACIC 70 ASSOC PSC MINUTES SPMTRY 09976 PULMONARY VILLARAN, W/VC 9 SHARAD EXPIRATOR ASSOCIATE Y CONSUELO S, INC W/WO MXML VOL VNTJ CULTURE 60791 [facility] FN 9 [facility] MOLD/YEAS [facility] T PRSMPTV [facility] BLOOD CULTURE 78583 [facility] MYCOBACTE 9 JHONNY JHONNY RIAL [facility] DEFINITIV [facility] E ID [facility] ISOL CYTP 57302 [facility] CONCENTRA 9 MILLINOCKET HJONNY TION [facility] SMEARS & [facility] INTERPRET [facility] ATION THORACENT 78303 [facility] ESIS 9 [facility] PUNCTURE [facility] PLEURAL [facility] [place] [address] [facility] GUIDANCE 9 JHONNY JHONNY NEEDLE [facility] PLACEMENT [facility] S&I [facility] HOSPITAL FLOW 32227 JOHN NAVA, CYTOMETRY 9 MEDICAL JOSPEH F INTERPJ SERV 9-15 FOUNDATIO MARKERS CUL BACT 03843 [facility] BRIAN 9 JHONNY JHONNY ANAERC [facility] ISOL XCPT [facility] BLOOD/STO OL CELL 10674 [facility] COUNT 9 [facility] MISC BODY [facility] FLUIDS [facility] W/[facility] NTIAL COUNT FLOW 66236 [facility] UNIVERS CYTOMETRY 9 Y CELL [facility] SURF MARKER TECHL ONLY EA PROTEIN 71578 [facility] TOTAL 9 JHONNY BARRY XCPT [facility] REFRACTOM [facility] SR[facility] SMR PRIM 69468 [facility] SRC 9 JHONNY BARRY FLUORESCE [facility] NT&/AFS [facility] PARASIT SMR PRIM 63478 [facility] WET 9 JHONNY BARRY [facility] NFCT AGT [facility] RADIOLOGI 55604 [facility] C 9 J[place]NY BARR[place] EXAMINATI [facility] ON [facility] VIEW FRONTAL FLOW [address] [facility] CYTOMETRY 9 Y Y CELL [facility] SURF MARKER TECHL ONLY 1ST LACTATE 79049 [facility] DEHYDROGE 9 J[place] NASE [facility] CUL BACT 81641 [facility] BRIAN 9 J[place]NY B[place] AEROBIC [facility] ISOL XCPT [facility] BLOOD/STO OL SMR PRIM 04861 [facility] [place] SRC 9 JHONNY BARRY GRAM/GIEM [facility] SA STAIN [facility] FUNGI/GIBRAN L CYTP 24067 [facility] SLCTV 9 [facility]INIC CLINIC CELL LABORATOR LABORATOR ENHANCEME Y Y NT INTERPJ XCPT C/V THROMBOPL 75337 [facility] ASTIN 9 JHONNY BARRY TIME [facility] PARTIAL [facility] PLASMA/[facility] OLE BLOOD COLLECTIO 58835 [facility] N VENOUS 9 JHONNY BRARY BLOOD [facility] VENIPUNCT [facility] PROTHROMB 60872 [facility] IN TIME 9 [facility] CYTP 46613 [facility] SLCTV 9 CLINIC CLINIC CELL LABORATOR LABORATOR ENHANCEME Y Y NT INTERPJ XCPT C/V THORACENT 64258 SUPAONGPR ESIS 9 JHONNY - APA, PUNCTURE [place] PLEURAL [facility] PULMONARY ASPIRATIO MEDICINE N MYOCRD 74831 MOMO LEWIS STD 8 MEDICAL HEAVENLY WALL SERV MOTION [facility] QUAL/BRIAN STD INITIAL 95614 JOHN RIVAS MD, INPATIENT 8 MEDICAL ZACARIAS CONSULT SERV W NEW/ESTAB FOUNDATIO PT 110 MIN MYOCRD 80478 MOMO LEWIS STD 8 MEDICAL HEAVENLY EJEC FXJ SERV FOUNDATIO ECG 62194 Arnold MESSINA S ROUTINE 8 MEDICAL ECG SERV W/LEAST FOUNDATIO 12 LDS I&R ONLY MYOCRD 45397 [place] KEELY, PRFUJ IMG 8 MEDICAL HEAVENLY TOMOG SERV SPECT MANAGER TRADING [facility]OUNDATIO STD RADIOLOGI 45255 [place] Arnold TORRES 8 MEDICAL MARTI S EXAMINATI SERV ON CHEST FOUNDATIO [place] FRONTAL COMPREHEN 39910 [facility] SIVE 8 [place] METABOLIC [facility] PANEL [facility] [address] [facility] TROPONIN 8 J[place]NY B[place] QUANTITAT [facility] GROUND A0425 [facility] MILEAGE 8 [place] PER AMBULANCE AMBULANCE STATUTE SERVICE SERVICE MILE AMB A0427 [facility] SERVICE 8 [place] ALS AMBULANCE AMBULANCE EMERGENCY SERVICE SERVICE TRANSPORT LEVEL 1 [place] [address] [facility] LIPASE 8 [facility] PROTHROMB 20914 [facility] [place] IN TIME 8 [facility] ECG 08150 [facility] ROUTINE 8 [facility] ECG [facility] W/LEAST [address] TRCG ONLY W/O I&R BLOOD 12086 [facility] COUNT 8 [facility] COMPLETE [facility] AUTO&AUTO [facility] WBC ECG 40984 [place], ROUTINE 8 JONA SIXTO J ECG EMERGENCY W/LEAST PHYS INC 12 [facility] I&R ONLY RADIOLOGI [address]23 [place] C 8 MEDICAL MEDICAL EXAMINATI SERV SERV ON CHEST FOUNDATIO FOUNDATIO [place] FR[place] ECG [address]19 [place] ROUTINE 8 MEDICAL MEDICAL ECG SERV SERV W/LEAST FOUNDATIO FOUNDATIO 12 [facility] I&R ONLY COLSC FLX 77145 [place] 8 MEDICAL MEDICAL W/REMOVAL SERV SERV LESION FOUNDATIO FOUNDATIO BY HOT BX FORCEPS EGD 67752 [place] TRANSORAL 8 MEDICAL MEDICAL BIOPSY SERV SERV SINGLE/MU FOUNDATIO FOUNDATIO LTIPLE COLSC FLX 02010 [place] W/RMVL 8 MEDICAL MEDICAL OF TUMOR SERV SERV POLYP FOUNDATIO [place] [address] [place] SURG 8 MEDICAL MEDICAL PATHOLOGY SERV SERV FOUNDATIO FOUNDATIO GROSS&JOHN ROSCOPIC EXAM SPECIAL 31237 [place] STAIN 8 [facility]ICAL MEDICAL GROUP 1 SERV SERV MICROORGA FOUNDATIO FOUNDATIO NISMS I&R INITIAL 58430 [place] INPATIENT 8 MEDICAL MEDICAL CONSULT SERV SERV NEW/ESTAB FOUNDATIO [place]OUNDAT[place] [address] [place] [address] [place] ABDOMEN 8 MEDICAL MEDICAL W/CONTRAS SERV SERV T FOUNDATIO FOUNDATIO MATERIAL [place] PELVIS [address] [place] 8 MEDICAL MEDICAL W/CONTRAS SERV SERV T [place] [address] [facility], ABDOMEN 8 EVANGELIST S W/O RADIOLOGY [place]AST [place] [address] MEADOWVIE MEADOWVIE LIPASE 8 W W [facility] CENTER CRITICAL 89057 KAUR DURÁN 8 EMERGENCY GRAHAM M ILL/INJUR SERVICES ED ASSOC PATIENT PSC INIT 30-74 MIN ECG 04880 [place] ROUTINE 8 MEDICAL MEDICAL ECG SERV SERV W/LEAST FOUNDATIO FOUNDATIO 12 LDS I&R ONLY GROUND [id number] [facility] MILEAGE 8 CLARIBEL CO CLAIRBEL CO PER STATUTE AMBULANCE AMBULANCE MILE BLOOD 96174 MEADOWVIE MEADOWVIE COUNT 8 W W COMPLETE [facility] AUTO&AUTO MEDICAL [place]ICAL [place] [address] MEADOW[place]IE MEADOWVIE INFUSION 8 W W HYDRATION [facility] INITIAL MEDICAL MEDICAL 31 MIN-1 CENTER CENTER HR COLLECTIO 17076 MEADOW[facility]IE MEADOWVIE N VENOUS 8 W W BLOOD [facility] VENIPUNCT MEDICAL MEDICAL URE CENTER CENTER COMPREHEN 93761 MEADOWVIE MEADOWVIE SIVE 8 W W METABOLIC [facility] [place] [address] MEAD[place] MEADOWVIE AMYLASE 8 W W [facility] CENTER ANTIBODY 79821 MEADOWVIE MEADOWVIE SCREEN 8 W W RBC EACH [facility] SERUM MEDICAL MEDICAL TECHNIQUE CENTER CENTER BLOOD 43375 MEADOW[facility]IE MEADOWVIE TYPING 8 W W SEROLOGIC [facility] MEDICAL [facility] CENTER CENTER INJECTION J2550 MEADOWVIE MEADOWVIE 8 W W PROMETHAZ [facility] INE HCL MEDICAL MEDICAL UP TO 50 CENTER CENTER MG AMB A0427 [facility] SERVICE 8 CLARIBEL CO CL[facility] CO ALS EMERGENCY AMBULANCE AMBULANCE TRANSPORT LEVEL 1 BLOOD 45385 MEADOWVIE MEADOWVIE TYPING 8 W W SEROLOGIC [facility] RH (D) MEDICAL MEDICAL CENTER CENTER THROMBOPL 92909 MEADOW[facility]IE MEADOWVIE ASTIN 8 W W TIME [facility] PARTIAL MEDICAL MEDICAL PLASMA/WH CENTER CENTER OLE BLOOD CT PELVIS 52511 MEADOWVIE MEADOWVIE W/O 8 W W CONTRAST [facility] CENTER PROTHROMB 61868 MEADOW[facility]IE MEADOWVIE IN TIME 8 W W [facility] CENTER 3D 99167 MEADOWVIE MEADOWVIE RENDERING 8 W W W/INTERP [facility] MEDICAL POSTPROCE CENTER CENTER SS [facility] [address] [place] INTERNAL DISCHARGE 8 MEDICAL MEDICINE DAY SERV MANAGEMEN FOUNDATIO T 30 MIN/< ECHO 22673 [place] HARVEY, TRANSTHOR 8 MEDICAL KEKE AC R-T 2D SERV W/WO FOUNDATIO M-MODE REC COMP DOP 99741 JOHN GABRIEL, ECHOCARD 8 MEDICAL KEKE COLOR SERV FLOW FOUNDATIO VELOCITY MAPPING INJECTION 76197 [place] VAUGHN, CARDIAC 8 MEDICAL KVNG Barrett CATHJ L SERV VENTR/L FOUNDATIO ATR ANGIOGRAP H INITIAL 01497 [place] INPATIENT 8 MEDICAL MEDICAL CONSULT SERV SERV NEW/ESTAB FOUNDATIO FOUNDATIO PT 110 MIN L HRT 52744 JOHN MENDES CATHETERI 8 PRIYA Barrett ZATION SERV RETROGRAD FOUNDATIO E BRACHIAL PERQ I SI&R 53616 [place] VAUGH[place] F/NJX PX 8 PRIYA Barrett DURING SERV C-CATHJ FOUNDATIO PULM&/[place] [address] [place]AUGH[place] C-CATHGlenn 8 PRIYA Barrett F/SLCTV C SERV ANGRPH FOUNDATIO DOPPLER 56801 JOHN GABRIEL, ECHOCARD 8 MEDICAL KEKE PULSE SERV WAVE FOUNDATIO W/SPECTRA L DISPLAY SBSQ 97254 [facility] 8 MEDICAL MEDICINE CARE/DAY SERV 25 FOUNDATIO MINUTES DUPLEX 43079 RADIOLOGY RADIOLOGY SCAN 8 EXTRACRAN PHYSICIAN PHYSICIAN CELSA العراقي S OF S OF COMPL BI [facility] STUDY PSC PSC I SI&R 08594 JOHN VAUGHN, F/NJX PX 8 MEDICAL KVNG Barrett DURING SERV C-CATHJ FOUNDATIO VENTR&/[place] DOP 63331 JOHN VAUGHN, MINERVA&/OR 8 MEDICAL KVNG Barrett PRESS SERV C/CONSUELO FOUNDATIO RSRV DALIA 1ST VSL RADIOLOGI 32409 [place] C 8 MEDICAL MEDICAL EXAMINATI SERV SERV ON CHEST FOUNDATIO FOUNDATIO [place] FRONTAL ECG 71118 [place] ROUTINE 8 MEDICAL MEDICAL ECG SERV SERV W/LEAST FOUNDATIO FOUNDATIO 12 LDS I&R ONLY URNLS DIP 00820 [facility], 8 POINT HENRY E STICK/TAB FAMILY LET RGNT CARE, AUTO W/O INC. MICROSCOP Y COLLECTIO 40373 [facility], N VENOUS 8 POINT HENRY E BLOOD FAMILY VENIPUNCT CARE, URE INC. ALBUMIN 54748 [facility], URINE 8 POINT HENRY E MICROALBU FAMILY MIN CARE, QUANTIATI INC. VE Encounters Encounter Start End Date Code Location Performer Type Date HOSPITAL [facility] - 7 7 [facility] OUTPATIEN INC T OFFICE 58193 [facility] RUBIO OUTPATIEN 7 7 PHYSICIAN T VISIT S GROUP 10 MINUTES HOSPITAL [facility] - 7 7 [facility] OUTPATIEN E T HOSPITALS OFFICE 05349 [facility] OUTPATIEN 7 7 HEALTH T VISIT SOLUTIONS 15 IN MINUTES OFFICE 41980 [facility] OUTPATIEN 7 7 HEALTH T VISIT SOLUTIONS 15 IN MINUTES OFFICE 92813 [place] EN[place] OUTPATIEN 7 7 MEDICAL T VISIT SERV 25 FOUNDATIO MINUTES N OFFICE 28808 KAI [facility] 7 7 HEALTH T VISIT SOLUTIONS 15 IN MINUTES EMERGENCY 83939 JOHN BALDWIN 7 7 MEDICAL DEPARTMEN SERV T VISIT FOUNDATIO MODERATE N SEVERITY EMERGENCY 28571 JOHN BALDWIN 7 7 MEDICAL DEPARTMEN SERV T VISIT FOUNDATIO LOW/MODER N SEVERITY EMERGENCY 68236 [facility] 7 7 JONA VISIT EMERGENCY HIGH PHYS SEVERITY& THREAT FUN [facility] D[facility] - 7 7 [facility] OUTPATIEN INC T EMERGENCY 67509 [facility] 7 7 MEM [facility] DEPARTMEN INC T VISIT LOW/MODER SEVERITY EMERGENCY 30203 CAROL TAVERAS 7 7 PHYSICIAN [facility] T VISIT HIGH/URGE NT SEVERITY [facility]OSPITAL [place] - 6 6 [facility] INPATIENT INC EMERGENCY 26262 CAROL JAVIER [address] [facility] T VISIT HIGH/URGE NT SEVERITY HOSPITAL [facility] - 6 6 [facility] KAI T EMERGENCY 48500 [facility] 6 6 JONA Y TRA VISIT EMERGENCY HIGH SERVI SEVERITY& THREAT FUNCJ EMERGENCY 26168 [facility] 6 6 [facility] KAI T VISIT HIGH/URGE NT SEVERITY EMERGENCY 59004 [facility] 6 6 JONA VALENTÍN DEPARTMEN EMERGENCY T VISIT PHYS HIGH/URGE NT SEVERITY HOSPITAL UN[facility] - 6 6 Y [facility] HOSPITAL UNIVERSIT - 6 6 [facility] T OFFICE 58365 [facility] 6 6 HEALTH T VISIT SOLUTIONS 15 IN MINUTES [facility]OSP[facility] - 6 6 [place] [facility] UNIVERSIT - 6 6 Y INPATIENT HOSPITAL OFFICE 09075 [facility] OUTPATIEN 6 6 HEALTH T VISIT SOLUTIONS 15 IN MINUTES OFFICE 45672 [facility] OUTPATIEN 5 5 HEALTH T VISIT SOLUTIONS 15 IN MINUTES OFFICE 47263 [facility] OUTPATIEN 5 5 HEALTH T VISIT SOLUTIONS 15 IN MINUTES OFFICE 67308 [facility] OUTPATIEN 5 5 HEALTH T VISIT SOLUTIONS [address] [facility] - 5 5 [facility] OUT[facility] KAI T OFFICE 07798 [facility] OUTPATIEN 5 5 HEALTH T VISIT SOLUTIONS 15 IN MINUTES OFFICE 92735 HIMANSHU BEAN MARIZA OUTPATIEN 5 5 MD JOSE G, T VISIT PSC 10 MINUTES OFFICE 62276 [place] ADRIAN OUTPATIEN 5 5 MEDICAL GRE T NEW 30 SERV MINUTES [facility] UNIVERSIT - 5 5 Y OUTPATIEN HOSPITAL T OFFICE 99468 K[facility] OUTPATIEN 5 5 HEALTH T VISIT SOLUTIONS 15 IN MINUTES OFFICE 69561 [facility] OUTPATIEN 5 5 HEALTH T VISIT SOLUTIONS 15 IN MINUTES OFFICE 86508 [facility] OUTPATIEN 5 5 HEALTH T VISIT SOLUTIONS 15 IN MINUTES HOSPITAL [facility] - 5 5 [facility] OUTPATIEN INC T OFFICE 57103 [facility] OUTPATIEN 5 5 HEALTH T VISIT SOLUTIONS 15 IN MINUTES OFFICE 97014 AKI OUTPATIEN 5 5 HEALTH T VISIT SOLUTIONS 15 IN MINUTES OFFICE 29449 [facility] OUTPATIEN 5 5 HEALTH T VISIT SOLUTIONS [address] [facility] - 5 5 [facility] OUTPATIEN KAI T OFFICE 58966 [facility]AI OUTPATIEN 5 5 HEALTH T VISIT SOLUTIONS 25 IN MINUTES EMERGENCY 68060 [facility] 5 5 JONA DEPARTMEN EMERGENCY T VISIT SERVI HIGH/URGE NT SEVERITY [facility] - 5 5 [facility] OUTPATIEN KAI T EMERGENCY [facility]17 [facility] 5 5 [facility] DEPARTMEN KAI T VISIT MODERATE SEVERITY [facility]OSP[facility] - 5 5 [facility] OUTPATIEN INC T OFFICE 07377 KAI OUTPATIEN 5 5 HEALTH T VISIT SOLUTIONS 25 IN MINUTES HOSPITAL [facility] - 5 5 [facility] OUTPATIEN INC T OFFICE 46545 KAI OUTPATIEN 5 5 HEALTH T VISIT SOLUTIONS [address] [facility] - 5 5 [facility] OUTPATIEN KAI T OFFICE 33081 KAI OUTPATIEN 5 5 HEALTH T VISIT SOLUTIONS [address] [facility] - 5 5 [facility] OUTPATIEN AKI T OFFICE 60958 KAI OUTPATIEN 5 5 HEALTH T VISIT SOLUTIONS 25 IN MINUTES OFFICE 97486 TANNER ARAIZA BUX ANJ OUTPATIEN 5 5 MD T NEW 30 MINUTES OFFICE 51017 [facility] OUTPATIEN 5 5 [place] [facility] 10 PSC MINUTES EMERGENCY 18196 [facility] SUKI JR 5 5 JONA OMEGA DEPARTMEN EMERGENCY T VISIT SERVI MODERATE SEVERITY [facility] - 5 5 [facility] OUTPATIEN KAI T EMERGENCY 47869 [facility] RODNEY 5 5 JONA GIN DEPARTMEN EMERGENCY T VISIT PHYS HIGH/URGE NT SEVERITY OFFICE 27027 [facility] OUTPATIEN 5 5 [place] [facility] [address] [facility] - 5 5 [facility] OUTPATIEN KAI T OFFICE 97855 [facility]A OUTPATIEN 5 5 [place] [facility] 25 PSC MINUTES OFFICE 05157 KAI OUTPATIEN 5 5 HEALTH T VISIT SOLUTIONS [address] [facility] - 5 5 [facility] OUTPATIEN KAI T OFFICE 57505 NEW MALA OUTPATIEN 5 5 [place] [facility] NEW 45 CLINIC MINUTES PSC OFFICE 48572 KAI OUTPATIEN 5 5 HEALTH T VISIT SOLUTIONS [address] [facility] - 4 4 [place] OUTPATIEN KAI T OFFICE 45790 KAI OUTPATIEN 4 4 HEALTH T VISIT SOLUTIONS 25 IN MINUTES OFFICE 07181 KAI OUTPATIEN 4 4 HEALTH T NEW 20 SOLUTIONS MINUTES IN HOSPITAL [facility] - 4 4 [facility] OUTPATIEN KAI T EMERGENCY 91594 [facility] 4 4 JONA [facility]YL [facility] EMERGENCY T VISIT PHYS MODERATE SEVERITY HOSPITAL [facility] - 4 4 [facility] OUTPATIEN KAI T EMERGENCY 45989 [facility] 4 [facility] HIGH/URGE NT SEVERITY [facility] - CELIA 4 4 [facility] OFFICE 33480 MICHI A DELOMAS OUTPATIEN 4 4 DELOMAS MAR T KIN 30 [facility] MINUTES OFFICE 88256 ACEVES ACEVES OUTPATIEN 3 3 JOHN JOHN T VISIT 25 MINUTES OFFICE 55116 [facility] JOSE II OUTPATIEN 3 3 [facility] T VISIT AND REHA 15 MINUTES HOSPITAL [facility] - 3 3 [facility] OUTPATI MEDICAL T [facility] - 3 3 [facility] OUTPATIEN KAI T HOSPITAL [facility] - OTHER 3 [facility] 82229 EDU KRISTIAN II 3 3 EMERGENCY O DEPARTMEN SERVICES T VISIT MODERATE SEVERITY HOSPITAL [facility] - OTHER 3 3 [facility] OFFICE 07705 COMMONLYRICA JOSE II OUTPATIEN 3 3 LT SLEEP PENNY T VISIT AND REHA 15 MINUTES HOSPITAL [facility] - 2 2 REGIONAL OUTPATIEN MEDICAL T [facility] OFFICE 61598 [facility] JOSE II OUTPATIEN 2 2 LT SLEEP PENNY T VISIT AND REHA 15 MINUTES EMERGENCY 37041 [facility] 2 2 JONA CHWENK DEPARTMEN EMERGENCY REG T VISIT PHYS HIGH/URGE NT SEVERITY HOSPITAL [facility] - OTHER 2 2 [facility] OFFICE 64331 COMMONLYRICA JOSE II OUTPATIEN 2 2 LT SLEEP PENNY T VISIT AND REHA 15 MINUTES OFFICE 89529 [facility] JOSE II OUTPATIEN 2 2 LT SLEEP PENNY T NEW 30 AND REHA MINUTES OFFICE 54713 [facility] OUTPATIEN 2 2 [facility] T VISIT 15 MINUTES CLIN[facility] [place] 2 2 [facility] EMERGENCY 16879 [facility] 2 2 JONA EDW DEPARTMEN EMERGENCY T VISIT PHYS MODERATE SEVERITY OFFICE 06399 [facility] OUTPATIEN 2 2 COUNTY T VISIT 15 MINUTES CLINIC[facility] [place] 2 2 [facility] - 2 2 [facility] - [address] T OFFICE 77509 [facility] OUTPATIEN 2 2 COUNTY T VISIT 25 MINUTES CLINIC[facility] [place] 2 2 [facility] OFFICE 48316 [facility] OUTPATIEN 2 2 COUNTY T VISIT 15 MINUTES EMERGENCY 47269 [facility] 2 2 JONA [facility] EMERGENCY T VISIT SERVI MODERATE SEVERITY HOSPITAL [facility] - 2 2 [facility] - 2 2 [facility] [place] 2 2 [facility] HEALTH OFFICE 53026 [facility] OUTPATIEN 2 2 COUNTY T VISIT 15 MINUTES OFFICE 62302 [facility] OUTPATIEN 2 2 COUNTY T VISIT 25 MINUTES CLINIC[facility] [place] 2 2 [facility] HEALTH OFFICE 36512 CAVE FAISAL JACK WILDER OUTPATIEN 2 2 SURGICAL MARIZA T VISIT SPECIALIS 15 T MINUTES HOSPITAL [facility] - 2 2 [facility] OFFICE 54112 MINNIE MALONE JACK OUTPATIEN 2 2 SURGICAL MARIZA T NEW 45 SPECIALIS MINUTES T OFFICE 57213 [facility] OUTPATIEN 2 2 COUNTY T VISIT 25 MINUTES [facility]OSP[facility] - [address] T EMERGENCY 07444 JOHN AVENDAÑO [facility] 1 1 [facility] T VISIT FOUNDATIO HIGH/URGE NT SEVERITY EMERGENCY 64472 UNIVERSIT 1 1 Y [facility] T VISIT MODERATE SEVERITY [facility] 1 1 [facility] OFF[facility] 35348 TIM HEMPHILL 1 1 Sharmin PAYTON VISIT [facility] 15 . MINUTES OFFICE 97462 TIM GONZALEZPATICHLOÉ 1 1 Sharmin PAYTON VISIT [facility] 15 . MINUTES OFFICE 85033 TIM GONZALEZPATICHLOÉ 1 1 Sharmin PAYTON VISIT [facility] 15 . MINUTES OFFICE 18056 [facility] OUTPATIEN 1 1 FAMILY TAU T VISIT CLINIC, 15 PLL MINUTES OFFICE 59223 [facility] OUTPATIEN 1 1 FAMILY TAU T VISIT CLINIC, 25 PLL MINUTES [facility] [place] [address] 1 [facility] OFFICE 83769 TIM STUART OUTPATIEN 1 1 Sharmin PAYTON VISIT [facility] 15 . MINUTES [facility] [place] [address] 1 [facility] OFFICE 50048 [facility] ELIA OUTPATIEN 1 1 FAMILY TAU T VISIT CLINIC, 25 PLL MINUTES OFFICE 76263 CARDIOVAS PINEDO OUTPATIEN 1 1 ULAR & ANT T VISIT THORACIC 15 ASS MINUTES [facility] [place] [address] 1 [facility] [place] [address] 1 [facility] OFFICE 82492 TIM STUART OUTPATIEN 0 0 Sharmin PAYTON VISIT Xenia.D.P.S.C 15 . MINUTES OFFICE 92027 [facility] ELIA OUTPATIEN 0 0 FAMILY TAU T VISIT CLINIC, 25 PLL MINUTES OFFICE 36054 CARDIOVAS PINEDO OUTPATIEN 0 0 ULAR & ANT T VISIT THORACIC 15 ASS MINUTES HOSPITAL [facility] - 0 0 [facility] 47617 TIM STUART OUTPATIEN 0 0 Sharmin PAYTON VISIT M.D.P.[facility].C 15 . MINUTES OFFICE 55228 [facility] HESCOCK OUTPATIEN 0 0 [facility] T 30 UROLOGY MARNIE R MINUTES OFFICE 87421 [facility], OUTPATIEN 0 0 FAMILY T[place]FIK T VISIT CLINIC, 15 PLLC MINUTES OFFICE 12712 [facility], OUTPATIEN 0 0 FAMILY [place]FI[place] T VISIT CLINIC, 15 PLLC MINUTES OFFICE 10782 CARDIOVAS PINEDO, OUTPATIEN 0 0 ULAR & MARIANELA G T VISIT THORACIC 15 ASSOC [facility] MINUTES [facility]OSP[facility] - 0 0 [facility] OUTPATIEN HOSP T OFFICE 22431 CARDIOVAS PINEDO, OUTPATIEN 0 0 ULAR & MARIANELA G T VISIT THORACIC 15 ASSOC [facility] HOSPITAL [facility] - 0 0 [facility] T OFFICE 92704 [facility] ELIA, OUTPATIEN 0 0 FAMILY TAUFIK T VISIT CLINIC, 15 PLLC MINUTES OFFICE 90241 TIM DUMONT OUTPATIEN 0 0 EZIO PAYTON VISIT M.D.P.S.C E 15 . MINUTES OFFICE 20144 [facility], OUTPATIEN 0 0 FAMILY TAUFIK T VISIT CLINIC, 15 PLLC MINUTES [facility]OSP[facility] - 0 0 [facility] OUTPATIEN HOSP T OFFICE 68192 CARDIOVAS PINEDO, OUTPATIEN 0 0 ULAR & MARIANELA G T VISIT THORACIC 15 ASSOC [facility] [address] [facility] OFFICE 95880 TIM HALE OUTPATIEN 0 0 KEKE PAYTON M.D.P.S.C MINUTES . [facility] OTHER 0 0 [facility] [place] [address] 9 [facility] [place] 9 9 [facility] [place] [address] [facility] OFFICE 55083 MICHI [facility]AV[facility], [facility] 9 AMARI Elizabeth T VISIT [facility] 25 MINUTES [facility] - 9 9 [facility] T OFF[facility] 24935 MICHI GAO [facility] 9 9 AMARI TAVERA T VISIT [facility] A 25 MINUTES [facility] 9 9 [facility] OTHER 9 9 [facility] 9 9 [place] EMERGENCY 72232 ELBA SMART DEPT 9 9 JONA Orta VISIT EMERGENCY HIGH PHYS INC SEVERITY& THREAT [facility] OFFICE 48028 CARDIOVAS SHAHIDA, CONSULTAT 9 9 ULAR & MARIANELA Alvarado ION THORACIC NEW/ESTAB ASSOC PSC PATIENT 40 MIN OFFICE 63299 [facility] DE[facility] 9 9 JHONNY Yuridia [facility] VISIT MTRuth MORRIS 15 [facility] PULMON[facility] MED[facility] EMERGENCY 88191 ELBA COUGHLIN DEPT 8 8 JONA Elizabeth VISIT EMERGENCY HIGH PHYS INC SEVERITY& THREAT [facility] [address] [facility] EMERGENCY 50421 [facility] 8 8 [facility] VISIT [facility] NT SEVERITY EMERGENCY 87628 CRISTIAN DEPT 8 8 W VISIT [facility] MEDICAL SEVERITY& CENTER THREAT [facility] CRISTIAN - 8 8 W [facility] OFFICE 70651 [facility], [facility] 8 8 [place] E T VISIT FAMILY 25 CARE, MINUTES INC. OFFICE 11525 [facility], OUTPATIEN 8 8 POINT HENRY E T VISIT FAMILY 25 CARE, MINUTES INC.
--- OUTSIDE RECORDS SUMMARY | 2017-04-02 13:02 | External Medical Summary Rpt ---
Author Author , Organization [employer] Address Unknown Phone Unavailable Care Team Providers Care Voucher Clerk Name Role Phone [facility], Unavailable Unavailable [facility], Unavailable Unavailable [facility] Unavailable Unavailable [facility], [facility] KEKE GABRIEL ANAYA, Unavailable Unavailable KEKE ARAIZA MD, PSC, Unavailable Unavailable HIMANSHU ARAIZA MD, PSC [facility], Unavailable Unavailable [facility] EVELYN NEGRETE, ZACARIAS Austin, Unavailable Unavailable ZACARIAS RIVAS MD, Unavailable Unavailable MNadiaP.S.CRuth, TIM PAYTON M.D.P.S.CEZIO DONAHUE, Unavailable Unavailable EZIO [facility] Unavailable Unavailable [facility] CRYSTAL ROJAS Unavailable Unavailable DEVON JOSE ROBERTO, Unavailable Unavailable DEVON JOSE ROBERTO GUPTA, GUPTA Unavailable Unavailable GUPTA ALL, GUPTA ALL Unavailable Unavailable KVNG MENDES, Unavailable Unavailable KVNG MENDES BRADLEY Unavailable Unavailable MAXIM ALDANA BRANN, Unavailable Unavailable MAXIM BRIGGS CAR, BRIGGS Unavailable Unavailable CAR BUX ANJ, BUX ANJ Unavailable Unavailable [facility] Unavailable Unavailable REHABILITATION, [facility] Unavailable Unavailable SERVICES [facility] Unavailable Unavailable SERVICES [facility] ACEVES JOHN, Unavailable Unavailable ACEVES JOHN ACEVES JOHN, Unavailable Unavailable ACEVES JOHN [facility], Unavailable Unavailable [facility]-, Unavailable Unavailable [facility] Unavailable Unavailable SPECIALIST, [facility], Unavailable Unavailable [facility] CHESTNUT, CHESTNUT Unavailable Unavailable [facility] Unavailable [facility]available [facility] Unavailable Unavailable [facility] KEKE MOODY CLARK, Unavailable Unavailable KEKE Ko [facility], [facility]available Unavailable [facility] Unavailable Unavailable AND REHA, [facility] Unavailable Unavailable CLINIC, PLL, [facility] PALAK REMBERTO, Unavailable Unavailable [facility] REMB[facility] KRISTIAN II THO, KRISTIAN II Unavailable Unavailable THO DELOMAS MAR, DELOMAS Unavailable Unavailable MAR AVENDAÑO KAYLAH, AVENDAÑO KAYLAH Unavailable Unavailable DUFF MARIZA, DUFF MARIZA Unavailable Unavailable JIMENEZ, G T, JIMENEZ, G Unavailable Unavailable T ENDEAN, ENDEAN Unavailable Unavailable ENDEAN MIRIAN, ENDEAN Unavailable Unavailable MIRIAN ROSA LAURA, ROSA Unavailable Unavailable VALNETÍN MEJIA, ROBERTO GILBERT, Unavailable Unavailable CHAY Lloyd [facility], Unavailable Unavailable [facility] SUKI JR OMEGA, SUKI Unavailable Unavailable JR OMEGA JR TAVERAS FULLER, Unavailable Unavailable JR CONCEPCION JOHN, CONCPECION Unavailable Unavailable JOHN GOULDS DISCOUNT Unavailable Unavailable [...] HAROLD R, Unavailable Unavailable MARNIE ROCHA JR [facility], Unavailable Unavailable [facility] LIANG BISHOP, Unavailable Unavailable LIANG BISHOPO, DARLIN OMEGA Unavailable Unavailable [facility], Unavailable [facility]available [facility] JOSE II PENNY, JOSE Unavailable Unavailable II PENNY KEELY, KEELY BURDICK, Unavailable Unavailable HEAVENLY ELIA TAU, ELIA Unavailable Unavailable TAU ELIA, TAUFIK, Unavailable Unavailable ELIA, TAUFIK BROOKS III ANUPAM, Unavailable Unavailable BROOKS III ANUPAM [facility] Unavailable Unavailable PHARMACY, [facility] Unavailable Unavailable PHARMACY, [facility] Unavailable Unavailable IMAGING ASS, [facility] KOSTELIC CESILIA, Unavailable Unavailable KOSTELIC [...] HOLDINGS, [facility], Unavailable Unavailable [facility] BAIRD JAZMINE, BAIRD JAZMINE Unavailable Unavailable [facility] Unavailable Unavailable [facility], [facility] Unavailable Unavailable [facility], [facility] Unavailable Unavailable LABORATORY, [facility] ANNE MARIE SOILA, ANNE MARIE Unavailable Unavailable SOILA TANNER ARAIZA MD, TANNER Unavailable Unavailable JOSE G SANDERSON MD Unavailable Unavailable [facility], MICHI SANDERSON MD [facility] Unavailable Unavailable SERVICES, [facility] [employer] [address] Unavailable Unavailable AMBULANCE, [facility] MARYBETH, Unavailable Unavailable ÁLVAREZ MARYBETH [facility] Unavailable Unavailable [facility], [facility], Unavailable Unavailable LLC, [facility] KWASI HA, Unavailable Unavailable KWASI HA, AKIN Unavailable Unavailable KYL [facility], Unavailable Unavailable [facility] Unavailable Unavailable AMBULANCE SERVICE, [facility] BALDWIN, BALDWIN Unavailable Unavailable CORNELIO EDW, CORNELIO Unavailable Unavailable EDW [facility] Unavailable Unavailable [facility], [facility] Unavailable Unavailable AMBULANCE SE, [facility] AM[facility] SE [facility] Unavailable Unavailable AMBULANCE SE, [facility] SE RINALDI KAYKAY, RINALDI KAYKAY Unavailable Unavailable JOSE JOSE ROBERTO, JOSE JOSE ROBERTO Unavailable Unavailable [facility], Unavailable Unavailable PLL, [facility], [facility], Unavailable Unavailable [facility], Unavailable Unavailable [facility] PICKLESIMER JR, LEATHA Unavailable Unavailable L, PICKROWENAIMER JR, LEATHA L MURRAY, LIANG A, Unavailable Unavailable MURRAY, LIANG A BRANDY, JOSPEH F, Unavailable Unavailable BRANDY, JOSPEH F [facility] Unavailable Unavailable OF [facility], [facility] RUBIO, RUBIO Unavailable Unavailable REKHRAJ HALINA, REKHRAJ [...] SURGICAL [facility], ROSS Unavailable Unavailable SURGICAL [facility] Unavailable Unavailable [facility], [facility] ELI MILLY, ELI Unavailable Unavailable MILLY SCALF GUTIERREZ, SCALF GUTIERREZ Unavailable Unavailable SCALAminah, EVANGELIST E, Unavailable Unavailable KAYE, EVANGELIST E AISHWARYA CLIFTON, Unavailable Unavailable MARTI TAFOYA, Unavailable Unavailable MARTI TORRES J S, Unavailable Unavailable Glenn GARCIA [facility] Unavailable Unavailable EMERGENCY PHYS, [facility] Unavailable Unavailable EMERGENCY SERVI, [facility], [facility]available Unavailable [facility] Unavailable Unavailable RADIOLOG, [facility] RADIOLOG [facility] Unavailable Unavailable [facility] SIXTO COUGHLIN, Unavailable Unavailable SIXTO COUGHLIN [facility] Unavailable Unavailable SOLUTIONS IN, [facility] SOLUTIONS IN STILES NAN, STILES Unavailable Unavailable NAN VILLARREAL ALICIA, VILLARREAL ALICIA Unavailable Unavailable HAUSER ELIANA, Unavailable Unavailable HAUSER ELIANA SUPAONGPRAPA, Unavailable Unavailable WORAWUTE, SUPAONGPRAPA, WORAWUTE FREDO, FREDO Unavailable Unavailable FREDO JEANNIE, FREDO JEANNIE Unavailable Unavailable MALA RAY, MALA Unavailable Unavailable RAY GUADALUPE MOL, GUADALUPE MOL Unavailable Unavailable HEALTHCARE Unavailable Unavailable HOSPITALS, [facility], Unavailable Unavailable [facility] SU[facility]PLY Unavailable Unavailable [facility] SUPPL[facility] SUPPLY Unavailable [facility]available [facility], HEALTHCARE SUPPLY [facility] JACK DAWKINS, JACK Unavailable Unavailable SHARAD EGAN, [...] Provider Status E1151 TYPE 2 DM 02-28-2017 [facility] W/DIAB PHYSICIANS PERIPH GROUP ANGIOPATHY W/O GANGRENE I739 PERIPHERAL 02-28-2017 [facility] VASCULAR PHYSICIANS DISEASE GROUP UNSPECIFIED M1991 PRIMARY 02-28-2017 [facility] OSTEOARTHRI SURGICAL TIS UNSPECIFIED SITE U40326 PAIN IN 02-28-2017 [facility] LEFT ANKLE [facility] [id number] DSPL OBL FX 02-28-2017 [facility] SHAFT LT MEDICAL FIBULA IMAGING ASS SUBSQT CLOS FX RTN [id number] DSPL FX MED 02-28-2017 [facility] MALLEOLUS MEDICAL LT TIBIA IMAGING ASS SUBS CLOS FX RTN [id number] DISPL 02-28-2017 [facility] BIMALLEOLAR PHYSICIANS FX LT LOW GROUP LEG INIT CLOSED FX Z720 TOBACCO USE 02-28-2017 [facility] PHYSICIANS GROUP M7989 OTHER 02-19-2017 [facility] SPECIFIED MEDICAL SOFT TISSUE IMAGING ASS DISORDERS [id number] DISPL 02-19-2017 [facility] BIMALLEOL MEDICAL FX LT LOW IMAGING ASS LEG SUBS CLOS RTN HEAL E98699 ENCOUNTER 02-19-2017 [facility] FOR OTHER MEDICAL PREPROCEDUR IMAGING ASS AL EXAMINATION Y97111 OTHER 02-19-2017 [facility] SPECIFIED MEDICAL POSTPROCEDU IMAGING ASS RAL STATES D31753 UNS 02-09-2017 [facility] MU[place] ART HOSPITALS EXTREM UNS EXTREMITY I771 STRICTURE 02-09-2017 [facility]ICAL OF ARTERY SERV [facility] K229 DISEASE OF 02-09-2017 [facility] UNSPECIFIED HOSPITALS R590 LOCALIZED 02-09-2017 [facility] HEALTHCARE LYMPH NODES HOSPITALS L29715S STENOSIS 02-09-2017 [facility] DEVC IMPL HOSPITALS & GRAFT INIT ENC E1165 TYPE 2 02-05-2017 LAB [facility] DIABETES VINAY MELLITUS HOLDINGS WITH HYPERGLYCEM IA E1140 TYPE 2 DM 01-29-2017 [facility] WITH SURGICAL DIABETIC NEUROPATHY UNSPECIFIED E782 MIXED 01-24-2017 [facility] HYPERLIPIDE HEALTH SHARON SOLUTIONS IN E47265 VARICOS VNS 01-24-2017 [facility] RT LW EXT HEALTH ULCER OTH SOLUTIONS PART LE & IN INFLAM J04410 VARICOS VNS 01-24-2017 [facility] LT LW EXT HEALTH ULCER OTH SOLUTIONS PART LE & IN INFLAM O04048 VARICOSE 12-20-2016 [facility] VEINS RT SERV LOWER FOUNDATION EXTREM W/ULCER UNS SITE I96 GANGRENE 12-20-2016 [facility] NOT SERV ELSEWHERE FOUNDATION CLASSIFIED [id number] TYPE 2 11-30-2016 [facility] DIABETES SERV MELLITUS FOUNDATION WITH FOOT ULCER W13965 NON-PRSS 11-30-2016 [facility] CHRN ULCR SERV OTH PART RT FOUNDATION FT W/UNS SEVERITY K5641 FECAL 11-11-2016 [facility] IMPACTION N EMERGENCY PHYS M549 DORSALGIA 11-11-2016 [facility] UNSPECIFIED [facility] AMBULANCE SE R1084 GENERALIZED 11-11-2016 [facility] ABDOMINAL [facility] PAIN AMBULANCE SE R109 UNSPECIFIED 11-07-2016 [facility] [place] ABDOMINAL RADIOLOGY PAIN E119 TYPE 2 11-03-2016 [facility] DIABETES [facility] MELLITUS INC WITHOUT COMPLICATIO NS J449 CHRONIC 11-03-2016 [facility] OBSTRUCTIVE [facility] PULMONARY INC DISEASE UNS G33528 PAIN IN 11-03-2016 [facility] RIGHT HIP MEDICAL IMAGING ASS M545 LOW BACK 11-03-2016 [facility] PAIN MEDICAL IMAGING ASS R8299 OTHER 11-03-2016 [facility] ABNORMAL [facility]OS[facility] FINDINGS IN INC URINE X085COT SPRAIN 11-03-2016 [facility]IGAMENTS [facility]IANS, LUMBAR PLLC SPINE INITIAL ENCOUNTER U6819AU CONTUSION 11-03-2016 [facility] OF RIGHT PHYSICIANS, HIP INITIAL PLLC ENCOUNTER Z794 SOIL SURVEYOR 11-03-2016 [facility] CURRENT USE MEM HOS[facility] OF INSULIN INC Y61099 CELLULITIS 08-04-2016 [facility] OF RIGHT MEDICAL LOWER LIMB IMAGING ASS U93841 CELLULITIS 08-04-2016 [facility] OF LEFT MEDICAL LOWER LIMB IMAGING ASS G22343 PAIN IN 08-03-2016 [facility] RIGHT LOWER MEDICAL LEG IMAGING ASS A41353 PAIN IN 08-03-2016 [facility] LEFT LOWER MEDICAL LEG IMAGING ASS G629 POLYNEUROPA 08-02-2016 [facility] THY PHYSICIANS, UNSPECIFIED PLLC I2510 ASHD MUCKLESHOOT 08-02-2016 [facility] 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 E785 HYPERLIPIDE 06-16-2016 [facility] MOUNT UNSPECIFIED KAI I10 ESSENTIAL 06-16-2016 [facility] PRIMARY [facility] HYPERTENSIO KAI N M542 CERVICALGIA 06-16-2016 [facility] R918 OTHER 06-16-2016 [facility] NONSPECIFIC RADIOLOGY ABNORMAL FINDING OF LUNG FIELD G354DBV OTHER 06-16-2016 [facility] [place] SPECIFIED RADIOLOGY INJURIES HEAD INITIAL ENCOUNTER Z54529S CONTUSION 06-16-2016 [facility] LEFT FRONT MOUNT WALL THORAX KAI INITIAL ENC W022YGI FALL SAME 06-16-2016 [facility] LEVL SLIP N EMERGENCY TRIP W/O SERVI SUB STRIK OBJ INIT Z880 ALLERGY 06-16-2016 [facility] STATUS TO MOUNT PENICILLIN KAI Z885 ALLERGY 06-16-2016 [facility] STATUS TO MOUNT NARCOTIC KAI AGENT STATUS E1121 TYPE 2 05-23-2016 [facility] DIABETES VINAY MELLITUS HOLDINGS W/DIABETIC NEPHROPATHY M5000 CERVICAL 04-28-2016 [facility] DISC D/O N EMERGENCY W/MYELOPATH PHYS Y UNS CERV REGION V817GDY UNSPECIFIED 04-28-2016 [facility] [place] INJURY OF RADIOLOGY NECK INITIAL ENCOUNTER A72XONC UNSPECIFIED 04-28-2016 [facility] DISCOUNT INITIAL MEDICAL ENCOUNTER L089 LOCAL INF 02-24-2016 [facility] THE SKIN & SERV SUBCUTANEOU FOUNDATION S TISSUE UNS I998 OTHER 02-23-2016 [facility] CIRCULATORY SYSTEM F98952 PAIN IN 02-23-2016 [facility] Z7901 SNF 02-23-2016 [facility] CURRENT [facility] Z7982 SOIL SURVEYOR 02-23-2016 [facility] A59782 PERSONAL 02-23-2016 [facility] VENOUS THROMBOSIS& EMBOLISM P22669 ATHEROSCL 02-07-2016 [facility] BP GRAFT RT LEG ULCER ANKLE I7789 OTHER 02-07-2016 [facility] DISORDERS ARTERIES & ARTERIOLES H48241 NON-PRESSUR 02-07-2016 [facility] CHRONIC [facility]OS[facility] ULCER RT ANK W/UNS SEVERITY X33414 OTH 01-13-2016 [facility] MU[place] ART SOLUTIONS EXTREM IN BILATERAL LEGS G3184 MILD 01-05-2016 [facility] COGNITIVE SERV IMPAIRMENT FOUNDATION SO STATED S32847 NON-PRSS 01-05-2016 PATIENT CHR ULCR AIDS INC OTH PART LT LW LEG UNS SEVERTY R2681 UNSTEADINES 01-05-2016 [place] [facility] S ON FEET SERV FOUNDATION R5381 OTHER 01-05-2016 [facility] MALAISE SERV FOUNDATION T95915 ENCOUNTER 01-05-2016 PATIENT SURG AIDS INC AFTERCARE FOLLOW SURGERY CIRC SYS E109 TYPE 1 01-04-2016 [facility] DIABETES CLINIC MELLITUS PHARMACY WITHOUT COMPLICATIO NS R2241 LOCALIZED 12-23-2015 [facility] SWELLING RADIOLOGY MASS & LUMP RIGHT LOWER LIMB Z0289 ENCOUNTER 12-23-2015 [facility] [place] FOR OTHER RADIOLOGY ADMINISTRAT KRISTIAN EXAMINATION S B965 PSEUDOMONAS 12-22-2015 [facility] CLASSIFIED ION ELSEWHERE I951 ORTHOSTATIC 12-22-2015 [facility] HYPOTENSION REHABILITAT ION C196XNG INFECTION 12-22-2015 [facility] PROCEDURE REHABILITAT INITIAL ION ENCOUNTER I743 EMBOLISM & 12-16-2015 [facility] THROMBOSIS SERV ART THE FOUNDATION LOWER EXTREMITIES I348 OTHER 12-15-2015 [facility] NONRHEUMATI SERV C MITRAL FOUNDATION VALVE DISORDERS R9431 ABNORMAL 12-15-2015 [facility] ELECTROCARD SERV IOGRAM FOUNDATION G41563 ACUTE 12-13-2015 [facility] EMBOLISM & SERV THROMBOSIS FOUNDATION LEFT POPLITEAL VEIN E1142 TYPE 2 12-08-2015 [facility] MELL[facility]US W/DIAB POLYNEUROPA THY I14332 UNS 12-08-2015 [facility] MUCKLESHOOT ART EXTREM BILATERAL LEGS I7092 CHRONIC 12-08-2015 [facility] OCCLUSION ARTERY THE EXTREMITIES I20160 PRIMARY 12-08-2015 [facility] OSTEOARTHRI SERV TIS RIGHT FOUNDATION ANKLE AND FOOT R600 LOCALIZED 12-08-2015 [facility] EDEMA SERV FOUNDATION M150 PRIMARY 10-22-2015 [facility] GENERALIZED HEALTH SOLUTIONS OSTEOARTHRI IN TIS M5116 INTERVERTEB 08-24-2015 JANETTE TORRES MD, PSC D/O W/RADICULOP ATHY LUMB RGN M961 POSTLAMINEC 08-24-2015 JEROME TORRES MD, PSC SYNDROME NEC M5417 RADICULOPAT 07-23-2015 [facility] MEM HOSP LUMBOSACRAL INC REGION 6826 CELLULITIS 07-09-2015 [facility] AND ABSCESS HEALTH OF LEG SOLUTIONS EXCEPT FOOT IN 7231 CERVICALGIA 06-23-2015 [facility] HEALTH SOLUTIONS IN 7218 OTHER 06-18-2015 [facility] ALLIED MOUNT DISORDERS KAI OF SPINE 7220 DISPLCMT 06-18-2015 [facility] CERV [facility] INTERVERT KAI DISC WITHOUT MYELOPATHY 76271 OTHER&UNSPE 06-18-2015 [facility] CIFIED DISC MOUNT DISORDER KAI CERVICAL REGION 34294 DIAB W/O 06-08-2015 [facility] COMP TYPE HEALTH II/UNS NOT SOLUTIONS STATED IN UNCNTRL 7295 PAIN IN 06-08-2015 [facility] SOFT [place] [address] OTHER 06-04-2015 [facility] CHRONIC MOUNT PAIN KAI 70442 SPASM OF 06-04-2015 [facility] MUSCLE MOUNT KAI V145 PERSONAL 06-04-2015 [facility] HISTORY OF MOUNT ALLERGY TO KAI NARCOTIC AGENT V5869 LONG-TERM 06-04-2015 [facility] (CURRENT) [facility] USE OF KAI OTHER MEDICATIONS 3688 OTHER 05-21-2015 [facility] SPECIFIED MEDICAL VISUAL IMAGING ASS DISTURBANCE S 7804 DIZZINESS 05-21-2015 [facility] AND MEDICAL GIDDINESS IMAGING ASS 49204 MEMORY LOSS 05-21-2015 [facility] 7812 ABNORMALITY 05-21-2015 [facility] OF GAIT [facility] INC 7840 HEADACHE 05-21-2015 [facility] V7283 OTHER 05-21-2015 [facility] SPECIFIED MEM HOS[facility] PRE-OPERATI INC VE EXAMINATION 2392 NEOPLASMS 04-26-2015 [facility] UNSPEC HEALTH NATURE BONE SOLUTIONS SOFT IN TISSUE&SKIN 14249 LOSS OF 04-26-2015 [place] [address] POSTLAMINEC 04-16-2015 TANNER CANO MD SYNDROME LUMBAR REGION 7244 THORACIC/NIVIA 04-16-2015 TANNER HENDRICKS MD NEURITIS/RA DICULITIS UNSPEC 5110 PLEURISY 03-15-2015 [facility] WITHOUT MOUNT MENTION KAI EFFUS/[place] [address] OTHER 03-15-2015 [facility] DISEASES OF [facility] LUNG NOT KAI ELSEWHERE CLASSIFIED 5533 DIAPHRAGMAT 03-15-2015 [facility] GARY W/O MOUNT MENTION KAI OBSTRUCTION /GANGREN 41880 DIVERTICULO 03-15-2015 [facility] SIS OF [facility] COLON KAI 5920 CALCULUS OF 03-15-2015 [facility] KIDNEY MOUNT KAI 72787 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 [facility] PROSTATE [facility] W/O UR OBST KAI & OTH LUTS 2722 MIXED 03-11-2015 [facility] HYPERLIPIDE HEALTH SHARON SOLUTIONS IN 4011 ESSENTIAL 03-11-2015 [facility] HYPERTENSIO HEALTH N, BENIGN SOLUTIONS IN 496 CHRONIC 03-11-2015 [facility] [place] [address] DIAB 02-26-2015 [facility] W/NEURO HEALTH MANIFESTS SOLUTIONS TYPE II/UNS IN NOT UNCNTRL 68222 GENERALIZED 02-26-2015 [place] [address] NOCTURIA 01-19-2015 [facility] PSC 47095 ELEVATED 01-19-2015 [facility] PSC ANTIGEN 25157 OTHER 01-14-2015 [facility] SPECIFIED MOUNT DISORDER OF KAI THE ESOPHAGUS 7856 ENLARGEMENT 01-14-2015 [facility] OF LYMPH MOUNT NODES KAI 73085 SHORTNESS 01-14-2015 [facility] [place] OF BREATH RADIOLOGY 9953 ALLERGY 01-14-2015 [facility] UNSPECIFIED N EMERGENCY NOT SERVI ELSEWHERE CLASSIFIED 35939 CHEST PAIN 01-06-2015 [facility] [place] UNSPECIFIED RADIOLOGY 9221 CONTUSION 01-06-2015 [facility] OF CHEST N EMERGENCY WALL PHYS E8888 OTHER FALL 01-06-2015 [facility] N EMERGENCY PHYS 2391 NEOPLASM 12-09-2014 NEW UNSPECIFIED [place] [facility] RESPIRATORY SYSTEM 486 PNEUMONIA, 12-09-2014 NEW ORGANISM [place] UNSPECIFIED CLINIC [facility] 85124 SLOWING OF 12-09-2014 [facility] 7245 UNSPECIFIED 11-24-2014 [facility] BACKACHE [facility] KAI 6071 BALANOPOSTH 11-19-2014 NEW ITIS [place] [facility] PSC 28488 INCOMPLETE 11-19-2014 NEW BLADDER [place] EMPTYING CLINIC [facility] 69722 ABDOMINAL 11-19-2014 NEW PAIN, [place] UNSPECIFIED CLINIC [facility] SITE V7644 SPECIAL 11-19-2014 [place] SCREENING [facility]IN[facility] NEOPLASM OF PROSTATE 28706 CONDUCTIVE 10-30-2014 [facility] HEARING HEALTH LOSS, [place] [address] OTHER 10-30-2014 [facility] [place] NONSPECIFIC RADIOLOGY ABNORMAL FINDING OF LUNG FIELD 3319 UNSPECIFIED 10-05-2014 [facility] CEREBRAL [facility] DEGENERATIO KAI N 59446 URGENCY OF 10-02-2014 [place] [address] DIAB W/O 04-28-2014 [facility] MENTION [facility] COMP TYPE KAI II/UNS TYPE UNCNTRL 53503 UNSPECIFIED 02-20-2014 [facility] ARTHROPATHY SERVICES SITE INC UNSPECIFIED 03955 PAIN IN 12-03-2013 [facility] [place] JOINT, RADIOLOGY ANKLE AND FOOT 64720 UNSPECIFIED 12-03-2013 [facility] SITE OF [facility] ANKLE KAI SPRAIN AND STRAIN E9270 OVEREXERTIO 12-03-2013 [facility] N FROM N EMERGENCY SUDDEN PHYS STRENUOUS MOVEMENT 77315 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 MICHI Ko LUMBAR/LUMB KIN NEGRETE OSACRAL [facility] INTERVERTEB RAL DISC 3000 ANXIETY 10-10-2013 [facility] STATES JOHN 3384 CHRONIC 10-10-2013 [facility] PAIN JOHN SYNDROME 84929 EFFUSION OF 04-21-2013 [facility] LOWER LEG [facility] JOINT KAI 40906 SYNOVIAL 04-21-2013 [facility] CYST OF [facility] POPLITEAL KAI SPACE 8441 SPRAIN AND 04-21-2013 [facility] [place] STRAIN OF RADIOLOGY MCL OF KNEE 8442 SPRAIN AND 04-21-2013 [facility] STRAIN OF [facility] CRUCIATE KAI LIGAMENT OF KNEE 5990 URINARY 04-15-2013 [facility]IONAL INFECTION MEDICAL SITE NOT CENTE SPECIFIED 28826 PAIN IN 03-29-2013 [facility] JOINT, EMERGENCY LOWER LEG SERVICES 70571 GENERALIZED 01-30-2013 [facility] SLEEP AND OSTEOARTHRO REHA SIS UNSPECIFIED SITE 78898 PAIN IN 10-22-2012 [facility] [place] JOINT, RADIOLOGY SHOULDER REGION 49575 PAIN IN 10-22-2012 [facility] [place] JO[place], RADIOLOGY UPPER ARM 5119 UNSPECIFIED 10-02-2012 [facility] [place] PLEURAL RADIOLOGY EFFUSION 7242 LUMBAGO 07-26-2012 [facility] [place] [facility] 8472 LUMBAR 07-26-2012 [facility] SPRAIN AND N EMERGENCY STRAIN PHYS 9161 HIP THIGH 07-26-2012 [facility] LEG&ANK N EMERGENCY ABRASION/FR PHYS ICTION BURN INF 78994 CONTUSION 07-26-2012 [facility] [place] N EMERGENCY PHYS 4540 VARICOSE 04-12-2012 [facility] VEINS OF LOWER EXTREMITIES WITH ULCER 6829 CELLULITIS 04-12-2012 [facility] AND ABSCESS OF UNSPECIFIED SITE 514 PULMONARY 02-05-2012 [facility] HYPOSTASIS 4439 UNSPECIFIED 01-24-2012 [facility] PERIPHERAL VASCULAR DISEASE 4019 UNSPECIFIED 01-22-2012 [facility] HYPERTENSIO KAI N 4280 CONGESTIVE 01-22-2012 [facility] FAILURE KAI UNSPECIFIED V4582 POSTSURG 01-22-2012 [facility] TRANSLUMINA KAI L COR ANGPLSTY STS 51031 UNSPECIFIED 11-29-2011 [place] [place] [address] ULCER OF 11-29-2011 [facility] LOWER LIMB, PRECISION HONER UNSPECIFIED 72498 ATHEROSCLER 11-01-2011 [facility] [place] SURGICAL LEAF SORTER EXTREMITIES UNSPEC 7820 DISTURBANCE 11-01-2011 [facility] OF SKIN SURGICAL SENSATION SPECIALIST 3572 POLYNEUROPA 09-17-2011 [facility] DIABETES 87680 CORONARY 09-17-2011 [facility] [place] CORONARY ARTERY 6961 OTHER 09-17-2011 [facility] DIS[facility] 7048 OTHER 09-17-2011 [facility] DISEASE OF HAIR&HAIR FOLLICLES 7213 LUMBOSACRAL 08-22-2011 [facility] WITHOUT MYELOPATHY 3558 UNSPECIFIED 06-27-2011 [facility] MONONEURITI [facility] S OF LOWER LIMB 48411 RESTLESS 05-03-2011 [facility], SYNDROME [facility] 7202 SACROILIITI 05-03-2011 [facility] Abdul NOT FITO, ELSEWHERE [facility] CLASSIFIED 7291 UNSPECIFIED 05-03-2011 [facility] MYALGIA [facility] AND [facility] MYOSITIS 95298 OTHER 05-02-2011 [facility] SPECIFIED [facility] 7862 COUGH 02-06-2011 [facility] KAI 59561 COR 01-04-2011 [facility] ATHEROSLERO SURGICAL UNSPEC TYPE VESSEL MUCKLESHOOT/DM T 43430 OSTEOARTHRO 01-04-2011 [facility] SIS UNSPEC MOUNT WHETHER KAI GEN/LOC LOWER LEG 92540 OTHER 01-04-2011 [facility] ENTHESOPATH [facility] Y OF KNEE KAI 84067 OTHER 01-04-2011 [facility] MALAISE AND SURGICAL FATIGUE 9597 INJURY 01-04-2011 [facility] [place] OTHER&UNSPE RADIOLOGY CIFIED KNEE LEG ANKLE&FOOT 7931 NONSPEC 12-06-2010 [facility] FIND RAD [facility] OT EXAM KAI BODY STRUCT LUNG FIELD V1269 PERSONAL 12-06-2010 [facility] HISTORY MOUNT OTHER KAI DISEASES RESPIRATORY SYS 4293 CARDIOMEGAL 10-19-2010 [facility] KAI 4149 UNSPECIFIED 07-01-2010 [facility] CHRONIC [facility] ISCHEMIC CLINIC, [facility] HEART DISEASE V0481 NEED 07-01-2010 [facility] PROPHYLACTI [facility]ILY C [facility]INIC, [facility] VACCINATION &INOCULATIO N FLU 1122 CANDIDIASIS 04-07-2010 [facility] OF OTHER H UROLOGY UROGENITAL SITES 7887 URETHRAL 03-29-2010 [facility]GE [facility] V5874 AFTERCARE 02-15-2010 [facility] FOLLOW RADIOLOGY SURGERY ASSOC RESPIRATORY SYSTEM NEC 89304 NAUSEA 02-04-2010 [facility] ALONE [facility], [facility] 5180 PULMONARY 11-03-2009 [facility] [place] COLLAPSE RADIOLOGY 22740 DISPLCMT 10-26-2009 [facility] [place] LUMBAR RADIOLOGY INTERVERT DISC W/O MYELOPATHY 4010 ESSENTIAL 10-04-2009 [facility]EN[facility] [place] [facility] N, MALIGNANT 25025 SEPSIS 08-31-2009 [facility] 37703 INF&INFLAM 08-31-2009 [facility]PL[facility] 56061 TB LUNG 08-09-2009 [facility] W[facility]IO [facility] 5109 EMPYEMA 08-09-2009 [facility] WITHOUT FITZPATRICK MENTION OF [facility] FISTULA 14545 DYSPHAGIA 08-09-2009 [facility] ORAL PHASE [facility] 7948 NONSPECIFIC 08-09-2009 [facility] ABNORMAL FITZPATRICK RESULTS [facility] LIVR FUNCTION STUDY V1581 PERS HX 08-09-2009 [facility] NONCOMPLIAN FITZPATRICK CE W/MED TX [facility] PRS [facility] 5306 DIVERTICULU 08-02-2009 [facility] M OF H ESOPHAGUS, GASTROENTER ACQUIRED OLOGY PLLC 18515 DYSPHAGIA 08-02-2009 [facility] UNSPECIFIED H GASTROENTER OLOGY PLLC 5121 IATROGENIC 07-28-2009 [facility] PNEUMOTHROA RADIOLOGY X ASSOC 5183 PULMONARY 07-28-2009 [facility] EOSINOPHILI RADIOLOGY A ASSOC 38269 DIARRHEA 07-28-2009 [facility] V5882 ENCOUNTER 07-28-2009 [facility] FITTING&ADJ RADIOLOGY ASSOC NON-VASCULA R CATHETER NEC 97029 ESOPHAGEAL 07-27-2009 [facility] REFLUX RADIOLOGY ASSOC V1003 PERSONAL 07-26-2009 [facility]ORY [facility] NEOPLASM ESOPHAGUS V1201 PERSONAL 07-26-2009 [facility] H[facility]ORY OF [facility] 4578 OTHER 07-20-2009 [facility] NONINFECTIO [facility] CHANNELS V7284 UNSPECIFIED 07-20-2009 [facility]ATI [facility] 4660 ACUTE 07-19-2009 [facility] 7905 OTHER 01-08-2008 [place] MEDICAL NONSPECIFIC SERV ABNORMAL FOUNDATIO SERUM ENZYME LEVELS 76220 WHEEZING 01-07-2008 [facility] AMBULANCE SERVICE 20741 OTHER CHEST 01-07-2008 [facility] AMBULANCE SERVICE 89537 NONSPECIFIC 12-25-2007 [place] [facility] ABNORMAL SERV ELECTROCARD FOUNDATIO IOGRAM 43001 HELICOBACTE 12-24-2007 [place] [facility]ICAL R PYLORI SERV INFECTION FOUNDATIO 2113 BENIGN 12-24-2007 [place] [facility] NEOPLASM OF SERV COLON FOUNDATIO 69644 GASTR ULCR 12-24-2007 [place] [facility] UNS SERV ACUT/CHRN FOUNDATIO W/O HEMOR PERF/OBST 26561 OTHER SPEC 12-24-2007 [place] [facility] GASTRITIS SERV WITHOUT FOUNDATIO MENTION HEMORRHAGE 5781 BLOOD IN 12-24-2007 [place] [facility] STOOL SERV [facility] 4928 OTHER 12-23-2007 [place] [facility] EMPHYSEMA SERV FOUNDATIO 5789 UNSPECIFIED 12-23-2007 [place] [facility] HEMORRHAGE SERV OF FOUNDATIO GASTROINTES TINAL TRACT 4139 OTHER AND 12-19-2007 [place] [facility] UNSPECIFIED SERV ANGINA FOUNDATIO PECTORIS 73959 OCCL&STENOS 12-19-2007 RAD[facility] MX&BILAT PHYSICIANS PRECERBRL OF ART W/O [place] INFARCT PSC 81467 SPINAL 11-21-2007 [facility] UNSPEC [facility] OT CARE, INC. THAN CERVICAL 81807 DIAB 10-17-2007 [facility]ALTH W/NEURO POINT MANIFESTS [facility] TYPE I CARE, INC. [JUV] NOT UNCN[facility]L Immunization Name Date Route CVX Reacti Commen Provid Is Given on t er Refuse d IIV3 ELIA No VACCIN 2009 TAU E SPLIT VIRUS 0.5 ML DOSAGE IM USE Procedures Procedure DOS Code Location Performer Comment STANDARD K0001 CHEN SIDDIQUI MANASA 7 SURGICAL SURGICAL R RADEX 57256 [place] GUPTA ANKLE 7 MEDICAL COMPLETE IMAGING MINIMUM 3 ASS VIEWS RADEX 08588 [place] ENRIQUEINEKE ANKLE 7 MEDICAL COMPLETE IMAGING MINIMUM 3 ASS VIEWS RADIOLOGI 94788 [place] GUPT[place] C 7 MEDICAL EXAMINATI IMAGING ON CHEST ASS SINGLE VIEW FRONTAL CREATININ 88234 [place] E BLOOD 7 [facility]ALTH[facility] E E [facility]ALS HOSPITALS CTA ABDL 90685 [place] MARSHAL AORTA&BI 7 MEDICAL ILIOFEM SERV W/CONTRAS FOUNDATIO T&POSTP N LOCM Q9967 [facility] 300-399 7 HEALTHCAR HEALTHCAR MG/ML E E IODINE HOSPITALS HOSPITALS CONCENTRA TION PER ML FEDERALLY G0467 KAI KAI 7 [facility] [employer] HE[facility] IN IN CENTER VISIT ESTAB PT LIPID 16851 LAB BABAK LAB BABAK PANEL 7 [facility] [employer] COMPREHEN 09105 LAB BABAK LAB BAABK SIVE 7 [facility] METABOLIC [facility] HOLDINGS PANEL COLLECTIO 95607 LAB BABAK LAB BABAK N VENOUS 7 [facility] BLOOD HOLDINGS HOLDINGS VENIPUNCT URE DIAB ONLY A5500 CHEN CHEUNG CSTM 7 SURGICAL SURGICAL PREP&SPL SHOE MX DNSITY INSRT FOR DIAB A5512 CHEN WEST MX 7 SURGICAL SURGICAL DNSITY INSRT DIR FORMD PRFAB EA STANDARD K0001 CHNE GOEL 7 SURGICAL SURGICAL R COLLECTIO 40654 KAI FREDO N 7 HEALTH CAPILLARY SOLUTIONS BLOOD IN SPECIMEN FEDERALLY G0467 KAI KAI 7 HEALTH HEALTH QUALIFIED SOLUTIONS SOLUTIONS HEALTH IN IN CENTER VISIT ESTAB PT HEMOGLOBI 33940 KAI FREDO N 7 HEALTH GLYCOSYLA SOLUTIONS CISCO A1C IN STANDARD K0001 CHEN GOEL 7 SURGICAL SURGICAL R LANCETS A4259 ALL ALL PER BOX 7 KYRGYZ KYRGYZ OF 100 MEDICAL MEDICAL BLD GLU A4253 ALL ALL TEST/REAG 7 KYRGYZ KYRGYZ T [facility] HOME BLD GLU MON-50 FEDERALLY G0467 KAI KAI 7 HEALTH HEALTH QUALIFIED SOLUTIONS SOLUTIONS HEALTH IN IN CENTER VISIT ESTAB PT STANDARD K0001 CHEN GOEL 7 SURGICAL SURGICAL R AMB A0427 [facility] SERVICE [address] [place] [address] ALS AMBULANCE AMBULANCE EMERGENCY [place] [address] [facility] [place] ABDOMEN & 7 RADIOLOGY PELVIS W/O CONTRAST MATERIAL GROUND A0425 GHASSAN [address]AN [address] PER [place] [address] [facility] [place] DAVID ABDOMEN & 7 RADIOLOGY PELVIS W/O CONTRAST MATERIAL CULTURE 99339 DUSTIN CHAN BACTERIAL 7 [facility] INC INC QUANTTATI VE COLONY COUNT URINE COMPREHEN 31263 DUSTIN CHAN SIVE 7 [facility] METABOLIC INC INC PANEL COLLECTIO 70666 DUSTIN CHAN N VENOUS 7 [facility] BLOOD INC INC VENIPUNCT URE RADEX 84897 DUSTIN CHAN SPINE 7 [facility] HOS[facility]OS[facility] LUMBOSACR INC INC AL MINIMUM 4 VIEWS RADEX HIP 17656 DUSTIN CHAN 7 [facility]OS[facility] UNILATERA INC INC L WITH PELVIS 2-3 VIEWS URNLS DIP 03667 DUSTIN CHAN 7 [facility] STICK/TAB INC INC LET REAGENT AUTO MICROSCOP Y CULTURE 40735 DUSTIN CHAN BACTERIAL 7 [facility]OS[facility] BLOOD INC INC AEROBIC W/ID ISOLATES BLOOD 12166 DUSTIN CHAN COUNT 7 [facility] COMPLETE INC INC AUTO&AUTO DIFRNTL WBC AMBULANCE A0429 [facility] FERRELL SERVICE 7 [facility] BLS AMBULANCE AMBULANCE EMERGENCY SE SE TRANSPORT GROUND A0425 GH[facility] FERRELL MILEAGE [address] [place] [address] PER AMBULANCE AMBULANCE STATUTE SE SE MILE STANDARD K0001 CHEN GOEL 7 SURGICAL SURGICAL R STANDARD K0001 CHEN GOEL 6 SURGICAL SURGICAL R NORMAL A4256 ALL ALL LOW AND 6 KYRGYZ KYRGYZ [facility] MEDICAL CALIBRATO R SOLUTION/ CHIPS REPL CAROLEE A4235 ALL ALL LITHIUM 6 KYRGYZ KYRGYZ MED [facility] MEDICAL MEDICAL ANNA BG MON OWN PT EA SPRING-PO A4258 ALL ALL WERED 6 KYRGYZ KYRGYZ DEVICE [facility] LANCETS A4259 ALL ALL PER BOX 6 KYRGYZ KYRGYZ [facility] MEDICAL MEDICAL BLD GLU A4253 ALL ALL TEST/REAG 6 KYRGYZ KYRGYZ T [facility] HOME BLD GLU MON-50 STANDARD K0001 CHEN GOEL 6 SURGICAL SURGICAL R BONE 24667 [place] [facility] ALL &/JOINT 6 MEDICAL IMAGING IMAGING LIMITED ASS AREA RADIOLOGI 61209 [place] GU[place] ALL C 6 MEDICAL EXAMINATI IMAGING ON TIBIA ASS & FIBULA 2 VIEWS STANDARD K0001 CHEN GOEL 6 SURGICAL SURGICAL R STANDARD K0001 CHEN GOEL 6 SURGICAL SURGICAL R DRUG TST G0477 [facility] PRESUMP;C 6 [facility] PBL BEING KAI QUINN READ DC OPT OBV ONLY DRUG TEST G0480 [facility] DEFINITV [address] [facility] [address] HENNA KAI KAI METH P DAY 1-[place] [address] [facility] MAGNESIUM 6 [facility] KAI KAI PROTHROMB 66750 [facility] IN TIME 6 [facility] KAI KAI THROMBOPL 16650 [facility] ASTIN 6 [facility] TIME KAI KIA PARTIAL PLASMA/[place] [address] [facility] [place] SCALF GUTIERREZ HEAD/BRAI 6 RADIOLOGY N W/O CONTRAST MATERIAL BLOOD 60055 [facility] COUNT 6 [facility] COMPLETE KAI KAI AUTO&AUTO DIFRNTL WBC URNLS DIP [address] STICK/TAB KAI KAI LET REAGENT AUTO MICROSCOP Y CT THORAX 06818 [facility] [place] WESTERFIE W/O 6 RADIOLOGY LD IV ALL CONTRAST MATERIAL COLLECTIO 24303 [facility] N VENOUS 6 [facility] BLOOD KAI KAI VENIPUNCT URE COMPREHEN 52969 [facility] SIVE 6 [facility] [place] [address] [facility] [place] CERVICAL 6 RADIOLOGY LD IV ALL SPINE W/O CONTRAST MATERIAL STANDARD K0001 CHEN SIDDIQUI FABYSHALA 6 SURGICAL SURGICAL R COMPREHEN 49982 LAB BABAK LAB BABAK SIVE 6 [facility] METABOLIC HOLDINGS HOLDINGS PANEL COLLECTIO 23606 LAB BABAK LAB BABAK N VENOUS 6 [facility] BLOOD [facility] HOLDINGS VENIPUNCT URE ALBUMIN 84581 LAB BABAK LAB BABAK URINE 6 [facility] MICROALBU [facility] HOLDINGS MIN QUANTIATI VE LIPID 71932 LAB BABAK LAB BABAK PANEL 6 [facility] [employer] [facility] HEMOGLOBI 60942 LAB BABAK LAB BABAK N 6 [facility] GLYCOSYLA [facility]INGS HOLDINGS CISCO A1C FOR DIAB A5512 CHEN WEST MX 6 SURGICAL SURGICAL DNSITY INSRT DIR FORMD PRFAB EA DIAB ONLY A5500 CHEN CHEUNG CSTM 6 SURGICAL SURGICAL PREP&SPL SHOE MX DNSITY INSRT STANDARD K0001 CHEN GOEL [address] [place] [address] [facility] [place] DAVID CERVICAL 6 RADIOLOGY RHO SPINE W/O CONTRAST MATERIAL CERVICAL L0174 G[facility] GOUL[facility] COLLAR 6 DISCOUNT DISCOUNT SEMI-RIGI MEDICAL MEDICAL D FOAM THOR EXT PREFAB STANDARD K0001 CHEN GOEL 6 SURGICAL SURGICAL R LANCETS A4259 ALL ALL PER BOX 6 KYRGYZ KYRGYZ OF 100 MEDICAL MEDICAL BLD GLU A4253 ALL ALL TEST/REAG 6 KYRGYZ KYRGYZ [facility] BLD GLU MON-50 NORMAL A4256 ALL ALL LOW AND 6 KYRGYZ KYRGYZ HIGH MEDICAL MEDICAL CALIBRATO R SOLUTION/ CHIPS STANDARD K0001 CHEN GOEL 6 SURGICAL SURGICAL R AMPUTATIO 71157 [place] ENDEAN N TOE 6 MEDICAL MIRIAN INTERPHAL SERV [place] [address] [place] GUADALUPE MOL SURG 6 MEDICAL PATHOLOGY SERV FOUNDATIO GROSS&JOHN N ROSCOPIC EXAM ECG 91576 JOHN DARLIN OMEGA ROUTINE 6 MEDICAL ECG SERV W/LEAST FOUNDATIO 12 LDS N I&R ONLY HOSPITAL G0463 [facility] [place] 6 Y Y T [facility] VISIT ASSESS & MGMT PT NON-INVAS 04386 JOHN GONGLLA KRISTIAN 6 MEDICAL JOSE ROBERTO PHYSIOLOG SERV IC STUDY FOUNDATIO EXTREMITY N 3 LEVLS DUP-SCAN 20660 JOHN GNOGLLA LXTR 6 MEDICAL JOSE ROBERTO ART/ARTL SERV BPGS FOUNDATIO UNI/LMTD N STUDY NON-INVAS 72304 [facility] STD EXTREMITY ART 2 LEVEL FEDERALLY G0467 KAI KAI 6 [facility] [employer] [facility] SOLUTIONS HEALTH IN IN CENTER VISIT ESTAB PT HOSPITAL [address] [place] ELI DISCHARGE 6 MEDICAL MILLY DAY SERV MANAGEMEN FOUNDATIO T > 30 N MIN WALKER E0143 PATIENT PATIENT FOLDING 6 AIDS INC AIDS INC WHEELED ADJUSTABL E/FIXED HEIGHT SBSQ 52454 [facility] 6 MEDICAL MARYBETH CARE/DAY SERV 25 FOUNDATIO MINUTES N BLD GLU A4253 [facility] TEST/REAG 6 CLINIC CLINIC T [facility] PHARMACY PHARMACY HOME BLD GLU MON-50 LANCETS A4259 [facility] PER BOX 6 CLINIC CLINIC OF 100 PHARMACY PHARMACY SBSQ 68732 [place] [address] MEDICAL NAN CARE/DAY SERV 25 FOUNDATIO MINUTES N SBSQ 69879 [place] [address] MEDICAL KER RAN CARE/DAY SERV 25 FOUNDATIO MINUTES N SBSQ 83644 [place] [address] MEDICAL KER RAN CARE/DAY SERV 25 FOUNDATIO MINUTES N SBSQ 28773 [place] [address] MEDICAL NAN CARE/DAY SERV 25 FOUNDATIO MINUTES N SBSQ 56943 [place] [address] MEDICAL MILLY CARE/DAY SERV 25 FOUNDATIO MINUTES N SBSQ 92938 [place] [address] MEDICAL MILLY CARE/DAY SERV 25 FOUNDATIO MINUTES N SBSQ 29654 [place] [address] MEDICAL MILLY CARE/DAY SERV 25 FOUNDATIO MINUTES N SBSQ 07517 [place] [address] MEDICAL MILLY CARE/DAY SERV 25 FOUNDATIO MINUTES N SBSQ 45134 [place] [address] MEDICAL NAN CARE/DAY SERV 25 FOUNDATIO MINUTES N SBSQ 44716 [place] [address] MEDICAL NAN CARE/DAY SERV 25 FOUNDATIO MINUTES N SBSQ 04921 [place] [address] MEDICAL MILLY CARE/DAY SERV 25 FOUNDATIO MINUTES N SBSQ 82205 [place] [address] MEDICAL MILLY CARE/DAY SERV 25 FOUNDATIO MINUTES N RADIOLOGI 92184 [facility] KOSTELIC C EXAM 6 RADIOLOGY CESILIA CHEST 2 VIEWS FRONTAL&L ATERAL RADIOLOGI 64577 [facility] KOSTELIC C 6 RADIOLOGY CESILIA EXAMINATI ON TIBIA & FIBULA 2 VIEWS INITIAL [address] [place] [address] MEDICAL MILLY CARE/DAY SERV 70 FOUNDATIO MINUTES N BP RT FEM [id number] UNIVERSIT UNIVERSIT VEIN LOW 6 Y Y [facility]IN [facility] AUTO VENOUS TISSUE OPEN IN-SITU 07374 [facility] FEM-ANT 6 MEDICAL MIRIAN TIBL PST SERV TIBL/PRON FOUNDATIO EAL ART N REPL CAROLEE A4233 ALL ALL ALKALINE 6 KYRGYZ KYRGYZ NOT J MEDICAL MEDICAL [place] [address] [place] KELLEY SURG 6 MEDICAL DEANDRE PATHOLOGY SERV FOUNDATIO GROSS&JOHN N ROSCOPIC EXAM LANCETS A4259 ALL ALL PER BOX 6 KYRGYZ KYRGYZ OF 100 MEDICAL MEDICAL BLD GLU A4253 ALL ALL TEST/REAG 6 KYRGYZ KYRGYZ T [facility] MEDICAL MEDICAL HOME BLD GLU MON-50 NORMAL A4256 ALL ALL LOW AND 6 KYRGYZ KYRGYZ HIGH MEDICAL MEDICAL CALIBRATO R SOLUTION/ CHIPS SPRING-PO A4258 ALL ALL WERED 6 KYRGYZ KYRGYZ DEVICE MEDICAL MEDICAL FOR LANCET EACH ECHO 04041 [place] BAIRD JAZMINE TTHRC R-T 6 MEDICAL 2D SERV W/WOM-MOD FOUNDATIO E COMPL N SPEC&COLR D ECG 08692 MA BARBARA CHI ROUTINE 6 MEDICAL ECG SERV W/LEAST FOUNDATIO 12 LDS N I&R ONLY SBSQ 50238 [place] [address] MEDICAL BRU CARE/DAY SERV 25 FOUNDATIO MINUTES N SBSQ 51690 [place] [address] MEDICAL MIRIAN CARE/DAY SERV 15 FOUNDATIO MINUTES N SBSQ 97480 [place] [address] MEDICAL MIRIAN CARE/DAY SERV 15 FOUNDATIO MINUTES N SBSQ 92083 [place] [address] MEDICAL BRU CARE/DAY SERV 25 FOUNDATIO MINUTES N SBSQ 37979 [place] [address] MEDICAL BRU CARE/DAY SERV 25 FOUNDATIO MINUTES N SBSQ 35312 [place] [address] MEDICAL MIRIAN CARE/DAY SERV 15 FOUNDATIO MINUTES N SBSQ 10806 [place] [address] MEDICAL BRU CARE/DAY SERV 25 FOUNDATIO MINUTES N SBSQ 24036 [place] [address] MEDICAL BRU CARE/DAY SERV 25 FOUNDATIO MINUTES N SBSQ 30087 [facility] 6 MEDICAL BRU CARE/DAY SERV 25 FOUNDATIO MINUTES N CTA ABDL 01742 JOHN GAUTAMMARSHAL AORTA&BI 6 MEDICAL JOHN ILIOFEM SERV W/CONTRAS FOUNDATIO T&POSTP N SBSQ 82258 [facility] 6 MEDICAL CARE/DAY SERV 25 FOUNDATIO MINUTES N RADEX 07599 [facility] JOSE JOSE ROBERTO FOOT 6 MEDICAL COMPLETE SERV MINIMUM 3 FOUNDATIO VIEWS N COMPLETE G0306 LAB BABAK LAB BABAK CBC 6 [facility] [employer] [facility] HOLDINGS &AUTOMATE D WBC DIFF COUNT COMPREHEN 60195 LAB BABAK LAB BABAK SIVE 6 [facility] METABOLIC [facility]INGS HOLDINGS PANEL COLLECTIO 47284 LAB BABAK LAB BABAK N VENOUS 6 [facility] BLOOD [facility]INGS HOLDINGS VENIPUNCT URE ALBUMIN 30446 LAB BABAK LAB BBAAK URINE 6 [facility] MICROALBU HOLDINGS HOLDINGS MIN QUANTIATI VE LIPID 19789 LAB BABAK LAB BABAK PANEL 6 [facility] HOLDINGS FEDERALLY G0467 KAI KAI 6 HEALTH HEALTH QUALIFIED SOLUTIONS SOLUTIONS HEALTH IN IN CENTER VISIT ESTAB PT FEDERALLY G0467 KAI KAI 5 HEALTH HEALTH QUALIFIED SOLUTIONS SOLUTIONS HEALTH IN IN CENTER VISIT ESTAB PT FEDERALLY G0467 KAI KAI 5 HEALTH HEALTH QUALIFIED SOLUTIONS SOLUTIONS HEALTH IN IN CENTER VISIT ESTAB PT HEMOGLOBI 25995 KAI FREDO JEANNIE N 5 HEALTH GLYCOSYLA SOLUTIONS CISCO A1C IN FEDERALLY G0467 KAI KAI 5 HEALTH HEALTH QUALIFIED SOLUTIONS SOLUTIONS HEALTH IN IN CENTER VISIT ESTAB PT COLLECTIO 59558 KAI FREDO JEANNIE N 5 HEALTH CAPILLARY SOLUTIONS BLOOD IN SPECIMEN COLLECTIO 11660 [facility] N VENOUS 5 [place] BLOOD KAI KAI VENIPUNCT URE COMPREHEN 85830 [facility] SIVE 5 [place] [address] [facility] THYROXINE 5 [place] TOTAL KAI KAI ALBUMIN 29636 [facility] URINE 5 [facility] MICROALBU KAI KAI MIN QUANTIATI VE LIPID 08630 [facility] PANEL 5 [place] KAI KAI HEMOGLOBI 48393 [facility] N 5 [facility] GLYCOSYLA [place] [address] [facility] TRIIODOTH 5 [facility] YRONINE KAI KAI T3 FREE LANCETS A4259 ALL ALL PER BOX 5 KYRGYZ KYRGYZ OF 100 MEDICAL MEDICAL BLD GLU A4253 ALL ALL TEST/REAG 5 KYRGYZ KYRGYZ T [facility] HOME BLD GLU MON-50 FEDERALLY G0467 KAI KAI 5 HEALTH HEALTH QUALIFIED SOLUTIONS SOLUTIONS HEALTH IN IN CENTER VISIT ESTAB PT HOSPITAL G0463 [facility] 5 Y Y T [facility] VISIT ASSESS & MGMT PT DIAB [...] IN IN CENTER VISIT ESTAB PT MRI 10155 [facility] [place] DAV[place] SPINAL 5 RADIOLOGY RHO CANAL CERVICAL W/O CONTRAST MATRL FEDERALLY G0467 KAI KAI 5 HEALTH HEALTH QUALIFIED SOLUTIONS SOLUTIONS HEALTH IN IN CENTER VISIT ESTAB PT HEMOGLOBI 34362 KAI FREDO JEANNIE N 5 HEALTH GLYCOSYLA SOLUTIONS CISCO A1C IN DUP-SCAN 83273 [facility] [place] XTR VEINS 5 RADIOLOGY LD IV ALL UNILATERA L/LIMITED STUDY COLLECTIO 70860 KAI FREDO JEANNIE N 5 HEALTH CAPILLARY SOLUTIONS BLOOD IN SPECIMEN THERAPEUT 17317 [facility] IC 5 [facility] PROPHYLAC KAI KAI TIC/DX INJECTION SUBQ/IM RADEX 56941 [facility] SPINE 5 [place] CERVICAL KAI KAI 2 OR 3 VIEWS INJECTION J1885 [facility] 5 [facility] KETOROLAC KAI KAI TROMETHAM INE PER 15 MG RADEX 72117 [facility] [place] SPINE 5 RADIOLOGY LD IV ALL CERVICAL 4 OR 5 VIEWS MRI BRAIN 51336 [place] PAL[place] BRAIN 5 MEDICAL REMBERTO STEM W/O IMAGING CONTRAST ASS MATERIAL RADEX 46640 DUSTIN CHAN ORBITS 5 [facility] COMPLETE INC INC MINIMUM 4 VIEWS FEDERALLY G[address] KAI KAI [address] [facility] [employer] SOLUTIONS [place] [address] TANNER LEEX BUX ANJ DX/THER 5 SBST EPIDURAL/ SUBARACH LUMBAR/SA CRAL INJECTION J1040 DUSTIN CHAN 5 [facility] METHYLPRE INC INC DNISOLONE ACETATE 80 MG LOCM Q9966 DUSTIN CHAN 200-299 5 [facility] MG/ML INC INC IODINE CONCENTRA TION PER ML FEDERALLY G0467 KAI KAI [address] [place] [address] [employer] SOL[facility] [place] [address] [facility] [place] JOSE MAT ABDOMEN & 5 RADIOLOGY PELVIS W/O CONTRAST MATERIAL LIPID 17378 [facility] PANEL 5 [facility] KAI KAI HEMOGLOBI 64494 [facility] N 5 [facility] GLYCOSYLA KAI KAI CISCO A1C COLLECTIO 21706 [facility] N VENOUS 5 [facility] BLOOD KAI KAI VENIPUNCT URE COMPREHEN 11023 [facility] SIVE 5 [facility] METABOLIC KAI KAI PANEL COLLECTIO 91370 [facility] N VENOUS 5 CLINIC CLINIC BLOOD LABORATO LABORATO VENIPUNCT URE URNLS DIP 83916 [facility] [address] [place] STICK/TAB CLINIC LET RGNT PSC AUTO W/[place] [address] [facility] PROSTATE 5 CLINIC CLINIC SPECIFIC LABORATO LABORATO ANTIGEN TOTAL CT THORAX 10430 [facility] [place] WANG CHR 5 RADIOLOGY W/CONTRAS T MATERIAL LOCM Q9967 [facility] 300-399 5 [place] MG/ML KAI KAI IODINE CONCENTRA TION PER ML RADEX 91370 [facility] [place] BRIGGS RIBS UNI 5 RADIOLOGY CAR W/POSTERO ANT CH MINIMUM 3 VIEWS URNLS DIP 41743 [facility] [address] [place] STICK/TAB CLINIC LET P[place] [address] [facility] PROSTATE 5 [place] SPECIFIC KAI KAI ANTIGEN TOTAL COLLECTIO 54958 [facility] N VENOUS 5 [place] [address] [facility] [place] [facility] ABDOMEN & 5 RADIOLOGY PELVIS W/O CONTRAST MATERIAL DALIA 86549 [facility] POST-VOID 5 [place] ING CLINIC RESIDUAL PSC URINE&/BL ADDER CAP COLLECTIO 72067 [facility] N VENOUS 5 CLINIC CLINIC BLOOD LABORATO LABORATO VENIPUNCT URE PROSTATE [id number] [facility] CANCER 5 CLINIC CLINIC SCREENING LABORATO LABORATO ; PSA TEST RADIOLOGI 20017 [facility] [place] [facility] C EXAM 5 RADIOLOGY CHEST 2 VIEWS FRONTAL&[place] [address] [facility] [place] [facility] HEAD/BRAI 4 RADIOLOGY N W/O & W/CONTRAS T MATERIAL COLLECTIO 99795 [facility] N VENOUS 4 [place] BLOOD KAI KAI VENIPUNCT URE LOCM Q9967 [facility] [phone] [place] MG/ML KAI KAI IODINE CONCENTRA TION PER ML CREATININ 17298 [facility] E BLOOD 4 [place] KAI KAI HEMOGLOBI 87286 KAI FREDO JEANNIE N 4 HEALTH GLYCOSYLA SOLUTIONS CISCO A1C IN LIPID 59377 [facility] PANEL 4 [facility] KAI KAI HEMOGLOBI 92685 [facility] N 4 [facility] GLYCOSYLA KAI KAI CISCO A1C BLOOD 30078 [facility] COUNT 4 [facility] COMPLETE KAI KAI AUTO&AUTO DIFRNTL WBC COLLECTIO 34580 [facility] N VENOUS 4 [facility] BLOOD KAI KAI VENIPUNCT URE COMPREHEN 74712 [facility] SIVE 4 [facility] [place] [address] [facility] FREE 4 [facility] THYROXINE KAI KAI ALBUMIN 32501 [facility] URINE 4 [facility] MICROALBU [place] [address] [facility] THYROID 4 [facility] STIMULATI KAI KAI NG HORMONE TSH TENS E0720 [facility] DEVICE 4 [facility] INC STIMULATI ON TENS E0720 [facility] CAREFREE DEVICE 4 [facility] STIMULATI ON RADEX 58348 [facility] [place] ANKLE 4 RADIOLOGY COMPLETE MINIMUM 3 VIEWS COLLECTIO 54640 [facility] HALE N VENOUS 4 [facility] BLOOD MEDICAL MEDICAL VENIPUNCT CENTE CENTE URE COMPREHEN 83703 [facility]OFF[facility] HALE SIVE 4 [facility] METABOLIC MEDICAL [place] [address] GEOFFREY GEOFFREY FREE 4 [facility] THYROXINE [place] [address] [facility] HALE THYROID 4 [facility]AL [facility] STIMULATI MEDICAL MEDICAL NG CENTE CENT[facility] HORMONE TSH LIPID 05470 GEOFFREY GEOFFREY PANEL 4 [facility] MEDICAL CENTE CENTE HEMOGLOBI 82860 GEOFFREY HALE N 4 REGIONAL REGIONAL GLYCOSYLA MEDICAL MEDICAL CISCO A1C CENTE CENTE BLOOD 33998 GEOFFREY GEOFFREY COUNT 4 REGIONAL REGIONAL COMPLETE MEDICAL MEDICAL AUTO&AUTO CENTE CENTE DIFRNTL WBC NORMAL A4256 ALL ALL LOW AND 3 KYRGYZ KYRGYZ HIGH MEDICAL MEDICAL CALIBRATO SUPPLIE SUPPLIE R SOLUTION/ CHIPS LANCETS A4259 ALL ALL PER BOX 3 KYRGYZ KYRGYZ OF 100 MEDICAL MEDICAL SUPPLIE SUPPLIE BLD GLU A4253 ALL ALL TEST/REAG 3 KYRGYZ KYRGYZ T STRIPS [facility] HOME BLD SUPPLIE SUPPLIE GLU MON-50 HEMOGLOBI 31528 GEOFFREY Pinedo 3 REGIONAL REGIONAL GLYCOSYLA MEDICAL MEDICAL CISCO A1C CENTDanielle CENTDanielle COLLECTIO 97148 GEOFFREY HALE N VENOUS 3 REGIONAL REGIONAL BLOOD MEDICAL MEDICAL VENIPUNCT NEEMA BETHEA URE COMPREHEN 66547 GEOFFREY HALE SIVE 3 REGIONAL REGIONAL METABOLIC MEDICAL MEDICAL PAN[place] [address] [facility] HAUSER JT LOWER 3 RADIOLOGY [place] EXTREM W/O CONTRAST MATRL CULTURE 79024 GEOFFREY HALE BCT 3 REGIONAL REGIONAL ISOL&PRSM [...] [employer] GLU MON-50 RADIOLOGI 82558 [facility] [place] SCALF GUTIERREZ C 3 RADIOLOGY EXAMINATI ON KNEE 3 VIEWS PROSTATE G0103 [facility] CANCER 3 [facility] SCREENING KAI KAI ; PSA TEST LIPID 92333 [facility] PANEL 3 [place] KAI KAI HEMOGLOBI 85665 [facility] N 3 [place] GLYCOSYLA KAI KAI CISCO A1C BLOOD 30068 [facility] COUNT 3 [place] COMPLETE KAI KAI AUTO&AUTO DIFRNTL WBC ALBUMIN 51470 [facility] URINE 3 [facility] MICROALBU KAI KAI MIN QUANTIATI VE COLLECTIO 34235 [facility] N VENOUS 3 [place] BLOOD KAI KAI VENIPUNCT URE COMPREHEN 94004 [facility] SIVE 3 [place] METABOLIC KAI KAI PANEL CREATININ 49144 [facility] OTHER 3 [facility] LABORATOR [place], [place] [address] [facility] FREE 3 [facility] [place] [address] [facility] THYROID 3 [facility] STIMULATI KAI KAI NG HORMONE TSH [...] [employer] [facility] R SOLUTION/ CHIPS RADEX 55654 [facility] JOHN PIÑA C SHOULDER 3 RADIOLOGY COMPLETE MINIMUM 2 VIEWS RADEX 70170 [facility] JOHN PIÑA C ELBOW 3 RADIOLOGY COMPLETE MINIMUM 3 VIEWS RADIOLOGI 37475 [facility] [place] BROOKS C 2 RADIOLOGY III ANUPAM EXAMINATI ON CHEST SINGLE VIEW FRONTAL [place]- A4258 US US WERED 2 HEALTHCAR HEALTHCAR [...] [employer] [facility] GLU MON-50 LIPID 21134 [facility] PANEL 2 [facility] KAI KAI HEMOGLOBI 94264 [facility] N 2 [facility] GLYCOSYLA KAI KAI CISCO A1C BLOOD 82447 [facility] COUNT 2 [facility] COMPLETE KAI KAI AUTO&AUTO DIFRNTL WBC ALBUMIN 85500 [facility] URINE 2 [facility] MICROALBU [place] [address] [facility] THYROID 2 [facility] STIMULATI KAI KAI NG HORMONE TSH RADEX 08024 [facility] JOHN Barrett SPINE 2 RADIOLOGY LUMBOSACR AL 2/3 VIEWS COLLECTIO 18786 [facility] N VENOUS 2 [facility] BLOOD KAI KAI VENIPUNCT URE COMPREHEN 82945 [facility] SIVE 2 [facility] METABOLIC KAI KAI PANEL RADIOLOGI 72978 [facility] JOHN Barrett C 2 RADIOLOGY EXAMINATI [...] LLC MON OWN PT EA LOCM Q9967 [facility] [phone] [facility] MG/ML KAI KAI IODINE CONCENTRA TION PER ML CT THORAX 52534 [facility] JOHN DAVID 2 RADIOLOGY RHO W/CONTRAS T MATERIAL COLLECTIO 04171 [facility] N VENOUS [address] VENIPUNCT URE COMPREHEN 17776 [facility] SIVE [address] PANEL LIPID [address] Y[facility]IR[facility] PANEL [address]EM[address]GLO[address] YANIR[facility] N [address] CISCO A1C RADIOLOGI [facility] ST YANIRA BISHOP C EXAM 2 REGIONAL JAZMINE CHEST 2 RADIOLOG VIEWS FRONTAL&L ATERAL COLLECTIO [address] [facility] [address] [facility] N VENOUS 2 [facility] BLOOD [facility] VENIPUNCT URE BASIC 59825 [facility] METABOLIC 2 [facility] PANEL [facility] CALCIUM TOTAL MRI 28566 [facility] [place] WANG C SPINAL 2 RADIOLOGY [...] [employer] [facility] R SOLUTION/ CHIPS NON-INVAS [address] PHYSIOL CARDIOLOG IC STD Y CLINIC EXTREMITY ART 2 LEVEL NON-INVAS 79848 [facility] KRISTIAN 2 [facility] IC STUDY EXTREMITY [address] Y[facility]IR[facility] CANCER [address] ; PSA TEST LIPID [address] [facility] PANEL [address]EMOGLOBI [address] YANIRA N [address] CISCO A1C BLOOD [address] Y[facility]IR[facility] COUNT [address] AUTO&AUTO DIFRNTL WBC COMPREHEN [address] YANIRA SIVE [address] [place] [address] Y[facility]IR[facility] THYROID 2 MEDICAL [...] [facility] [facility] GLU MON-50 COLLECTIO 39534 [facility] VENOUS 1 Y Y BLOOD [facility] VENIPUNCT URE COMPREHEN 15017 [facility] SIVE 1 Y Y METABOLIC [facility] PANEL PROTHROMB 52006 [facility] IN TIME 1 Y Y HOSPITAL HOSPITAL BLOOD 19064 [facility] COUNT 1 Y Y COMPLETE [facility] AUTOMATED GLUC BLD 54268 [facility] GLUC MNTR 1 Y Y DEV [facility] CLEARED FDA SPEC HOME USE BLD GLU A4253 CAREFREE CAREFREE TEST/REAG 1 [employer] [facility] GLU LANCETS A4259 [facility]AREFREE CAREFREE PER BOX 1 [employer] INC DESTRUCTI 37240 [facility] ON BENIGN 1 FAMILY TAU LESIONS CLINIC, UP TO 14 PLL LANCETS A4259 CAREFREE CAREFREE PER BOX 1 [employer] INC BLD GLU A4253 CAREFREE CAREFREE TEST/REAG 1 [employer] [facility] [employer] [facility] GLU MON-50 NORMAL A4256 ARRIVA ARRIVA LOW AND 1 MEDICAL MEDICAL HIGH CALIBRATO R SOLUTION/ CHIPS LANCETS A4259 ARRIVA ARRIVA PER BOX 1 MEDICAL MEDICAL OF 100 BLD GLU A4253 ARRIVA ARRIVA TEST/REAG 1 MEDICAL MEDICAL T STRIPS HOME BLD GLU SUN-50 RADIOLOGI 77375 [facility] [place] DAVID C EXAM 1 RADIOLOGY RHO CHEST 2 VIEWS FRONTAL&L ATERAL LANCETS A4259 [employer] PER BOX 1 [employer] INC BLD GLU A4253 CAREFREE CAREFREE TEST/REAG 1 [employer] INC GLU WALKER E0143 CHEN SIDDIQUI FOLDING 1 SURGICAL SURGICAL WHEELED ADJUSTABL E/FIXED HEIGHT SEAT E0156 CHEN SIDDIQUI ATTACHMEN 1 SURGICAL SURGICAL T WALKER RADIOLOGI 00575 [facility] C 1 [place] EXAMINATI KAI KAI ON KNEE 3 VIEWS GLUC BLD 60473 [facility] GLUC MNTR 1 [facility] DEV CLINIC, CLEARED PLL FDA SPEC HOME USE RADIOLOGI 25219 [facility] [place] DAVID C EXAM 1 RADIOLOGY RHO CHEST 2 VIEWS FRONTAL&L ATERAL RADIOLOGI 68421 [facility] C EXAM 1 [place] CHEST 2 KAI KAI VIEWS FRONTAL&L ATERAL NORMAL A4256 ARRIVA ARRIVA LOW AND 0 MEDICAL MEDICAL HIGH CALIBRATO R SOLUTION/ CHIPS LANCETS A4259 ARRIVA ARRIVA PER BOX 0 MEDICAL MEDICAL OF 100 BLD GLU A4253 ARRIVA ARRIVA TEST/REAG 0 MEDICAL MEDICAL T STRIPS HOME [facility]LD GLU [facility] A4258 ARRIVA ARRIVA WERED 0 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 REPL CAROLEE A4233 ARRIVA ARRIVA ALKALINE 0 MEDICAL MEDICAL NOT J CELL ANNA BG MON OWND PT ADMINISTR G0008 [facility] ATION OF 0 [facility] INFLUENZA CLINIC, VIRUS PLL VACCINE IIV3 72365 [facility] VACCINE 0 [facility] SPLIT CLINIC, VIRUS 0.5 PLL ML DOSAGE IM USE RADIOLOGI 88988 [facility] [place] WANG C C EXAM 0 [...] THRU DME U DOSE 1 MG IADNA 14930 [facility] CHLAMYDIA 0 [facility] TRACHOMAT IS AMPLIFIED PROBE TQ CUL BACT 96837 [facility] XCPT 0 [facility] URINE BLOOD/STO OL AEROBIC ISOL IADNA 99785 [facility] NEISSERIA 0 [facility] GONORRHOE AE AMPLIFIED PROBE TQ URNLS DIP 44765 [facility], 0 FAMILY [facility] STICK/TAB CLINIC, LET RGNT PLLC NON-AUTO W/O MICRSCP ALBUTEROL J7613 [facility] INHAL 0 N DRUG- N DRUG- NON-CP PROD THRU DME U DOSE 1 MG PHRM Q0513 [facility] DISPENSIN 0 N DRUG- N DRUG- G FEE INHALATIO N RX; PER 30 DAYS NEBULIZER E0570 [facility] WITH 0 N DRUG N DRUG COMPRESSO R THORACENT 17116 [facility] ESIS 0 [facility] PLEURAL CAVITY ASPIRATIO N SMR PRIM 91633 [facility] SRC 0 [facility] SA STAIN BCT FUNGI/GIBRAN L BLOOD 82740 [facility] COUNT 0 [facility] AUTOMATED CUL BACT 59601 [facility] XCPT 0 [facility] URINE [facility] HOSP BLOOD/STO OL AEROBIC ISOL CULTURE 71423 [facility] BACTERIAL 0 [facility] ANY [facility] HOSP SOURCE ANAEROBIC ISO&ID RADIOLOGI 73707 C[facility] C 0 [facility] EXAMIN[facility]I [facility] [place] [address] [facility] GUIDANCE 0 [facility]LE [facility] HOSP PLACEMENT THORACENT 77114 [facility] BRANN, ESIS WITH 0 RADIOLOGY MAXIM [...] THRU DME U DOSE 1 MG RADIOLOGI 11656 [facility] Arnold ESCALANTE EXAM 0 RADIOLOGY SONG Cruz CHEST 2 VIEWS FRONTAL&L ATERAL HEMOGLOBI 56384 [facility] N 0 [facility] GLYCOSYLA CISCO A1C LIPID 18650 [facility] PANEL 0 [facility] BLOOD 11627 [facility] COUNT 0 [facility] COMPLETE AUTO&AUTO DIFRNTL WBC COMPREHEN 04717 [facility] SIVE 0 [facility] METABOLIC PANEL COLLECTIO 86435 [facility] N VENOUS 0 [facility] BLOOD VENIPUNCT URE COMPLETE G0306 [facility] CBC 0 AMERIC AMERIC AUTOMATED HOLDING HOLDING &AUTOMATE D WBC DIFF COUNT TRANSFERA 44158 [facility] SE 0 AMERIC AMERIC ASPARTATE [place] [address] [facility] B[facility] GLUTAMYLT 0 AMERIC AMERIC RASE HOLDING HOLDING GAMMA COLLECTIO 63079 [facility] N VENOUS 0 AMERIC AMERIC BLOOD HOLDING HOLDING VENIPUNCT URE TRANSFERA 89904 [facility] SE 0 AMERIC AMERIC ALANINE HOLDING HOLDING AMINO ALT SGPT BASIC 53973 [facility] METABOLIC 0 AMERIC AMERIC PANEL [place] [address] [facility] PHOSPHATA 0 AMERIC AMERIC SE HOLDING HOLDING ALKALINE PROTHROMB 73957 [facility] IN TIME 0 [facility] THORACENT 94528 [facility] ESIS 0 [facility] HOSP PLEURAL CAVITY ASPIRATIO N SMR PRIM 76480 C[facility] SRC 0 [facility] HOSP SA STAIN BCT FUNGI/[place] [address] [facility] RICE, GUIDANCE 0 [facility] PLACEMENT THORACENT 22407 [facility] RICE, ESIS WITH 0 [facility] INSERTION TUBE WATER SEAL BLOOD 57798 [facility] COUNT 0 [facility] AUTOMATED THROMBOPL 61309 [facility] ASTIN 0 [facility] TIME [facility] HOSP PARTIAL PLASMA/WH OLE BLOOD CUL BACT 94116 [facility] XCPT 0 [facility] URINE [facility] HOSP BLOOD/STO OL AEROBIC ISOL CULTURE 54819 [facility] BACTERIAL 0 [facility] ANY [facility]OSP HOSP SOURCE ANAEROBIC ISO&ID CT THORAX 37908 [facility] Christiano CARTER 0 RADIOLOGY T W/CONTRAS T MATERIAL COLLECTIO 58860 [facility] N VENOUS 0 [facility] BLOOD [facility] [place] [address] [facility] UREA 0 [facility] NITROGEN [facility] RADIOLOGI 54932 [facility] Christiano CARTER EXAM 0 RADIOLOGY T CHEST 2 VIEWS FRONTAL&L ATERAL CREATININ 74446 [facility] E BLOOD [address] [facility] MRI 76683 [facility] Arnold MILLAN SPINAL 0 RADIOLOGY N CANAL LUMBAR W/O CONTRAST MATERIAL LIPID 20804 [facility] PANEL 9 [employer] ALBUMIN 98028 [facility] URINE 9 [employer] MICROALBU MIN QUANTIATI VE HEMOGLOBI 46042 [facility] N 9 [employer] GLYCOSYLA CISCO A1C PROSTATE G0103 [facility] CANCER 9 [employer] SCREENING ; PSA TEST BLOOD 32440 [facility] COUNT 9 [facility] INC COMPLETE AUTO&AUTO DIFRNTL WBC CREATININ 71033 [facility] E OTHER 9 [facility] INC SOURCE COLLECTIO 13646 [facility] N VENOUS 9 [facility] BLOOD VENIPUNCT URE COMPREHEN 57725 [facility] SIVE 9 [facility] METABOLIC PANEL RADIOLOGI 09424 [facility] C EXAM 9 [facility] CHEST 2 [facility] FRONTAL&L [facility] ATERAL COLLECTIO 82277 [facility] N VENOUS 9 [facility] BLOOD [facility] COMPREHEN 35317 [facility] SIVE 9 [facility] METABOLIC [facility] PANEL [facility] RADIOLOGI 08740 [facility] [place] SCALF, C EXAM 9 RADIOLOGY EVANGELIST E CHEST 2 VIEWS FRONTAL&L ATERAL COMPREHEN 62929 [facility] SIVE 9 [facility] PANEL COLLECTIO 42064 [facility] N VENOUS 9 [facility] B[facility]OD [facility] HOSP VENIPUNCT URE BLOOD 62286 [facility] COUNT 9 [facility] COMPLETE [facility] HOSP AUTO&AUTO DIFRNTL WBC HEPATIC 36384 [facility] FUNCTION 9 [facility] INC PANEL COLLECTIO 33117 [facility] N VENOUS 9 [facility] BLOOD VENIPUNCT URE SBSQ [address] CARE/DAY MDPSC 25 MINUTES HOSPITAL [address] CARDIOVAS PINEDO, DISCHARGE 9 MARIA R & MARIANELA Alvarado DAY THORACIC MANAGEMEN ASSOC PSC T 30 MIN/< SBSQ [address] CARE/DAY MDPSC 35 MINUTES SBSQ [address] CARE/DAY MDPSC 25 MINUTES SBSQ [address] CARE/DAY MDPSC 25 MINUTES RADIOLOGI 67759 [facility]AL GARCIA, C EXAM 9 RADIOLOGY J S CHEST 2 ASSOC VIEWS FRONTAL&L ATERAL ESOPHAGOG 32172 TANYA NIEVESAnthony 9 [facility] LIANG ENOSCOPY GASTROENT TRANSORAL EROLOGY PLL DIAGNOSTI C OTHER 4513 [facility] ENDOSCOPY 9 [facility] INTESTINE RADIOLOGI 11534 TUSCARORA PARUL, C EXAM 9 RADIOLOGY AJRED CHEST 2 ASSOC VIEWS FRONTAL&L ATERAL RADIOLOGI 07152 [facility], C 9 RADIOLOGY JARED EXAMINATI ASSOC ON CHEST SING[place] VIEW FRONTAL RADIOLOGI 04949 TUSCARORA MEJIA, 9 RADIOLOGY CHAY Lloyd EXAMINATI ASSOC ON CHEST SING[place]IEW FRONTAL SBSQ [address] CARE/DAY MDPSC 25 MINUTES SBSQ 38591 [facility] 9 [facility] CARE/DAY MDPSC 25 MINUTES RADIOLOGI 44761 [facility] 9 RADIOLOGY JARED EXAMINATI ASSOC ON CHEST SING[place] FRONTAL SBSQ 36979 [facility] 9 [facility] CARE/DAY MDPSC [address] PELVIS 379[address] [facility], RADIOLOGY J S W/CONTRAS ASSOC T MATERIAL CT THORAX 28355 [place] [address] RADIOLOGY J S W/[place] [address] [facility], ABDOMEN 9 RADIOLOGY J S W/CONTRAS ASSOC T MATERIAL SBSQ 35156 CARDIOVAS [facility] 9 MARIA R & MARIANELA G CARE/DAY THORACIC 25 ASSOC PSC MINUTES SWALLOWIN 18094 TUSCARORA MEJIA, G FUNCJ 9 RADIOLOGY CHAY R W/CINERAD ASSOC IOGRAPY/V IDRADIOG CYTP 91919 [facility] SLCTV 9 MELVIN & MAGNO WILDER, CELL CAIT Orta ENHANCEME NT INTERP[place] XCP[place] C/[place] [address] [facility] SURG 9 MELVIN & MAGNO WILDER, PATHOLOGY CAIT Orta GROSS&JOHN ROSCOPIC EXAM INSERTION 3404 [facility]AL OF 9 [facility] H[facility]P AL CATHETER FOR DRAINAGE RADIOLOGI 37293 [facility]AL MEJIA, C EXAM 9 RADIOLOGY CHAY R CHEST 2 ASSOC VIEWS FRONTAL&L ATERAL INITIAL 78430 MICHI HA, INPATIENT 9 AMARI Elizabeth CONSULT MDPSC NEW/ESTAB PT 110 MIN INITIAL 74647 [facility] 9 ULAR & BURL[place] G CARE/DAY THORACIC 70 ASSOC PSC MINUTES SPMTRY 78384 PULMONARY VILLARAN, W/VC 9 SHARAD EXPIRATOR ASSOCIATE Y CONSUELO S, INC W/WO MXML VOL VNTJ CULTURE 55761 [facility] FN 9 [facility] MOLD/YEAS [facility] T PRSMPTV [facility] BLOOD CULTURE 24071 [facility] MYCOBACTE 9 JHONNY JHONNY RIAL [facility] DEFINITIV [facility] E ID [facility] ISOL CYTP 71461 [facility] CONCENTRA 9 CONRAD JHONNY TION [facility] SMEARS & [facility] INTERPRET [facility] ATION THORACENT 62450 [facility] ESIS 9 [facility] PUNCTURE [facility] PLEURAL [facility] [place] [address] [facility] GUIDANCE 9 JHONNY JHONNY NEEDLE [facility] PLACEMENT [facility] S&I [facility] FLOW 76180 JOHN NAVA, CYTOMETRY 9 MEDICAL JOSPEH F INTERPJ SERV 9-15 FOUNDATIO MARKERS CUL BACT 12561 [facility] BRIAN 9 JHONNY JHONNY ANAERC [facility] ISOL XCPT [facility] BLOOD/STO OL CELL 15677 [facility] COUNT 9 [facility] MISC BODY [facility] FLUIDS [facility] W/[facility] NTIAL COUNT FLOW 79955 [facility] UNIVERS CYTOMETRY 9 Y CELL [facility] SURF MARKER TECHL ONLY EA PROTEIN 71883 [facility] TOTAL 9 JHONNY BARRY XCPT [facility] REFRACTOM [facility] SRC SMR PRIM 77940 [facility] SRC 9 JHONNY BARRY FLUORESCE [facility] NT&/AFS [facility] PARASIT SMR PRIM 71116 [facility] WET 9 JHONNY BARRY [facility] NFCT AGT [facility] RADIOLOGI 67353 [facility] C 9 J[facility]NY BARRY EXAMINATI [facility] ON CHEST [facility] VIEW FRONTAL FLOW 22732 [facility] CYTOMETRY 9 Y Y CELL [facility] SURF MARKER TECHL ONLY 1ST LACTATE 53132 [facility] DEHYDROGE 9 [facility] NASE [facility] CUL BACT 78513 [facility] BRIAN 9 [facility]NY [facility] AEROBIC [facility] ISOL XCPT [facility] BLOOD/STO OL SMR PRIM 02019 [facility] SRC 9 JHONNY BARRY GRAM/GIEM [facility] SA STAIN [facility] FUNGI/GIBRAN L CYTP 59312 [facility] SLCTV 9 CLINIC CLINIC 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 CYTP 32862 [facility] SLCTV 9 CLINIC CLINIC CELL LABORATOR LABORATOR ENHANCEME Y Y NT INTERPJ XCPT C/V THORACENT 42259 [facility] ESIS 9 JHONNY - APA, PUNCTURE 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 FOUNDATIO STD RADIOLOGI 67477 [place] Arnold TORRES 8 MEDICAL MARTI S EXAMINATI SERV ON CHEST FOUNDATIO SINGLE VIEW FRONTAL COMPREHEN 59082 [facility] SIVE 8 JHONNY BARRY METABOLIC [facility] PANEL [facility] [address] [facility] TROPONIN 8 [facility] [place] QUANTITAT [facility] GROUND A0425 [facility] MILEAGE 8 Y CO Y CO PER AMBULANCE AMBULANCE STATUTE SERVICE SERVICE MILE AMB A0427 [facility] SERVICE 8 Y CO Y CO ALS AMBULANCE AMBULANCE EMERGENCY SERVICE SERVICE TRANSPORT LEVEL 1 [place] [address] [place] LIP[facility] [address] [facility] PROTHROMB 20815 [place] TIME [facility] ECG 62675 [facility] ROUTINE 8 [facility] ECG [facility] W/LEAST [address] TRCG ONLY W/O I&R BLOOD 52335 [facility] COUNT 8 [facility] COMPLETE [facility] AUTO&AUTO [facility] WBC ECG 95231 [facility], ROUTINE 8 JONA SIXTO J ECG EMERGENCY W/LEAST PHYS INC 12 [facility] I&R ONLY RADIOLOGI 41052 [place] C 8 MEDICAL MEDICAL EXAMINATI SERV SERV ON CHEST FOUNDATIO FOUNDATIO [place] FRONTAL ECG 22368 [place] ROUTINE 8 MEDICAL MEDICAL ECG SERV SERV W/LEAST FOUNDATIO FOUNDATIO 12 [facility] I&R ONLY COLSC FLX 16745 [place] 8 MEDICAL MEDICAL W/REMOVAL SERV SERV LESION FOUNDATIO FOUNDATIO BY HOT BX FORCEPS EGD 47150 [place] TRANSORAL 8 MEDICAL MEDICAL BIOPSY SERV SERV SINGLE/MU FOUNDATIO FOUNDATIO LTIPLE COLSC FLX 42094 [place] W/RMVL 8 MEDICAL MEDICAL OF TUMOR SERV SERV POLYP FOUNDATIO [place] [address] [place] SURG 8 MEDICAL MEDICAL PATHOLOGY SERV SERV FOUNDATIO FOUNDATIO GROSS&JOHN ROSCOPIC EXAM SPECIAL 32661 [place] STAIN 8 MEDICAL MEDICAL GROUP 1 SERV SERV MICROORGA FOUNDATIO FOUNDATIO NISMS I&R INITIAL 00527 [place] INPATIENT 8 MEDICAL MEDICAL CONSULT SERV SERV NEW/ESTAB FOUNDATIO [place]OUNDAT[place] [address] [place] [address] [place] ABDOMEN 8 MEDICAL MEDICAL W/CONTRAS SERV SERV T FOUNDATIO FOUNDATIO MATERIAL CT PELVIS 60485 [place] 8 MEDICAL MEDICAL W/CONTRAS SERV [place] [address] [facility], ABDOMEN 8 EVANGELIST S W/O RADIOLOGY CONTRAST [place] [address] [place] MEADOWVIE LIPASE 8 W W [facility] CENTER CRITICAL 04250 KAUR DURÁN 8 EMERGENCY GRAHAM M ILL/INJUR SERVICES ED ASSOC PATIENT PSC INIT 30-74 MIN ECG 6[address] [place] ROUTINE 8 MEDICAL MEDICAL ECG SERV SERV W/LEAST FOUNDATIO FOUNDATIO 12 LDS I&R ONLY GROUND [id number] [facility] MILEAGE 8 CLARIBEL CO CLARIBEL CO PER STATUTE AMBULANCE AMBULANCE MILE BLOOD 99691 MEAD[facility]IE MEADOWVIE COUNT 8 W W COMPLETE [facility] AUTO&AUTO MEDICAL [place]ICAL [place] [address] [place] MEADOWVIE INFUSION 8 W W HYDRATION [facility] INITIAL MEDICAL MEDICAL 31 MIN-1 CENTER CENTER HR COLLECTIO 25822 [facility] MEADOWVIE N VENOUS 8 W W BLOOD [facility] VENIPUNCT MEDICAL MEDICAL URE CENTER CENTER COMPREHEN 05646 ME[facility] MEADOWVIE SIVE 8 W W METABOLIC [facility] [place] [address] ME[facility] MEADOWVIE AMYLASE 8 W W [facility] CENTER ANTIBODY 48305 ME[facility]OW[facility]IE MEADOWVIE SCREEN 8 W W RBC EACH [facility] SERUM MEDICAL MEDICAL TECHNIQUE CENTER CENTER BLOOD 63987 ME[facility]IE MEADOWVIE TYPING 8 W W SEROLOGIC [facility] CENTER INJECTION J2550 MEADOW[facility]IE MEADOWVIE 8 W W PROMETHAZ [facility] INE HCL MEDICAL MEDICAL UP TO 50 CENTER CENTER MG AMB A0427 [facility] SERVICE 8 CLARIBEL CO CLAR[facility]EL CO ALS EMERGENCY AMBULANCE AMBULANCE TRANSPORT LEVEL 1 BLOOD 98720 ME[facility]IE MEADOWVIE TYPING 8 W W SEROLOGIC [facility] RH (D) MEDICAL MEDICAL CENTER CENTER THROMBOPL 95721 MEADOW[facility]IE MEADOWVIE ASTIN 8 W W TIME [facility] PARTIAL MEDICAL MEDICAL PLASMA/WH CENTER CENTER OLE BLOOD CT PELVIS 60696 MEADOW[facility]IE MEADOWVIE W/O 8 W W CONTRAST [facility] CENTER PROTHROMB 80628 MEADOWVIE MEADOWVIE IN TIME 8 W W [facility] CENTER 3D 76923 MEADOWVIE MEADOWVIE RENDERING 8 W W W/INTERP [facility] MEDICAL POSTPROCE CENTER CENTER SS [facility] 77[address] [place] INTERNAL DISCHARGE 8 MEDICAL MEDICINE DAY SERV MANAGEMEN FOUNDATIO T 30 MIN/< ECHO 76654 [place] HARVEY, TRANSTHOR 8 MEDICAL KEKE AC R-T 2D SERV W/WO FOUNDATIO M-MODE REC COMP DOP 00915 JOHN GABRIEL, ECHOCARD 8 MEDICAL KEKE COLOR SERV FLOW FOUNDATIO VELOCITY MAPPING INJECTION 52992 [place] VAUGHN, CARDIAC 8 MEDICAL KVNG Barrett CATHJ L SERV VENTR/L FOUNDATIO ATR ANGIOGRAP H INITIAL 24656 [place] INPATIENT 8 MEDICAL MEDICAL CONSULT SERV SERV NEW/ESTAB FOUNDATIO FOUNDATIO PT 110 MIN L HRT 00210 JOHN MENDES CATHETERI 8 PRIYA Barrett ZATION SERV RETROGRAD FOUNDATIO E BRACHIAL PERQ I SI&R 17183 [place] F/NJX PX 8 PRIYA Barrett DURING SERV C-CATHJ FOUNDATIO PULM&/[place] [address] [place] C-CATHGlenn 8 PRIYA Barrett F/SLCTV C SERV ANGRPH FOUNDATIO DOPPLER 69237 JOHN GABRIEL, ECHOCARD 8 MEDICAL KEKE PULSE SERV WAVE FOUNDATIO W/SPECTRA L DISPLAY SBSQ 77250 [facility] 8 MEDICAL MEDICINE CARE/DAY SERV 25 FOUNDATIO MINUTES DUPLEX 04201 RADIOLOGY RADIOLOGY SCAN 8 EXTRACRAN PHYSICIAN PHYSICIAN CELSA العراقي S OF S OF COMPL BI [facility] STUDY PSC PSC I SI&R 24229 JOHN VAUGHN, F/NJX PX 8 MEDICAL KVNG Barrett DURING SERV C-CATHJ FOUNDATIO VENTR&/[place] DOP 05499 JOHN VAUGHN, MINERVA&/OR 8 MEDICAL KVNG Barrett PRESS SERV C/CONSUELO FOUNDATIO RSRV DALIA 1ST VSL RADIOLOGI [address] [place] C 8 MEDICAL MEDICAL EXAMINATI SERV SERV ON CHEST FOUNDATIO FOUNDATIO [place] FRONTAL ECG [address] [place] ROUTINE 8 MEDICAL MEDICAL ECG SERV SERV W/LEAST FOUNDATIO FOUNDATIO 12 LDS I&R ONLY URNLS DIP 84317 [facility], 8 POINT [facility] E STICK/TAB FAMILY LET RGNT CARE, AUTO W/O INC. MICROSCOP Y COLLECTIO 10532 [facility], N VENOUS 8 POINT HENRY E BLOOD FAMILY VENIPUNCT CARE, URE INC. ALBUMIN 39984 [facility], URINE 8 POINT HENRY E MICROALBU FAMILY MIN CARE, QUANTIATI INC. VE Encounters Encounter Start End Date Code Location Performer Type Date [facility]OSP[facility] - 7 7 [facility] T OFFICE 46385 [facility] RUBIO OUTPATIEN 7 7 PHYSICIAN T VISIT S GROUP 10 MINUTES HOSP[facility] - 7 7 [facility] OUTPATIEN E T HOSPITALS OFFICE 61165 [facility] OUTPATIEN 7 7 HEALTH T VISIT SOLUTIONS 15 IN MINUTES OFFICE 89288 [facility] OUTPATIEN 7 7 HEALTH T VISIT SOLUTIONS 15 IN MINUTES OFFICE 49622 [place] [facility] OUTPATIEN 7 7 MEDICAL T VISIT SERV 25 FOUNDATIO MINUTES N OFFICE 85669 KAI [facility] 7 7 HEALTH T VISIT SOLUTIONS 15 IN MINUTES EMERGENCY 25359 JOHN BALDWIN 7 7 MEDICAL DEPARTMEN SERV T VISIT FOUNDATIO MODERATE N SEVERITY EMERGENCY 00664 JOHN BALDWIN 7 7 MEDICAL DEPARTMEN SERV T VISIT FOUNDATIO LOW/MODER N SEVERITY EMERGENCY 79794 [facility] INCT 7 7 JONA VISIT EMERGENCY HIGH PHYS SEVERITY& THREAT FUN [facility]OSP[facility] - 7 7 [facility] OUTPATIEN INC T EMERGENCY 69319 [facility] 7 7 [facility] DEPARTMEN INC T VISIT LOW/MODER SEVERITY EMERGENCY 41301 CAROL TAVERAS 7 7 PHYSICIAN [facility] T VISIT HIGH/URGE NT SEVERITY [facility] [place] - 6 6 [facility] INPATIENT INC EMERGENCY 09761 CAROL JAVIER 6 6 PHYSICIAN [facility] T VISIT HIGH/URGE NT SEVERITY [facility] - 6 6 [facility] KAI T EMERGENCY 06668 [facility] 6 6 JONA Y TRA VISIT EMERGENCY HIGH SERVI SEVERITY& THREAT FUNCJ EMERGENCY 52442 [facility] 6 6 [facility] KAI T VISIT HIGH/URGE NT SEVERITY EMERGENCY 86[address] [facility] 6 6 JONA VALENTÍN DEPARTMEN EMERGENCY T VISIT PHYS HIGH/URGE NT SEVERITY [facility] - 6 6 [facility] - 6 6 [facility] T OFFICE 17569 [facility] 6 6 HEALTH T VISIT SOLUTIONS 15 IN MINUTES [facility]OSP[facility] - 6 6 [place] [facility] UN[facility] - 6 6 Y INPATIENT HOSPITAL OFFICE 51798 [facility] OUTPATIEN 6 6 HEALTH T VISIT SOLUTIONS 15 IN MINUTES OFFICE 43096 [facility] OUTPATIEN 5 5 HEALTH T VISIT SOLUTIONS 15 IN MINUTES OFFICE 11562 [facility] OUTPATIEN 5 5 HEALTH T VISIT SOLUTIONS 15 IN MINUTES OFFICE 63141 [facility] OUTPATIEN 5 5 HEALTH T VISIT SOLUTIONS [address] [facility] - 5 5 [facility] KAI T OFFICE 48572 [facility] OUTPATIEN 5 5 HEALTH T VISIT SOLUTIONS 15 IN MINUTES OFFICE 33444 HIMANSHU BEAN MARIZA OUTPATIEN 5 5 MD JOSE G, T VISIT PSC 10 MINUTES OFFICE 66747 [place] ADRIAN OUTPATIEN 5 5 MEDICAL GRE T NEW 30 SERV MINUTES [facility] UNIVERSIT - 5 5 Y OUTPATIEN HOSPITAL T OFFICE 46006 K[facility] OUTPATIEN 5 5 HEALTH T VISIT SOLUTIONS 15 IN MINUTES OFFICE 05001 [facility] OUTPATIEN 5 5 HEALTH T VISIT SOLUTIONS 15 IN MINUTES OFFICE 91624 [facility] OUTPATIEN 5 5 HEALTH T VISIT SOLUTIONS 15 IN MINUTES HOSPITAL [facility] - 5 5 [facility] OUTPATIEN INC T OFFICE 41312 [facility] OUTPATIEN 5 5 HEALTH T VISIT SOLUTIONS 15 IN MINUTES OFFICE 03396 [facility] OUTPATIEN 5 5 HEALTH T VISIT SOLUTIONS 15 IN MINUTES OFFICE 62517 [facility] OUTPATIEN 5 5 HEALTH T VISIT SOLUTIONS [address] [facility] - 5 5 [facility] OUTPATI[facility] KAI T OFFICE 07684 KAI OUTPATIEN 5 5 HEALTH T VISIT SOLUTIONS 25 IN MINUTES EMERGENCY 05771 [facility] 5 5 JONA DEPARTMEN EMERGENCY T VISIT SERVI HIGH/URGE NT SEVERITY [facility] - 5 5 [facility] OUTPATIEN KAI T EMERGENCY [facility] [facility] 5 5 [facility] DEPARTMEN KAI T VISIT MODERATE SEVERITY [facility]OSPITAL [facility] - 5 5 [facility] OUTPATIEN INC T OFFICE 65996 KAI OUTPATIEN 5 5 HEALTH T VISIT SOLUTIONS 25 IN MINUTES HOSPITAL [facility] - 5 5 [facility] OUTPATIEN INC T OFFICE 15374 [facility]AI OUTPATIEN 5 5 HEALTH T VISIT SOLUTIONS [address] [facility] - 5 5 [facility] OUTPATI[facility] KAI T OFFICE 74943 [facility] OUTPATIEN 5 5 HEALTH T VISIT SOLUTIONS [address] [facility] - 5 5 [facility] OUTPATIEN KAI T OFFICE 00401 KAI OUTPATIEN 5 5 HEALTH T VISIT SOLUTIONS 25 IN MINUTES OFFICE 67832 TANNER ARAIZA BUX ANJ OUTPATIEN 5 5 MD T NEW 30 MINUTES OFFICE 67355 NEW MLAA OUTPATIEN 5 5 [place] [facility] 10 PSC MINUTES EMERGENCY 68298 [facility] SUKI [facility] 5 5 JONA OMEGA DEPARTMEN EMERGENCY T VISIT SERVI MODERATE SEVERITY [facility] - 5 5 [facility] OUTPATIEN KAI T EMERGENCY 77217 [facility] 5 5 JONA GIN DEPARTMEN EMERGENCY T VISIT PHYS HIGH/URGE NT SEVERITY OFFICE 12551 [facility] OUTPATIEN 5 5 [place] [facility] [address] [facility] - 5 5 [facility] OUTPATIEN KAI T OFFICE 46276 [facility] OUTPATIEN 5 5 [place] [facility] 25 PSC MINUTES OFFICE 16113 [facility] OUTPATIEN 5 5 HEALTH T VISIT SOLUTIONS [address] [facility] - 5 5 [facility] OUTPATIEN KAI T OFFICE 00455 [facility]A OUTPATIEN 5 5 [place] T NEW 45 CLINIC MINUTES PSC OFFICE 40856 [facility]AI OUTPATIEN 5 5 HEALTH T VISIT SOLUTIONS [address] [facility] - 4 4 [facility] OUTPATIEN KAI T OFFICE 24451 KAI OUTPATIEN 4 4 HEALTH T VISIT SOLUTIONS 25 IN MINUTES OFFICE 14214 [facility]AI OUTPATIEN 4 4 HEALTH T NEW 20 SOLUTIONS MINUTES IN [facility] - 4 4 [facility] OUTPATIEN KAI T EMERGENCY 16132 [facility] 4 4 J[facility] EMERGENCY T VISIT PHYS MODERATE SEVERITY [facility] - 4 4 [facility] OUTPATIEN KAI T EMERGENCY 89837 [facility] 4 4 [facility] VISIT [facility]IGH/URGE NT SEVERITY [facility] [address] [facility] OFFICE 59738 MICHI A DELOMAS OUTPATIEN 4 4 [place] MAR T KIN 30 [facility] MINUTES OFFICE 80501 ACEVES ACEVES OUTPATIEN 3 3 JOHN JOHN T VISIT 25 MINUTES OFFICE 49175 [facility] JOSE II OUTPATIEN 3 3 [facility] SLEEP PENNY T VISIT AND REHA 15 MINUTES HOSP[facility] - 3 3 [facility] OUTPATI MEDICAL T [facility] - 3 3 [facility] OUTPATIEN KAI T [facility]OSP[facility] - OTHER [facility] 45559 EDU KRISTIAN II 3 3 EMERGENCY O DEPARTMEN SERVICES T VISIT MODERATE SEVERITY [facility] - OTHER 3 3 [facility] OFF[facility] 54491 COMMONLYRICA JOSE II OUTPATIEN 3 3 LT SLEEP PENNY T VISIT AND REHA 15 MINUTES HOSPITAL [facility] - 2 2 REGIONAL OUTPATIEN MEDICAL T [facility] OFFICE 12579 COMMONWEA JOSE II OUTPATIEN 2 2 LT SLEEP PENNY T VISIT AND REHA 15 MINUTES EMERGENCY 22718 [facility] 2 2 JONA CHWENK DEPARTMEN EMERGENCY REG T VISIT PHYS HIGH/URGE NT SEVERITY [facility] - OTHER 2 2 [facility] OFF[facility] 36541 COMMONLYRICA JOSE II OUTPATIEN 2 2 LT SLEEP PENNY T VISIT AND REHA 15 MINUTES OFFICE 58850 COMMON[facility] JOSE II OUTPATIEN 2 2 LT SLEEP PENNY T NEW 30 AND REHA MINUTES OFFICE 37935 [facility] OUTPATIEN 2 2 [facility] T VISIT 15 MINUTES CLINIC[facility] [place] 2 2 [facility] EMERGENC[facility] 00026 [facility] 2 2 JONA EDW DEPARTMEN EMERGENCY T VISIT PHYS MODERATE SEVERITY OFFICE 59848 [facility] OUTPATIEN 2 2 [facility] T VISIT 15 MINUTES CLINIC, [place] 2 2 [facility] 2 2 [facility] - [address] T OFFICE 95422 [facility] OUTPATIEN 2 2 COUNTY T VISIT 25 MINUTES CLINIC[facility] [place] 2 2 [facility] OFFICE 79649 [facility] OUTPATIEN 2 2 COUNTY T VISIT 15 MINUTES EMERGENCY 97334 [facility] 3] 2 2 JONA [facility] EMERGENCY T VISIT SERVI MODERATE SEVERITY [facility] - 2 2 [facility] - 2 2 [facility] [place] 2 2 [facility] OFF[facility] 16830 [facility] OUTPATIEN 2 2 COUNTY T VISIT 15 MINUTES OFFICE 58777 [facility] OUTPATIEN 2 2 COUNTY T VISIT 25 MINUTES CLINIC, [place] 2 2 [facility] HEALTH OFFICE 11731 CAVE FAISAL JACK WILDER OUTPATIEN 2 2 SURGICAL MARIZA T VISIT SPECIALIS 15 T MINUTES [facility] 2 2 [facility] OFFICE 41290 MINNIE MALONE JACK OUTPATIEN 2 2 SURGICAL MARIZA T NEW 45 SPECIALIS MINUTES T OFFICE 13726 [facility] OUTPATIEN 2 2 COUNTY T VISIT 25 MINUTES [facility] - [address] T EMERGENCY 43218 [facility] 1 1 MEDICAL [facility] T VISIT FOUNDATIO HIGH/URGE NT SEVERITY EMERGENCY 13944 [facility] 1 1 [facility] T VISIT MODERATE SEVERITY [facility] - 1 1 [facility] OFF[facility] 73520 TIM HEMPHILL 1 1 Sharimn PAYTON VISIT [facility] 15 . MINUTES OFFICE 83210 TIM GONZALEZPATICHLOÉ 1 1 Sharmin [facility]TON VISIT [facility] 15 . MINUTES OFFICE 52833 TIM GONZALEZPATICHLOÉ 1 1 Sharmin PAYTON VISIT [facility] 15 . MINUTES OFFICE 87233 [facility] OUTPATIEN 1 1 FAMILY TAU T VISIT CLINIC, 15 PLL MINUTES OFFICE 80358 [facility] OUTPATIEN 1 1 FAMILY TAU T VISIT CLINIC, 25 PLL MINUTES [facility] [place] [address] 1 [facility] OFF[facility] 73877 TIM STUART OUTPATIEN 1 1 Sharmin PAYTON VISIT [facility] 15 . MINUTES [facility] [place] [address] 1 [facility] 87649 [facility] 1 1 FAMILY TAU T VISIT CLINIC, 25 PLL MINUTES OFFICE 69316 CARDIOVAS PINEDO OUTPATIEN 1 1 ULAR & ANT T VISIT THORACIC 15 ASS MINUTES [facility] [place] [address] 1 [facility] [place] [address] 1 [facility] OFF[facility] 22401 TIM STUART OUTPATIEN 0 0 Sharmin PAYTON VISIT Xenia.D.P.S.C 15 . MINUTES OFFICE 00113 [facility] OUT[facility] 0 0 FAMILY TAU T VISIT CLINIC, 25 PLL MINUTES OFFICE 84966 CARDIOVAS PINEDO OUTPATIEN 0 0 ULAR & ANT T VISIT THORACIC 15 ASS MINUTES [facility] 0 0 [facility] 84930 TIM STUART OUTPATIEN 0 0 Sharmin PAYTON VISIT M.D.P.S.C 15 . MINUTES OFFICE 51506 COMMONWE[facility] HESCOCK OUTPATIEN 0 0 [facility] JR, T 30 UROLOGY MARNIE R MINUTES OFFICE 26904 [facility], OUTPATIEN 0 0 FAMILY [place] T VISIT CLINIC, 15 PLLC MINUTES OFFICE 65062 [facility], OUTPATIEN 0 0 FAMILY [place] T VISIT CLINIC, 15 PLLC MINUTES OFFICE 09543 CARDIOVAS PINEDO, OUTPATIEN 0 0 ULAR & MARIANELA G T VISIT THORACIC 15 ASSOC [facility] MINUTES HOSPITAL [facility] - 0 0 [facility] 20319 CARDIOVAS PINEDO, OUTPATIEN 0 0 ULAR & MARIANELA G T VISIT THORACIC 15 ASSOC [facility] - 0 0 [facility] T OFFICE 40181 [facility], OUT[facility] 0 0 FAMILY [place] T VISIT CLINIC, 15 PLLC MINUTES OFFICE 73040 TIM DUMONT OUTPATIEN 0 0 EZIO PAYTON VISIT M.D.P.S.C E 15 . MINUTES OFFICE 38468 [facility] ELIA, OUTPATIEN 0 0 FAMILY [place] T VISIT CLINIC, 15 PLLC MINUTES [facility] - 0 0 [facility] OFF[facility] 04209 CARDIOVAS PINEDO, OUTPATIEN 0 0 ULAR & MARIANELA G T VISIT THORACIC 15 ASSOC [facility] - 0 0 [facility] OFFICE 79643 TIM HALE OUTPATIEN 0 0 KEKE PAYTON M.D.P.S.C MINUTES . HOSPITAL [facility] OTHER 0 0 [facility] [place] [address] 9 [facility] 9 9 [facility] [place] [address] 9 [facility] OFFICE 50165 MICHI HOBSONBHAVYA, OUTARH [facility] 9 9 AMARI Elizabeth T VISIT [facility] 25 MINUTES [facility]OSP[facility] [place] - 9 9 [facility] T OFFICE 76566 MICHI GAO [facility] 9 9 AMARI TAVERA T VISIT [facility] 25 MINUT[facility] [place] - 9 9 [facility] - OTHER 9 9 [facility] 9 9 [facility] EMERGENCY 28478 ELBA SMART DEPT 9 9 JONA Orta VISIT EMERGENCY HIGH PHYS INC SEVERITY& THREAT [facility] OFFICE 70473 CARDIOVAS SHAHIDA, CONSULTAT 9 9 ULAR & MARIANELA Alvarado ION THORACIC NEW/ESTAB ASSOC PSC PATIENT 40 MIN OFFICE 01217 [facility] DE[facility] 9 9 [facility] VISIT MTRuth MORRIS 15 [facility] 53622 ELBA COUGHLIN DEPT 8 8 JONA Elizabeth VISIT EMERGENCY HIGH PHYS INC SEVERITY& THREAT [facility] 8 8 [facility] EMERGENCY 32212 [facility] 8 8 [facility] VISIT [facility]URGE [facility] NT SEVERITY EMERGENCY 99651 CRISTIAN DEPT 8 8 W VISIT [facility] THREAT [facility] CRISTIAN - [address] [facility] OFFICE 40507 [facility], [facility] 8 8 POINT HENRY E T VISIT FAMILY 25 CARE, MINUTES INC. OFFICE 14448 [facility], OUTPATIEN 8 8 POINT HENRY E T VISIT FAMILY 25 CARE, MINUTES INC.
--- OUTSIDE RECORDS SUMMARY | 2017-04-02 13:04 | External Medical Summary Rpt ---
Author Author [employer], [employer] Organization [employer] Address Unknown Phone Unavailable
--- OUTSIDE RECORDS SUMMARY | 2017-04-02 13:04 | External Medical Summary Rpt ---
Demographics Preferred Language Occitan Marital Status Unknown Anabaptism Affiliation Unknown Race Unknown Ethnic Group Unknown Author Author , Organization [employer] Address Unknown Phone Unavailable Purpose Continuity of Care Document - through 2016 Immunization No patient found.
--- OUTSIDE RECORDS SUMMARY | 2017-04-02 13:04 | External Medical Summary Rpt ---
Demographics Preferred Language Lao Marital Status Unknown Zoroastrianism Affiliation Unknown Race Unknown Ethnic Group Unknown Author Author , Organization [employer] Address Unknown Phone Unavailable Purpose Continuity of Care Document - through 2016 Immunization No patient found.
[2017-04-02 14:30] VITALS: BP 154/74
--- NOTE | 2017-04-02 19:17 | RADIOLOGY REPORT PS360 ---
ANKLE-LT-3 VIEWS, FOOT-LT-3 VIEWS Ordering Physician: Rachel Kurtz MD Patient Age: 77 years: Male HISTORY: POSSIBLE REINJURY TECHNIQUE: 3 views left ankle 3 views left foot ...... LEFT ANKLE 3 VIEWS...... FINDINGS comparison is made to 03/14/2017 left ankle in cast. The cast is been removed. The patient injury injured ankle with re fracture with eversion injury.. . There is lateral displacement of the talus relative the tibia. With this lateral shift the talus there is accompanying significant lateral displacement of the previous medial malleolar fracture fragment as well as the lateral displacement of the distal fibular fracture fragment posterior malleolus remains intact talar dome remains intact. Arthritic changes at tarsals. Prominent soft tissue swelling about ankle FINDINGS Cast was removed since prior study Recurrent eversion injury has resulted and lateral displacement and of the talus along with accompanying bimalleolar fracture components FOOT-LT-3 VIEWS HISTORY: POSSIBLE REINJURYankle and foot TECHNIQUE: 3 views left foot FINDINGS No acute fracture is seen at the foot. There are are arthritic changes at the tarsals with some scattered subchondral cystic changes particularly evident at tarsal and tarsometatarsal joints. The recurrent bimalleolar fracture discussed above IMPRESSION: No fracture nor new findings at the left foot. Degenerative changes, most evident at tarsals/ & tarsal metatarsal joint
== END 2017-04-02 14:35 | disposition home or self-care (01) ==
LOC: ER 12:29
DX: S82.202G Unspecified fracture of shaft of left tibia, subsequent encounter for closed fracture with delayed healing (principal); I25.10 Atherosclerotic heart disease of native coronary artery without angina pectoris; J44.9 Chronic obstructive pulmonary disease, unspecified; E11.9 Type 2 diabetes mellitus without complications; Z72.0 Tobacco use; W01.0XXA Fall on same level from slipping, tripping and stumbling without subsequent striking against object, initial encounter; Y92.009 Unspecified place in unspecified non-institutional (private) residence as the place of occurrence of the external cause

== ENCOUNTER → 2017-05-28 | Outpatient (CLI) | payer MEDICARE, MEDICAID ==
[~2017-05-28] MED LIST changes: +CLOPIDOGREL75 M2 PO; +GABAPENTIN800 MG PO; +IPRATROPIUM BROM3 M1 IH; +ROCEPHIN 1 GM VI1 GM IV; +TRAMADOL 50MG T50 MG PO; +Zithromax500 MG PO
== END ==
LOC: LAB 17:47
DX: E11.9 Type 2 diabetes mellitus without complications (principal)